=== PATIENT | male | born 1965 | race Caucasian/White ===

== ENCOUNTER 2017-04-04 08:55 | Observation (INO) ==
[2017-04-04] MEDS ORDERED: Aspirin 81 MG TAB.CHEW PO ONE (09:04)
[2017-04-04] MEDS ORDERED: Nitroglycerin 1 INCH/GM PACKET TP ONE (09:04)
--- NOTE | 2017-04-04 09:07 | Emergency Department Note ---
Disposition Clinical Impression: Chest pain Qualifiers: Chest pain type: unspecified Qualified Code(s): R07.9 - Chest pain, unspecified Hypertension Qualifiers: Hypertension type: essential hypertension Qualified Code(s): I10 - Essential ( primary) hypertension Disposition: Admitted As Inpatient Referrals: Wilman Whitney Jr, MD [Primary Care Provider] - Forms: Work/School Release, ED Satisfaction Letter Time of Disposition: 10:33 Chest Pain HPI - General Chief Complaint: ED General Medical Stated Complaint: HTN Time Seen by Provider: 04/04/17 08:57 Source: patient, EMS Mode of arrival: EMS Limitations: no limitations Vital Signs Reviewed: Yes Nursing Notes Reviewed: Yes - History of Present Illness HPI Narrative: 21-year-old who comes in complaining of chest pain and elevated blood pressure. Patient states she hasn't felt well for last several days. He went to his counseling session today that his blood pressure was elevated. Patient states he has had some intermittent chest pain over the last several days. The patient did have a stent last year has had no cardiac workup since. Pt complaint: chest pain Onset (ago): [employer] Duration: intermittent Onset: during exertion Pain Location: substernal, left chest Severity: moderate Severity scale (1-10): 8 Pain Radiation: none Improves with: nothing Worsens with: exertion Treatments prior to arrival chest pain: none - Related Data Home Medications Medication Instructions Recorded Confirmed Alprazolam [Xanax] 1 mg PO TID 04/29/16 08/25/16 Gabapentin [Neurontin] 100 mg PO TID 04/29/16 08/25/16 Haloperidol [Haldol] 5 mg PO QAM 04/29/16 08/25/16 Insulin ASPART [Novolog Flexpen] 5 - 10 unit SQ TIDWM 04/29/16 08/25/16 Mirtazapine [Remeron] 45 mg PO HS 04/29/16 08/25/16 Furosemide [Lasix] 40 mg PO DAILY 06/12/16 08/25/16 Haloperidol [Haldol] 10 mg PO HS 06/12/16 08/25/16 Insulin DETEMIR [Levemir Flextouch] 40 unit SQ BID 06/12/16 08/25/16 Prazosin [Minipress] 1 mg PO HS 06/12/16 08/25/16 Quetiapine Fumarate [Seroquel] 150 mg PO QAM 06/12/16 08/25/16 Quetiapine Fumarate [Seroquel] 450 mg PO HS 06/12/16 08/25/16 TraZODone 50 - 100 mg PO HS 06/12/16 08/25/16 Venlafaxine XR (24 HR) [Effexor XR] 75 mg PO DAILY 06/12/16 08/25/16 Lisinopril [Zestril] 10 mg PO BID 08/25/16 08/25/16 Previous Rx's Medication Instructions Recorded Aspirin 81 mg PO DAILY tab.chew 06/20/16 Atorvastatin [Lipitor] 40 mg PO HS #30 tablet 06/20/16 Carvedilol [Coreg] 12.5 mg PO BIDWM #120 tablet 06/20/16 Clopidogrel [Plavix] 75 mg PO DAILY #30 tablet 06/20/16 Pantoprazole Sodium [Protonix] 40 mg PO DAILY #30 tablet.dr 06/20/16 amLODIPine [Norvasc] 10 mg PO DAILY #30 tablet 06/20/16 Isosorbide MONOnitrate (24 HR) 60 mg PO DAILY #20 tab.er.24h 08/15/16 [Imdur] Allergies Allergy/AdvReac Type Severity Reaction Status Date / Time codeine Allergy Vomiting Verified 06/12/16 13:04 All systems ED: reviewed and negative except as stated. Constitutional: Denies: fever, chills, weakness, weight change Eyes: Denies: eye pain, eye discharge, vision change ENT ED: Denies: ear pain, throat pain, dental pain, hearing loss, epistaxis, congestion, dysphagia Cardiovascular: Reports: chest pain. Denies: palpitations, dyspnea on exertion , edema, syncope Respiratory: Denies: cough, dyspnea, wheezes, hemoptysis, stridor Gastrointestinal: Denies: abdominal pain, nausea, vomiting, diarrhea, constipation, hematemesis, melena, hematochezia Genitourinary: Denies: urgency, dysuria, frequency, hematuria Musculoskeletal: Denies: back pain, neck pain, arthralgia, myalgia Integumentary: Denies: rash, abrasion, lesions Neurological: Denies: headache, weakness, numbness, paresthesias, confusion, abnormal gait, vertigo Psychiatric: Denies: anxiety, depression, suicidal thoughts, homicidal thoughts , auditory hallucinations, visual hallucinations Endocrine: Denies: fatigue Hematological/Lymphatic: Denies: easy bleeding, easy bruising Allergic/Immunologic: Denies: facial swelling, urticaria Chest Pain PMH - Past Medical History Medical history: Reports: arthritis, cirrhosis, coronary artery disease, diabetes, GERD, hepatitis, hyperlipidemia, hypertension, liver disease, migraine , myocardial infarction, RA, renal disease Surgical history: Reports: angioplasty/stent (06/18/2016 x1), cholecystectomy Psychiatric history: Reports: anxiety, depression, PTSD - Social History Smoking Status: Former smoker Alcohol use: Reports: none Drug use: Reports: none Physical Exam - General Limitations: no limitations General appearance: alert, in no apparent distress - Head Head exam: atraumatic, normocephalic, normal inspection - Eye Eye exam: Present: normal appearance, PERRL, EOMI - ENT ENT exam: normal exam - Neck Neck exam: Present: normal inspection, full ROM, trachea midline - Chest Chest inspection: Present: normal inspection, symmetric chest wall rise - Respiratory Respiratory exam: Present: normal lung sounds bilaterally - Cardiovascular Cardiovascular exam: Present: regular rate, normal rhythm, normal heart sounds - Abdominal Exam Abdominal exam: Present: soft, Non-Tender. Absent: tenderness, distention, guarding, rebound, rigidity - Extremities Exam Extremities exam: Present: normal inspection, full ROM. Absent: tenderness, pedal edema - Expanded Lower Extremity Exam Neurovascular/Tendon exam: Absent: motor deficit, sensory deficit, tendon deficit Gait: observed and normal - Back Exam Back exam: Present: normal inspection, full ROM. Absent: tenderness - Neurological Exam Neurological exam: Present: alert, oriented X3 - Psychiatric Psychiatric exam: Present: normal affect, normal mood - Skin Skin exam: Present: warm, dry, intact, normal color Course - Reevaluation(s) Reevaluation #1: 51-year-old with a history of previous stent who comes in complains of intermittent chest discomfort and elevated blood pressure. Patient's initial EKG shows no acute changes troponin is negative. Patient will be admitted for further evaluation of his chest pain. Time: 10:33 - Consultations Consultation #1: Discussed with Dr. Pryor, admit. Time: 10:31 Vital Signs Temperature 98.2 F 04/04/17 08:56 Pulse Rate 105 04/04/17 08:56 Respiratory Rate 17 04/04/17 08:56 Blood Pressure 190/119 04/04/17 08:56 O2 Sat by Pulse Oximetry 100 04/04/17 08:56 Temperature 98.2 F 04/04/17 08:56 Pulse Rate 93 04/04/17 10:12 Respiratory Rate 04/04/17 10:12 Blood Pressure 171/113 04/04/17 10:12 O2 Sat by Pulse Oximetry 100 04/04/17 10:12 Oxygen Delivery Oxygen Delivery Room Air Chest Pain - Lab Data Lab results reviewed: Yes I reviewed the patient's lab results. Result diagrams: 04/04/17 09:07 04/04/17 09:07 Lab Results 04/04/17 04/04/17 04/04/17 Range/Units 09:07 09:07 09:07 WBC 9.4 (4.3-11.1) K/mcL RBC 4.63 (4.19-5.50) M/mcL Hgb 13.5 (12.9-16.9) g/dL Hct 38.6 (37.5-50.1) % MCV 83.4 (83.0-100.0) fL MCH 29.2 (28.0-33.3) pg MCHC 35.0 (31.6-35.5) g/dL RDW 12.6 (11.5-14.5) % Plt Count 193 (140-400) K/mcL MPV 8.6 L (9.4-12.4) fL Immature Gran % 0.4 (0-4) % Seg Neutrophils % 67.9 % Lymphocytes % 23.6 % Monocytes % 6.4 % Eosinophils % 1.3 % Basophils % 0.4 % Neutrophils # 6.4 (1.6-8.9) K/mcL Lymphocytes # 2.2 (0.6-4.6) K/mcL Monocytes # 0.6 (0.0-1.3) K/mcL Eosinophils # 0.1 (0.0-0.6) K/mcL Basophils # 0.0 (0.0-0.2) K/mcL PT 12.3 H (9.4-12.1) Seconds INR 1.1 APTT 29.8 (26.0-36.0) Seconds Sodium 131 L (136-145) mEq/L Potassium 4.5 (3.5-4.5) mEq/L Chloride 97 L (98-109) mEq/L Carbon Dioxide 28 (19-29) mEq/L BUN 18 (8-26) mg/dL Creatinine 1.26 H (0.72-1.25) mg/dL Est GFR ( Amer) > 60 (> 60) Est GFR (Non-Af Amer) 60 (> 60) BUN/Creatinine Ratio 14 (6-26) Glucose 281 H (70-99) mg/dL POC Glucose (58-89) Calculated Osmolality 284 (280-300) Calcium 9.6 (8.6-10.8) mg/dL Troponin I (0-0.03) ng/mL 04/04/17 04/04/17 Range/Units 09:07 09:21 WBC (4.3-11.1) K/mcL RBC (4.19-5.50) M/mcL Hgb (12.9-16.9) g/dL Hct (37.5-50.1) % MCV (83.0-100.0) fL MCH (28.0-33.3) pg MCHC (31.6-35.5) g/dL RDW (11.5-14.5) % Plt Count (140-400) K/mcL MPV (9.4-12.4) fL Immature Gran % (0-4) % Seg Neutrophils % % Lymphocytes % % Monocytes % % Eosinophils % % Basophils % % Neutrophils # (1.6-8.9) K/mcL Lymphocytes # (0.6-4.6) K/mcL Monocytes # (0.0-1.3) K/mcL Eosinophils # (0.0-0.6) K/mcL Basophils # (0.0-0.2) K/mcL PT (9.4-12.1) Seconds INR APTT (26.0-36.0) Seconds Sodium (136-145) mEq/L Potassium (3.5-4.5) mEq/L Chloride (98-109) mEq/L Carbon Dioxide (19-29) mEq/L BUN (8-26) mg/dL Creatinine (0.72-1.25) mg/dL Est GFR ( Amer) (> 60) Est GFR (Non-Af Amer) (> 60) BUN/Creatinine Ratio (6-26) Glucose (70-99) mg/dL POC Glucose 284 H (58-89) Calculated Osmolality (280-300) Calcium (8.6-10.8) mg/dL Troponin I 0.01 (0-0.03) ng/mL - Radiology Data Radiology results reviewed: Yes I reviewed the patient's radiology results. - EKG Data EKG attestation: Yes I reviewed and interpreted this EKG. EKG shows normal: sinus rhythm Rate: normal Rhythm: NSR Interpretation: no acute changes Heart Score - Score History: Moderately Suspicious EKG: Non Specific repolarisation Disturbance Age: 45-65 Risk Factors: Equal/Greater than 3 risk factor or history of atherosclerotic disease Troponin: Less than normal limit HEART Score Total: 5
[2017-04-04 09:12] LABS: Basophils % 0.4 %; Eosinophils # 0.1 K/mcL (0.0-0.6); Eosinophils % 1.3 %; Hematocrit 38.6 % (37.5-50.1); Hemoglobin 13.5 g/dL (12.9-16.9); Immature Granulocytes % 0.4 % (0-4); Lymphocytes # 2.2 K/mcL (0.6-4.6); Lymphocytes % 23.6 %; Mean Corpuscular Hemoglobin 29.2 pg (28.0-33.3); Mean Corpuscular Volume 83.4 fL (83.0-100.0); Mean Platelet Volume 8.6 fL (9.4-12.4); Monocytes # 0.6 K/mcL (0.0-1.3); Monocytes % 6.4 %; Neutrophils # 6.4 K/mcL (1.6-8.9); Platelet Count 193 K/mcL (140-400); Red Blood Count 4.63 M/mcL (4.19-5.50); Red Cell Distribution Width 12.6 % (11.5-14.5); Segmented Neutrophils % 67.9 %
[2017-04-04 09:23] LABS: INR 1.1; Prothrombin Time 12.3 Seconds (9.4-12.1)
[2017-04-04 09:25] LABS: Activated Partial Thrombo Time 29.8 Seconds (26.0-36.0); BUN/Creatinine Ratio 14 (6-26); Blood Urea Nitrogen 18 mg/dL (8-26); Calcium 9.6 mg/dL (8.6-10.8); Carbon Dioxide 28 mEq/L (19-29); Chloride 97 mEq/L (98-109); Glucose 281 mg/dL (70-99); Osmolality,Calculated 284 (280-300); Potassium 4.5 mEq/L (3.5-4.5); Sodium 131 mEq/L (136-145); eGFR For African Americans > 60 (> 60); eGFR For Non-African Americans 60 (> 60)
[2017-04-04] MEDS ORDERED: *HR* Labetalol 20 MG/4 ML SYRINGE IVP ONE (09:36)
[2017-04-04] MEDS ORDERED: Naloxone 0.4 MG/ML INJ IVP PRN (10:32)
[2017-04-04] MEDS ORDERED: D5% in Water 1,000 ML IVC PRN (10:37)
[2017-04-04] MEDS ORDERED: *HR* Dextrose 50 % in Water (Syg) 50 ML SYRINGE IVP PRN (10:37)
[2017-04-04] MEDS ORDERED: Dextrose Gel 15 GM PO PRN ×2 (10:37)
[2017-04-04 10:53] LABS: Hemoglobin A1C 8.5 %
[2017-04-04] MEDS ORDERED: cloNIDine HCl 0.1 MG TABLET PO ONE (10:58)
--- NOTE | 2017-04-04 11:04 | Internal Med History&Physical ---
<BashirDillonIlana J - Last Filed: 04/04/17 13:03> Date of Encounter: 04/04/17 Time of Encounter: 10:56 Assessment and Plan (1) CAD (coronary artery disease) Current visit: No Status: Acute per hx. S/p PCI 06/2016. [facility] at that time with severe 2 vessel disease, EF 55%. Now with intermittent chest pain that radiates to left shoulder, relieved with SL Nitro. Initial troponin negative, EKG without acute ST changes, Q wave present. Nitro paste given in the ED. Cycle troponin, stress test in the morning. Consult Cardiology if stress positive, troponin uptrending or still having chest pain. Cont home ASA, plavix, BB, statin, nitrate Qualifiers: Coronary Disease-Associated Artery/Lesion type: [place] artery [place] vs. transplanted heart: [place] heart Associated angina: with unspecified angina Qualified Code(s): I25.119 - Atherosclerotic heart disease of [place] coronary artery with unspecified angina pectoris (2) Hypertension Current visit: Yes Status: Acute Uncontrolled on arrival; 170s/120s. Reports medication compliance. IV labetalol given in the ED with some improvement in BP slowly trending down. Cont home BP medications once verified (hold OMID with SANDEEP); add PRN Hydralazine. Monitor BP and titrate PRN. Can uptitrate BP medications Qualifiers: Hypertension type: essential hypertension Qualified Code(s): I10 - Essential (primary) hypertension (3) SANDEEP (acute kidney injury) Current visit: Yes Status: Acute Cr 1.26; baseline appears normal. Holding home OMID. IV fluids. Monitor repeat CMP. Resume OMID as asble (4) Diabetes mellitus Current visit: Yes Status: Acute per hx. Uncontrolled. Hgb A1c 8.5. Review home regimen once medications verified (may need to increase long acting insulin). SSI for now. 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 Gonzalez is a 51 year old male CAD, HTN, SANDEEP and diabetes who presented to [facility] on 04/04/2017 from outpatient Psych office with complaints of chest pain and headache. He was found to be in hypertensive urgency and was placed placed in observation status for BP control and ACS rule out. Information obtained from chart review and patient report. Patient says he was at office visit today when complained of headache and chest pain. Headache was gradual onset, not the worse headache of his life. Headache started this morning, is better now but still there. Also reports intermittent chest pain off and on for the ast 2- 3 days. Describes as an ache, located to left chest, radiates to left shoulder, rates 8/10 at it's worse, SL nitro helped at home and nothing made worse. No SOB Past Med Surg Social Fam HX - Past Medical History Medical history: arthritis, cirrhosis, coronary artery disease, diabetes, GERD, hepatitis, hyperlipidemia, hypertension, liver disease, migraine, myocardial infarction, RA, renal disease Psychiatric history: anxiety, depression, PTSD - Past Surgical History Surgical History: angioplasty/stent (06/18/2016 x1), cholecystectomy - Social History Smoking Status: Former smoker Smokeless Tobacco Status: No Alcohol use: none Drug use: none - Family History Father Living Status: Hx Family Cardiac Disorders: Yes Mother Living Status: Hx Family Cardiac Disorders: Yes (Mother,self,grandfather,brothers.sister) Hx Family Respiratory Disorders: Yes (mother) Hx Family Cancer: Yes (uncle,) Hx Family GI Disorders: Yes (self,) Hx Family Endocrine Disorder: Yes (self, father, 3 uncles) Hx Family Neuromuscular Disorders: No Hx Family Neurologic Disorders: Yes (father) Hx Family HEENT Disorders: No Hx Family Autoimmune Disorders: No Internal Medicine - H&P: Meds Alprazolam [Xanax] 1 mg PO TID 04/29/16 [History] Gabapentin [Neurontin] 100 mg PO TID 04/29/16 [History] Insulin ASPART [Novolog Flexpen] 10 unit SQ TIDWM 04/29/16 [History] Mirtazapine [Remeron] 45 mg PO HS 04/29/16 [History] Furosemide [Lasix] 40 mg PO DAILY 06/12/16 [History] Haloperidol [Haldol] 2 mg PO HS 06/12/16 [History] Insulin DETEMIR [Levemir Flextouch] 40 unit SQ BID 06/12/16 [History] Prazosin [Minipress] 1 mg PO HS 06/12/16 [History] Quetiapine Fumarate [Seroquel] 150 mg PO QAM 06/12/16 [History] Quetiapine Fumarate [Seroquel] 450 mg PO HS 06/12/16 [History] TraZODone 50 - 100 mg PO HS 06/12/16 [History] Venlafaxine XR (24 HR) [Effexor XR] 75 mg PO DAILY 06/12/16 [History] Aspirin 81 mg PO DAILY tab.chew 06/20/16 [Rx] Atorvastatin [Lipitor] 40 mg PO HS #30 tablet 06/20/16 [Rx] Carvedilol [Coreg] 12.5 mg PO BIDWM #120 tablet 06/20/16 [Rx] Clopidogrel [Plavix] 75 mg PO DAILY #30 tablet 06/20/16 [Rx] Pantoprazole Sodium [Protonix] 40 mg PO DAILY #30 tablet.dr 06/20/16 [Rx] amLODIPine [Norvasc] 10 mg PO DAILY #30 tablet 06/20/16 [Rx] Isosorbide MONOnitrate (24 HR) [Imdur] 60 mg PO DAILY #20 tab.er.24h 08/15/16 [ Rx] Lisinopril [Zestril] 10 mg PO BID 08/25/16 [History] Multivitamin with Minerals [One-A-Day Maximum Formula] 1 tab PO DAILY 04/04/17 [ History] Ensign-3/Dha/Epa/Fish Oil [Fish Oil 1,000 mg Softgel] 1,000 mg PO DAILY 04/04/17 [History] Spironolactone [Aldactone] 50 mg PO BID 04/04/17 [History] Allergies codeine Allergy (Verified 06/12/16 13:04) Vomiting All Systems PM: A 10-system review of systems was performed and is negative for pertinent findings except as documented above in the HPI. - Constitutional Constitutional: fatigue, no chills, no fever(s), no night sweats - EENT Eyes: no change in vision, no discharge, no pain, no photophobia Ears: no ear discharge, no ear pain, no tinnitus Nose, mouth and throat: no dysphagia, no nasal discharge, no neck pain, no sore throat - Cardiovascular Cardiovascular ROS IM: chest pain, no diaphoresis, no dyspnea, no lightheadedness, no palpitations, no syncope - Respiratory Respiratory: no cough, no dyspnea, no wheezing, no excessive phlegm production - Gastrointestinal Gastrointestinal: no abdominal pain, no diarrhea, no hematemesis, no hematochezia, no melena, no nausea, no vomiting - Musculoskeletal Musculoskeletal ROS IM: no numbness, no tingling - Integumentary Integumentary IM: no rash, no unusual bruising - Neurological Neurological ROS: headache(s), no confusion, no convulsions, no focal weakness, no numbness, no tingling, no tremor(s) - Hematologic/Lymphatic Hematologic/Lymphatic: no easy bruising - Constitutional Vitals: Temp Pulse Resp BP Pulse Ox 98.2 F 93 16 171/113 100 04/04/17 08:56 04/04/17 10:12 04/04/17 10:12 04/04/17 10:12 04/04/17 10:12 General appearance: Present: A&O X 3, no acute distress - Head Head exam: Present: atraumatic, normocephalic - Eye Eye exam: Present: PERRL, conjuntiva pink, sclera anicteric Pupils: Present: PERRL - Neck Neck exam general surgery: Present: supple, trachea midline. Absent: lymphadenopathy - Respiratory Respiratory exam: Present: CTAB. Absent: accessory muscle use, rales, rhonchi, wheezes - Cardiovascular Cardiovascular exam: Present: RRR, +S1, +S2. Absent: diastolic murmur, gallop, rubs, systolic murmur - GI/Abdominal GI/Abdominal exam: Present: normal bowel sounds, soft, no peritoneal signs. Absent: distended, tenderness - Extremities Exam Extremities exam: Present: warm, radial pulses palpable and symetrical. Absent : calf tenderness, cyanotic, pedal edema - Neurological Exam Neurological exam: Present: CN II-XII intact, oriented X3, no focal deficits. Absent: pronater drift, facial droop, speech deficit - Skin Skin exam: Present: dry, intact Internal Med - H&P Results - Labs CBC & Chem 7: 04/04/17 09:07 04/04/17 09:07 Labs: Short CBC 06/20/17 Range/Units 09:07 WBC 9.4 (4.3-11.1) K/mcL Hgb 13.5 (12.9-16.9) g/dL Hct 38.6 (37.5-50.1) % Plt Count 193 (140-400) K/mcL Neutrophils # 6.4 (1.6-8.9) K/mcL BMP 04/04/17 09:07 Sodium 131 L Potassium 4.5 Chloride 97 L Carbon Dioxide 28 BUN 18 Creatinine 1.26 H Glucose 281 H Calcium 9.6 Cardiac Enzymes 04/04/17 Range/Units 09:07 Troponin I 0.01 (0-0.03) ng/mL - Impressions ITS Impressions Chest X-Ray 04/04/17 09:04 IMPRESSION: No acute process. D/ / Claude Campo MD / Claude Campo MD Interpreting Provider: Claude Campo MD <Joy Pryor - Last Filed: 04/04/17 16:17> Date of Encounter: 04/04/17 Time of Encounter: 12:00 Internal Medicine - H&P: HPI History of present illness: Mr. Gonzalez is a 51 year old male All Systems PM: A 10-system review of systems was performed and is negative for pertinent findings except as documented above in the HPI. - Constitutional Vitals: Temp Pulse Resp BP Pulse Ox 98.4 F 100 18 165/119 96 04/04/17 15:06 04/04/17 15:06 04/04/17 15:06 04/04/17 15:06 04/04/17 15:06 Internal Med - H&P Results - Labs CBC & Chem 7: 04/04/17 09:07 04/04/17 09:07 Labs: Cardiac Enzymes 04/04/17 Range/Units 13:54 Troponin I 0.01 (0-0.03) ng/mL - Attending Attestation I examined this patient and my medical decision-making was reviewed with the nurse practitioner. I agree with the documented history of present illness, review of systems, past medical, surgical social and family histories and examination findings, disposition and treatment plan as described above except to any changes set forth below. 51-year-old male patient with history of coronary artery disease presenting with chest pain. Atypical chest pain. Mildly acute kidney injury. Underlying history of diabetes and hypertension. On examination, has normal S1 and S2. No reproducible chest wall tenderness. Precordial chest pain: Trend troponins. Telemetry. Cardiac stress test in the morning. Accelerated hypertension/hypertensive urgency: Treat with home medications. We will add IV medications if needed to control blood pressure. High risk for complications. Diabetes mellitus type 2: Monitor blood sugars. Diabetic diet. Sliding scale insulin. Coronary artery disease: Status post PCI and stents. Continue aspirin, statin, beta rona, Plavix. Stress test in a.m.
[2017-04-04] MEDS: Insulin LISPRO 300 UNITS/3 ML VIAL SQ SCH ×3 (13:05→21:33)
[2017-04-04] MEDS: 0.9 % Sodium Chloride 1,000 ML IVC SCH (13:09)
[2017-04-04] MEDS: Acetaminophen 325 MG TABLET PO PRN (13:14)
[2017-04-04] MEDS ORDERED: Ondansetron 4 MG/2 ML VIAL ONE (16:46)
[2017-04-04] MEDS: Gabapentin 100 MG CAPSULE PO SCH ×2 (16:52→21:32)
[2017-04-04] MEDS: ALPRAZolam 1 MG TABLET PO SCH ×2 (16:52→21:32)
--- NOTE | 2017-04-04 19:07 | Electrocardiograph Report ---
[place] [id number] Test Date: 2017-04-04 Pat Name: Miah Gonzalez Department: 105 Room: 3B46 Gender: M Teaseler: JOSE : 1965 Requested By: Mj Briggs Order Number: [id number] Reading MD: Liz Luna Measurements Intervals [place] Rate: 99 P: 20 NE: 164 QRS: 105 QRSD: 98 T: -10 QT: 335 QTc: 391 Interpretive Statements SINUS RHYTHM MARKED RIGHT AXIS DEVIATION [QRS AXIS > 100] POSSIBLE INFERIOR MYOCARDIAL INFARCTION [30 ms Q WAVE IN II/aVF], OF INDETERMINATE AGE Electronically Signed On 04-04-2017 19:05:43 EDT by Liz Luna
[2017-04-04] MEDS: Acetaminophen/Butalbital/CaffeineTABLET PO PRN (19:31)
[2017-04-04] MEDS: Ondansetron 4 MG/2 ML VIAL IVP PRN (21:30)
[2017-04-04] MEDS: traZODone 50 MG TABLET PO SCH (21:32)
[2017-04-04] MEDS: Mirtazapine 15 MG TABLET PO SCH (21:33)
[2017-04-04] MEDS: Insulin DETEMIR 100 UNIT/ML X5UNITS SQ SCH (21:33)
[2017-04-05] MEDS: 0.9 % Sodium Chloride 1,000 ML IVC SCH (02:00)
[2017-04-05] MEDS ORDERED: Regadenoson 0.4 MG/5 ML SYRINGE IVP ONE (06:22)
[2017-04-05 07:18] LABS: Basophils % 0.5 %; Eosinophils # 0.2 K/mcL (0.0-0.6); Eosinophils % 1.8 %; Hematocrit 38.9 % (37.5-50.1); Hemoglobin 13.3 g/dL (12.9-16.9); Immature Granulocytes % 0.4 % (0-4); Lymphocytes # 2.5 K/mcL (0.6-4.6); Lymphocytes % 30.1 %; Mean Corpuscular HGB Conc 34.2 g/dL (31.6-35.5); Mean Corpuscular Volume 84.7 fL (83.0-100.0); Monocytes # 0.7 K/mcL (0.0-1.3); Monocytes % 7.9 %; Platelet Count 204 K/mcL (140-400); Red Blood Count 4.59 M/mcL (4.19-5.50); Red Cell Distribution Width 12.9 % (11.5-14.5); Segmented Neutrophils % 59.3 %
[2017-04-05 07:24] LABS: Alanine Aminotransferase 17 Units/L (0-55); Albumin 3.7 g/dL (3.5-5.0); Albumin/Globulin Ratio 0.9 (1.1-2.2); Alkaline Phosphatase 64 Units/L (38-126); Aspartate Amino Transferase 19 Units/L (5-34); BUN/Creatinine Ratio 13 (6-26); Bilirubin,Total 0.4 mg/dL (0.2-1.2); Blood Urea Nitrogen 13 mg/dL (8-26); Calcium 9.5 mg/dL (8.6-10.8); Carbon Dioxide 25 mEq/L (19-29); Chloride 101 mEq/L (98-109); Chol/HDL Ratio 5.4 (0-4.9); Cholesterol 130 mg/dL (< 200); Globulin 3.9 g/dL (2.4-3.5); Glucose 80 mg/dL (70-99); HDL Cholesterol 24 mg/dL (40-59); LDL Cholesterol,Calculated 53 mg/dL (0-99); Osmolality,Calculated 279 (280-300); Potassium 3.7 mEq/L (3.5-4.5); Sodium 135 mEq/L (136-145); Total Protein 7.6 g/dL (6.0-8.3); Triglycerides 267 mg/dL (< 150); eGFR For African Americans > 60 (> 60); eGFR For Non-African Americans > 60 (> 60)
[2017-04-05] MEDS: Insulin LISPRO 300 UNITS/3 ML VIAL SQ SCH ×4 (08:51→22:24)
[2017-04-05] MEDS: Insulin DETEMIR 100 UNIT/ML X5UNITS SQ SCH ×2 (08:52→22:24)
[2017-04-05] MEDS: amLODIPine 5 MG TABLET PO SCH (08:52)
[2017-04-05] MEDS: Venlafaxine XR (24 HR) 75 MG CAP.ER.24H PO SCH (08:52)
[2017-04-05] MEDS: Aspirin 81 MG TAB.CHEW PO SCH (08:52)
[2017-04-05] MEDS: Gabapentin 100 MG CAPSULE PO SCH ×3 (08:52→22:16)
[2017-04-05] MEDS: ALPRAZolam 1 MG TABLET PO SCH ×3 (08:53→22:17)
[2017-04-05] MEDS ORDERED: Isosorbide MONOnitrate (24 HR) 60 MG TAB.ER.24H PO SCH (09:00)
[2017-04-05] MEDS ORDERED: Furosemide 40 MG TABLET PO SCH (09:00)
[2017-04-05] MEDS: Acetaminophen/Butalbital/CaffeineTABLET PO PRN (09:01)
[2017-04-05] MEDS: Ondansetron 4 MG/2 ML VIAL IVP PRN ×3 (10:35→23:45)
--- NOTE | 2017-04-05 10:46 | Nuclear Medicine Stress Report ---
Regadenoson Nuclear Stress Name: Miah Gonzalez Date of Study: 04/05/2017 Date: 1965 Ht: 70.0 in Medical Record#: [id number] Age: 51 Wt: 178.0 lb Gender: Male Order #: [id number] Location: [facility] Room: [facility] Supervising Provider: Lion Myers CNP Reading Physician: Win Cantu DO, FACC, FASMO Ordering Physician: Cyndi Park CNP Primary Care Physician: Wilman Whitney MD Stress Technologist: Kami Brady [place] ATTORNEY, CCT Sky Diver: Santhosh Rubin Indications: Chest Pain Impression: Pharmacologic stress ECG is negative for ischemia at level of heart rate achieved. Chest pain reported prior to and during the study. No change in intensity. Gated EF = 51%. Medium sized, severe intensity, fixed inferolateral defect c/w prior infarct. Small sized, mild intensity, reversible inferior defect c/w ischemia. SDS 3. Cyndi Park CNP notified via [employer]. History: Hypertension Diabetes Prior PCI Stress Test Summary: Stress Test Type: Pharmacologic Regadenoson 0.4mg/5ml given IV Baseline Information: Initial Heart Rate: 105 Blood Pressure: 148/100 Stress Information: Test Terminated Due to (primary): As per protocol Maximum Blood Pressure: 122/94 Maximum Heart Rate: 115 Percent Maximum Heart Rate Achieved: 69 Double Product: [id number] METS Reached: 1 Symptoms: Chest pain Nuclear Summary: SPECT myocardial perfusion imaging using Tc99m Sestamibi given intravenously was performed at rest and following cardiac stress testing. The resting images were obtained following initial dose of 11.5 mCi. Following stress an additional dose of 35.6 mCi was given at peak exercise or 30 seconds post regadenoson infusion. Medication Given: Time Medication Dose Units Route Findings: Stress Note * Sinus tachycardia * No baseline arrhythmias were noted. * Pharmacologic stress ECG is negative for ischemia at level of heart rate achieved. * No arrhythmias were noted during stress. * Chest pain reported prior to and during the study. No change in intensity. Hemodynamic responses * Normal hemodynamic responses to pharmacologic stress. Study Quality * Study quality is average. Gated EF % * Gated EF = 51%. Left Ventricle * The left ventricle is not dilated. * LVEDV = 85 mL. Inferior Perfusion Rest * The inferolateral segments show a severe reduction in perfusion. Inferior Perfusion Stress * The inferolateral segments show a severe reduction in perfusion. * The inferior segments show a mild reduction in perfusion. TID * No evidence of transient ischemic dilatation. TID ratio * TID ratio = 1.23. Lung Uptake * There is no evidence of increase lung uptake. Updated by Win Cantu DO, CAMELIA, ADRI, NAHOMY on 04/05/2017 10:40:58 AM electronically signed on 04/05/2017 10:41:49 AM with status of Final
[2017-04-05] MEDS ORDERED: traMADol 50 MG TABLET PO ONE (11:17)
[2017-04-05] MEDS: Acetaminophen 325 MG TABLET PO PRN (15:33)
--- NOTE | 2017-04-05 18:12 | Internal Med Progress Note ---
Date of Encounter: 04/05/17 Time of Encounter: 10:55 - Assessment and plan (1) CAD (coronary artery disease) Current Visit: Yes Status: Acute Assessment and plan: PCI in June 2016, severe 2 vessel disease at that time with an EF of 55%. He reports stent being placed at that time. He reports intermittent left what appears to be intercostal chest pain that radiates straight through his chest to the same area below the left scapula. It was relieved with sublingual nitroglycerin in the emergency department. His troponins were negative 3. EKG was normal sinus rhythm with no acute ST changes. Stress test today showed ejection fraction 51%. He did have chest pain prior to and during his stress test, it is almost constant. There is no change in the intensity during the stress test. Stress test showed a small sized, mild intensity, reversible inferior defect consistent with ischemia. Cardiac consult in for the morning. I did speak with Dr. Barahona, patient is nothing by mouth for morning evaluation by cardiology team. Qualifiers: Coronary Disease-Associated Artery/Lesion type: [place] artery [place] vs. transplanted heart: [place] heart Associated angina: with unspecified angina Qualified Code(s): I25.119 - Atherosclerotic heart disease of [place] coronary artery with unspecified angina pectoris (2) Chest pain Current Visit: Yes Status: Acute Assessment and plan: Plan as above Qualifiers: Chest pain type: chest pain due to myocardial ischemia Ischemic chest pain type: unspecified angina pectoris type Qualified Code(s): I20.9 - Angina pectoris, unspecified (3) Hypertension Current Visit: Yes Status: Acute Assessment and plan: Chronic. Continue home medications. Qualifiers: Hypertension type: essential hypertension Qualified Code(s): I10 - Essential (primary) hypertension (4) SANDEEP (acute kidney injury) Current Visit: Yes Status: Acute Assessment and plan: Result. Renal function has returned to normal. (5) Diabetes mellitus Current Visit: Yes Status: Acute Assessment and plan: Chronic. Continue Accu-Cheks, start sliding scale insulin. Qualifiers: Diabetes mellitus type: type 2 Diabetes mellitus complication status: without complication Diabetes mellitus records and information manager insulin use: with records and information manager use Qualified Code(s): E11.9 - Type 2 diabetes mellitus without complications ; Z79.4 - care home (current) use of insulin (6) DVT prophylaxis Current Visit: Yes Status: Acute Assessment and plan: Heparin subcutaneous daily. - Time Spent With Patient less than 15 minutes - Subjective Interval history: She was seen and assessed at 10:55 AM. He reports bilateral temporal headache for the last month. I treated him with Ultram that was ineffective. His primary care physician is Dr. Whitney. He reports very specific location of left chest pain that is about a quarter in diameter left sternal border. Radiates straight through to his scapula. He describes it as a dull ache. He denies any nausea, vomiting, diaphoresis. Onset of the chest pain began at 10 AM yesterday while he is at the counseling center for his appointment. He had episode of hypertension at that time when chest pain began. Patient's concerned about cardiac etiology due to having a stent placed last June. - Constitutional Vitals: Temp Pulse Resp BP Pulse Ox 98.3 F 91 16 138/88 97 04/05/17 16:25 04/05/17 16:25 04/05/17 16:25 04/05/17 16:25 04/05/17 16:25 General appearance: Present: A&O X 3, pleasant, no acute distress, answers questions appropriately - Head Head exam: Present: normal inspection - Expanded Head Exam Head exam expanded: Absent: contusion, tenderness of temporal artery - Eye Eye exam: Present: normal appearance, PERRL, conjuntiva pink. Absent: nystagmus - ENT ENT exam: Present: mucous membranes moist, normal exam, normal external ear exam - Neck Neck exam general surgery: Present: normal inspection. Absent: lymphadenopathy , tenderness - Respiratory Respiratory exam: Present: CTAB. Absent: rales, respiratory distress, rhonchi, wheezes - Cardiovascular Cardiovascular exam: Present: RRR, +S1, +S2, tachycardia. Absent: diastolic murmur, systolic murmur - GI/Abdominal GI/Abdominal exam: Present: normal bowel sounds, soft. Absent: firm, hepatomegaly, splenomegaly, tenderness - Extremities Exam Extremities exam: Present: normal capillary refill, warm, radial pulses palpable and symetrical. Absent: pedal edema, tenderness - Neurological Exam Neurological exam: Present: alert, oriented X3, no focal deficits, strengths equal and symetr throughout. Absent: facial droop, speech deficit - Skin Skin exam: Present: dry, normal color, warm. Absent: rash Internal Medicine: Result - Labs CBC & Chem 7: 04/05/17 05:55 04/05/17 05:55 Labs: Short CBC 04/05/17 Range/Units 05:55 WBC 8.5 (4.3-11.1) K/mcL Hgb 13.3 (12.9-16.9) g/dL Hct 38.9 (37.5-50.1) % Plt Count 204 (140-400) K/mcL Neutrophils # 5.0 (1.6-8.9) K/mcL BMP 04/05/17 05:55 Sodium 135 L Potassium 3.7 Chloride 101 Carbon Dioxide 25 BUN 13 Creatinine 1.00 Glucose 80 Calcium 9.5 Cardiac Enzymes 04/04/17 Range/Units 20:10 Troponin I 0.01 (0-0.03) ng/mL Liver Function 04/05/17 Range/Units 05:55 Total Bilirubin 0.4 (0.2-1.2) mg/dL AST 19 (5-34) Units/L ALT 17 (0-55) Units/L Alkaline Phosphatase 64 (38-126) Units/L Albumin 3.7 (3.5-5.0) g/dL - ABG Interpretation ABG results: PT/INR, D-dimer PT 12.3 Seconds (9.4-12.1) H 04/04/17 09:07 Consult Discharge Plan - Plan Referrals: Deepika Tavarez CNP [Advanced Practice Nurse] - 04/11/17 1:00 pm
[2017-04-05] MEDS: traZODone 50 MG TABLET PO SCH (22:16)
[2017-04-05] MEDS: Mirtazapine 15 MG TABLET PO SCH (22:16)
[2017-04-05] MEDS ORDERED: MOM Conc 10 ML UD.LIQ PO PRN (23:31)
[2017-04-06] MEDS: 0.9 % Sodium Chloride 1,000 ML IVC SCH (04:12)
[2017-04-06 05:02] LABS: Basophils # 0.1 K/mcL (0.0-0.2); Basophils % 0.7 %; Eosinophils # 0.2 K/mcL (0.0-0.6); Eosinophils % 2.5 %; Hematocrit 36.5 % (37.5-50.1); Immature Granulocytes % 0.4 % (0-4); Lymphocytes # 3.1 K/mcL (0.6-4.6); Lymphocytes % 38.9 %; Mean Corpuscular HGB Conc 35.6 g/dL (31.6-35.5); Mean Corpuscular Hemoglobin 30.2 pg (28.0-33.3); Mean Corpuscular Volume 84.7 fL (83.0-100.0); Monocytes # 0.6 K/mcL (0.0-1.3); Monocytes % 7.8 %; Platelet Count 191 K/mcL (140-400); Red Blood Count 4.31 M/mcL (4.19-5.50); Red Cell Distribution Width 12.8 % (11.5-14.5); Segmented Neutrophils % 49.7 %
[2017-04-06 05:21] LABS: BUN/Creatinine Ratio 13 (6-26); Blood Urea Nitrogen 12 mg/dL (8-26); Calcium 9.3 mg/dL (8.6-10.8); Carbon Dioxide 23 mEq/L (19-29); Chloride 102 mEq/L (98-109); Glucose 68 mg/dL (70-99); Osmolality,Calculated 278 (280-300); Potassium 3.9 mEq/L (3.5-4.5); Sodium 135 mEq/L (136-145); eGFR For African Americans > 60 (> 60); eGFR For Non-African Americans > 60 (> 60)
[2017-04-06] MEDS: Insulin LISPRO 300 UNITS/3 ML VIAL SQ SCH ×3 (08:27→17:46)
--- NOTE | 2017-04-06 08:47 | Cardiology Consult Note ---
<Stanislav Soriano - Last Filed: 04/06/17 09:55> Date of Encounter: 04/06/17 Time of Encounter: 08:45 Assessment and Plan (1) Chest pain Current Visit: Yes Status: Acute Per Cardiology: Patient experiencing typical angina symptoms. Symptoms appear similar to what he was experiencing prior to stenting to RCA June 2016. Troponins negative 3. Qualifiers: Chest pain type: chest pain due to myocardial ischemia Ischemic chest pain type: unspecified angina pectoris type Qualified Code(s): I20.9 - Angina pectoris, unspecified (2) Abnormal nuclear stress test Current Visit: No Status: Acute Per Cardiology: Had abnormal nuclear stress test June 2016. Current stress test shows medium sized, severe intensity, fixed inferior lateral defect consistent with prior infarct and small sized, mild intensity, reversible inferior defect consistent with ischemia. Patient reviewed and discussed with Dr. Ly. Recommendations for left heart catheterization. Patient and verbalized understanding and agreed with plan. All questions answered. Further recommendations after catheterization today. (3) CAD (coronary artery disease) Current Visit: Yes Status: Chronic Per Cardiology: Known history of CAD with last heart catheterization June 2016 after abnormal stress test. Patient underwent successful PTCA with drug-eluting stent to proximal RCA 90% stenosis. Patient had OM1 99% recanalized SCHEDULE MANAGER with collaterals from right to left. Patient had proximal LAD 30%, ramus 20% and mid RCA 30% lesions. Patient on aspirin, Plavix, statin, beta rona, and long- acting nitrate. Patient with complaints of frequent headaches. Head CT negative for acute findings. Patient agreeable to discontinue long-acting nitrate and try Ranexa. Echo from June 2016 showed EF 55-60%, mild diastolic dysfunction, no significant valvular dysfunction, and no pulmonary hypertension. Qualifiers: Coronary Disease-Associated Artery/Lesion type: [place] artery [place] vs. transplanted heart: [place] heart Associated angina: with unspecified angina Qualified Code(s): I25.119 - Atherosclerotic heart disease of [place] coronary artery with unspecified angina pectoris (4) SANDEEP (acute kidney injury) Current Visit: Yes Status: Acute Per Cardiology: On Lasix as outpatient. Presented with mild SANDEEP, now resolved. We will discontinue fluids. Remains on home Aldactone. Will decrease Lasix dose and monitor kidney function closely with left heart catheterization. Euvolemic on exam with normal BMP and chest x-ray stable. (5) Hypertension Current Visit: Yes Status: Chronic Per Cardiology: Systolic blood pressure remains elevated in the 160s. We'll convert IV hydralazine from when necessary to PO hydralazine and optimize blood pressure control. On calcium channel rona and beta rona. Had previously been on OMID inhibitor, however currently not taking and is following nephrology. Consider addition of ACEI/ARB if deemed appropriate. Qualifiers: Hypertension type: essential hypertension Qualified Code(s): I10 - Essential (primary) hypertension Discussion w patient/family: The assessment and plan as outlined above was discussed with the patient and/or family members who expressed understanding and agreement. All questions were answered. Thank you for involving us in the care of your patient. Please call with any questions. History of Present Illness Consult date: 04/06/17 Requesting physician: Cyndi [place] Consult reason: + ST Chief complaint: CP, Fatigue History of present illness: Mr. Abraham is a 51 year old male with a relevant past medical history of diabetes mellitus, hypertension, hepatitis B, depression, CAD, hypertension, and past history nicotine abuse-- reports quit smoking about one year ago. Cardiology consult for abnormal stress test results. Patient reports over the past 6-8 weeks increased fatigue with exertion. He reports previously walking his dogs on a regular basis about 200 yards without any difficulty. Patient now reports struggling to complete the walk and now only walking half the distance and reports "wiped out the rest of the day ". Also reporting intermittent left-sided chest wall aching sensation with radiation to his back and shoulder region with exertion and relieved with rest. He reports he has been utilizing sublingual nitroglycerin pills a couple times per week with some mild relief of chest pain symptoms. He does report nausea and vomiting intermittently at rest and with exertional symptoms. Denies any recent fever, chills, diarrhea, cough, or cold-like symptoms. He denies any active bleeding or blood loss. Reports compliance with medications and has not missed Plavix. Denies any palpitations, syncope, falls. Does report chronic intermittent lightheadedness. Reports frequent headaches. He indicates increased emotional stress in his life regarding finances and recently uncontrolled systolic blood pressures. Past Med Surg Social Fam HX - Past Medical History Attestation: Yes The following information was validated with the patient. Source: patient, old records reviewed, obtained from family Medical history: arthritis, cirrhosis, coronary artery disease, diabetes, GERD, hepatitis, hyperlipidemia, hypertension, liver disease, migraine, myocardial infarction, RA, renal disease Psychiatric history: anxiety, depression, PTSD - Past Surgical History Surgical History: angioplasty/stent (06/18/2016 x1), cholecystectomy - Social History Smoking Status: Former smoker Smokeless Tobacco Status: No Alcohol use: none Drug use: none - Family History Father Name: michell abraham Living Status: Age at : 65 Cause of : complications from diabetes Hx Family Cardiac Disorders: Yes Hx Family Endocrine Disorder: Yes Hx Family Neurologic Disorders: Yes Mother Living Status: Hx Family Cardiac Disorders: Yes (Mother,self,grandfather,brothers.sister) Hx Family Respiratory Disorders: Yes (mother) Hx Family Cancer: Yes (uncle,) Hx Family GI Disorders: Yes (self,) Hx Family Endocrine Disorder: Yes (self, father, 3 uncles) Hx Family Neuromuscular Disorders: No Hx Family Neurologic Disorders: Yes (father) Hx Family HEENT Disorders: No Hx Family Autoimmune Disorders: No Medications and Allergies Alprazolam [Xanax] 1 mg PO TID 04/29/16 [History] Gabapentin [Neurontin] 100 mg PO TID 04/29/16 [History] Insulin ASPART [Novolog Flexpen] 10 unit SQ TIDWM 04/29/16 [History] Mirtazapine [Remeron] 45 mg PO HS 04/29/16 [History] Furosemide [Lasix] 40 mg PO DAILY 06/12/16 [History] Haloperidol [Haldol] 2 mg PO HS 06/12/16 [History] Insulin DETEMIR [Levemir Flextouch] 40 unit SQ BID 06/12/16 [History] Prazosin [Minipress] 1 mg PO HS 06/12/16 [History] Quetiapine Fumarate [Seroquel] 150 mg PO QAM 06/12/16 [History] Quetiapine Fumarate [Seroquel] 450 mg PO HS 06/12/16 [History] TraZODone 50 - 100 mg PO HS 06/12/16 [History] Venlafaxine XR (24 HR) [Effexor XR] 75 mg PO DAILY 06/12/16 [History] Aspirin 81 mg PO DAILY tab.chew 06/20/16 [Rx] Atorvastatin [Lipitor] 40 mg PO HS #30 tablet 06/20/16 [Rx] Carvedilol [Coreg] 12.5 mg PO BIDWM #120 tablet 06/20/16 [Rx] Clopidogrel [Plavix] 75 mg PO DAILY #30 tablet 06/20/16 [Rx] Pantoprazole Sodium [Protonix] 40 mg PO DAILY #30 tablet.dr 06/20/16 [Rx] amLODIPine [Norvasc] 10 mg PO DAILY #30 tablet 06/20/16 [Rx] Isosorbide MONOnitrate (24 HR) [Imdur] 60 mg PO DAILY #20 tab.er.24h 08/15/16 [ Rx] Lisinopril [Zestril] 10 mg PO BID 08/25/16 [History] Multivitamin with Minerals [One-A-Day Maximum Formula] 1 tab PO DAILY 04/04/17 [ History] Howell-3/Dha/Epa/Fish Oil [Fish Oil 1,000 mg Softgel] 1,000 mg PO DAILY 04/04/17 [History] Spironolactone [Aldactone] 50 mg PO BID 04/04/17 [History] Ranolazine [Ranexa] 1,000 mg PO BID #60 tab.er.12h 04/06/17 [Rx] Allergies codeine Allergy (Verified 06/12/16 13:04) Vomiting All Systems Review: A 10-system review of systems was performed and is negative for pertinent findings except as documented above in the HPI. - Constitutional Constitutional: fatigue - Cardiovascular Cardiovascular: as per HPI, chest pain with exertion, dyspnea on exertion, radiating jaw, neck or arm pain, lightheadedness - Gastrointestinal Gastrointestinal: nausea Physical Examination Vital Signs, Last 4 Hours Temp Pulse Resp BP Pulse Ox 04/06/17 07:40 98.9 F 94 17 164/109 98 General: Conversant, No Apparent Distress HEENT: Atraumatic, Normocephaly, Mucus Membranes Moist Neck: No JVD, Normal carotid pulses Cardiac: Reg Rate and Rhythm, Normal S1 and S2, No Murmur Lungs: Normal Breath Sounds, No Wheeze, Rales, Rhonchi Neuro: Alert and responsive, No focal deficits noted Abdomen: Soft, Non-Tender Skin: No rashes noted on visualized skin Musculoskeletal: No Chest Wall Tenderness Extremities: No Clubbing, No Cyanosis, No Edema, Normal Pulses Results 04/06/17 04:19 04/06/17 04:19 Lab Results Selected Entries 04/06/17 07:40 Blood Pressure 164/109 Laboratory Tests 04/04/17 04/04/17 04/04/17 09:07 09:07 09:07 INR 1.1 Creatinine Est GFR (Non-Af Amer) Troponin I 0.01 B-Natriuretic Peptide 39 LDL Cholesterol, Calc 04/04/17 04/04/17 04/05/17 13:54 20:10 05:55 INR Creatinine Est GFR (Non-Af Amer) Troponin I 0.01 0.01 B-Natriuretic Peptide LDL Cholesterol, Calc 53 04/06/17 04:19 INR Creatinine 0.95 Est GFR (Non-Af Amer) > 60 Troponin I B-Natriuretic Peptide LDL Cholesterol, Calc ITS Impressions Chest X-Ray 04/04/17 09:04 IMPRESSION: No acute process. D/ / Claude Campo MD / Claude Campo MD Interpreting Provider: Claude Campo MD Head CT 04/05/17 18:14 IMPRESSION: No acute intracranial abnormality. D/ / Karma Zendejas Cha, MD / Karma Zendejas Cha, MD Interpreting Provider: Karma Zendejas Cha, MD Active Medications Acetaminophen (Tylenol) 650 mg PO Q6HR PRN PRN Reason: Mild Pain (1-3) Stop: 10/04/17 10:33 Last Admin: 04/05/17 15:33 Dose: 650 mg Acetaminophen/Butalbital/Caffeine (Fioricet) 1 each PO Q6HR PRN; Protocol PRN Reason: Headache Stop: 10/04/17 12:29 Last Admin: 04/05/17 09:01 Dose: 1 each Alprazolam (Xanax) 1 mg PO TID BRENDA Stop: 10/04/17 15:01 Last Admin: 04/05/17 22:17 Dose: 1 mg Amlodipine Besylate (Norvasc) 10 mg PO DAILY BRENDA PRN Reason: Protocol Stop: 10/05/17 09:01 Last Admin: 04/05/17 08:52 Dose: 10 mg Aspirin (Aspirin) 81 mg PO DAILY [facility] Stop: 10/05/17 09:01 Last Admin: 04/05/17 08:52 Dose: 81 mg Carvedilol (Coreg) 25 mg PO BIDWM BRENDA PRN Reason: Protocol Stop: 10/04/17 17:01 Last Admin: 04/05/17 16:43 Dose: 25 mg Clopidogrel Bisulfate (Plavix) 75 mg PO DAILY [facility] Stop: 10/05/17 09:01 Last Admin: 04/05/17 08:52 Dose: 75 mg Dextrose/Water (Dextrose 50% (Syg)) 25 ml IVP AD PRN PRN Reason: Hypoglycemia Stop: 10/04/17 10:38 Furosemide (Lasix) 40 mg PO DAILY [facility] Stop: 10/05/17 09:01 Last Admin: 04/05/17 08:52 Dose: 40 mg Gabapentin (Neurontin) 100 mg PO TID [facility] Stop: 10/04/17 15:01 Last Admin: 04/05/17 22:16 Dose: 100 mg Glucagon (Glucagen) 1 mg IM ONCE PRN PRN Reason: Hypoglycemia Stop: 10/04/17 10:38 Glucose (Gluctose) 15 gm PO ONCE PRN PRN Reason: Hypoglycemia Stop: 10/04/17 10:38 Glucose (Gluctose) 30 gm PO ONCE PRN PRN Reason: Hypoglycemia Stop: 10/04/17 10:38 Haloperidol (Haldol) 2 mg PO HS [facility] Stop: 10/04/17 21:01 Last Admin: 04/05/17 22:15 Dose: 2 mg Hydralazine HCl (Hydralazine) 25 mg PO Q8HR [facility] Stop: 10/06/17 09:17 Dextrose (Dextrose 5%) 1,000 mls @ 100 mls/hr IVC .Q10H PRN PRN Reason: HYPOGLYCEMIA Stop: 10/04/17 10:38 Insulin Detemir (Levemir) 50 unit SQ BID [facility] Stop: 10/04/17 21:01 Last Admin: 04/05/17 22:24 Dose: 50 unit Insulin Human Lispro (Humalog) 0 units SQ TIDAC [facility] PRN Reason: Protocol Stop: 10/04/17 11:31 Last Admin: 04/06/17 08:27 Dose: Not Given Insulin Human Lispro (Humalog) 0 units SQ HS [facility]ENDA PRN Reason: Protocol Stop: 10/04/17 21:01 Last Admin: 04/05/17 22:24 Dose: Not Given Magnesium Hydroxide (Milk Of Magnesia Conc) 10 ml PO DAILY PRN PRN Reason: Constipation Stop: 10/05/17 23:32 Mirtazapine (Remeron) 45 mg PO HS [facility] Stop: 10/04/17 21:01 Last Admin: 04/05/17 22:16 Dose: 45 mg Naloxone HCl (Narcan) 0.4 mg IVP Q2MIN PRN PRN Reason: Opioid Reversal Stop: 10/04/17 10:33 Omeprazole (Prilosec) 20 mg PO 0730 [facility] Stop: 10/05/17 07:31 Last Admin: 04/06/17 04:14 Dose: Not Given Ondansetron HCl (Zofran) 4 mg IVP Q4HR PRN; Protocol PRN Reason: nausea/vomiting Stop: 10/04/17 20:01 Last Admin: 04/05/17 23:45 Dose: 4 mg Polyethylene Glycol (Miralax) 17 gm PO DAILY [facility] Stop: 10/05/17 23:46 Last Admin: 04/05/17 23:45 Dose: Not Given Prazosin HCl (Minipress) 1 mg PO HS [facility] Stop: 10/04/17 21:01 Last Admin: 04/05/17 22:16 Dose: 1 mg Quetiapine Fumarate (Seroquel) 150 mg PO QAM [facility]ENDA PRN Reason: Protocol Stop: 10/05/17 09:01 Last Admin: 04/05/17 08:53 Dose: 150 mg Quetiapine Fumarate (Seroquel) 450 mg PO HS [facility] PRN Reason: Protocol Stop: 10/04/17 21:01 Last Admin: 04/05/17 22:16 Dose: 450 mg Ranolazine (Ranexa) 1,000 mg PO BID [facility] Stop: 10/06/17 09:16 Simvastatin (Zocor) 40 mg PO HS [facility] Stop: 10/04/17 21:01 Last Admin: 04/05/17 22:17 Dose: 40 mg Spironolactone (Aldactone) 50 mg PO BID [facility] Stop: 10/04/17 21:01 Last Admin: 04/05/17 22:15 Dose: 50 mg Trazodone HCl (Trazodone) 50 mg PO HS [facility] Stop: 10/04/17 21:01 Last Admin: 04/05/17 22:16 Dose: 50 mg Venlafaxine HCl (Effexor Xr) 75 mg PO DAILY [facility] Stop: 10/05/17 09:01 Last Admin: 04/05/17 08:52 Dose: 75 mg - Imaging and Cardiology Chest Xray: report reviewed Stress Test: report reviewed Echo: report reviewed Cardiac cath: report reviewed - EKG Interpretation EKG results cardiology: personally reviewed, normal ECG, sinus rhythm, no diagnostic ischemia (inferior q waves noted) Consult Discharge Plan - Plan Additional Instructions: Follow-up appointments: If there is not an appointment listed below, please call your physician and schedule a follow-up appointment. If you have congestive heart failure and your symptoms return, make an appointment with your physician. Medication List: Carry an up to date list of medications you are taking at all time. We have given you an updated medication list including any new medications that you have been prescribed. Please provide that list to your primary provider Symptoms: If your condition changes or you experience any of the following symptoms, notify your physician immediately: Unusual or worsening pain, fever, persistent nausea and vomiting, bleeding, increase in swelling (especially in your legs), sudden weight gain, extreme dizziness, chest pain, increased drainage or redness from a wound or incision. Go to the emergency department if you experience a problem with breathing. Weights: If you have a history of swelling or shortness of breath, weigh yourself daily and notify your physician if you have a weight gain of two or more pounds in one day or 5 or more pounds in a week. If you experience any of the warning signs for stroke: Sudden numbness or weakness of the face, arm or leg; especially on one side of the body, sudden confusion, trouble speaking or understanding, sudden trouble seeing in one or both eyes, sudden trouble walking, dizziness, loss of balance or coordination, sudden sever headache with no cause; Call 911 or go to the emergency room. Stroke is a medical emergency. Some risk factors for stroke: Age, cigarette smoking, diabetes, excessive alcohol consumption, family history , high blood pressure, overweight, physical inactivity, prior stroke, heart attack, diagnosis of carotid artery stenosis or other artery disease. If you smoke, STOP: Smoking or tobacco use significantly increases your risk of heart and lung disease. Your chance of disease greatly increases if you continue to smoke. For more information, call the [place] tobacco quit line for smoking cessation 3-- -NOW ( ) Referrals: Deepika Tavarez TAPER/FINISHER [Advanced Practice Nurse] - 04/11/17 1:00 pm Prescriptions: Ranolazine [Ranexa] 1,000 mg PO BID #60 tab.er.12h <Amarilis Warren - Last Filed: 04/06/17 17:27> Date of Encounter: 04/06/17 Assessment and Plan Discussion w patient/family: The assessment and plan as outlined above was discussed with the patient and/or family members who expressed understanding and agreement. All questions were answered. Thank you for involving us in the care of your patient. Please call with any questions. History of Present Illness History of present illness: Mr. Abraham is a 51 year old male All Systems Review: A 10-system review of systems was performed and is negative for pertinent findings except as documented above in the HPI. Physical Examination Vital Signs, Last 4 Hours Temp Pulse Resp BP Pulse Ox 04/06/17 15:41 98.8 F 92 16 117/82 97 Results 04/06/17 04:19 04/06/17 04:19 Lab Results 04/06/17 04/06/17 04:19 04:19 WBC 8.0 Hgb 13.0 Hct 36.5 L Plt Count 191 Sodium 135 L Potassium 3.9 Chloride 102 Carbon Dioxide 23 BUN 12 Creatinine 0.95 Glucose 68 L Calcium 9.3 - Attending Attestation I examined this patient and my medical decision-making was reviewed with the ELECTRICAL RESEARCH ENGINEER/PA/Advanced Practice Nurse/Resident Physician. I agree with the documented findings, disposition and treatment plan.
[2017-04-06] MEDS ORDERED: Ranolazine 500 MG TAB.ER.12H PO SCH (09:15)
[2017-04-06] MEDS ORDERED: Verapamil 5 MG/2 ML VIAL ONE (09:45)
[2017-04-06] MEDS ORDERED: 0.9 % Sodium Chloride 1,000 ML ONE ×2 (09:45→10:23)
[2017-04-06] MEDS ORDERED: *HR* Heparin 10,000 UNIT/10 ML VIAL ONE (09:46)
[2017-04-06] MEDS ORDERED: Heparin 1,000 UNITS/500 mL NS 500 ML ONE (09:46)
[2017-04-06] MEDS ORDERED: Nitroglycerin 1,000 MCG/10 ML VIAL IV ONE (09:46)
--- NOTE | 2017-04-06 09:50 | Pre-Sedation Evaluation ---
Pre-sedation evaluation - Pre-sedation checklist Date of procedure: 04/06/17 Procedure: heart cath Recent Vitals: Last Vital Signs Temp 98.9 F 04/06/17 07:40 Pulse 94 04/06/17 07:40 Resp 17 04/06/17 07:40 BP 164/109 04/06/17 07:40 Pulse Ox 98 04/06/17 07:40 H&P (including ROS) documented in medical record: Yes Previous reaction to sedatives/anesthetics: No Dietary Status: NPO after Midnight Dentition: No loose teeth or bridges ASA Classification *see protocol: CLASS II-Mild systemic disease Plan of Care: Pt appropriate candidate for procedure/moderate/conscious sedation , Risks/benefits of procedure/sedation discussed w/ patient/family
[2017-04-06] MEDS ORDERED: Furosemide 20 MG TABLET PO SCH (10:01)
[2017-04-06] MEDS ORDERED: *HR* FentaNYL (PF) 100 MCG/2 ML VIAL ONE (10:22)
[2017-04-06] MEDS ORDERED: *HR* Midazolam HCl 5 MG/5 ML VIAL IVP ONE (10:23)
--- NOTE | 2017-04-06 11:11 | Invasive Diagnostic Lab Proc ---
Name: Miah Gonzalez Date of Study: 04/06/2017 Date: 1965 Ht: 70.1in Medical Record#: [id number] Age: 51 Wt: 182.98lb Gender: Male BSA: 2.01 Order #: [id number] BMI: 26.2 Physicians Procedure Physician: Ernie Ly MD, [facility] Referring MD: Referring MD: Staff Name Position Time In Alexa Godwin RN Blue Line Operator 10:04 AM Marilyn Baker RT (R) Scrub 10:04 AM Albert Baker RT (R) Monitor 10:04 AM Indications Indication Abnormal Test - Stress Procedures Performed Procedure L HRT ARTERY/VENTRICLE ANGIO Pre-Procedure Checklist Informed consent is complete signed and on chart. H\\T\\P is on chart. ID band is on and ID verified with patient. Patient NPO for procedure The procedure was described for the patient and questions were answered. Blood Pressure: 167/112 ECG is on chart. Rhythm: Sinus Tachycardia Plan of Care Patient will tolerate the procedure without complications. Adequate level of comfort will be maintained. Hemodynamics will remain stable Patient will recover from procedure without complications. Respiratory function will be maintained. Cardiac rhythm will remain stable. Patient temperature will be maintained. Patient and/or family have verbalized understanding of the procedure. Patient Education Chief Complaint/Reason for Test: Cardiac Cath Developmental Category: Adult (18-64 years) Developmentally Appropriate for Age: Yes Learning Barriers: None Education Needs: Procedure Education Method: Verbal Information Taught: Cardiac Cath Educational Evaluation: Able to repeat information Intravenous Access Time IV Size Location DC'd Fluid/Drip Rate Units RN 10:17 AM 20g 1 1/4" Patent On Arrival Rt Antecubital Allergies codeine Vital Signs Time BP (mmHg) HR (bpm) O2 Sat. RR (bpm) LOC 10:18 AM / % 5 = Fully awake and oriented or at pre-proc level 10:18 AM / % 5 = Fully awake and oriented or at pre-proc level 10:33 AM / % 4 = Oriented but drowsy 10:27 AM 190 / 113 101 97 % 15 10:32 AM 167 / 112 100 99 % 18 10:37 AM 154 / 103 98 100 % 16 10:42 AM 151 / 104 97 100 % 22 10:47 AM 141 / 98 104 100 % 16 10:52 AM 147 / 108 107 100 % 15 10:48 AM / % 5 = Fully awake and oriented or at pre-proc level Procedural Medications Time Medication Dose Units Method Given By 10:30 AM Versed 2 mg Intravenous Alexa Godwin RN 10:30 AM Fentanyl 50 mcg Intravenous Alexa Godwin RN 10:31 AM Oxygen 2 L/min nasal cannula Alexa Godwin RN 10:37 AM Versed 1 mg Intravenous Alexa Godwin RN 10:37 AM Fentanyl 25 mcg Intravenous Alexa Godwin RN 10:37 AM Lidocaine 2% 1 ml Subcutaneous Ernie Ly MD, FAC 10:45 AM Heparin 4000 units Nitroglycerin 200 mcg Verapamil 2.5 mg Intraarterial Ernie Ly MD, [facility] ASA Classification: CLASS II- Mild systemic disease (i.e. well-controlled diabetes, hypertension, asthma, cigarette smoking) Marc Score Preprocedure Postprocedure Activity 2- Moves 4 extremities sustained head lift Activity 2- Moves 4 extremities sustained head lift Circulation 2- SBP +/= 20 points of pre-anesthetic level Circulation 2- SBP +/= 20 points of pre-anesthetic level Consciousness 2- Awake and alert oriented x 3 Consciousness 2- Awake and alert oriented x 3 O2 Saturation 2- Able to maintain O2 satruation of 92% on room air O2 Saturation 2- Able to maintain O2 satruation of 92% on room air Respiratory 2- Able to deep breathe and cough well Respiratory 2- Able to deep breathe and cough well Total Score 10 Total Score 10 Contrast Agent: Isovue Diagnostic Contrast: 49 ml Total Contrast: 49 ml Fluoro Dose: 124 mGy Procedure Log Time Note Enter By 10:04 AM Alexa Godwin RN Position: Blue Line Operator Time in: 10:04 10:04 AM Marilyn Baker RT (R) Position: Scrub Time in: 10:04 10:04 AM Albert Baker RT (R) Position: Monitor Time in: 10:04 2 10:18 AM Pt arrived to [employer] 2 at 10:18 [email or web address] 10:18 AM Patient charges- Angio tray pack, Navilyst 3mm J, Pulse Oximetry and ACIST tubing and transducer [email or web address] 10:18 AM Time: 10:18 Patient comfortable and pain free: Yes [email or web address] 10:18 AM Time: 10:18LOC: 5 = Fully awake and oriented or at pre-proc level [email or web address] 10:18 AM Case Delayed No [email or web address] 10:19 AM Physician arrived 10:18 [email or web address] 10:19 AM ASA Class CLASS II- Mild systemic disease (i.e. well-controlled diabetes, hypertension, asthma, cigarette smoking) [email or web address] 10:19 AM Meet and greet completed [email or web address] 10:19 AM Sign in performed according to hospital policy. [email or web address] 10:19 AM Procedure start 10: [email or web address] 10: AM CathStat 10:26 AM Vitals capture started with the following parameters, Patient=Adult, Interval=5 min, Initial Bsedvtfh=185 mmHg, Deflation Rate=5 mmHg, Cuff placed on Right Arm 10:27 AM TP=843 bpm, USWY=943/113 mmhg, SpO2=97.0 %, Resp=15 B/min, Marc=10 10:30 AM Recorded ECG: CP=888 Condition=Condition 1 10:30 AM Hair removed from procedure site in procedure lab using clippers. Right wrist prepped with Chloraprep by Marilyn Baker RT (R), safety strap applied then patient was draped. Skin intact. [email or web address] 10:30 AM Hair removed from procedure site in procedure lab using clippers. Right groin prepped with Chloraprep by Marilyn Baker RT (R), safety strap applied then patient was draped. Skin intact. [email or web address] 10:30 AM Time: 10:30 Versed 2 mg Intravenous Given by Alexa Godwin RN [facility] 10:31 AM Time: 10:30 Fentanyl 50 mcg Intravenous Given by Alexa Godwin RN [place] [id number] 10:31 AM Time: 10:31 Oxygen on at 2 L/min per nasal cannula by Alexa Godwin RN [place] [address] 10:32 AM JG=116 bpm, PLHQ=867/112 mmhg, SpO2=99.0 %, Resp=18 B/min 10:32 AM Clinical Presentation: Unstable angina [email or web address] 10:33 AM Time: 10:18 Patient comfortable and pain free: Yes [email or web address] 10:33 AM Time: 10:18LOC: 5 = Fully awake and oriented or at pre-proc level [email or web address] 10:33 AM Pressure channel 1 zeroed. 10:37 AM Time out performed according to hospital policy [email or web address] 10:37 AM HR=98 bpm, ENOE=994/103 mmhg, OyA6=931.0 %, Resp=16 B/min 10:37 AM Time: 10:37 Versed 1 mg Intravenous Given by Alexa Godwin RN [place] [address] 10:37 AM Time: 10:37 Fentanyl 25 mcg Intravenous Given by Alexa Godwin RN [place] [address] 10:37 AM Time: 10:37 1 ml Lidocaine 2% to right radial Subcutaneous Given by Ernie Ly MD, [place] [address] 10:39 AM Unsuccessful access attempt # 1 into the right Radial artery. Manual pressure applied to achieve hemostasis.. [email or web address] 10:40 AM ultrasound used to help with access. [email or web address] 10:42 AM HR=97 bpm, LWQF=821/104 mmhg, ZrS0=805.0 %, Resp=22 B/min 10:43 AM Unsuccessful access attempt # 2 into the right Radial artery. [email or web address] 10:44 AM Access obtained by percutaneous puncture. 6Fr 11cm Terumo Glidesheath sheath placed in right Radial artery. [id number] [place] [address] 10:45 AM Time: 10:45 Patient given 4,000 units Heparin, 200 mcg Nitroglycerin, and 2.5 mg Verapamil Intraarterial by Ernie Ly MD, [place] [address] 10:45 AM 0.035 260cm Navilyst 3mmJ wire [id number] [place] [address] 10:45 AM 5Fr TIG catheter inserted over the wire [place] [address] 10:47 AM TE=718 bpm, VLPZ=652/98 mmhg, EzR1=370.0 %, Resp=16 B/min 10:47 AM Recorded Pressure: Ao, UK=854, Condition=Condition 1 (Aorta) Ao 88/67/77 10:47 AM LCA angiography performed in multiple views. [email or web address] 10:48 AM Lesion found in Mid Circumflex. Pre Stenosis: 100 Pre MIRANDA Flow: [email or web address] 10:48 AM Circumflex, Obtuse Marginal, Left Posterior Descending, and Left Posterolateral Coronary Arteries with 100 % stenosis. If graft is supplying this area, 0 % stenosis [email or web address] 10:48 AM Time: 10:33LOC: 4 = Oriented but drowsy [email or web address] 10:48 AM Time: 10:33 Patient comfortable and pain free: Yes [email or web address] 10:48 AM Lesion found in Proximal LAD. Pre Stenosis: 20 Pre MIRANDA Flow: [email or web address] 10:48 AM Proximal Left Anterior Descending Coronary Artery with 20% stenosis. If graft is supplying this territory, 0 % stenosis. [email or web address] 10:49 AM Catheter selectively placed in left ventricle [email or web address] 10:49 AM Pressure channel 1 zero failed. 10:49 AM Pressure channel 1 zeroed. 10:49 AM Recorded Pressure: LV, GE=386, Condition=Condition 1 (Left Ventricle) LV 162/4/5 10:50 AM Bolus angiogram of left Ventricle complete: 10 ml/sec for a total of 20 mls [email or web address] 10:50 AM Recorded Pressure: LV, Ao, LF=192, Condition=Condition 1 (Left Ventricle) LV 162/1/12, (Aorta) Ao 161/93/123 10:50 AM RCA angiography performed in multiple views. [email or web address] 10:51 AM Coronary Dominance: right [email or web address] 10:51 AM Recorded Pressure: Ao, OA=746, Condition=Condition 1 (Aorta) Ao 155/115/134 10:51 AM Catheter removed [email or web address] 10:52 AM Procedure completed at 10:52 [email or web address] 10:52 AM Isovue 370 - 200ml,1 Bottle(s) used. [email or web address] 10:52 AM Arterial sheath pulled, Vasc Band closure device used and was Successful S/N. [email or web address] 10:52 AM DJ=007 bpm, CXDZ=611/108 mmhg, SjE7=041.0 %, Resp=15 B/min 10:53 AM 11 ml air in Vasc Band. [email or web address] 10:53 AM Sign out completed: Radiation Dose 124.04 mGy Fluoro Time: 1.7 Isovue 370 - 200ml contrast 49 ml given by Ernie Ly MD, [facility]. Complications: NoneCardiac Rehab Consult needed: NoConfirmed administered medications: Yes [email or web address] 10:53 AM Post ECG Sinus Tachycardia [email or web address] 10:54 AM Post Blood Pressure 147/108 [email or web address] 10:54 AM 10:54 Post Pulses Rt Radial 2+ [email or web address] 10:54 AM Information taught Cardiac Cath and Vasc Band [email or web address] 10:54 AM Education needs Procedure, Plan of Care, and Disease Process [email or web address] 10:54 AM Learning barriers :Sedated [email or web address] 10:54 AM Education Methods Verbal [email or web address] 10:54 AM Education evaluation Needs further instruction [email or web address] 10:55 AM Site status No bleeding/hematoma - Rt Wrist as reported by Marilyn Baker RT (R) at 10:54 [email or web address] 10:55 AM Delay to floor No [email or web address] 10:55 AM Family placed in consult room. [email or web address] 10:55 AM Complications: None [email or web address] 10:55 AM Fluoro Time: 1.7 [email or web address] 10:55 AM Isovue 370 - 200ml contrast 49 ml given by Ernie Ly MD, FACC. [email or web address] 10:55 AM Radiation Dose 124.04 mGy [email or web address] 10:59 AM Patient out of room: 10:59 [email or web address] 11:02 AM Report given to clare GARY Pt taken to Room #46. 11:01 [email or web address] 11:03 AM Time: 10:48 Patient comfortable and pain free: Yes [email or web address] 11:04 AM Time: 10:48LOC: 5 = Fully awake and oriented or at pre-proc level [email or web address] Complications Complication None None Hemodynamics Pressures Site Systolic/A Wave Diastolic/V Wave Mean AO 88 67 77 LV 162 4 5 LV 162 1 12 AO 161 93 123 AO 155 115 134 Post Procedure Information Blood Pressure: 147/108 mmHg Rhythm: Sinus Tachycardia Post procedural instructions were given Closure Device Time Device Success/Fail 04/06/2017 10:52:00 AM Vasc Band Successful Site Checks Time Location Status Staff Sheath In? Note 10:54 AM Rt Wrist No bleeding/hematoma Marilyn Baker RT (R) Pulses Time Site Pre-Procedure Post-Procedure Note 04/06/2017 10:17:00 AM Rt Radial 2+ 04/06/2017 10:17:00 AM Bilateral DP \\T\\ PT 1+ 10:54:00 AM Rt Radial 2+ Updated by Albert Baker RT (R) on 04/06/2017 11:05:02 AM RT [place] electronically signed on 04/06/2017 11:05:27 AM with status of Final
[2017-04-06] MEDS: ALPRAZolam 1 MG TABLET PO SCH ×2 (11:40→16:12)
[2017-04-06] MEDS: amLODIPine 5 MG TABLET PO SCH (11:40)
[2017-04-06] MEDS: Venlafaxine XR (24 HR) 75 MG CAP.ER.24H PO SCH (11:41)
[2017-04-06] MEDS: Gabapentin 100 MG CAPSULE PO SCH ×2 (11:41→16:12)
[2017-04-06] MEDS: Aspirin 81 MG TAB.CHEW PO SCH (11:42)
[2017-04-06] MEDS: hydrALAZINE 25 MG TABLET PO SCH ×2 (11:46→17:52)
[2017-04-06] MEDS: Insulin DETEMIR 100 UNIT/ML X5UNITS SQ SCH (11:46)
--- NOTE | 2017-04-06 11:47 | Event Note ---
Date of Encounter: 04/06/17 Time of Encounter: 11:45 - Cardiology Event Note Per discussion with Dr. Ly, [facility] with no new significant lesions requiring intervention. Will s/o, re-consult PRN, f/u scheduled. Continue with Medical management. All questions answered.
--- NOTE | 2017-04-06 14:10 | Invasive Diagnostic Lab ---
Name: Miah Gonzalez Date of Study: 04/06/2017 Date: 1965 Ht: 178.0 cm /70.1 in Medical Record#: [id number] Age: 51 Wt: 83. kg / 182.98 lb Account/Order#: [id number] Gender: Male BSA: 2.01 Order #: [id number] Fluoro Dose: 124 mGy BMI: 26.2 Procedure Physician: Ernie Ly MD, FACC Referring MD: Referring MD: Procedures Performed: LEFT HEART CATH Indications: Abnormal Test - Stress Impressions: There is severe one vessel coronary artery disease. The left ventricle is normal and has normal contractility EF 60% Patent RCA stent Mid circumflex [employer] with probable hibernating myocardium on stress test Recommendations: Optimal medical therapy of patient's disease. Aggressive risk factor modification. History/Risk Factors: CAD GERD Renal disease arthritis Diabetes Hypertension Dyslipidemia Procedure Access obtained in the right Radial artery by percutaneous puncture Complications: None, None Contrast: Isovue 49ml Closure Device: Vasc Band Hemodynamics: Pressures Site Systolic/ A Wave Diastolic/ V Wave End Diastolic/ Mean HR AO 88 67 77 102 LV 162 4 5 105 LV 162 1 12 103 AO 161 93 123 103 AO 155 115 134 105 LV Ventriculography Ejection Method: LV Gram Ejection Fraction: 60% Wall Motion: MEIER Anterobasal Normal Anterolateral Normal Apical: Normal Inferoapical Normal Inferobasal Normal Coronary Dominance: right Lesion Findings/Interventions * Left Main Coronary Artery The LMCA is angiographically free of disease. * Left Anterior Descending There is a 20% stenosis in the Proximal LAD. * Circumflex There is a 100% stenosis in the Mid Circumflex ([employer] SPEC) with briding collaterals * Right Coronary Artery The RCA has minimal disease The Right PDA is angiographically free of disease. The Proximal RCA stent is patent. Collaterals to Circ from RT to LT. Updated by Albert Baker RT (R) on 04/06/2017 11:04:26 AM Ernie Ly MD, FACC electronically signed on 04/06/2017 2:04:56 PM with status of Final
[2017-04-06 15:49] VITALS: BP 117/82
--- NOTE | 2017-04-06 16:53 | Discharge Summary ---
Date of Encounter: 04/06/17 Time of Encounter: 13:00 - Discharge Diagnosis (1) CAD (coronary artery disease) Priority: Primary Status: Chronic Comments: Patient stress test yesterday showed ejection fraction 51%, he had chest pain prior to and during stress test. He reported that was almost constant. There is no change in the intensity during the stress test. It showed a small size, mild intensity, reversible inferior defect consistent with ischemia. Patient was seen by cardiology today and taken to the [facility]. LHC showed severe one- vessel coronary artery disease or the left ventricle is normal and has normal contractility, EF 60%. He has a patent RCA stent that was placed in June. Mid circumflex SPINDLE SANDER with probable hibernating myocardium on stress test. Recommendation is to put the patient on Ranexa and stop the Imdur. The Imdur may have been causing some of his headaches. This is going to be medically managed and patient will follow up with cardiology in the office. Patient states that he does feel better. Rates his chest pain 10/25. Qualifiers: Coronary Disease-Associated Artery/Lesion type: [place] artery [place] vs. transplanted heart: [place] heart Associated angina: with unspecified angina Qualified Code(s): I25.119 - Atherosclerotic heart disease of [place] coronary artery with unspecified angina pectoris (2) Chest pain Priority: Secondary Status: Acute Comments: Plan as above. Qualifiers: Chest pain type: chest pain due to myocardial ischemia Ischemic chest pain type: unspecified angina pectoris type Qualified Code(s): I20.9 - Angina pectoris, unspecified (3) Hypertension Priority: Secondary Status: Chronic Comments: Chronic. continue home medications. Qualifiers: Hypertension type: essential hypertension Qualified Code(s): I10 - Essential (primary) hypertension (4) SANDEEP (acute kidney injury) Priority: Secondary Status: Resolved Comments: Renal function has returned to normal. (5) Diabetes mellitus Priority: Secondary Status: Acute Comments: Continue home medications. A1c 8.5. Qualifiers: Diabetes mellitus type: type 2 Diabetes mellitus complication status: without complication Diabetes mellitus usp insulin use: with usp use Qualified Code(s): E11.9 - Type 2 diabetes mellitus without complications ; Z79.4 - custodial (current) use of insulin (6) DVT prophylaxis Priority: Secondary Status: Acute Comments: Heparin subcutaneous daily. - Discharge Medications Prescriptions: Ranolazine [Ranexa] 1,000 mg PO BID #60 tab.er.12h Home Medications: Alprazolam [Xanax] 1 mg PO TID 04/29/16 [History] Gabapentin [Neurontin] 100 mg PO TID 04/29/16 [History] Insulin ASPART [Novolog Flexpen] 10 unit SQ TIDWM 04/29/16 [History] Mirtazapine [Remeron] 45 mg PO HS 04/29/16 [History] Furosemide [Lasix] 40 mg PO DAILY 06/12/16 [History] Haloperidol [Haldol] 2 mg PO HS 06/12/16 [History] Insulin DETEMIR [Levemir Flextouch] 40 unit SQ BID 06/12/16 [History] Prazosin [Minipress] 1 mg PO HS 06/12/16 [History] Quetiapine Fumarate [Seroquel] 150 mg PO QAM 06/12/16 [History] Quetiapine Fumarate [Seroquel] 450 mg PO HS 06/12/16 [History] TraZODone 50 - 100 mg PO HS 06/12/16 [History] Venlafaxine XR (24 HR) [Effexor XR] 75 mg PO DAILY 06/12/16 [History] Aspirin 81 mg PO DAILY tab.chew 06/20/16 [Rx] Atorvastatin [Lipitor] 40 mg PO HS #30 tablet 06/20/16 [Rx] Carvedilol [Coreg] 12.5 mg PO BIDWM #120 tablet 06/20/16 [Rx] Clopidogrel [Plavix] 75 mg PO DAILY #30 tablet 06/20/16 [Rx] Pantoprazole Sodium [Protonix] 40 mg PO DAILY #30 tablet.dr 06/20/16 [Rx] amLODIPine [Norvasc] 10 mg PO DAILY #30 tablet 06/20/16 [Rx] Isosorbide MONOnitrate (24 HR) [Imdur] 60 mg PO DAILY #20 tab.er.24h 08/15/16 [ Rx] Lisinopril [Zestril] 10 mg PO BID 08/25/16 [History] Multivitamin with Minerals [One-A-Day Maximum Formula] 1 tab PO DAILY 04/04/17 [ History] [place]-3/Dha/Epa/Fish Oil [Fish Oil 1,000 mg Softgel] 1,000 mg PO DAILY 04/04/17 [History] Spironolactone [Aldactone] 50 mg PO BID 04/04/17 [History] Ranolazine [Ranexa] 1,000 mg PO BID #60 tab.er.12h 04/06/17 [Rx] Allergies/Adverse Reactions: Allergies codeine Allergy (Verified 06/12/16 13:04) Vomiting Procedures/tests Complete & Pending: Procedures Performed prior 72 hours Category Date Time Status CT head/brain wo con [CT] Routine Cat Scan 04/05/17 18:14 Completed CL Cardiac Catheterization [CL] Routine [facility] 04/06/17 09:54 Completed NM shelbie perf SPECT multi [NM] Routine Exams 04/05/17 11:30 Taken SP pharm nuclear stress Routine Y 04/05/17 08:30 Completed Date of admission: 04/04/17 11:05 Primary care physician: Wilman Whitney Jr, MD Consults: 04/05/17 18:22 Consult to Cardiology [CONS] Routine Comment: Consulting Provider: Cardiology [facility] Reason for Consult: Stress test- ischemia Time Notified: 18:23 Call Completed: Yes Discharging clinician: Cyndi Park Anticipated date of discharge: 04/06/17 - Patient Status Disposition: Home, Self-Care Condition: Good Functional capacity at discharge: independent ambulation Overall status at discharge: patient is back to baseline - Discharge Instructions Follow Up With: Deepika Tavarez CNP [Advanced Practice Nurse] - 04/11/17 1:00 pm Additional Instructions: Follow-up appointments: If there is not an appointment listed below, please call your physician and schedule a follow-up appointment. If you have congestive heart failure and your symptoms return, make an appointment with your physician. Medication List: Carry an up to date list of medications you are taking at all time. We have given you an updated medication list including any new medications that you have been prescribed. Please provide that list to your primary provider Symptoms: If your condition changes or you experience any of the following symptoms, notify your physician immediately: Unusual or worsening pain, fever, persistent nausea and vomiting, bleeding, increase in swelling (especially in your legs), sudden weight gain, extreme dizziness, chest pain, increased drainage or redness from a wound or incision. Go to the emergency department if you experience a problem with breathing. Weights: If you have a history of swelling or shortness of breath, weigh yourself daily and notify your physician if you have a weight gain of two or more pounds in one day or 5 or more pounds in a week. If you experience any of the warning signs for stroke: Sudden numbness or weakness of the face, arm or leg; especially on one side of the body, sudden confusion, trouble speaking or understanding, sudden trouble seeing in one or both eyes, sudden trouble walking, dizziness, loss of balance or coordination, sudden sever headache with no cause; Call 911 or go to the emergency room. Stroke is a medical emergency. Some risk factors for stroke: Age, cigarette smoking, diabetes, excessive alcohol consumption, family history , high blood pressure, overweight, physical inactivity, prior stroke, heart attack, diagnosis of carotid artery stenosis or other artery disease. If you smoke, STOP: Smoking or tobacco use significantly increases your risk of heart and lung disease. Your chance of disease greatly increases if you continue to smoke. For more information, call the [place] quit line for smoking cessation QUIT-NOW ( ) - Diet and Activity Activity: increase activity as tolerated Diet: diabetic diet, low fat, low cholesterol Interval History: Patient presented to the emergency department complaining of chest pain that began 10 AM today before admission while he was at [facility] for an appointment. He was there for intake, they took his blood pressure, he will still be hypertensive and was sent to the emergency department for evaluation. He was concerned about cardiac etiology did have a stent placed last June. He reported very specific location of his left chest pain that is about a quarter size in diameter, immediately left of the sternal border. The pain radiates straight through to his mid back, he describes it as a dull ache. He denies nausea, vomiting, diaphoresis. He also reports one-month history of bilateral temporal headache without vision changes. There is no vomiting, slurred speech, or ataxia. Patient had stress test yesterday that showed a gated EF 51%, there was a medium sized, severe intensity, fixed inferolateral defect consistent with prior infarct. There is also small size, mild intensity, reversible inferior defect consistent with ischemia. Patient was taken to the [facility] today and was found to have severe one-vessel coronary artery disease. Left ventricle is normal and has normal contractility, EF 60%. He already has a patent RCA stent from prior [facility]. There is mid circumflex SPINDLE SANDER with probable hibernating Jackie cardio on stress test. It is recommended that would provide optimal medical therapy if patient's disease and aggressive risk factor modification. He has had several hypertensive readings since arrival. His medications were held today and he was nothing by mouth in preparation for heart catheter today. After his medications were given his blood pressures been within normal limits. I do not see a need at this point to adjust his medications and will go home with what he is taking here. His A1c is 8.5, which is above goal. I will refer him to diabetes education and encouraged a low carbohydrate diet increasing even to a small amount of exercise that he can tolerate. He will continue his aspirin, Plavix, Lipitor, and beta rona. He is on the max dose of Lipitor. Patient will follow up in the office with cardiology. Patient is stable for discharge. Hospital course: Mr. Gonzalez is a 51 year old male - Time Spent with Patient Total time spent providing and/or coordinating discharge services: Less than 30 minutes - Constitutional Vitals: Temp Pulse Resp BP Pulse Ox 98.8 F 92 16 117/82 97 04/06/17 15:41 04/06/17 15:41 04/06/17 15:41 04/06/17 15:41 04/06/17 15:41 General appearance: Present: A&O X 3, pleasant, no acute distress, answers questions appropriately - Head Head exam: Present: normal inspection - Eye Eye exam: Present: normal appearance, conjuntiva pink - Respiratory Respiratory exam: Absent: chest wall tenderness, rales, rhonchi, stridor, wheezes - Cardiovascular Cardiovascular exam: Present: RRR, +S1, +S2, tachycardia. Absent: bradycardia, diastolic murmur, systolic murmur - GI/Abdominal GI/Abdominal exam: Present: normal bowel sounds, rigid. Absent: hepatomegaly, tenderness - Extremities Exam Extremities exam: Present: normal inspection, warm, radial pulses palpable and symetrical. Absent: pedal edema, tenderness - Neurological Exam Neurological exam: Present: alert, oriented X3, no focal deficits. Absent: facial droop, speech deficit
[2017-04-06] MEDS: Acetaminophen/Butalbital/CaffeineTABLET PO PRN (17:52)
[2017-04-06] MEDS: Ondansetron 4 MG/2 ML VIAL IVP PRN (17:53)
== END 2017-04-06 18:36 | disposition home or self-care (01) ==
LOC: EMEROO 08:55 → 3BNU 08:55
PROVIDERS: ADMIT Internal Medicine; ATTEND Registered Nurse

== ENCOUNTER 2017-04-22 05:01 | Inpatient (IN) ==
--- NOTE | 2017-04-22 05:57 | Emergency Department Note ---
Disposition Clinical Impression: Hyponatremia Chest pain Qualifiers: Chest pain type: unspecified Qualified Code(s): R07.9 - Chest pain, unspecified Disposition: Admitted As Inpatient Condition: Serious Referrals: Wilman Whitney Jr, MD [Primary Care Provider] - Forms: ED Satisfaction Letter Time of Disposition: 07: Chest Pain HPI - General Chief Complaint: ED Chest Pain Stated Complaint: chest pain, dizziness, n/v Time Seen by Provider: 04/22/17 05:40 Source: patient, family, EMS Vital Signs Reviewed: Yes Nursing Notes Reviewed: Yes - History of Present Illness HPI Narrative: Patient is a 52-year-old male who presents to the emergency department by EMS with a complaint of some dull aching left-sided chest pain intermittently for the past 2 days. Pain worse this morning. The pain radiates straight through to the left scapular area and also down the left arm. Also complains of vertigo and nausea which has been an ongoing problem for some time. He complains of some numbness and tingling in his hands and feet and lips. He denies shortness of breath. Some diaphoresis. Patient also complains of urinary retention. He states he has not urinated since yesterday and feels like his bladder is going to explode. Pt complaint: chest pain Onset (ago): day(s) (2) Duration: intermittent Onset: during rest Pain Location: left chest Severity: severe Severity scale (1-10): 8 Quality: aching, dull Pain Radiation: LUE Improves with: nitroglycerin Worsens with: exertion Associated symptoms: Reports: nausea, diaphoresis. Denies: dyspnea, palpitations, fever, cough, leg swelling - Related Data Home Medications Medication Instructions Recorded Confirmed Alprazolam [Xanax] 1 mg PO TID 04/29/16 04/04/17 Gabapentin [Neurontin] 100 mg PO TID 04/29/16 04/04/17 Insulin ASPART [Novolog Flexpen] 10 unit SQ TIDWM 04/29/16 04/04/17 Mirtazapine [Remeron] 45 mg PO HS 04/29/16 04/04/17 Furosemide [Lasix] 40 mg PO DAILY 06/12/16 04/04/17 Haloperidol [Haldol] 2 mg PO HS 06/12/16 04/04/17 Insulin DETEMIR [Levemir Flextouch] 40 unit SQ BID 06/12/16 04/04/17 Prazosin [Minipress] 1 mg PO HS 06/12/16 04/04/17 Quetiapine Fumarate [Seroquel] 150 mg PO QAM 06/12/16 04/04/17 Quetiapine Fumarate [Seroquel] 450 mg PO HS 06/12/16 04/04/17 TraZODone 50 - 100 mg PO HS 06/12/16 04/04/17 Venlafaxine XR (24 HR) [Effexor XR] 75 mg PO DAILY 06/12/16 04/04/17 Lisinopril [Zestril] 10 mg PO BID 08/25/16 04/04/17 Multivitamin with Minerals 1 tab PO DAILY 04/04/17 04/04/17 [One-A-Day Maximum Formula] [place]-3/Dha/Epa/Fish Oil [Fish Oil 1,000 mg PO DAILY 04/04/17 04/04/17 1,000 mg Softgel] Spironolactone [Aldactone] 50 mg PO BID 04/04/17 04/04/17 Previous Rx's Medication Instructions Recorded Aspirin 81 mg PO DAILY tab.chew 06/20/16 Atorvastatin [Lipitor] 40 mg PO HS #30 tablet 06/20/16 Carvedilol [Coreg] 12.5 mg PO BIDWM #120 tablet 06/20/16 Clopidogrel [Plavix] 75 mg PO DAILY #30 tablet 06/20/16 Pantoprazole Sodium [Protonix] 40 mg PO DAILY #30 tablet.dr 06/20/16 amLODIPine [Norvasc] 10 mg PO DAILY #30 tablet 06/20/16 Isosorbide MONOnitrate (24 HR) 60 mg PO DAILY #20 tab.er.24h 08/15/16 [Imdur] Ranolazine [Ranexa] 1,000 mg PO BID #60 tab.er.12h 04/06/17 Allergies Allergy/AdvReac Type Severity Reaction Status Date / Time codeine Allergy Vomiting Verified 06/12/16 13:04 All systems ED: reviewed and negative except as stated. Chest Pain PMH - Past Medical History Medical history: Reports: arthritis, cirrhosis, coronary artery disease, diabetes, GERD, hepatitis, hyperlipidemia, hypertension, liver disease, migraine , myocardial infarction, RA, renal disease Surgical history: Reports: angioplasty/stent (06/18/2016 x1), cholecystectomy Psychiatric history: Reports: anxiety, depression, PTSD - Social History Smoking Status: Former smoker Alcohol use: Reports: none Drug use: Reports: marijuana Physical Exam - General Limitations: no limitations General appearance: alert, in no apparent distress - Head Head exam: atraumatic, normocephalic, normal inspection - Eye Eye exam: Present: normal appearance, PERRL, EOMI. Absent: scleral icterus, conjunctival injection - ENT ENT exam: normal exam, normal oropharynx, mucous membranes moist, TM's normal bilaterally, normal external ear exam - Neck Neck exam: Present: normal inspection, trachea midline. Absent: tenderness, meningismus, lymphadenopathy - Chest Chest inspection: Present: normal inspection, symmetric chest wall rise. Absent : tenderness - Respiratory Respiratory exam: Present: normal lung sounds bilaterally. Absent: respiratory distress, wheezes - Cardiovascular Cardiovascular exam: Present: regular rate, normal rhythm, normal heart sounds - Abdominal Exam Abdominal exam: Present: soft, Non-Tender, normal bowel sounds - Extremities Exam Extremities exam: Present: normal inspection, pedal edema (Trace pedal edema). Absent: tenderness - Back Exam Back exam: Present: normal inspection. Absent: CVA tenderness (R), CVA tenderness (L) - Neurological Exam Neurological exam: Present: alert, oriented X3. Absent: motor sensory deficit - Psychiatric Psychiatric exam: Present: flat affect - Skin Skin exam: Present: warm, dry, pallor. Absent: cyanosis, diaphoresis Course - Consultations Consultation #1: The hospitalist, Dr. Blanchard, was consulted and accepted admission of the patient. Time: 07:20 Vital Signs Temperature 98.1 F 04/22/17 05:04 Pulse Rate 88 04/22/17 05:04 Respiratory Rate 20 04/22/17 05:04 Blood Pressure 126/86 04/22/17 05:04 O2 Sat by Pulse Oximetry 99 04/22/17 05:04 Temperature 98.1 F 04/22/17 05:04 Pulse Rate 81 04/22/17 06:53 Respiratory Rate 20 04/22/17 06:53 Blood Pressure 121/80 04/22/17 06:53 O2 Sat by Pulse Oximetry 99 04/22/17 06:53 Oxygen Delivery Oxygen Delivery Room Air Chest Pain - Medical Records Medical records reviewed: Yes I reviewed the patient's medical records. - Lab Data Lab results reviewed: Yes I reviewed the patient's lab results. Result diagrams: 04/22/17 05:22 Lab Results 04/22/17 04/22/17 04/22/17 Range/Units 05:22 05:22 05:22 PT 12.1 (9.4-12.1) Seconds INR 1.1 APTT 30.8 (26.0-36.0) Seconds Sodium 105 L* (136-145) mEq/L Potassium 5.9 H (3.5-4.5) mEq/L Chloride 79 L (98-109) mEq/L Carbon Dioxide 23 (19-29) mEq/L BUN 14 (8-26) mg/dL Creatinine 1.25 (0.72-1.25) mg/dL Est GFR ( Amer) > 60 (> 60) Est GFR (Non-Af Amer) > 60 (> 60) BUN/Creatinine Ratio 11 (6-26) Glucose 208 H (70-99) mg/dL Calculated Osmolality 227 L (280-300) Calcium 8.8 (8.6-10.8) mg/dL Total Bilirubin 0.5 (0.2-1.2) mg/dL Direct Bilirubin 0.3 (0.0-0.5) mg/dL Indirect Bilirubin 0.2 (0.0-1.2) mg/dL AST 74 H (5-34) Units/L ALT 163 H (0-55) Units/L Alkaline Phosphatase 85 (38-126) Units/L Troponin I (0-0.03) ng/mL B-Natriuretic Peptide 42 (0-100) pg/mL Serum Total Protein 7.2 (6.0-8.3) g/dL Albumin 3.8 (3.5-5.0) g/dL Globulin 3.4 (2.4-3.5) g/dL Albumin/Globulin Ratio 1.1 (1.1-2.2) Urine Color (Yellow) Urine Clarity (Clear) Urine pH (5.0-8.0) pH Units Ur Specific Sellers (1.010-1.025) Urine Protein (Neg-Trace) mg/dL Urine Glucose (UA) (Normal) mg/dL Urine Ketones (Negative) mg/dL Urine Blood (Negative) Urine Nitrite (Negative) Urine Bilirubin (Negative) Urine Urobilinogen (Normal) mg/dL Ur Leukocyte Esterase (Negative) Urine Microscopic RBC (0-3) per hpf Urine Microscopic WBC Ur Squamous Epith Cells (None-Few) per lpf Urine Bacteria Hyaline Casts Ur Culture Indicated? (NO) Specimen Rejected 04/22/17 04/22/17 04/22/17 Range/Units 05:22 05:22 06:15 PT (9.4-12.1) Seconds INR APTT (26.0-36.0) Seconds Sodium (136-145) mEq/L Potassium (3.5-4.5) mEq/L Chloride (98-109) mEq/L Carbon Dioxide (19-29) mEq/L BUN (8-26) mg/dL Creatinine (0.72-1.25) mg/dL Est GFR ( Amer) (> 60) Est GFR (Non-Af Amer) (> 60) BUN/Creatinine Ratio (6-26) Glucose (70-99) mg/dL Calculated Osmolality (280-300) Calcium (8.6-10.8) mg/dL Total Bilirubin (0.2-1.2) mg/dL Direct Bilirubin (0.0-0.5) mg/dL Indirect Bilirubin (0.0-1.2) mg/dL AST (5-34) Units/L ALT (0-55) Units/L Alkaline Phosphatase (38-126) Units/L Troponin I 0.01 (0-0.03) ng/mL B-Natriuretic Peptide (0-100) pg/mL Serum Total Protein (6.0-8.3) g/dL Albumin (3.5-5.0) g/dL Globulin (2.4-3.5) g/dL Albumin/Globulin Ratio (1.1-2.2) Urine Color Yellow (Yellow) Urine Clarity Clear (Clear) Urine pH 7.0 (5.0-8.0) pH Units Ur Specific Sellers 1.007 L (1.010-1.025) Urine Protein 100 H (Neg-Trace) mg/dL Urine Glucose (UA) 100 H (Normal) mg/dL Urine Ketones Negative (Negative) mg/dL Urine Blood Trace H (Negative) Urine Nitrite Negative (Negative) Urine Bilirubin Negative (Negative) Urine Urobilinogen Normal (Normal) mg/dL Ur Leukocyte Esterase Negative (Negative) Urine Microscopic RBC 0-3 (0-3) per hpf Urine Microscopic WBC Test Not Performed Ur Squamous Epith Cells Few (None-Few) per lpf Urine Bacteria Test Not Performed Hyaline Casts Test Not Performed Ur Culture Indicated? NO (NO) Specimen Rejected MCV Delta - Radiology Data Radiology results reviewed: Yes I reviewed the patient's radiology results. Chest X-Ray 04/22/17 05:51 IMPRESSION: Negative portable chest. D/ / Kwaku Ascencio MD / Kwaku Ascencio MD Interpreting Provider: Kwaku Ascencio MD - EKG Data EKG attestation: Yes I reviewed and interpreted this EKG. EKG shows normal: sinus rhythm Rate: normal Rhythm: NSR [place]/QRS: left axis deviation Interpretation: no acute changes, unchanged when compared to prior tracing (date ) (08/15/2016) Critical Care Time Critical Care Time: Yes Total Critical Care Time: 45 Attestation: Critical care performed: Time is exclusive of separately billable procedures. Time includes: direct patient care, patient reassessment, coordination of patient care, interpretation of data (laboratory data, radiology data, and respiratory data), review of patient's medical records, medical consultation and documentation of patient care. Procedures included in critical care time: Procedures excluded from critical care time:
[2017-04-22] MEDS ORDERED: Nitroglycerin 0.4 MG TAB.SUBL SL PRN (05:58)
[2017-04-22] MEDS ORDERED: Aspirin 81 MG TAB.CHEW PO STA (05:58)
[2017-04-22 06:05] LABS: INR 1.1; Prothrombin Time 12.1 Seconds (9.4-12.1)
[2017-04-22 06:08] LABS: Activated Partial Thrombo Time 30.8 Seconds (26.0-36.0)
[2017-04-22 06:10] LABS: Alanine Aminotransferase 163 Units/L (0-55); Albumin 3.8 g/dL (3.5-5.0); Albumin/Globulin Ratio 1.1 (1.1-2.2); Alkaline Phosphatase 85 Units/L (38-126); Aspartate Amino Transferase 74 Units/L (5-34); BUN/Creatinine Ratio 11 (6-26); Bilirubin,Direct 0.3 mg/dL (0.0-0.5); Bilirubin,Indirect 0.2 mg/dL (0.0-1.2); Bilirubin,Total 0.5 mg/dL (0.2-1.2); Blood Urea Nitrogen 14 mg/dL (8-26); Calcium 8.8 mg/dL (8.6-10.8); Carbon Dioxide 23 mEq/L (19-29); Chloride 79 mEq/L (98-109); Globulin 3.4 g/dL (2.4-3.5); Glucose 208 mg/dL (70-99); Osmolality,Calculated 227 (280-300); Potassium 5.9 mEq/L (3.5-4.5); Total Protein 7.2 g/dL (6.0-8.3); eGFR For African Americans > 60 (> 60); eGFR For Non-African Americans > 60 (> 60)
[2017-04-22 06:15] LABS: Sodium 105 mEq/L (136-145)
[2017-04-22 06:23] LABS: Bilirubin,Urine Negative (Negative); Blood,Urine Trace (Negative); Clarity,Urine Clear (Clear); Color,Urine Yellow (Yellow); Glucose,Urine (UA) 100 mg/dL (Normal); Ketones,Urine Negative (Negative); Leukocyte Esterase,Urine Negative (Negative); Nitrite,Urine Negative (Negative); Protein,Urine 100 mg/dL (Neg-Trace); Specific Gravity,Urine 1.007 (1.010-1.025); Urobilinogen,Urine Normal (Normal)
[2017-04-22] MEDS ORDERED: Ondansetron 4 MG/2 ML VIAL IVP ONE (06:27)
[2017-04-22] MEDS ORDERED: *HR* 3% Sodium Chloride 500 ML IV.SOLN IVC ONE (06:30)
[2017-04-22 06:41] LABS: RBC,Urine 0-3 per hpf (0-3); Squamous Epithelial Cell,Urine Few per lpf (None-Few)
[2017-04-22] MEDS ORDERED: *HR* Morphine 2 MG/ML SYRINGE IVP ONE (07:20)
[2017-04-22 07:50] LABS: Basophils % 0.1 %; Eosinophils # 0.1 K/mcL (0.0-0.6); Hematocrit 32.3 % (37.5-50.1); Hemoglobin 12.1 g/dL (12.9-16.9); Immature Granulocytes % 0.5 % (0-4); Immature Platelets 2.8 % (1.1-6.1); Lymphocytes # 1.4 K/mcL (0.6-4.6); Lymphocytes % 15.4 %; Mean Corpuscular Hemoglobin 29.5 pg (28.0-33.3); Mean Corpuscular Volume 78.8 fL (83.0-100.0); Mean Platelet Volume 8.7 fL (9.4-12.4); Monocytes # 0.9 K/mcL (0.0-1.3); Monocytes % 9.5 %; Neutrophils # 6.9 K/mcL (1.6-8.9); Platelet Count 222 K/mcL (140-400); Red Cell Distribution Width 11.6 % (11.5-14.5); Segmented Neutrophils % 73.5 %
[2017-04-22 07:52] LABS: Mean Corpuscular HGB Conc 37.5 g/dL (31.6-35.5)
[2017-04-22] MEDS ORDERED: *HR* Morphine 2 MG/ML SYRINGE IVP PRN (09:10)
[2017-04-22] MEDS ORDERED: Naloxone 0.4 MG/ML INJ IVP PRN (09:10)
[2017-04-22] MEDS ORDERED: *HR* Dextrose 50 % in Water (Syg) 50 ML SYRINGE IVP PRN (09:20)
[2017-04-22] MEDS ORDERED: D5% in Water 1,000 ML IVC PRN (09:20)
[2017-04-22] MEDS ORDERED: Dextrose Gel 15 GM PO PRN ×2 (09:20)
[2017-04-22] MEDS: Ranolazine 500 MG TAB.ER.12H PO SCH ×2 (10:14→21:01)
--- NOTE | 2017-04-22 10:48 | Internal Med History&Physical ---
Date of Encounter: 04/22/17 Time of Encounter: 10:30 Assessment and Plan (1) Hyponatremia Current visit: Yes Status: Acute Severe hyponatremia - probably acute on chronic - likely due to primary polydipsia or possible SIADH 3% hypertonic saline given in the ED Sodium level Q2H Fluid restriction, strict I's and O's Continue IV Lasix Nephrology consult - discussed with Dr. Chen Urine sodium and urine osmolality pending TSH and cortisol level pending labs in a.m. (2) Chest pain Current visit: No Status: Acute Atypical chest pain, now resolved - unlikely to be ACS Continue aspirin, Plavix, Ranexa and statin Left heart catheter done on 04/06/2017 - severe one vessel coronary artery disease LVEF 60% patent RCA stent, advised optimal medical therapy EKG - normal sinus rhythm with no acute ST-T changes Troponin - negative, we will trend Chest x-ray - negative Nitroglycerin and morphine when necessary Qualifiers: Chest pain type: chest pain due to myocardial ischemia Ischemic chest pain type: unspecified angina pectoris type Qualified Code(s): I20.9 - Angina pectoris, unspecified (3) CAD (coronary artery disease) Current visit: No Status: Chronic Chronic coronary artery disease, stable Recent left heart catheter revealed severe 1 vessel disease - needs optimal medical management Continue aspirin, Plavix, atorvastatin, carvedilol and Ranexa Qualifiers: Coronary Disease-Associated Artery/Lesion type: [place] artery [place] vs. transplanted heart: [place] heart Associated angina: with unspecified angina Qualified Code(s): I25.119 - Atherosclerotic heart disease of [place] coronary artery with unspecified angina pectoris (4) Diabetes mellitus Current visit: No Status: Chronic Diabetes mellitus type 2, insulin-dependent, hyperglycemia Continue Levemir, insulin sliding scale, glucose checks Qualifiers: Diabetes mellitus type: type 2 Diabetes mellitus complication status: without complication Diabetes mellitus halfway insulin use: with halfway use Qualified Code(s): E11.9 - Type 2 diabetes mellitus without complications ; Z79.4 - care home (current) use of insulin (5) Hyperlipidemia Current visit: No Status: Chronic Continue statin Qualifiers: Hyperlipidemia type: unspecified Qualified Code(s): E78.5 - Hyperlipidemia , unspecified (6) Hypertension Current visit: No Status: Chronic Essential hypertension, controlled, continue meds, monitor Qualifiers: Hypertension type: essential hypertension Qualified Code(s): I10 - Essential (primary) hypertension (7) Bipolar disorder Current visit: Yes Status: Chronic Chronic history of bipolar disorder Continue antipsychotics Qualifiers: Active/Remission status: currently active Current bipolar episode type: mixed Current episode severity: mild Qualified Code(s): F31.61 - Bipolar disorder, current episode mixed, mild (8) Depression with anxiety Current visit: Yes Status: Chronic Chronic, Continue home medications (9) DVT prophylaxis Current visit: No Status: Acute Continue heparin subcutaneous Internal Medicine - H&P: HPI Chief complaint: Dizziness, nausea and chest pain Admitted From: Emergency Dept Plans for Post Hospital Care: Home History of present illness: Mr. Gonzalez is a 52 year old male with past medical history CAD, hypertension , diabetes, hyperlipidemia, depression, bipolar disorder, cirrhosis, GERD, renal disease, lumbar arthritis, history of hepatitis and anxiety. Patient presents to the ED with complaints of dizziness, nausea and chest pain. On examination patient is awake and alert. Not in any distress. Able to provide all history. No family members at bedside. Patient states symptoms started about 2 days ago. Gradual worsening of symptoms. He decided to come to the ED today because of left-sided chest pain which was radiating to his back. He states it was still. Also radiated to his left arm. Pain is now resolved after nitroglycerin. No aggravating factors. Patient states he has been feeling lightheaded and dizzy and had nausea and 2 episodes of vomiting yesterday. Dizziness and lightheadedness seems to be his primary complaint at this time. Patient denies shortness of breath denies cough, denies abdominal pain or diarrhea or fever. Symptoms seem to have improved at this time. No aggravating or alleviating factors. No other associated symptoms. Initial ED evaluation revealed severe hyponatremia. Patient states he has been drinking more fluids than usual. He also states he has had difficulty urinating since yesterday. Does have a history of bipolar disorder and takes multiple antipsychotics. Patient requests his Xanax for anxiety. He has no other acute complaints at this time. Patient has been given 3% hypertonic saline in the ED. He will need to be on fluid restriction. Nephrology consult pending. Patient has been explained about his guarded condition and plan of care. Understood and agreed. No unanswered questions. Will discuss with family. CODE STATUS full code. Past Med Surg Social Fam HX - Past Medical History Medical history: arthritis, cirrhosis, coronary artery disease, diabetes, GERD, hepatitis, hyperlipidemia, hypertension, liver disease, migraine, myocardial infarction, RA, renal disease Psychiatric history: anxiety, depression, PTSD - Past Surgical History Surgical History: angioplasty/stent, cholecystectomy - Social History Smoking Status: Former smoker Smokeless Tobacco Status: No Alcohol use: none Drug use: marijuana - Family History Father Living Status: Hx Family Cardiac Disorders: Yes Hx Family Endocrine Disorder: Yes Hx Family Neurologic Disorders: Yes Mother Name: alberto Living Status: Age at : 75 Cause of : heart troubles Hx Family Cardiac Disorders: Yes Hx Family Respiratory Disorders: Yes (mother) Hx Family Cancer: Yes (uncle,) Hx Family GI Disorders: Yes (self,) Hx Family Endocrine Disorder: Yes (self, father, 3 uncles) Hx Family Neuromuscular Disorders: No Hx Family Neurologic Disorders: Yes (father) Hx Family HEENT Disorders: No Hx Family Autoimmune Disorders: No Internal Medicine - H&P: Meds Alprazolam [Xanax] 1 mg PO TID 04/29/16 [History] Gabapentin [Neurontin] 100 mg PO TID 04/29/16 [History] Insulin ASPART [Novolog Flexpen] 10 unit SQ TIDWM 04/29/16 [History] Mirtazapine [Remeron] 45 mg PO HS 04/29/16 [History] Furosemide [Lasix] 40 mg PO DAILY 06/12/16 [History] Haloperidol [Haldol] 2 mg PO HS 06/12/16 [History] Insulin DETEMIR [Levemir Flextouch] 40 unit SQ BID 06/12/16 [History] Prazosin [Minipress] 1 mg PO HS 06/12/16 [History] Quetiapine Fumarate [Seroquel] 150 mg PO QAM 06/12/16 [History] Quetiapine Fumarate [Seroquel] 450 mg PO HS 06/12/16 [History] TraZODone 50 - 100 mg PO HS 06/12/16 [History] Venlafaxine XR (24 HR) [Effexor XR] 75 mg PO DAILY 06/12/16 [History] Aspirin 81 mg PO DAILY tab.chew 06/20/16 [Rx] Atorvastatin [Lipitor] 40 mg PO HS #30 tablet 06/20/16 [Rx] Carvedilol [Coreg] 12.5 mg PO BIDWM #120 tablet 06/20/16 [Rx] Clopidogrel [Plavix] 75 mg PO DAILY #30 tablet 06/20/16 [Rx] Pantoprazole Sodium [Protonix] 40 mg PO DAILY #30 tablet.dr 06/20/16 [Rx] amLODIPine [Norvasc] 10 mg PO DAILY #30 tablet 06/20/16 [Rx] Isosorbide MONOnitrate (24 HR) [Imdur] 60 mg PO DAILY #20 tab.er.24h 08/15/16 [ Rx] Lisinopril [Zestril] 10 mg PO BID 08/25/16 [History] Multivitamin with Minerals [One-A-Day Maximum Formula] 1 tab PO DAILY 04/04/17 [ History] [place]-3/Dha/Epa/Fish Oil [Fish Oil 1,000 mg Softgel] 1,000 mg PO DAILY 04/04/17 [History] Spironolactone [Aldactone] 50 mg PO BID 04/04/17 [History] Ranolazine [Ranexa] 1,000 mg PO BID #60 tab.er.12h 04/06/17 [Rx] Allergies codeine Allergy (Verified 06/12/16 13:04) Vomiting All Systems PM: A 10-system review of systems was performed and is negative for pertinent findings except as documented above in the HPI. - Constitutional Constitutional: fatigue, weakness, no chills, no fever(s) - EENT Eyes: no blurry vision, no loss of vision - Cardiovascular Cardiovascular ROS IM: chest pain, no diaphoresis, no dyspnea, no dyspnea on exertion, no lightheadedness, no orthopnea, no syncope - Respiratory Respiratory: no cough, no dyspnea, no dyspnea on exertion, no wheezing, no chest congestion - Gastrointestinal Gastrointestinal: nausea, vomiting, no abdominal pain, no cramping, no diarrhea , no hematemesis, no melena - Genitourinary Genitourinary ROS male: difficulty urinating - Musculoskeletal Musculoskeletal ROS IM: no arthralgias - Neurological Neurological ROS: dizziness, vertigo, no abnormal hearing, no confusion, no focal weakness, no numbness, no tingling - Psychiatric Psychiatric: anxiety, no suicidal ideation - Endocrine Endocrine IM: polydipsia - Constitutional Vitals: Temp Pulse Resp BP Pulse Ox 98.1 F 85 15 139/91 98 04/22/17 09:10 04/22/17 09:10 04/22/17 09:10 04/22/17 09:10 04/22/17 09:10 General appearance: Present: disheveled, A&O X 3, no acute distress, answers questions appropriately Exam: Generalized weakness, ill-appearing - Head Head exam: Present: atraumatic - Eye Eye exam: Present: EOMI - ENT ENT exam: Present: mucous membranes moist - Neck Neck exam general surgery: Present: supple - Respiratory Respiratory exam: Present: CTAB. Absent: rales, rhonchi, wheezes - Cardiovascular Cardiovascular exam: Present: RRR, +S1, +S2, systolic murmur - GI/Abdominal GI/Abdominal exam: Present: soft, no peritoneal signs. Absent: distended, firm , guarding, rebound, rigid, tenderness - Extremities Exam Extremities exam: Present: pedal edema (Mild bilateral), radial pulses palpable and symetrical. Absent: cyanotic, tenderness - Neurological Exam Neurological exam: Present: alert, oriented X3, no focal deficits. Absent: facial droop, speech deficit Internal Med - H&P Results - Labs CBC & Chem 7: 04/22/17 07:44 04/22/17 07:44 Labs: Cardiac Enzymes 04/22/17 Range/Units 09:34 Troponin I 0.00 (0-0.03) ng/mL
--- NOTE | 2017-04-22 12:07 | Event Note ---
Date of Encounter: 04/22/17 Time of Encounter: 11:30 Nephrology Chart Review I was paged after having completed rounds and was at home. I logged into [employer] to review this pt's records: severe hyponatremia but without seizures or significant neurologic symptoms, so I do not recommend further 3% saline at this time, which he already received in the ER. I recommend a slow, steady correction of about 6-8 mEq in the first 24hr. Check PNa q2hrs. This is an acute on chronic hyponatremia. Chronically he has has some risk factors for hyponatremia from the Antipsychotic meds but also from his hx of urinary retention, which I read that he reported has worsened recently. We must rule out acute urinary retention which is a known cause of worsening hyponatremia ( as well as the hyperkalemia that he was also found). Tentative Recommendations: 1) check renal U/S today to r/o urinary retention, if found, place a rincon 2) PNa checks q2hr for a guided and slow correction of 6-8mEq via fluid restriction and loop diuretic. I've written a communication order to request that the nurse send me updates on his PNa results. Eventually when his PNa is > 120, the PNa checks should be spaced out. 3) Hyperkalemia: agree with not continuing the Spironolactone but I have also held the OMID, which could also potentially contribute to the hyperkalemia. Full consult note and recommendations to follow tomorrow. Thank you for consulting the [facility].
[2017-04-22] MEDS: Furosemide 40 MG/4 ML VIAL IVP SCH (12:53)
[2017-04-22] MEDS: ALPRAZolam 1 MG TABLET PO SCH ×2 (13:01→21:01)
[2017-04-22] MEDS ORDERED: ALPRAZolam 1 MG TABLET PO SCH (15:00)
[2017-04-22] MEDS: Insulin LISPRO 300 UNITS/3 ML VIAL SQ SCH ×2 (15:15→17:26)
[2017-04-22] MEDS: Ondansetron 4 MG/2 ML VIAL IVP PRN (16:13)
[2017-04-22] MEDS: *HR* Heparin 5,000 UNIT/ML VIAL SQ SCH (16:14)
[2017-04-22] MEDS ORDERED: NON-FORMULARY MEDICATION 1 EACH EACH (Insulin Detemir [Levemir Flextouch] 40 UNIT) SQ SCH (21:00)
[2017-04-22] MEDS: Mirtazapine 15 MG TABLET PO SCH (21:01)
[2017-04-22] MEDS: traZODone 50 MG TABLET PO SCH (21:02)
[2017-04-22] MEDS: Insulin DETEMIR 100 UNIT/ML X5UNITS SQ SCH (21:02)
[2017-04-22] MEDS: Famotidine 20 MG TABLET PO SCH (21:02)
[2017-04-23 03:10] LABS: Basophils % 0.4 %; Eosinophils # 0.1 K/mcL (0.0-0.6); Eosinophils % 1.9 %; Hematocrit 30.1 % (37.5-50.1); Hemoglobin 11.1 g/dL (12.9-16.9); Immature Platelets 2.4 % (1.1-6.1); Lymphocytes # 2.3 K/mcL (0.6-4.6); Lymphocytes % 33.1 %; Mean Corpuscular HGB Conc 36.9 g/dL (31.6-35.5); Mean Corpuscular Hemoglobin 29.2 pg (28.0-33.3); Mean Corpuscular Volume 79.2 fL (83.0-100.0); Mean Platelet Volume 8.6 fL (9.4-12.4); Monocytes # 0.9 K/mcL (0.0-1.3); Neutrophils # 3.6 K/mcL (1.6-8.9); Platelet Count 213 K/mcL (140-400); Red Cell Distribution Width 11.9 % (11.5-14.5); Segmented Neutrophils % 50.6 %
[2017-04-23 03:34] LABS: BUN/Creatinine Ratio 12 (6-26); Blood Urea Nitrogen 14 mg/dL (8-26); Calcium 8.6 mg/dL (8.6-10.8); Carbon Dioxide 23 mEq/L (19-29); Chloride 84 mEq/L (98-109); Glucose 172 mg/dL (70-99); Uric Acid 3.1 mg/dL (3.5-7.2); eGFR For African Americans > 60 (> 60); eGFR For Non-African Americans > 60 (> 60)
[2017-04-23] MEDS: *HR* Heparin 5,000 UNIT/ML VIAL SQ SCH ×2 (05:49→16:08)
[2017-04-23] MEDS: Ondansetron 4 MG/2 ML VIAL IVP PRN ×2 (05:49→13:58)
[2017-04-23] MEDS: Ranolazine 500 MG TAB.ER.12H PO SCH ×2 (07:53→21:02)
[2017-04-23] MEDS: amLODIPine 5 MG TABLET PO SCH (07:53)
[2017-04-23] MEDS: Multivit/Ca/Min/Fe/FA 1 TAB TABLET PO SCH (07:53)
[2017-04-23] MEDS: Aspirin 81 MG TAB.CHEW PO SCH (07:54)
[2017-04-23] MEDS: Famotidine 20 MG TABLET PO SCH ×2 (07:54→21:03)
[2017-04-23] MEDS: Venlafaxine XR (24 HR) 75 MG CAP.ER.24H PO SCH (07:54)
[2017-04-23] MEDS: (Omega-3/Dha/Epa/Fish Oil [Fish Oil 1,000 Mg Softgel]) PO SCH (07:55)
[2017-04-23] MEDS: Furosemide 40 MG/4 ML VIAL IVP SCH (07:55)
[2017-04-23] MEDS: ALPRAZolam 1 MG TABLET PO SCH ×3 (07:55→21:03)
[2017-04-23] MEDS: Insulin LISPRO 300 UNITS/3 ML VIAL SQ SCH ×5 (08:12→21:12)
--- NOTE | 2017-04-23 12:32 | Nephrology Consult Note ---
Date of Encounter: 04/23/17 Time of Encounter: 08:50 Assessment and Plan (1) Hyponatremia Current Visit: Yes Status: Acute Euvolemic, hypotonic, Acute on Chronic hyponatremia. He was not having seizures but his did report that he was developing increased confusion. S/p 100mL of 3% saline in the ER. Placed on a fluid restriction and Lasix 40mg IV daily and in the first 24hr he slowly corrected from about 105 to 111. I recommend a very slow rate of correction of about 6-8mEq change per 24hr. I've added NaCl 1gm po tid, but continue the fluid restriction (will tighten to 1200mL/day) and loop diuretic. Holding off on using Tolvaptan for now d/t his hx of cirrhosis of the liver. Hx of HTN. Hyperkalemia: hold lisinopril and Spironolactone d/t the hyperkalemia. He may have been having urinary retention, and a 'partial obstruction' is listed as a potential for hyponatremia. Renal U/S was WNL but he already had a rincon placed. I've added Flomax to help him wean off the rincon perhaps in the next 24hr. Also in the differential for the hyponatremia: antipsychotic meds, polydipsia ( he affirmed only about 2L of fluid intake per day he and his told me), liver disease/cirrhosis and heart disease. Discussed plans with the hospitalists and RNs. Continue Q4hr PNa checks. Thank you for consulting the [facility]. My colleague Dr. Foreman will be on-call tomorrow. (2) Hyperkalemia Current Visit: Yes Status: Acute (3) Cirrhosis of liver Current Visit: Yes Status: Acute Qualifiers: Qualified Code(s): K74.60 - Unspecified cirrhosis of liver (4) Bipolar disorder Current Visit: Yes Status: Chronic Qualifiers: Active/Remission status: currently active Current bipolar episode type: mixed Current episode severity: mild Qualified Code(s): F31.61 - Bipolar disorder, current episode mixed, mild (5) Chest pain Current Visit: No Status: Acute Qualifiers: Chest pain type: chest pain due to myocardial ischemia Ischemic chest pain type: unspecified angina pectoris type Qualified Code(s): I20.9 - Angina pectoris, unspecified (6) Hypertension Current Visit: Yes Status: Chronic Qualifiers: Hypertension type: essential hypertension Qualified Code(s): I10 - Essential (primary) hypertension History of Present Illness - Reason for Consult Consult date: 04/22/17 hyponatremia Requesting physician: Joy Pryor - Chief Complaint Hyponatremia - History of Present Illness Miah Gonzalez is a very pleasant 52 y/o WM with a pmh of chronic, mild hyponatremia, HCV cirrhosis of the liver, mental genesis conditions requiring several psych meds, HTN, heart disease and et al who presented with progressive confusion and chest pain. When evaluated in the ER, he was found to have more atypical chest pain but incidentally he was noted to be extremely hyponatremic. He was given 3% saline of about 100mL per report and admitted to 2NE unit. I spoke with the hospitalist soon thereafter and provided verbal recommendations and placed orders remotely (see the Event Note by me from yesterday). The pt and his who was present, said the he had been drinking more pure water than normal. Starting about 1-2 weeks ago he developed some slowness to his thinking, and was mildly confused he reported but has not had seizures recently. He denied having more swelling of his abd or feet recently. Not taking NSAIDs or new diuretics. No recent Psych med increase in dosing that he could recall. He did not affirm active chest pain or N/V/D, flank pain, or dysuria during my exam. Past Med Surg Social Fam HX - Past Medical History Medical history: arthritis, cirrhosis, coronary artery disease, diabetes, GERD, hepatitis, hyperlipidemia, hypertension, liver disease, migraine, myocardial infarction, RA, renal disease Psychiatric history: anxiety, depression, PTSD - Past Surgical History Surgical History: angioplasty/stent, cholecystectomy - Social History Smoking Status: Former smoker Smokeless Tobacco Status: No Alcohol use: none Drug use: marijuana - Family History Father Living Status: Hx Family Cardiac Disorders: Yes Hx Family Endocrine Disorder: Yes Hx Family Neurologic Disorders: Yes Mother Name: alberto Living Status: Age at : 75 Cause of : heart troubles Hx Family Cardiac Disorders: Yes Hx Family Respiratory Disorders: Yes (mother) Hx Family Cancer: Yes (uncle,) Hx Family GI Disorders: Yes (self,) Hx Family Endocrine Disorder: Yes (self, father, 3 uncles) Hx Family Neuromuscular Disorders: No Hx Family Neurologic Disorders: Yes (father) Hx Family HEENT Disorders: No Hx Family Autoimmune Disorders: No Medications and Allergies Alprazolam [Xanax] 1 mg PO TID 04/29/16 [History] Gabapentin [Neurontin] 100 mg PO TID 04/29/16 [History] Insulin ASPART [Novolog Flexpen] 10 unit SQ TIDWM 04/29/16 [History] Mirtazapine [Remeron] 45 mg PO HS 04/29/16 [History] Furosemide [Lasix] 40 mg PO DAILY 06/12/16 [History] Haloperidol [Haldol] 2 mg PO HS 06/12/16 [History] Insulin DETEMIR [Levemir Flextouch] 40 unit SQ BID 06/12/16 [History] Prazosin [Minipress] 1 mg PO HS 06/12/16 [History] Quetiapine Fumarate [Seroquel] 150 mg PO QAM 06/12/16 [History] Quetiapine Fumarate [Seroquel] 450 mg PO HS 06/12/16 [History] TraZODone 50 - 100 mg PO HS 06/12/16 [History] Venlafaxine XR (24 HR) [Effexor XR] 75 mg PO DAILY 06/12/16 [History] Aspirin 81 mg PO DAILY tab.chew 06/20/16 [Rx] Atorvastatin [Lipitor] 40 mg PO HS #30 tablet 06/20/16 [Rx] Carvedilol [Coreg] 12.5 mg PO BIDWM #120 tablet 06/20/16 [Rx] Clopidogrel [Plavix] 75 mg PO DAILY #30 tablet 06/20/16 [Rx] Pantoprazole Sodium [Protonix] 40 mg PO DAILY #30 tablet.dr 06/20/16 [Rx] amLODIPine [Norvasc] 10 mg PO DAILY #30 tablet 06/20/16 [Rx] Lisinopril [Zestril] 10 mg PO BID 08/25/16 [History] Multivitamin with Minerals [One-A-Day Maximum Formula] 1 tab PO DAILY 04/04/17 [ History] [place]-3/Dha/Epa/Fish Oil [Fish Oil 1,000 mg Softgel] 1,000 mg PO DAILY 04/04/17 [History] Spironolactone [Aldactone] 50 mg PO BID 04/04/17 [History] Ranolazine [Ranexa] 1,000 mg PO BID #60 tab.er.12h 04/06/17 [Rx] Meclizine HCl [Verticalm] 25 mg PO TID PRN 04/22/17 [History] Allergies codeine Adverse Reaction (Verified 04/22/17 13:09) Vomiting Review of Systems All Systems: reviewed and no additional remarkable complaints except as stated Exam - Vital Signs Vital signs: Initial Vital Signs Temp Pulse Resp BP Pulse Ox 98.1 F 88 20 126/86 99 04/22/17 05:04 04/22/17 05:04 04/22/17 05:04 04/22/17 05:04 04/22/17 05:04 Vital Signs - Last 8 Hours Temp Pulse Resp BP Pulse Ox 04/23/17 11:59 98.3 F 87 15 117/77 98 04/23/17 07:40 98.0 F 87 15 109/81 98 Intake and Output 04/22/17 04/23/17 04/23/17 23:59 07:59 15:59 Intake Total 1240 / 1240 0 / 0 600 / 600 Output Total 2550 / 2550 600 / 600 1350 / 1350 Balance -1310 / -1310 -600 / -600 -750 / -750 Intake: Oral 1240 / 1240 0 / 0 600 / 600 Output: Urine 0 / 0 Catheter 2550 / 2550 600 / 600 1350 / 1350 Other: Meal Dinner Breakfast Percent of Meal Consumed 75% 100% Weight 79.4 kg 79.4 kg Blood Glucose* 168 237 223 Patient Weight 04/23/17 23:59 Weight 79.4 kg - General Appearance General appearance: well-developed, well-nourished, appears started age EENT: ATNC, PERRL, mucous membranes moist Neck: supple Respiratory: clear Cardiology: no murmurs, no edema, regular rate, regular rhythm, normal S1, normal S2 Gastrointestinal: normoactive bowel sounds, no tenderness, no guarding Integumentary: no rash, warm and dry Neurologic: no focal deficit, no asterixis, alert and oriented x3 Musculoskeletal: no deformities, no erythema, no cyanosis Psychiatric: mood/affect appropriate, cooperative Results - Lab Results 04/24/17 01:52 04/24/17 09:53 Most recent lab results Calcium 8.6 mg/dL (8.6-10.8) 04/23/17 02:39 Urine Sodium 22.0 mEq/L 04/22/17 20:50 I reviewed the above auto-generated data sotomayor and also I reviewed clinic and hospital progress notes, labs, meds, vitals, imaging. Consult Discharge Plan - Plan Referrals: Liz Luna MD [Partnered Physician] - 05/17/17 12:00 pm Deepika Tavarez CNP [Advanced Practice Nurse] - 05/04/17 1:00 pm
[2017-04-23] MEDS: Acetaminophen 325 MG TABLET PO PRN (12:52)
[2017-04-23] MEDS: Insulin DETEMIR 100 UNIT/ML X5UNITS SQ SCH ×2 (12:52→21:13)
--- NOTE | 2017-04-23 15:02 | Internal Med Progress Note ---
Date of Encounter: 04/23/17 Time of Encounter: 10:20 - Assessment and plan (1) Hyponatremia Current Visit: Yes Status: Acute Assessment and plan: Remains hyponatremic. Nephrology following. Recommend oral salt tablets and freewater restriction. Awaiting results of urine osmolality. Will follow sodium levels closely. High risk for complications due to hyponatremia (2) Chest pain Current Visit: No Status: Acute Assessment and plan: Troponins have been negative. No longer having chest pain at this time. Anginal painbeing treated with beta rona, Ranexaand nitroglycerin. Qualifiers: Chest pain type: chest pain due to myocardial ischemia Ischemic chest pain type: unspecified angina pectoris type Qualified Code(s): I20.9 - Angina pectoris, unspecified (3) Bipolar disorder Current Visit: Yes Status: Chronic Assessment and plan: On seroquel. Symptoms currently controlled. Qualifiers: Active/Remission status: currently active Current bipolar episode type: mixed Current episode severity: mild Qualified Code(s): F31.61 - Bipolar disorder, current episode mixed, mild (4) CAD (coronary artery disease) Current Visit: No Status: Chronic Assessment and plan: On aspirin, Plavix, statin and beta rona. Qualifiers: Coronary Disease-Associated Artery/Lesion type: [place] artery [place] vs. transplanted heart: [place] heart Associated angina: with unspecified angina Qualified Code(s): I25.119 - Atherosclerotic heart disease of [place] coronary artery with unspecified angina pectoris (5) Depression with anxiety Current Visit: Yes Status: Chronic (6) Diabetes mellitus Current Visit: Yes Status: Chronic Assessment and plan: On Levemir and nutritional insulin. We will add sliding-scale correctional short-acting insulin. Qualifiers: Diabetes mellitus type: type 2 Diabetes mellitus complication status: without complication Diabetes mellitus halfway insulin use: with halfway use Qualified Code(s): E11.9 - Type 2 diabetes mellitus without complications ; Z79.4 - [facility] (current) use of insulin (7) DVT prophylaxis Current Visit: No Status: Acute (8) Hyperlipidemia Current Visit: No Status: Chronic Assessment and plan: Continue statin. Qualifiers: Hyperlipidemia type: mixed hyperlipidemia Qualified Code(s): E78.2 - Mixed hyperlipidemia (9) Hypertension Current Visit: Yes Status: Chronic Assessment and plan: Blood pressure is well controlled. Continue current antihypertensive regimen. Qualifiers: Hypertension type: essential hypertension Qualified Code(s): I10 - Essential (primary) hypertension - Subjective Interval history: Patient denies any complaints at this time. He did have trouble urinating prior to presentation and a Wells catheter was placed. He has had deep good urine output since then. Denies any dizziness or lightheadedness. No nausea or vomiting. - Constitutional Vitals: Temp Pulse Resp BP Pulse Ox 98.3 F 87 15 117/77 98 04/23/17 11:59 04/23/17 11:59 04/23/17 11:59 04/23/17 11:59 04/23/17 11:59 General appearance: Present: disheveled, A&O X 3, no acute distress, answers questions appropriately - Respiratory Respiratory exam: Present: CTAB. Absent: accessory muscle use, rales, rhonchi, wheezes - Cardiovascular Cardiovascular exam: Present: RRR, +S1, +S2. Absent: diastolic murmur, gallop, rubs, systolic murmur - GI/Abdominal GI/Abdominal exam: Present: normal bowel sounds, soft, no peritoneal signs. Absent: distended, tenderness - Extremities Exam Extremities exam: Present: warm, radial pulses palpable and symetrical. Absent : calf tenderness, cyanotic, pedal edema - Neurological Exam Neurological exam: Present: alert, oriented X3, no focal deficits. Absent: facial droop, speech deficit Internal Medicine: Result - Labs CBC & Chem 7: 04/23/17 02:39 04/23/17 14:01 Labs: Short CBC 04/23/17 Range/Units 02:39 WBC 7.0 (4.3-11.1) K/mcL Hgb 11.1 L (12.9-16.9) g/dL Hct 30.1 L (37.5-50.1) % Plt Count 213 (140-400) K/mcL Neutrophils # 3.6 (1.6-8.9) K/mcL BMP 04/22/17 04/22/17 04/22/17 14:02 16:06 17:56 Sodium 113 L* 111 L* 111 L* Potassium Chloride Carbon Dioxide BUN Creatinine Glucose Calcium 04/22/17 04/23/17 04/23/17 22:27 02:39 02:39 Sodium 111 L* TNP 111 L* Potassium 5.0 H Chloride 84 L Carbon Dioxide 23 BUN 14 Creatinine 1.13 Glucose 172 H Calcium 8.6 04/23/17 04/23/17 04/23/17 06:00 09:55 14:01 Sodium 111 L* 110 L* 112 L* Potassium Chloride Carbon Dioxide BUN Creatinine Glucose Calcium - ABG Interpretation ABG results: PT/INR, D-dimer PT 12.1 Seconds (9.4-12.1) 04/22/17 05:22 - Impressions Impressions Retroperitoneum Ultrasound 04/22/17 11:53 IMPRESSION: Wells catheter was present within urinary bladder. After the Wells catheter was unclamped, there was complete emptying of the urinary bladder. D/ / Eric Plummer MD / Eric Plummer MD Interpreting Provider: Eric Plummer MD Consult Discharge Plan - Plan Referrals: Wilman Whitney Jr, MD [Primary Care Provider] -
[2017-04-23] MEDS: traZODone 50 MG TABLET PO SCH (21:02)
[2017-04-23] MEDS: Mirtazapine 15 MG TABLET PO SCH (21:03)
[2017-04-24 02:00] LABS: Basophils % 0.5 %; Eosinophils # 0.1 K/mcL (0.0-0.6); Eosinophils % 1.3 %; Hematocrit 31.6 % (37.5-50.1); Hemoglobin 11.4 g/dL (12.9-16.9); Immature Granulocytes % 0.8 % (0-4); Lymphocytes # 2.3 K/mcL (0.6-4.6); Lymphocytes % 31.4 %; Mean Corpuscular HGB Conc 36.1 g/dL (31.6-35.5); Mean Corpuscular Hemoglobin 28.9 pg (28.0-33.3); Mean Platelet Volume 8.3 fL (9.4-12.4); Monocytes % 13.4 %; Neutrophils # 3.9 K/mcL (1.6-8.9); Platelet Count 193 K/mcL (140-400); Red Blood Count 3.95 M/mcL (4.19-5.50); Red Cell Distribution Width 11.7 % (11.5-14.5); Segmented Neutrophils % 52.6 %
[2017-04-24 02:15] LABS: Alanine Aminotransferase 72 Units/L (0-55); Aspartate Amino Transferase 17 Units/L (5-34); BUN/Creatinine Ratio 15 (6-26); Blood Urea Nitrogen 19 mg/dL (8-26); Calcium 9.2 mg/dL (8.6-10.8); Carbon Dioxide 20 mEq/L (19-29); Chloride 87 mEq/L (98-109); Glucose 141 mg/dL (70-99); Osmolality,Calculated 249 (280-300); Potassium 4.9 mEq/L (3.5-4.5); eGFR For African Americans > 60 (> 60); eGFR For Non-African Americans 59 (> 60)
[2017-04-24 02:16] LABS: Sodium 117 mEq/L (136-145)
[2017-04-24] MEDS: *HR* Heparin 5,000 UNIT/ML VIAL SQ SCH ×2 (05:09→17:27)
[2017-04-24] MEDS: Multivit/Ca/Min/Fe/FA 1 TAB TABLET PO SCH (08:44)
[2017-04-24] MEDS: Famotidine 20 MG TABLET PO SCH ×2 (08:44→21:14)
[2017-04-24] MEDS: Ranolazine 500 MG TAB.ER.12H PO SCH ×2 (08:44→21:11)
[2017-04-24] MEDS: Venlafaxine XR (24 HR) 75 MG CAP.ER.24H PO SCH (08:44)
[2017-04-24] MEDS: Aspirin 81 MG TAB.CHEW PO SCH (08:44)
[2017-04-24] MEDS: amLODIPine 5 MG TABLET PO SCH (08:44)
[2017-04-24] MEDS: ALPRAZolam 1 MG TABLET PO SCH ×3 (08:45→21:12)
[2017-04-24] MEDS: (Omega-3/Dha/Epa/Fish Oil [Fish Oil 1,000 Mg Softgel]) PO SCH (08:45)
[2017-04-24] MEDS: Insulin LISPRO 300 UNITS/3 ML VIAL SQ SCH ×7 (08:46→22:35)
[2017-04-24] MEDS: Insulin DETEMIR 100 UNIT/ML X5UNITS SQ SCH ×2 (08:58→22:14)
[2017-04-24] MEDS: Acetaminophen 325 MG TABLET PO PRN (11:47)
--- NOTE | 2017-04-24 13:21 | Nephrology Progress Note ---
Date of Encounter: 04/24/17 Time of Encounter: 13:19 - Assessment and Plan (1) Hyponatremia Current Visit: Yes Status: Acute Euvolemic, hypotonic, acute on chronic hyponatremia. Patient reported drinking increased amount of water before admission, states having diabetes makes his more thirsty. HgA1C 8.5% Since admission patient's hyponatremia improved from 105-117. However in the last 12 hours sodium level has dropped to 114. Patient's serum creatinine has increased to 1.27 on lasix. Patient is tolerating his diet. Last 24 hours urine output was 2300 mL. Plan: repeat BMP in afternoon: if Na+ continues to decline will need to start on tolvaptan or demeclocycline, however with underlying cirrhosis, this is a relative contraindication for tolvaptan. continue salt tablets d/c lasix strict I/O continue fluid restrictive diet Continue renal protective/conservative strategy Avoid nephrotoxins including NSAIDs and contrast. (2) Hyperkalemia Current Visit: Yes Status: Acute Improving. [place]eli 2nd to lasix Will trend this afternoon Lasix d/c due to worsening renal function Continue renal diet. (3) Bipolar disorder Current Visit: Yes Status: Chronic Patient on several psych medications that may cause hyponatremia: Venlafaxine, mirtazapine, quetiapine Qualifiers: Active/Remission status: currently active Current bipolar episode type: mixed Current episode severity: mild Qualified Code(s): F31.61 - Bipolar disorder, current episode mixed, mild (4) Cirrhosis of liver Current Visit: Yes Status: Acute Qualifiers: Hepatic cirrhosis type: unspecified hepatic cirrhosis Ascites presence: without ascites Qualified Code(s): K74.60 - Unspecified cirrhosis of liver (5) Chest pain Current Visit: Yes Status: Resolved Qualifiers: Chest pain type: other chest pain Qualified Code(s): R07.89 - Other chest pain; R07.8 - Other chest pain (6) Hypertension Current Visit: Yes Status: Chronic controlled. Qualifiers: Hypertension type: essential hypertension Qualified Code(s): I10 - Essential (primary) hypertension Subjective Principal diagnosis: Hyponatremia Interval history: NO acute events overnight. Denies N/V/D. Denies abdominal pain, LE edema. Objective - Vital Signs Vital signs: Vital Signs Temp Pulse Resp BP Pulse Ox 04/24/17 10:32 98.9 F 88 16 126/85 94 07/10/17 06:54 98.7 F 83 16 124/85 96 04/24/17 04:53 90 15 140/95 95 04/24/17 01:04 83 14 123/75 96 04/23/17 21:13 98.6 F 82 15 122/77 96 04/23/17 16:00 98.1 F 85 15 116/82 97 Intake and Output 04/23/17 04/24/17 04/24/17 23:59 07:59 15:59 Intake Total 240 / 240 360 / 360 Output Total 350 / 350 1100 / 1100 350 / 350 Balance -110 / -110 -1100 / -1100 Intake: Oral 240 / 240 360 / 360 Output: Urine 1100 / 1100 2-way Urethral 1100 / 1100 Catheter 350 / 350 350 / 350 Other: Meal Breakfast Percent of Meal Consumed 80% Blood Glucose* 183 176 263 - General Appearance General appearance: Present: chronically ill Neck: Present: no JVD, supple Respiratory: Present: clear Cardiology: Present: edema (1+), regular rate, normal S1, normal S2 Gastrointestinal: Present: normoactive bowel sounds, no tenderness, no guarding Additional Comments: absent fluid wave Integumentary: Present: no rash, warm and dry Musculoskeletal: Present: no deformities, no erythema, no cyanosis, no clubbing Psychiatric: Present: mood/affect appropriate, cooperative - Lab 04/24/17 01:52 04/25/17 06:19 Most recent lab results Calcium 9.2 mg/dL (8.6-10.8) 04/24/17 01:52 Urine Sodium 22.0 mEq/L 04/22/17 20:50 Consult Discharge Plan - Plan Referrals: Liz Luna MD [Partnered Physician] - 05/17/17 12:00 pm Deepika Tavarez CNP [Advanced Practice Nurse] - 05/04/17 1:00 pm
[2017-04-24 14:11] LABS: Potassium 4.9 mEq/L (3.5-4.5)
--- NOTE | 2017-04-24 14:49 | Internal Med Progress Note ---
Date of Encounter: 04/24/17 Time of Encounter: 08:45 - Assessment and plan (1) Hyponatremia Current Visit: Yes Status: Acute Assessment and plan: Sodium 114 this morning. Urine osmolality is low. Improving slowly. We will stop Lasix as renal function has worsened today. Nephrology following. Continue oral sodium chloride supplementation. Euvolemic, hypotonic. High risk for complications due to his low sodium levels. (2) Chest pain Current Visit: Yes Status: Resolved Assessment and plan: No longer having any chest pain. Negative troponins. No further workup planned at this time. Qualifiers: Chest pain type: other chest pain Qualified Code(s): R07.89 - Other chest pain; R07.8 - Other chest pain (3) Bipolar disorder Current Visit: Yes Status: Chronic Assessment and plan: Symptoms are controlled. Patient is on Effexor, Seroquel and Remeron. Qualifiers: Active/Remission status: currently active Current bipolar episode type: mixed Current episode severity: mild Qualified Code(s): F31.61 - Bipolar disorder, current episode mixed, mild (4) CAD (coronary artery disease) Current Visit: Yes Status: Chronic Assessment and plan: Continue aspirin and statin and Plavix and beta rona. Qualifiers: Coronary Disease-Associated Artery/Lesion type: [place] artery [place] vs. transplanted heart: [place] heart Associated angina: with unspecified angina Qualified Code(s): I25.119 - Atherosclerotic heart disease of [place] coronary artery with unspecified angina pectoris (5) Depression with anxiety Current Visit: Yes Status: Chronic Assessment and plan: Symptoms are controlled. Continue home medications (6) Diabetes mellitus Current Visit: Yes Status: Chronic Assessment and plan: Blood sugars improved but consistently elevated. We will increase long-acting insulin coverage. 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 Doing well. No shortness of breath. Does have Wells catheter. No chest pain. No dysuria. - Constitutional Vitals: Temp Pulse Resp BP Pulse Ox 98.9 F 88 16 126/85 94 04/24/17 10:32 04/24/17 10:32 04/24/17 10:32 04/24/17 10:32 04/24/17 10:32 General appearance: Present: cooperative, A&O X 3, no acute distress, answers questions appropriately - Neck Neck exam general surgery: Present: supple, trachea midline. Absent: lymphadenopathy - Cardiovascular Cardiovascular exam: Present: RRR, +S1, +S2. Absent: diastolic murmur, gallop, rubs, systolic murmur - GI/Abdominal GI/Abdominal exam: Present: normal bowel sounds, soft, no peritoneal signs. Absent: distended, tenderness - Extremities Exam Extremities exam: Present: warm, radial pulses palpable and symetrical. Absent : calf tenderness, cyanotic, pedal edema - Neurological Exam Neurological exam: Present: oriented X3, no focal deficits. Absent: facial droop, speech deficit Internal Medicine: Result - Labs CBC & Chem 7: 04/24/17 01:52 04/24/17 13:49 Labs: Short CBC 04/24/17 Range/Units 01:52 WBC 7.5 (4.3-11.1) K/mcL Hgb 11.4 L (12.9-16.9) g/dL Hct 31.6 L (37.5-50.1) % Plt Count 193 (140-400) K/mcL Neutrophils # 3.9 (1.6-8.9) K/mcL BMP 04/23/17 04/23/17 04/24/17 17:59 22:15 01:52 Sodium 114 L* 116 L* 117 L* Potassium 4.9 H Chloride 87 L Carbon Dioxide 20 BUN 19 Creatinine 1.27 H Glucose 141 H Calcium 9.2 04/24/17 04/24/17 04/24/17 01:52 05:50 09:53 Sodium 116 L* 115 L* 114 L* Potassium Chloride Carbon Dioxide BUN Creatinine Glucose Calcium 04/24/17 13:49 Sodium 117 L* Potassium 4.9 H Chloride 89 L Carbon Dioxide 21 BUN 23 Creatinine 1.50 H Glucose 165 H Calcium 9.0 Liver Function 04/24/17 Range/Units 01:52 AST 17 (5-34) Units/L ALT 72 H (0-55) Units/L - ABG Interpretation ABG results: PT/INR, D-dimer PT 12.1 Seconds (9.4-12.1) 04/22/17 05:22 Consult Discharge Plan - Plan Referrals: Liz Luna MD [Partnered Physician] - 05/17/17 12:00 pm Deepika Tavarez CNP [Advanced Practice Nurse] - 05/04/17 1:00 pm
[2017-04-24] MEDS: traZODone 50 MG TABLET PO SCH (21:11)
[2017-04-24] MEDS: Mirtazapine 15 MG TABLET PO SCH (21:12)
[2017-04-25] MEDS: *HR* Heparin 5,000 UNIT/ML VIAL SQ SCH ×2 (05:07→16:50)
--- NOTE | 2017-04-25 08:48 | Nephrology Progress Note ---
Date of Encounter: 04/25/17 Time of Encounter: 08:45 - Assessment and Plan (1) Hyponatremia Current Visit: Yes Status: Acute Euvolemic, hypotonic, acute on chronic hyponatremia. Patient reported drinking increased amount of water before admission, states having diabetes makes his more thirsty. HgA1C 8.5% Na+ level 124. Plan: Hyponatremia is correcting with fluid restrictive diet and salt tablets. Will repeat BMP this afternoon to monitor renal function. Patient is progressing back to baseline. Very important to educate patient on fluid restriction. continue salt tablets strict I/O continue fluid restrictive diet Continue renal protective/conservative strategy Avoid nephrotoxins including NSAIDs and contrast. (2) Hyperkalemia Current Visit: Yes Status: Acute Improving. [place] 2nd to lasix Will trend this afternoon Lasix d/c due to worsening renal function Continue renal diet. (3) Bipolar disorder Current Visit: Yes Status: Chronic Patient on several psych medications that may cause hyponatremia: Venlafaxine, mirtazapine, quetiapine Qualifiers: Active/Remission status: currently active Current bipolar episode type: mixed Current episode severity: mild Qualified Code(s): F31.61 - Bipolar disorder, current episode mixed, mild (4) Cirrhosis of liver Current Visit: Yes Status: Chronic Qualifiers: Hepatic cirrhosis type: other cirrhosis Qualified Code(s): K74.69 - Other cirrhosis of liver (5) Chest pain Current Visit: Yes Status: Resolved Qualifiers: Chest pain type: other chest pain Qualified Code(s): R07.89 - Other chest pain; R07.8 - Other chest pain (6) Hypertension Current Visit: Yes Status: Chronic controlled. Qualifiers: Hypertension type: essential hypertension Qualified Code(s): I10 - Essential (primary) hypertension Subjective Principal diagnosis: Hyponatremia Interval history: NO acute events overnight. Denies N/V/D. Denies abdominal pain, LE edema. Objective - Vital Signs Vital signs: Vital Signs Temp Pulse Resp BP Pulse Ox 04/25/17 07:57 98.1 F 83 18 116/73 97 04/25/17 04:37 122/89 04/25/17 03:58 98 F 85 16 145/79 98 04/24/17 23:46 97.5 F L 79 16 109/79 04/24/17 20:13 99.1 F 86 16 111/77 98 04/24/17 15:19 97.6 F 93 16 118/83 98 04/24/17 10:32 98.9 F 88 16 126/85 94 Intake and Output 04/24/17 04/25/17 04/25/17 23:59 07:59 15:59 Intake Total 270 / 270 0 / 0 Output Total 1350 / 1350 700 / 700 Balance -1080 / -1080 -700 / -700 Intake: Oral 270 / 270 0 / 0 Output: Urine 1350 / 1350 700 / 700 2-way Urethral 1100 / 1100 Other: Weight 77.2 kg Blood Glucose* 126 111 Patient Weight 04/25/17 23:59 Weight 77.2 kg - General Appearance General appearance: Present: well-nourished, chronically ill EENT: Present: mucous membranes moist Neck: Present: no JVD, supple Respiratory: Present: clear Cardiology: Present: no murmurs, no rub, no gallops, no edema, regular rate, regular rhythm, normal S1, normal S2 Integumentary: Present: no rash, warm and dry Musculoskeletal: Present: no deformities, no erythema, no cyanosis, no clubbing Psychiatric: Present: mood/affect appropriate, cooperative - Lab 04/24/17 01:52 04/25/17 11:21 Most recent lab results Calcium 9.0 mg/dL (8.6-10.8) 04/24/17 13:49 Urine Sodium 22.0 mEq/L 04/22/17 20:50 Consult Discharge Plan - Plan Referrals: Liz Luna MD [Partnered Physician] - 05/17/17 12:00 pm Deepika Tavarez CNP [Advanced Practice Nurse] - 05/04/17 1:00 pm
[2017-04-25] MEDS: Insulin LISPRO 300 UNITS/3 ML VIAL SQ SCH ×7 (09:17→21:40)
[2017-04-25] MEDS: Multivit/Ca/Min/Fe/FA 1 TAB TABLET PO SCH (09:23)
[2017-04-25] MEDS: Ranolazine 500 MG TAB.ER.12H PO SCH ×2 (09:23→21:38)
[2017-04-25] MEDS: ALPRAZolam 1 MG TABLET PO SCH ×3 (09:24→21:39)
[2017-04-25] MEDS: Venlafaxine XR (24 HR) 75 MG CAP.ER.24H PO SCH (09:24)
[2017-04-25] MEDS: Aspirin 81 MG TAB.CHEW PO SCH (09:24)
[2017-04-25] MEDS: amLODIPine 5 MG TABLET PO SCH (09:24)
[2017-04-25] MEDS: Insulin DETEMIR 100 UNIT/ML X5UNITS SQ SCH ×2 (09:24→21:39)
[2017-04-25] MEDS: Famotidine 20 MG TABLET PO SCH ×2 (09:24→21:36)
[2017-04-25 11:39] LABS: BUN/Creatinine Ratio 19 (6-26); Blood Urea Nitrogen 23 mg/dL (8-26); Carbon Dioxide 23 mEq/L (19-29); Chloride 94 mEq/L (98-109); Glucose 156 mg/dL (70-99); Osmolality,Calculated 259 (280-300); Potassium 4.9 mEq/L (3.5-4.5); Sodium 121 mEq/L (136-145); eGFR For African Americans > 60 (> 60); eGFR For Non-African Americans > 60 (> 60)
[2017-04-25] MEDS: Acetaminophen 325 MG TABLET PO PRN (12:21)
[2017-04-25] MEDS ORDERED: MOM Conc 10 ML UD.LIQ PO PRN (12:50)
--- NOTE | 2017-04-25 13:12 | Internal Med Progress Note ---
Date of Encounter: 04/25/17 Time of Encounter: 12:35 - Assessment and plan (1) Hyponatremia Current Visit: Yes Status: Acute Assessment and plan: Sodium 124 and 121 today. Urine osmolality is low with reduced uric acid level. Lasix has been discontinued Nephrology onboard. Case discussed with nephrology. Continue oral salt tablet supplementation and fluid restricted diet. Euvolemic, hypotonic. High risk due to risk of lethal arrhythmias and seizures. (2) Cirrhosis of liver Current Visit: Yes Status: Chronic Assessment and plan: Due to hepatitis B. Stable. Outpatient follow-up. Qualifiers: Hepatic cirrhosis type: other cirrhosis Qualified Code(s): K74.69 - Other cirrhosis of liver (3) Bipolar disorder Current Visit: Yes Status: Chronic Assessment and plan: Symptoms are controlled. Patient is on Effexor, Seroquel and Remeron. Continue home medications. Qualifiers: Active/Remission status: currently active Current bipolar episode type: mixed Current episode severity: mild Qualified Code(s): F31.61 - Bipolar disorder, current episode mixed, mild (4) CAD (coronary artery disease) Current Visit: Yes Status: Chronic Assessment and plan: Continue aspirin and statin and Plavix and beta rona. Qualifiers: Coronary Disease-Associated Artery/Lesion type: [place] artery [place] vs. transplanted heart: [place] heart Associated angina: without angina Qualified Code(s): I25.10 - Atherosclerotic heart disease of [place] coronary artery without angina pectoris (5) Diabetes mellitus Current Visit: Yes Status: Chronic Assessment and plan: Blood sugars are well controlled. Continue current dose of basal insulin. Sliding scale insulin. 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 Continue current antihypertensive regimen. Qualifiers: Hypertension type: essential hypertension Qualified Code(s): I10 - Essential (primary) hypertension (7) Hyperkalemia Current Visit: Yes Status: Acute Assessment and plan: By mouth Kayexalate. Monitor. - Subjective Interval history: Patient reports that he is feeling much better. He denies having any lightheadedness, chest pain, shortness of breath, cough or wheezing. He reports good appetite. He states that he has not had a bowel movement in over 4 -5 days and is causing some abdominal discomfort and he is asking some stool softeners for the same. - Constitutional Vitals: Temp Pulse Resp BP Pulse Ox 98.5 F 86 18 101/72 98 04/25/17 11:47 04/25/17 11:47 04/25/17 11:47 04/25/17 11:47 04/25/17 11:47 General appearance: Present: cooperative, A&O X 3, no acute distress, answers questions appropriately Exam: Gen.: Lying in bed. No acute distress. Chest: Clear to auscultation bilaterally. No adventitious sounds present. CVS: First and second heart sounds present. No murmurs, rubs or gallops. Abdomen: Soft, tenderness to palpation in the left lower quadrant without rebound tenderness, guarding or rigidity; nondistended. Bowel sounds present. No hepatosplenomegaly. Skin: No decubitus ulcers appreciated. Internal Medicine: Result - Labs CBC & Chem 7: 04/24/17 01:52 04/25/17 11:21 Labs: BMP 04/24/17 04/25/17 04/25/17 13:49 06:19 11:21 Sodium 117 L* 124 L D 121 L Potassium 4.9 H 4.9 H Chloride 89 L 94 L Carbon Dioxide 21 23 BUN 23 23 Creatinine 1.50 H 1.23 Glucose 165 H 156 H Calcium 9.0 9.0 - ABG Interpretation ABG results: PT/INR, D-dimer PT 12.1 Seconds (9.4-12.1) 04/22/17 05:22 Consult Discharge Plan - Plan Referrals: Liz Luna MD [Partnered Physician] - 05/17/17 12:00 pm Deepika Tavarez CNP [Advanced Practice Nurse] - 05/04/17 1:00 pm
[2017-04-25 14:09] LABS: BUN/Creatinine Ratio 19 (6-26); Blood Urea Nitrogen 24 mg/dL (8-26); Calcium 8.8 mg/dL (8.6-10.8); Carbon Dioxide 20 mEq/L (19-29); Chloride 95 mEq/L (98-109); Glucose 130 mg/dL (70-99); Osmolality,Calculated 264 (280-300); Potassium 4.6 mEq/L (3.5-4.5); Sodium 124 mEq/L (136-145); eGFR For African Americans > 60 (> 60); eGFR For Non-African Americans > 60 (> 60)
[2017-04-25] MEDS: Ondansetron 4 MG/2 ML VIAL IVP PRN (19:20)
[2017-04-25] MEDS: Sennosides/Docusate Sodium TABLET PO SCH (21:37)
[2017-04-25] MEDS: traZODone 50 MG TABLET PO SCH (21:38)
[2017-04-25] MEDS: Mirtazapine 15 MG TABLET PO SCH (21:39)
[2017-04-26 05:10] LABS: Sodium 130 mEq/L (136-145)
[2017-04-26] MEDS: *HR* Heparin 5,000 UNIT/ML VIAL SQ SCH ×2 (06:11→16:34)
[2017-04-26] MEDS: Multivit/Ca/Min/Fe/FA 1 TAB TABLET PO SCH (08:28)
[2017-04-26] MEDS: Ranolazine 500 MG TAB.ER.12H PO SCH ×2 (08:28→21:04)
[2017-04-26] MEDS: ALPRAZolam 1 MG TABLET PO SCH ×3 (08:28→21:03)
[2017-04-26] MEDS: Aspirin 81 MG TAB.CHEW PO SCH (08:28)
[2017-04-26] MEDS: Insulin DETEMIR 100 UNIT/ML X5UNITS SQ SCH ×2 (08:28→21:04)
[2017-04-26] MEDS: Sennosides/Docusate Sodium TABLET PO SCH ×2 (08:28→21:05)
[2017-04-26] MEDS: Insulin LISPRO 300 UNITS/3 ML VIAL SQ SCH ×7 (08:29→21:04)
[2017-04-26] MEDS: amLODIPine 5 MG TABLET PO SCH (08:29)
[2017-04-26] MEDS: Venlafaxine XR (24 HR) 75 MG CAP.ER.24H PO SCH (08:29)
[2017-04-26] MEDS: Famotidine 20 MG TABLET PO SCH ×2 (08:29→21:02)
[2017-04-26 10:00] LABS: BUN/Creatinine Ratio 18 (6-26); Blood Urea Nitrogen 19 mg/dL (8-26); Calcium 8.9 mg/dL (8.6-10.8); Carbon Dioxide 24 mEq/L (19-29); Chloride 97 mEq/L (98-109); Glucose 44 mg/dL (70-99); Osmolality,Calculated 269 (280-300); eGFR For African Americans > 60 (> 60); eGFR For Non-African Americans > 60 (> 60)
[2017-04-26] MEDS ORDERED: Milk and Molasses Enema 200 ML RC ONE (10:35)
[2017-04-26 11:44] LABS: Basophils % 0.4 %; Eosinophils # 0.1 K/mcL (0.0-0.6); Eosinophils % 0.9 %; Hematocrit 32.2 % (37.5-50.1); Hemoglobin 11.6 g/dL (12.9-16.9); Immature Granulocytes % 0.4 % (0-4); Lymphocytes # 1.5 K/mcL (0.6-4.6); Lymphocytes % 19.1 %; Mean Corpuscular Hemoglobin 29.4 pg (28.0-33.3); Mean Corpuscular Volume 81.7 fL (83.0-100.0); Mean Platelet Volume 8.3 fL (9.4-12.4); Monocytes # 0.8 K/mcL (0.0-1.3); Monocytes % 9.5 %; Neutrophils # 5.6 K/mcL (1.6-8.9); Platelet Count 224 K/mcL (140-400); Red Blood Count 3.94 M/mcL (4.19-5.50); Red Cell Distribution Width 12.1 % (11.5-14.5); Segmented Neutrophils % 69.7 %
[2017-04-26 11:49] LABS: INR 1.1
[2017-04-26 11:51] LABS: Activated Partial Thrombo Time 30.5 Seconds (26.0-36.0)
--- NOTE | 2017-04-26 12:23 | Internal Med Progress Note ---
Date of Encounter: 04/26/17 Time of Encounter: 11:00 - Assessment and plan (1) Encephalopathy acute Current Visit: Yes Status: Acute Assessment and plan: BGT of 216 CODE STROKE activated given his acute change in mental status, history of DM-2 and CAD s/p stent in 06/2016 CT head performed STAT. Personally reviewed - No hemorrhage CTA head and neck performed STAT CT abd. performed due to his abd. pain - Reviewed personally and noted to have a distended bladder [facility] neurology consulted via telemedicine After assessment, it was determined that the patient is not a tPA candidate due to absence of focal deficits and due to his picture being more consistent with an acute encephalopathy vs seizures vs catatonic state [facility] offered transfer. However, after discussion with , it was decided to keep patient at [facility], consult neurology and psychiatry and follow progress of patient and decide on transfer if he does not get better. Will insert Wells for his bladder distension. Total critical care time of 60 min (2) Hyponatremia Current Visit: Yes Status: Acute Assessment and plan: Sodium 130 today Correcting well Nephro on board (3) Cirrhosis of liver Current Visit: Yes Status: Chronic Assessment and plan: Due to hepatitis B. Stable. Outpatient follow-up. Check ammonia level given his acute encephalopathy Qualifiers: Hepatic cirrhosis type: other cirrhosis Qualified Code(s): K74.69 - Other cirrhosis of liver (4) Bipolar disorder Current Visit: Yes Status: Chronic Assessment and plan: Psych consult Qualifiers: Active/Remission status: currently active Current bipolar episode type: mixed Current episode severity: mild Qualified Code(s): F31.61 - Bipolar disorder, current episode mixed, mild (5) CAD (coronary artery disease) Current Visit: Yes Status: Chronic Assessment and plan: Continue aspirin and statin and Plavix and beta rona. Qualifiers: Coronary Disease-Associated Artery/Lesion type: [place] artery [place] vs. transplanted heart: [place] heart Associated angina: without angina Qualified Code(s): I25.10 - Atherosclerotic heart disease of [place] coronary artery without angina pectoris (6) Diabetes mellitus Current Visit: Yes Status: Chronic Assessment and plan: Blood sugars are well controlled. Continue current dose of basal insulin. Sliding scale insulin. 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 On arrival, patient lying in bed and only occassionally responding to questions. present at bedside and she said that she was helping him from the bathroom and he seemed very weak in both legs. And she said that he was becoming very confused. He answered my question as to where he was with "in a hospital" but unable to answer further questions about orientation. When I asked him anything bothered him, he pointed to his abdomen with his left hand. - Constitutional Vitals: Temp Pulse Resp BP Pulse Ox 98.8 F 92 16 170/99 98 04/26/17 11:19 04/26/17 11:19 04/26/17 11:19 04/26/17 11:19 04/26/17 11:19 Exam: Gen.: Lying in bed. Not answering any further questions. Eyes: Pupils equal, round and reactive to light. Extraocular muscles intact. ENT: Moist mucous membranes. No oropharyngeal erythema or discharge. Chest: Clear to auscultation bilaterally. No adventitious sounds present. CVS: First and second heart sounds present. No murmurs, rubs or gallops. Skin: No decubitus ulcers appreciated. 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 Not withdrawing to painful stimuli. No facial droop or deviation. Psychiatric: Arousable with stimuli. Intermittently following commands Lymphatic system: No lymphadenopathy appreciated Internal Medicine: Result - Labs CBC & Chem 7: 04/26/17 11:40 04/26/17 04:10 Labs: Short CBC 04/26/17 Range/Units 11:40 WBC 8.0 (4.3-11.1) K/mcL Hgb 11.6 L (12.9-16.9) g/dL Hct 32.2 L (37.5-50.1) % Plt Count 224 (140-400) K/mcL Neutrophils # 5.6 (1.6-8.9) K/mcL BMP 04/25/17 04/26/17 13:34 04:10 Sodium 124 L 130 L Potassium 4.6 H 4.0 Chloride 95 L 97 L Carbon Dioxide 20 24 BUN 24 19 Creatinine 1.25 1.07 Glucose 130 H 44 L Calcium 8.8 8.9 Cardiac Enzymes 04/26/17 Range/Units 11:40 Troponin I 0.01 (0-0.03) ng/mL - ABG Interpretation ABG results: PT/INR, D-dimer PT 12.0 Seconds (9.4-12.1) 04/26/17 11:40 - Impressions Impressions Head CT 04/26/17 11:26 IMPRESSION: No acute intracranial process identified. The above findings were discussed with Dr. Dooley at 11:50 a.m. on 04/26/2017. D/ / Goran Rae MD / Goran Rae MD Interpreting Provider: Goran Rae MD Consult Discharge Plan - Plan Referrals: Liz Luna MD [Partnered Physician] - 05/17/17 12:00 pm Deepika Tavarez CNP [Advanced Practice Nurse] - 05/04/17 1:00 pm
--- NOTE | 2017-04-26 14:52 | Consult Note ---
Date of Encounter: 04/26/17 Time of Encounter: 14:43 Assessment & Recommendation (1) Bipolar disorder Current visit: Yes Status: Chronic Assessment & Recommendation: Do not believe his current presentation is related to Bipolar Disorder, especially given the acuity in onset and all of the metabolic derangements he has been experiencing. According to he has been stable on his current psych meds for years. Seroquel is anticholinergic and may be contributing to constipation and urinary retention but doubt it is the primary cause. Client has no know history of catatonia, psychosis, or significant manic periods. Mental health history significant for depressive episodes but nothing recent. Currently takes Xanax three times a day. If any catatonia were present this should help with symptoms. Would recommend continued medical work-up as the cause is likely more organic in nature. Feel free to call with any questions. Qualifiers: Active/Remission status: currently active Current bipolar episode type: depressed Current episode severity: mild Qualified Code(s): F31.31 - Bipolar disorder, current episode depressed, mild History of Present Illness Requesting Physician: Cliff Dooley MD Reason for consult: mental status change History of present illness: Mr. Gonzalez is a 52 year old male who was admitted to a medical floor secondary to severe hyponatremia of unknown etiology. Sodium levels are correcting. Client was due to be discharged today when he suddenly became weak and essentially non-responsive. A rapid stroke assessment was negative. No cause for sudden change in presentation has been determined although client was noted to have a distended bladder/inability to urinate around the time he suddenly stopped communicating. Client's at bedside and was able to fill in his history. Client carries the diagnosis of Bipolar Disorder but has been stable on current medication regimen for some time (only change in recent months was a decrease in his Haldol). He has known history of psychosis or catatonia. No significant manic episodes. Has had depressive episodes but nothing recent. He is receiving all of his psych meds in the hospital. Do not suspect they are contributing to his clinical picture given that he has been tolerating them for years. Seroquel can be anticholinergic so it may be a factor with his inability to urinate but doubt it is the primary cause. Client did not respond to this marketing writer. He would not follow commands. He did not react to a sternal rub. No rigidity or waxy flexibility. Doubt he is having catatonia, especially given abrupt onset and the fact that he is already receiving Benzos which should help alleviate any catatonia. Suspect his presentation is related to an organic cause. CC: Cliff Dooley MD Past Med Surg Social Fam HX - Past Medical History Medical history: arthritis, cirrhosis, coronary artery disease, diabetes, GERD, hepatitis, hyperlipidemia, hypertension, liver disease, migraine, myocardial infarction, RA, renal disease - Past Psychiatric History Psychiatric history: Reports: bipolar Family psychiatric history: Unknown Family History of Suicide: Unknown - Past Surgical History Surgical History: angioplasty/stent, cholecystectomy - Social History Smoking Status: Former smoker Smokeless Tobacco Status: No Alcohol use: none Drug use: marijuana - Family History Father Living Status: Hx Family Cardiac Disorders: Yes Hx Family Endocrine Disorder: Yes Hx Family Neurologic Disorders: Yes Mother Name: alberto Living Status: Age at : 75 Cause of : heart troubles Hx Family Cardiac Disorders: Yes Hx Family Respiratory Disorders: Yes (mother) Hx Family Cancer: Yes (uncle,) Hx Family GI Disorders: Yes (self,) Hx Family Endocrine Disorder: Yes (self, father, 3 uncles) Hx Family Neuromuscular Disorders: No Hx Family Neurologic Disorders: Yes (father) Hx Family HEENT Disorders: No Hx Family Autoimmune Disorders: No Medications & Allergies Alprazolam [Xanax] 1 mg PO TID 04/29/16 [History] Gabapentin [Neurontin] 100 mg PO TID 04/29/16 [History] Insulin ASPART [Novolog Flexpen] 10 unit SQ TIDWM 04/29/16 [History] Mirtazapine [Remeron] 45 mg PO HS 04/29/16 [History] Furosemide [Lasix] 40 mg PO BID 06/12/16 [History] Haloperidol [Haldol] 2 mg PO HS 06/12/16 [History] Insulin DETEMIR [Levemir Flextouch] 40 unit SQ BID 06/12/16 [History] Prazosin [Minipress] 2 mg PO HS 06/12/16 [History] Quetiapine Fumarate [Seroquel] 150 mg PO QAM 06/12/16 [History] Quetiapine Fumarate [Seroquel] 450 mg PO HS 06/12/16 [History] TraZODone 50 - 100 mg PO HS 06/12/16 [History] Venlafaxine XR (24 HR) [Effexor XR] 75 mg PO DAILY 06/12/16 [History] Aspirin 81 mg PO DAILY tab.chew 06/20/16 [Rx] Atorvastatin [Lipitor] 40 mg PO HS #30 tablet 06/20/16 [Rx] Carvedilol [Coreg] 12.5 mg PO BIDWM #120 tablet 06/20/16 [Rx] Clopidogrel [Plavix] 75 mg PO DAILY #30 tablet 06/20/16 [Rx] Pantoprazole Sodium [Protonix] 40 mg PO DAILY #30 tablet.dr 06/20/16 [Rx] amLODIPine [Norvasc] 10 mg PO DAILY #30 tablet 06/20/16 [Rx] Lisinopril [Zestril] 10 mg PO BID 08/25/16 [History] Multivitamin with Minerals [One-A-Day Maximum Formula] 1 tab PO DAILY 04/04/17 [ History] Ivel-3/Dha/Epa/Fish Oil [Fish Oil 1,000 mg Softgel] 1,000 mg PO DAILY 04/04/17 [History] Spironolactone [Aldactone] 50 mg PO BID 04/04/17 [History] Ranolazine [Ranexa] 1,000 mg PO BID #60 tab.er.12h 04/06/17 [Rx] Meclizine HCl [Verticalm] 25 mg PO TID PRN 04/22/17 [History] Allergies codeine Adverse Reaction (Verified 04/22/17 13:09) Vomiting Review of Systems Constitutional: Denies: fever, chills, weakness, weight change Eyes: Denies: eye pain, vision change Ears, Nose, Throat: Denies: ear pain, throat pain, dental pain, hearing loss, congestion Cardiovascular: Denies: chest pain, palpitations, dyspnea on exertion Respiratory: Denies: cough, dyspnea, wheezes Gastrointestinal: Reports: abdominal pain. Denies: nausea, vomiting, diarrhea, constipation Genitourinary male: Reports: other Genitourinary female: Denies: urgency, dysuria, frequency, abnormal menses, dyspareunia Musculoskeletal: Denies: joint swelling, joint pain Integumentary: Denies: rash, lesions, pruritus Neurological: Reports: confusion, other Endocrine: Denies: fatigue, heat or cold intolerance Hematologic/Lymphatic: Denies: easy bruising, lymphadenopathy Allergic/Immunologic: Denies: urticaria, itchy eyes Mental Status Exam Patient orientation: Yes Other Level of alertness: Does not respond to painful stimuli Patient appearance: Thin Behavior: other Psychomotor activity: Slowed Eye contact: No Eye Contact Mood description: Other Affect description: other Speech pattern: Non-verbal Speech volume: No speech Thought content: Yes Poverty of Content Attention span: Unable to Focus, Unable to Sustain Attention Patient reliability: Not Reliable Historian Judgment: Poor Insight: None Results - Vital Signs Vital signs: Temp Pulse Resp BP Pulse Ox 98.8 F 92 16 170/99 98 04/26/17 11:19 04/26/17 11:19 04/26/17 11:19 04/26/17 11:19 04/26/17 11:19 - Labs Labs: Laboratory Last Values WBC 8.0 K/mcL (4.3-11.1) 04/26/17 11:40 RBC 3.94 M/mcL (4.19-5.50) L 04/26/17 11:40 Hgb 11.6 g/dL (12.9-16.9) L 04/26/17 11:40 Hct 32.2 % (37.5-50.1) L 04/26/17 11:40 MCV 81.7 fL (83.0-100.0) L 04/26/17 11:40 MCH 29.4 pg (28.0-33.3) 04/26/17 11:40 MCHC 36.0 g/dL (31.6-35.5) H 04/26/17 11:40 RDW 12.1 % (11.5-14.5) 04/26/17 11:40 Plt Count 224 K/mcL (140-400) 04/26/17 11:40 MPV 8.3 fL (9.4-12.4) L 04/26/17 11:40 Immature Gran % 0.4 % (0-4) 04/26/17 11:40 Seg Neutrophils % 69.7 % 04/26/17 11:40 Lymphocytes % 19.1 % 04/26/17 11:40 Monocytes % 9.5 % 04/26/17 11:40 Eosinophils % 0.9 % 04/26/17 11:40 Basophils % 0.4 % 04/26/17 11:40 Neutrophils # 5.6 K/mcL (1.6-8.9) 04/26/17 11:40 Lymphocytes # 1.5 K/mcL (0.6-4.6) 04/26/17 11:40 Monocytes # 0.8 K/mcL (0.0-1.3) 04/26/17 11:40 Eosinophils # 0.1 K/mcL (0.0-0.6) 04/26/17 11:40 Basophils # 0.0 K/mcL (0.0-0.2) 04/26/17 11:40 Immature Plt Fraction 2.4 % (1.1-6.1) 04/23/17 02:39 PT 12.0 Seconds (9.4-12.1) 04/26/17 11:40 INR 1.1 04/26/17 11:40 APTT 30.5 Seconds (26.0-36.0) 04/26/17 11:40 Sodium 130 mEq/L (136-145) L 04/26/17 04:10 Potassium 4.0 mEq/L (3.5-4.5) 04/26/17 04:10 Chloride 97 mEq/L (98-109) L 04/26/17 04:10 Carbon Dioxide 24 mEq/L (19-29) 04/26/17 04:10 BUN 19 mg/dL (8-26) 04/26/17 04:10 Creatinine 1.07 mg/dL (0.72-1.25) 04/26/17 04:10 Est GFR ( Amer) > 60 (> 60) 04/26/17 04:10 Est GFR (Non-Af Amer) > 60 (> 60) 04/26/17 04:10 BUN/Creatinine Ratio 18 (6-26) 04/26/17 04:10 Glucose 44 mg/dL (70-99) L 04/26/17 04:10 POC Glucose 120 (58-89) H 04/26/17 07:41 Serum Osmolality 243 mOsm/kg (280-300) L 04/22/17 11:17 Calculated Osmolality 269 (280-300) L 04/26/17 04:10 Uric Acid 3.1 mg/dL (3.5-7.2) L 04/23/17 02:39 Calcium 8.9 mg/dL (8.6-10.8) 04/26/17 04:10 Total Bilirubin 0.5 mg/dL (0.2-1.2) 04/22/17 05:22 Direct Bilirubin 0.3 mg/dL (0.0-0.5) 04/22/17 05:22 Indirect Bilirubin 0.2 mg/dL (0.0-1.2) 04/22/17 05:22 AST 17 Units/L (5-34) 04/24/17 01:52 ALT 72 Units/L (0-55) H 04/24/17 01:52 Alkaline Phosphatase 85 Units/L (38-126) 04/22/17 05:22 Troponin I 0.01 ng/mL (0-0.03) 04/26/17 11:40 B-Natriuretic Peptide 17 pg/mL (0-100) 04/24/17 01:52 Serum Total Protein 7.2 g/dL (6.0-8.3) 04/22/17 05:22 Albumin 3.8 g/dL (3.5-5.0) 04/22/17 05:22 Globulin 3.4 g/dL (2.4-3.5) 04/22/17 05:22 Albumin/Globulin Ratio 1.1 (1.1-2.2) 04/22/17 05:22 TSH 1.133 mcIU/mL (0.350-4.840) 04/22/17 11:17 Urine Color Yellow (Yellow) 04/22/17 06:15 Urine Clarity Clear (Clear) 04/22/17 06:15 Urine pH 7.0 pH Units (5.0-8.0) 04/22/17 06:15 Ur Specific [place] 1.007 (1.010-1.025) L 04/22/17 06:15 Urine Protein 100 mg/dL (Neg-Trace) H 04/22/17 06:15 Urine Glucose (UA) 100 mg/dL (Normal) H 04/22/17 06:15 Urine Ketones Negative mg/dL (Negative) 04/22/17 06:15 Urine Blood Trace (Negative) H 04/22/17 06:15 Urine Nitrite Negative (Negative) 04/22/17 06:15 Urine Bilirubin Negative (Negative) 04/22/17 06:15 Urine Urobilinogen Normal mg/dL (Normal) 04/22/17 06:15 Ur Leukocyte Esterase Negative (Negative) 04/22/17 06:15 Urine Microscopic RBC 0-3 per hpf (0-3) 04/22/17 06:15 Urine Microscopic WBC Test Not Performed 04/22/17 06:15 Ur Squamous Epith Cells Few per lpf (None-Few) 04/22/17 06:15 Urine Bacteria Test Not Performed 04/22/17 06:15 Hyaline Casts Test Not Performed 04/22/17 06:15 Ur Culture Indicated? NO (NO) 04/22/17 06:15 Urine Osmolality 207 mOsm/kg (300-1090) L 04/22/17 20:50 Urine Sodium 22.0 mEq/L 04/22/17 20:50 Specimen Rejected MCV Delta 04/22/17 05:22 - Impressions Impressions Abdomen/Pelvis CT 04/26/17 00:00 IMPRESSION: 1. Markedly distended urinary bladder with only mild prostatomegaly. 2. Large stool volume. 3. A few incidental findings as above for which no follow-up is recommended. D/ / Jono Reagan MD / Jono Reagan MD Interpreting Provider: Jono Reagan MD Head CTA 04/26/17 00:00 IMPRESSION: No significant abnormality of the intracranial circulation is identified. D/ / 04/26/2017 12:38:04 Mayra Oliva MD / earnold Interpreting Provider: Mayra Oliva MD Neck CTA 04/26/17 00:00 IMPRESSION: Minimal atherosclerotic disease in the region of the internal carotid artery bulbs bilaterally without any significant stenosis using NASCET criteria. No significant abnormality of the neck vessels. D/ / 04/26/2017 12:49:56 Mayra Oliva MD / Kaetlynn Sousa Interpreting Provider: Mayra Oliva MD Head CT 04/26/17 11:26 IMPRESSION: No acute intracranial process identified. The above findings were discussed with Dr. Dooley at 11:50 a.m. on 04/26/2017. D/ / Goran Rae MD / Goran Rae MD Interpreting Provider: Goran Rae MD Consult Discharge Plan - Plan Referrals: Liz Luna MD [Partnered Physician] - 05/17/17 12:00 pm Deepika Tavarez CNP [Advanced Practice Nurse] - 05/04/17 1:00 pm
--- NOTE | 2017-04-26 17:58 | Neurology - Consult Note ---
Date of Encounter: 04/26/17 Time of Encounter: 12:00 Assessment and Plan (1) Altered mental status Current Visit: Yes Status: Acute I saw and examined the patient and my impression is that this does not appear to be primary neurological and it is also difficult to attribute the presentation to acute encephalopathy considering the his medical conditions have been slowly improving, including his renal function, hyponatremia and it is worth noting that the episode occurred when he is conversing with his normally, per 's recount. EEG obtained when the patient still unresponsive showed clear normal wakefulness transitioned into nice stage sleep which rule out the possibility of a subclinical seizure. Behavioral manifestation in the form of acute catatonic state may occur in patient's with prior psychiatric history when having ongoing medical issues. Plan would be to continue medical and supportive and will re-evaluate closely. Qualifiers: Altered mental status type: transient alteration of awareness Qualified Code(s): R40.4 - Transient alteration of awareness History of Present Illness Chief complaint: mental status changes HPI: Mr. Gonzalez is a 52 year old male H significant for cirrhosis of liver, HN , DM, depression, schizo-affective disorder, bipolar type who initially presented to the ER due to chest painfew days ago and was found to have hyponatremia, which has been gradually, slowly corrected over the last few days and today his sodium was 130. This morning, the patient was apparently doing better and was talking to his and then developed some weakness and his tells me that he was leaning on her and felt heavier and heavier and then he opened his mouth and became unresponsive. And he was not responding to any verbal commands and when being checked he became limp and would drop his arms when released. But nonetheless, no motor activity observed and was simply not responding and vitals remain stable. Called Stroke alert and saw by [facility] stroke telemedicine team and thought not to be related to acute encephalopathy, catatonic state or seizure. CT of head showed no acute intracranial abnormality. CTA of neck and headache showed no intracranial abnormality. AT the time of the interview, the patient is still in unresponsive state but do open his eyes to verbal commands but just won't talk. No spontaneous movements in all limbs. Brain stem reflexes, vitals are all good. Past Med Surg Social Fam HX - Past Medical History Medical history: arthritis, cirrhosis, coronary artery disease, diabetes, GERD, hepatitis, hyperlipidemia, hypertension, liver disease, migraine, myocardial infarction, RA, renal disease Psychiatric history: bipolar - Past Surgical History Surgical History: angioplasty/stent, cholecystectomy - Social History Smoking Status: Former smoker Smokeless Tobacco Status: No Alcohol use: none Drug use: marijuana - Family History Father Living Status: Hx Family Cardiac Disorders: Yes Hx Family Endocrine Disorder: Yes Hx Family Neurologic Disorders: Yes Mother Name: alberto Living Status: Age at : 75 Cause of : heart troubles Hx Family Cardiac Disorders: Yes Hx Family Respiratory Disorders: Yes (mother) Hx Family Cancer: Yes (uncle,) Hx Family GI Disorders: Yes (self,) Hx Family Endocrine Disorder: Yes (self, father, 3 uncles) Hx Family Neuromuscular Disorders: No Hx Family Neurologic Disorders: Yes (father) Hx Family HEENT Disorders: No Hx Family Autoimmune Disorders: No Medications and Allergies Alprazolam [Xanax] 1 mg PO TID 04/29/16 [History] Gabapentin [Neurontin] 100 mg PO TID 04/29/16 [History] Insulin ASPART [Novolog Flexpen] 10 unit SQ TIDWM 04/29/16 [History] Mirtazapine [Remeron] 45 mg PO HS 04/29/16 [History] Furosemide [Lasix] 40 mg PO BID 06/12/16 [History] Haloperidol [Haldol] 2 mg PO HS 06/12/16 [History] Insulin DETEMIR [Levemir Flextouch] 40 unit SQ BID 06/12/16 [History] Prazosin [Minipress] 2 mg PO HS 06/12/16 [History] Quetiapine Fumarate [Seroquel] 150 mg PO QAM 06/12/16 [History] Quetiapine Fumarate [Seroquel] 450 mg PO HS 06/12/16 [History] TraZODone 50 - 100 mg PO HS 06/12/16 [History] Venlafaxine XR (24 HR) [Effexor XR] 75 mg PO DAILY 06/12/16 [History] Aspirin 81 mg PO DAILY tab.chew 06/20/16 [Rx] Atorvastatin [Lipitor] 40 mg PO HS #30 tablet 06/20/16 [Rx] Carvedilol [Coreg] 12.5 mg PO BIDWM #120 tablet 06/20/16 [Rx] Clopidogrel [Plavix] 75 mg PO DAILY #30 tablet 06/20/16 [Rx] Pantoprazole Sodium [Protonix] 40 mg PO DAILY #30 tablet. 06/20/16 [Rx] amLODIPine [Norvasc] 10 mg PO DAILY #30 tablet 06/20/16 [Rx] Lisinopril [Zestril] 10 mg PO BID 08/25/16 [History] Multivitamin with Minerals [One-A-Day Maximum Formula] 1 tab PO DAILY 04/04/17 [ History] [place]-3/Dha/Epa/Fish Oil [Fish Oil 1,000 mg Softgel] 1,000 mg PO DAILY 04/04/17 [History] Spironolactone [Aldactone] 50 mg PO BID 04/04/17 [History] Ranolazine [Ranexa] 1,000 mg PO BID #60 tab.er.12h 04/06/17 [Rx] Meclizine HCl [Verticalm] 25 mg PO TID PRN 04/22/17 [History] Allergies codeine Adverse Reaction (Verified 04/22/17 13:09) Vomiting All Systems: A 10-system review of systems was performed and is negative for pertinent findings except as documented above in the HPI. Physical Examination - Vital Signs Vital Signs: Initial Vital Signs Temp Pulse Resp BP Pulse Ox 98.1 F 88 20 126/86 99 04/22/17 05:04 04/22/17 05:04 04/22/17 05:04 04/22/17 05:04 04/22/17 05:04 - Constitutional General appearance: other (Unable to assess. No spontaenous movement to touch or minor pain stimulation. Patient eyes closed breathing quietly) - Neurologic Sensorimotor examination: other (Unable to assess) Detailed motor examination: other (All limbs flaccid, no spontaneous movements observed. No muscle rigidit.) Reflexes: Biceps: 1+, Triceps: 1+, Brachioradialis: 1+, Patella: 1+, Achilles: 1 + Mental Status Examination: awake (Patient opens eyes to request, make eye contact but do not speak. has blinks to visual threat bilaterally) Cranial nerve examination: PERRL, EOMI (Unable to assess cranial nerves. NO facial asymmetry noted. ) Results - Laboratory Findings CBC and BMP: 04/26/17 11:40 04/26/17 04:10 Abnormal lab findings: Abnormal lab results RBC 3.94 M/mcL (4.19-5.50) L 04/26/17 11:40 Hgb 11.6 g/dL (12.9-16.9) L 04/26/17 11:40 Hct 32.2 % (37.5-50.1) L 04/26/17 11:40 MCV 81.7 fL (83.0-100.0) L 04/26/17 11:40 MCHC 36.0 g/dL (31.6-35.5) H 04/26/17 11:40 MPV 8.3 fL (9.4-12.4) L 04/26/17 11:40 Sodium 130 mEq/L (136-145) L 04/26/17 04:10 Chloride 97 mEq/L (98-109) L 04/26/17 04:10 Glucose 44 mg/dL (70-99) L 04/26/17 04:10 POC Glucose 120 (58-89) H 04/26/17 07:41 Serum Osmolality 243 mOsm/kg (280-300) L 04/22/17 11:17 Calculated Osmolality 269 (280-300) L 04/26/17 04:10 Uric Acid 3.1 mg/dL (3.5-7.2) L 04/23/17 02:39 ALT 72 Units/L (0-55) H 04/24/17 01:52 Ur Specific [place] 1.007 (1.010-1.025) L 04/22/17 06:15 Urine Protein 100 mg/dL (Neg-Trace) H 04/22/17 06:15 Urine Glucose (UA) 100 mg/dL (Normal) H 04/22/17 06:15 Urine Blood Trace (Negative) H 04/22/17 06:15 Urine Osmolality 207 mOsm/kg (300-1090) L 04/22/17 20:50 Consult Discharge Plan - Plan Referrals: Liz Luna MD [Partnered Physician] - 05/17/17 12:00 pm Deepika Tavarez CNP [Advanced Practice Nurse] - 05/04/17 1:00 pm
--- NOTE | 2017-04-26 18:16 | Nephrology Progress Note ---
Date of Encounter: 04/26/17 Time of Encounter: 09:00 - Assessment and Plan (1) Hyponatremia Current Visit: Yes Status: Acute Euvolemic, hypotonic, acute on chronic hyponatremia. Patient reported drinking increased amount of water before admission, states having diabetes makes his more thirsty. HgA1C 8.5% Na+ level 130. Patient states he has not had urine production since yesterday. Plan: Hyponatremia correcting. Bladder scan, possible may need to straight cath/rincon. May be 2nd to obstruction from constipation: has had enema and milk of molases. Very important to educate patient on fluid restriction. continue salt tablets strict I/O continue fluid restrictive diet Continue renal protective/conservative strategy Avoid nephrotoxins including NSAIDs and contrast. (2) Hyperkalemia Current Visit: Yes Status: Resolved resolved [place] 2nd to lasix Continue renal diet. (3) Bipolar disorder Current Visit: Yes Status: Chronic Patient on several psych medications that may cause hyponatremia: Venlafaxine, mirtazapine, quetiapine Qualifiers: Active/Remission status: currently active Current bipolar episode type: depressed Current episode severity: mild Qualified Code(s): F31.31 - Bipolar disorder, current episode depressed, mild (4) Cirrhosis of liver Current Visit: Yes Status: Chronic Qualifiers: Hepatic cirrhosis type: other cirrhosis Qualified Code(s): K74.69 - Other cirrhosis of liver (5) Chest pain Current Visit: Yes Status: Resolved Qualifiers: Chest pain type: other chest pain Qualified Code(s): R07.89 - Other chest pain; R07.8 - Other chest pain (6) Hypertension Current Visit: Yes Status: Chronic controlled. Qualifiers: Hypertension type: essential hypertension Qualified Code(s): I10 - Essential (primary) hypertension Subjective Principal diagnosis: Hyponatremia Interval history: NO acute events overnight. Denies N/V/D. Denies abdominal pain, LE edema. Reports he is not able to go urinate today and has had consitpation for the last 5 days. NO BM for last five days. Objective - Vital Signs Vital signs: Vital Signs Temp Pulse Resp BP Pulse Ox 04/26/17 16:08 98.4 F 76 16 125/74 98 04/26/17 11:19 98.8 F 92 16 170/99 98 04/26/17 07:35 98 F 91 16 152/94 98 04/25/17 19:00 97.5 F L 84 18 147/93 96 Intake and Output 04/26/17 04/26/17 04/26/17 07:59 15:59 23:59 Intake Total 120 / 120 Output Total 1300 / 1300 Balance -1180 / -1180 Intake: Oral 120 / 120 Output: Urine 1300 / 1300 Other: Meal Lunch Percent of Meal Consumed 0% Weight 78.6 kg Blood Glucose* 120 216 75 Patient Weight 04/26/17 23:59 Weight 78.6 kg - General Appearance General appearance: Present: well-developed, well-nourished, appears started age EENT: Present: mucous membranes moist Neck: Present: no JVD, no thyromegaly, no carotid bruit, supple Respiratory: Present: clear Cardiology: Present: no murmurs, no rub, no gallops, no edema, regular rate, regular rhythm, normal S1, normal S2 Gastrointestinal: Present: normoactive bowel sounds Additional Comments: supra pubic tenderness/fullness. Integumentary: Present: no rash, warm and dry Neurologic: Present: no focal deficit, no asterixis, alert and oriented x3 Musculoskeletal: Present: no deformities, no erythema, no cyanosis, no clubbing Psychiatric: Present: mood/affect appropriate, cooperative - Lab 04/26/17 11:40 04/26/17 04:10 Most recent lab results Calcium 8.9 mg/dL (8.6-10.8) 04/26/17 04:10 Urine Sodium 22.0 mEq/L 04/22/17 20:50 Consult Discharge Plan - Plan Referrals: Liz Luna MD [Partnered Physician] - 05/17/17 12:00 pm Deepika Tavarez CNP [Advanced Practice Nurse] - 05/04/17 1:00 pm
--- NOTE | 2017-04-26 21:01 | EEG/EMG/Oth Biometrics Report ---
EEG Procedure Report Date of procedure: 04/26/17 EEG Procedure: Routine EEG Procedure Note: This EEG was acquired with standard international 10-20 system with EKG recording. The background EEG activity was characterized by the presence of posterior dominant alpha rhythm with the best frequency up to 11 Hz.. The background activity was reactive to eye openings. Sleep stages were characterized by the presence of background fragmentation, vertex waves, K complexes, and sleep spindles. There are no electrographic seizures identified during this tracing. There are no epileptiform discharges and focal slowing noted during this recording. Photic stimulation produced no abnormalities. Hyperventilation procedure was not performed EKG tracing showed no significant cardiac dysrhythmia. Impression: This is essentially a normal awake and asleep EEG. Clinical Correlation: Normal EEGs, however, do not exclude epilepsy. Clinical correlation advised.
[2017-04-26] MEDS: Mirtazapine 15 MG TABLET PO SCH (21:02)
[2017-04-26] MEDS: Acetaminophen 325 MG TABLET PO PRN (21:02)
[2017-04-26] MEDS: traZODone 50 MG TABLET PO SCH (21:04)
[2017-04-27] MEDS: *HR* Heparin 5,000 UNIT/ML VIAL SQ SCH (06:02)
[2017-04-27 08:46] LABS: BUN/Creatinine Ratio 15 (6-26); Blood Urea Nitrogen 15 mg/dL (8-26); Calcium 8.9 mg/dL (8.6-10.8); Carbon Dioxide 24 mEq/L (19-29); Glucose 75 mg/dL (70-99); eGFR For African Americans > 60 (> 60); eGFR For Non-African Americans > 60 (> 60)
[2017-04-27 08:52] LABS: Chloride 98 mEq/L (98-109); Osmolality,Calculated 270 (280-300); Potassium 4.8 mEq/L (3.5-4.5); Sodium 130 mEq/L (136-145)
[2017-04-27 09:25] LABS: Urine Collection Duration NOT PROVIDED hr; Urine Collection Volume NOT PROVIDED mL
--- NOTE | 2017-04-27 09:41 | Nephrology Progress Note ---
Date of Encounter: 04/27/17 Time of Encounter: 09:38 - Assessment and Plan (1) Hyponatremia Current Visit: Yes Status: Acute Euvolemic, hypotonic, acute on chronic hyponatremia. Patient reported drinking increased amount of water before admission, states having diabetes makes his more thirsty. HgA1C 8.5% Na+ level 130. Plan: Hyponatremia stable at 130. CT abdomen showed distended bladder and prostatomegaly. Patient has rincon. Today rincon will be removed and it he still has trouble urinating, urology will be consulted. Very important to educate patient on fluid restriction. continue salt tablets strict I/O continue fluid restrictive diet Continue renal protective/conservative strategy Avoid nephrotoxins including NSAIDs and contrast. Thank you for consult. Signing off. Follow up with Dr. Chen outpatient in one week. BMP in one week. (2) Hyperkalemia Current Visit: Yes Status: Resolved resolved [place] 2nd to lasix Continue renal diet. (3) Bipolar disorder Current Visit: Yes Status: Chronic Patient on several psych medications that may cause hyponatremia: Venlafaxine, mirtazapine, quetiapine Qualifiers: Active/Remission status: currently active Current bipolar episode type: depressed Current episode severity: mild Qualified Code(s): F31.31 - Bipolar disorder, current episode depressed, mild (4) Cirrhosis of liver Current Visit: Yes Status: Chronic Qualifiers: Hepatic cirrhosis type: other cirrhosis Qualified Code(s): K74.69 - Other cirrhosis of liver (5) Chest pain Current Visit: Yes Status: Resolved Qualifiers: Chest pain type: other chest pain Qualified Code(s): R07.89 - Other chest pain; R07.8 - Other chest pain (6) Hypertension Current Visit: Yes Status: Chronic controlled. Qualifiers: Hypertension type: essential hypertension Qualified Code(s): I10 - Essential (primary) hypertension Subjective Principal diagnosis: Hyponatremia Interval history: Yesterday evening stroke alert was called as patient had difficulty walking. CT head negative. He was evaluated by neurology and psychiatry. Stroke was ruled out. Ct abdomen showed large amount of stool with distended bladder and prostatomegaly. Patient had bowel movement had felt better afterwards. Rincon was inserted as well as he had difficulty urinating yesterday. It was determined he had acute encephalopathy. Objective - Vital Signs Vital signs: Vital Signs Temp Pulse Resp BP Pulse Ox 04/27/17 07:42 98.6 F 86 16 141/81 95 04/27/17 01:15 97.6 F 80 15 102/72 96 04/26/17 20:37 98.4 F 96 14 113/73 92 04/26/17 16:08 98.4 F 76 16 125/74 98 04/26/17 11:19 98.8 F 92 16 170/99 98 Intake and Output 04/26/17 04/27/17 04/27/17 23:59 07:59 15:59 Output Total 1000 / 1000 Balance -1000 / -1000 Output: Catheter 1000 / 1000 Other: Stool Size Copious Stool Consistency loose # Bowel Movements 1 Weight 97.6 kg Blood Glucose* 124 87 Patient Weight 04/27/17 23:59 Weight 97.6 kg - General Appearance General appearance: Present: appears started age, obese EENT: Present: mucous membranes moist Neck: Present: no JVD Respiratory: Present: clear Cardiology: Present: no murmurs, no rub, no gallops, no edema, regular rate, regular rhythm, normal S1, normal S2 Gastrointestinal: Present: normoactive bowel sounds, no tenderness Integumentary: Present: no rash, warm and dry Neurologic: Present: no focal deficit, no asterixis, alert and oriented x3 Additional Comments: dazed but conversational. Musculoskeletal: Present: no deformities, no erythema, no cyanosis, no clubbing Psychiatric: Present: mood/affect appropriate, cooperative - Lab 04/26/17 11:40 04/27/17 08:17 Most recent lab results Calcium 8.9 mg/dL (8.6-10.8) 04/27/17 08:17 Urine Sodium 22.0 mEq/L 04/22/17 20:50 Consult Discharge Plan - Plan Referrals: Liz Luna MD [Partnered Physician] - 05/17/17 12:00 pm Deepika Tavarez CNP [Advanced Practice Nurse] - 05/04/17 1:00 pm Tho Chen DO [Partnered Physician] - (hyponatremia)
[2017-04-27] MEDS: Insulin LISPRO 300 UNITS/3 ML VIAL SQ SCH ×2 (09:44→09:48)
[2017-04-27] MEDS: Multivit/Ca/Min/Fe/FA 1 TAB TABLET PO SCH (09:45)
[2017-04-27] MEDS: ALPRAZolam 1 MG TABLET PO SCH (09:46)
[2017-04-27] MEDS: amLODIPine 5 MG TABLET PO SCH (09:46)
[2017-04-27] MEDS: Famotidine 20 MG TABLET PO SCH (09:46)
[2017-04-27] MEDS: Aspirin 81 MG TAB.CHEW PO SCH (09:46)
[2017-04-27] MEDS: Ranolazine 500 MG TAB.ER.12H PO SCH (09:47)
[2017-04-27] MEDS: Sennosides/Docusate Sodium TABLET PO SCH (09:47)
[2017-04-27] MEDS: Insulin DETEMIR 100 UNIT/ML X5UNITS SQ SCH (09:47)
[2017-04-27] MEDS: Venlafaxine XR (24 HR) 75 MG CAP.ER.24H PO SCH (09:48)
--- NOTE | 2017-04-27 12:48 | Neurology Progress Note ---
Date of Encounter: 04/27/17 Time of Encounter: 12:46 Assessment and Plan (1) Altered mental status Current Visit: Yes Status: Acute Significantly improved, as medical conditions continue to improve. Now has nonfocal neurological examination and is currently AAx3. No further testing from neurology perspective. Please continue medical and supportive care. Will sign off and please call if any questions Qualifiers: Altered mental status type: transient alteration of awareness Qualified Code(s): R40.4 - Transient alteration of awareness Subjective Principal diagnosis: mental status changes Interval history: patient seen and examined. Apparently he is dong much better. Reported that yesterday afternoon after a massive bowel movement he became responsive and started moving. Now, has no complaints and ate his lunch and denies any discomforts. Objective - Constitutional Vitals: Temp Pulse Resp BP Pulse Ox 98.7 F 97 16 134/81 98 04/27/17 12:04 04/27/17 12:04 04/27/17 12:04 04/27/17 12:04 04/27/17 12:04 - Neurological Exam Sensorimotor examination: Present: intact, other (Unable to assess) Motor Examination: Present: grossly full strength in all extremities, other ( All limbs flaccid, no spontaneous movements observed. No muscle rigidit.) Mental Status Examination: Present: awake, alert, oriented to person, oriented to place, oriented to time, follows commands appropriately, answers questions appropriately, no agnosia, no aphasia, no aproxia Cranial nerve examination: Present: PERRL, EOMI (normal), visual sotomayor intact ( normal ), no facial asymmetry is present, no dysarthria, hearing is intact symmetrically, soft palate elevates bilaterally upon phonation, gag reflex intact, flexes SCM and trapezius muscles symmetrically with full power, tongue protrudes midline Results - Laboratory Findings CBC and BMP: 04/26/17 11:40 04/27/17 08:17 Abnormal lab findings: Abnormal lab results RBC 3.94 M/mcL (4.19-5.50) L 04/26/17 11:40 Hgb 11.6 g/dL (12.9-16.9) L 04/26/17 11:40 Hct 32.2 % (37.5-50.1) L 04/26/17 11:40 MCV 81.7 fL (83.0-100.0) L 04/26/17 11:40 MCHC 36.0 g/dL (31.6-35.5) H 04/26/17 11:40 MPV 8.3 fL (9.4-12.4) L 04/26/17 11:40 Sodium 130 mEq/L (136-145) L 04/27/17 08:17 Potassium 4.8 mEq/L (3.5-4.5) H 04/27/17 08:17 POC Glucose 194 (58-89) H 04/27/17 12:07 Serum Osmolality 243 mOsm/kg (280-300) L 04/22/17 11:17 Calculated Osmolality 270 (280-300) L 04/27/17 08:17 Uric Acid 3.1 mg/dL (3.5-7.2) L 04/23/17 02:39 ALT 72 Units/L (0-55) H 04/24/17 01:52 Ur Specific [place] 1.007 (1.010-1.025) L 04/22/17 06:15 Urine Protein 100 mg/dL (Neg-Trace) H 04/22/17 06:15 Urine Glucose (UA) 100 mg/dL (Normal) H 04/22/17 06:15 Urine Blood Trace (Negative) H 04/22/17 06:15 Urine Osmolality 207 mOsm/kg (300-1090) L 04/22/17 20:50 Consult Discharge Plan - Plan Referrals: Liz Luna MD [Partnered Physician] - 05/17/17 12:00 pm Deepika Tavarez CNP [Advanced Practice Nurse] - 05/04/17 1:00 pm
--- NOTE | 2017-04-27 13:25 | Physician Discharge Referral ---
Home Health/Hosp Referral Info Transfer to: Home Health Attending Provider: Dr. Cliff Dooley Provider in Charge Post Discharge: PCP - Diagnosis (1) Hyponatremia Priority: Primary Status: Resolved (2) Encephalopathy acute Priority: Secondary Status: Resolved (3) Cirrhosis of liver Priority: Secondary Status: Chronic (4) Bipolar disorder Priority: Secondary Status: Chronic (5) CAD (coronary artery disease) Priority: Secondary Status: Chronic (6) Diabetes mellitus Priority: Secondary Status: Chronic (7) Hypertension Priority: Secondary Status: Chronic (8) Hyperkalemia Priority: Secondary Status: Resolved - Respiratory Orders Smoking Cessation: Smoking cessation has been advised. For more information, call the [place] Tobacco Quit Line at 9-502-DWWW-NOW. - Diet/Nutrition Diet/Nutrition Orders: Cardiac, No Concentrated Sweets - Activity Activity Orders: Up ad micki, Ambulate, Chair - Services Needed Following services are medically necessary services: Nursing, Physical Therapy - Transfer Medications Home Medications: Alprazolam [Xanax] 1 mg PO TID 04/29/16 [History] Gabapentin [Neurontin] 100 mg PO TID 04/29/16 [History] Insulin ASPART [Novolog Flexpen] 10 unit SQ TIDWM 04/29/16 [History] Mirtazapine [Remeron] 45 mg PO HS 04/29/16 [History] Furosemide [Lasix] 40 mg PO BID 06/12/16 [History] Haloperidol [Haldol] 2 mg PO HS 06/12/16 [History] Insulin DETEMIR [Levemir Flextouch] 40 unit SQ BID 06/12/16 [History] Prazosin [Minipress] 2 mg PO HS 06/12/16 [History] Quetiapine Fumarate [Seroquel] 150 mg PO QAM 06/12/16 [History] Quetiapine Fumarate [Seroquel] 450 mg PO HS 06/12/16 [History] TraZODone 50 - 100 mg PO HS 06/12/16 [History] Venlafaxine XR (24 HR) [Effexor XR] 75 mg PO DAILY 06/12/16 [History] Aspirin 81 mg PO DAILY tab.chew 06/20/16 [Rx] Atorvastatin [Lipitor] 40 mg PO HS #30 tablet 06/20/16 [Rx] Carvedilol [Coreg] 12.5 mg PO BIDWM #120 tablet 06/20/16 [Rx] Clopidogrel [Plavix] 75 mg PO DAILY #30 tablet 06/20/16 [Rx] Pantoprazole Sodium [Protonix] 40 mg PO DAILY #30 tablet.dr 06/20/16 [Rx] amLODIPine [Norvasc] 10 mg PO DAILY #30 tablet 06/20/16 [Rx] Lisinopril [Zestril] 10 mg PO BID 08/25/16 [History] Multivitamin with Minerals [One-A-Day Maximum Formula] 1 tab PO DAILY 04/04/17 [ History] [place]-3/Dha/Epa/Fish Oil [Fish Oil 1,000 mg Softgel] 1,000 mg PO DAILY 04/04/17 [History] Spironolactone [Aldactone] 50 mg PO BID 04/04/17 [History] Ranolazine [Ranexa] 1,000 mg PO BID #60 tab.er.12h 04/06/17 [Rx] Meclizine HCl [Verticalm] 25 mg PO TID PRN 04/22/17 [History] Allergies/Adverse Reactions: Allergies codeine Adverse Reaction (Verified 04/22/17 13:09) Vomiting Certification: Further, I certify that my clinical findings support that this patient is homebound (i.e. absences from home require considerable and taxing effort and are for medical reasons or [facility] or infrequently or short duration when for other reasons) because: Homebound Reason: Patient requires assistance of a person or device to safely leave home, Leaving home requires considerable and taxing effort due to condition Attestation: My signature below is to certify that this patient is under my care and that I, or nurse practitioner, or a physician's psychology assistant working with me, has a face-to -face encounter with this patient.
--- NOTE | 2017-04-27 13:31 | Discharge Summary ---
Date of Encounter: 04/27/17 Time of Encounter: 13:25 - Discharge Diagnosis (1) Hyponatremia Priority: Primary Status: Resolved (2) Encephalopathy acute Priority: Secondary Status: Resolved (3) Cirrhosis of liver Priority: Secondary Status: Chronic Qualifiers: Hepatic cirrhosis type: other cirrhosis Qualified Code(s): K74.69 - Other cirrhosis of liver (4) Bipolar disorder Priority: Secondary Status: Chronic Qualifiers: Active/Remission status: currently active Current bipolar episode type: depressed Current episode severity: mild Qualified Code(s): F31.31 - Bipolar disorder, current episode depressed, mild (5) CAD (coronary artery disease) Priority: Secondary Status: Chronic Qualifiers: Coronary Disease-Associated Artery/Lesion type: [place] artery [place] vs. transplanted heart: [place] heart Associated angina: without angina Qualified Code(s): I25.10 - Atherosclerotic heart disease of [place] coronary artery without angina pectoris (6) Diabetes mellitus Priority: Secondary Status: Chronic Qualifiers: Diabetes mellitus type: type 2 Diabetes mellitus complication status: without complication Diabetes mellitus usp insulin use: with terminal operations supervisor use Qualified Code(s): E11.9 - Type 2 diabetes mellitus without complications ; Z79.4 - terminal gauger supervisor (current) use of insulin (7) Hypertension Priority: Secondary Status: Chronic Qualifiers: Hypertension type: essential hypertension Qualified Code(s): I10 - Essential (primary) hypertension (8) Hyperkalemia Priority: Secondary Status: Resolved - Discharge Medications Prescriptions: Sennosides/Docusate Sodium [Senna Plus] 2 each PO BID #60 tab Tamsulosin [Flomax] 0.4 mg PO DAILY #30 Home Medications: Alprazolam [Xanax] 1 mg PO TID 04/29/16 [History] Gabapentin [Neurontin] 100 mg PO TID 04/29/16 [History] Insulin ASPART [Novolog Flexpen] 10 unit SQ TIDWM 04/29/16 [History] Mirtazapine [Remeron] 45 mg PO HS 04/29/16 [History] Haloperidol [Haldol] 2 mg PO HS 06/12/16 [History] Insulin DETEMIR [Levemir Flextouch] 40 unit SQ BID 06/12/16 [History] Prazosin [Minipress] 2 mg PO HS 06/12/16 [History] Quetiapine Fumarate [Seroquel] 150 mg PO QAM 06/12/16 [History] Quetiapine Fumarate [Seroquel] 450 mg PO HS 06/12/16 [History] TraZODone 50 - 100 mg PO HS 06/12/16 [History] Venlafaxine XR (24 HR) [Effexor XR] 75 mg PO DAILY 06/12/16 [History] Aspirin 81 mg PO DAILY tab.chew 06/20/16 [Rx] Atorvastatin [Lipitor] 40 mg PO HS #30 tablet 06/20/16 [Rx] Carvedilol [Coreg] 12.5 mg PO BIDWM #120 tablet 06/20/16 [Rx] Clopidogrel [Plavix] 75 mg PO DAILY #30 tablet 06/20/16 [Rx] Pantoprazole Sodium [Protonix] 40 mg PO DAILY #30 tablet.dr 06/20/16 [Rx] amLODIPine [Norvasc] 10 mg PO DAILY #30 tablet 06/20/16 [Rx] Lisinopril [Zestril] 10 mg PO BID 08/25/16 [History] Multivitamin with Minerals [One-A-Day Maximum Formula] 1 tab PO DAILY 04/04/17 [ History] [place]-3/Dha/Epa/Fish Oil [Fish Oil 1,000 mg Softgel] 1,000 mg PO DAILY 04/04/17 [History] Ranolazine [Ranexa] 1,000 mg PO BID #60 tab.er.12h 04/06/17 [Rx] Meclizine HCl [Verticalm] 25 mg PO TID PRN 04/22/17 [History] Sennosides/Docusate Sodium [Senna Plus] 2 each PO BID #60 tab 04/27/17 [Rx] Tamsulosin [Flomax] 0.4 mg PO DAILY #30 04/27/17 [Rx] Allergies/Adverse Reactions: Allergies codeine Adverse Reaction (Verified 04/22/17 13:09) Vomiting Procedures/tests Complete & Pending: Procedures Performed prior 72 hours Category Date Time Status CT abd pelvis w iv and oral [CT] Stat Cat Scan 04/26/[address] angio head [CT] Stat Cat Scan 04/26/[address] angio neck [CT] Stat Cat Scan 04/26/[address] stroke alert head wo con [CT] Stat Cat Scan 04/26/17 11:26 Completed ECG 12 lead ECG [ECG] Stat Y 04/26/17 11:27 Ordered - Notes to Outpatient Provider 1. BMP in 1 week and nephrology follow-up in one week for his hyponatremia 2. Urology referral being given as the patient is being discharged on Wells catheter due to his urinary retention Date of admission: 04/22/17 08:58 Primary care physician: Wilman Whitney Jr, MD Consults: 04/22/17 09:11 Consult to Email Operations Manager [CONS] Routine Reason for SW Consult: Discharge planning 04/22/17 10:03 Consult to Nutrition [CONS] Routine Comment: Consulting Provider: NUTRITION Reason for Dietary Consult: MST Score Consult to Pastoral Services [CONS] Routine Comment: 04/22/17 10:55 Consult to Nephrology [CONS] Stat Consulting Provider: [facility]/YANA/PHYLLIS/FRANCOIS Reason for Consult: Severe hyponatremia Call Completed: Yes 04/25/17 09:38 Consult to Pastoral Services [CONS] Routine Comment: 04/26/17 12:23 Consult to Neurology [CONS] Routine Consulting Provider: [facility] Reason for Consult: Encephalopathy; Possible seizures Call Completed: Yes 04/26/17 12:36 Consult to Psychiatry [CONS] Routine Consulting Provider: Psychiatry [place] Reason for Consult: Possible catatonic states Call Completed: Yes 04/26/17 16:11 Consult to Interpret Exam [CONS] Routine Consulting Provider: Cheyenne Anderson Consult to Interpret Exam: Interpret EEG Discharging clinician: Cliff Dooley Anticipated date of discharge: 04/27/17 - Patient Status Disposition: Home Health Service Condition: Good Functional capacity at discharge: independent ambulation Overall status at discharge: patient is progressing back to baseline - Discharge Instructions Follow Up With: iLz Luna MD [Partnered Physician] - 05/17/17 12:00 pm Tho Chen DO [Partnered Physician] - (hyponatremia) Deepika Tavarez CNP [Advanced Practice Nurse] - 05/04/17 1:00 pm - Diet and Activity Activity: as per physical therapy, increase activity as tolerated Diet: diabetic diet, low fat, low cholesterol Hospital course: Mr. Gonzalez is a 52 year old male with history of diabetes mellitus, coronary artery disease, bipolar disorder who presented to the emergency room due to dizziness, nausea and chest pain. In the emergency room, he was found to have hyponatremia with a sodium level of 105. As the patient was not having any seizures or acute altered mental status, this was felt to be chronic hyponatremia. He was admitted for the same. Nephrology was consulted. The patient has a history of bipolar disorder and was consuming increased hours of fluids. Hence, he was placed on fluid restricted diet. After being seen [facility] neph[facility], he was also placed on salt tablets. During stay in the hospital, his sodium continued to improve. The patient had difficulty voiding and has had a Wells catheter placed. This was discontinued after about 2 days. However , the patient's difficult voiding record. The patient also suffered from constipation during hospital stay. He was being given laxatives and stool softeners. The patient had acute encephalopathy the day prior to discharge. Due to the acute change in his mental status and inability to respond to commands, code stroke was initiated. The patient had CT of the head without contrast, CT angiogram of the head and neck. Acute embolus or thrombus was not found. He was not felt to be a candidate to receive TPA. The patient eventually had a bowel movement and his symptoms resolved. The patient will be discharged home with home health with a Wells catheter in place with thin sections to follow up with urology as an outpatient to determine the cause of his difficulty urinating and urinary retention. Nephrology has signed off and recommended that the patient get a BMP in one week and follow-up with nephrology in 1 week. - Time Spent with Patient Total time spent providing and/or coordinating discharge services: Greater than 30 minutes (40) - Constitutional Vitals: Temp Pulse Resp BP Pulse Ox 98.7 F 97 16 134/81 98 04/27/17 12:04 04/27/17 12:04 04/27/17 12:04 04/27/17 12:04 04/27/17 12:04 General appearance: Present: cooperative, A&O X 3, no acute distress, answers questions appropriately Exam: Gen.: Sitting in a chair. No acute distress. Wells catheter in place. Chest: Clear to auscultation bilaterally. No adventitious sounds present. CVS: First and second heart sounds present. No murmurs, rubs or gallops.
[2017-04-27 15:53] VITALS: BP 106/78
== END 2017-04-27 17:49 | disposition home health service (06) | DRG 640 ==
LOC: EMEROO 05:01 → 2NENU 05:01 → OBSVTOIN 08:58 → SUATTDRO 08:58
PROVIDERS: ADMIT Internal Medicine; ATTEND Internal Medicine Sleep Medicine

== ENCOUNTER 2017-04-29 22:25 | Observation (INO) ==
--- NOTE | 2017-04-29 23:01 | Emergency Department Note ---
Disposition Clinical Impression: Symptomatic anemia, Altered mental status, Bipolar disorder, UTI (urinary tract infection) Disposition: Admitted As Inpatient Condition: Fair Time of Disposition: 01:59 General Adult HPI - General Chief complaint: ED Dizziness Stated complaint: blood in catheter, dizziness Time Seen by Provider: 04/29/17 22:38 Source: patient, family Mode of arrival: ambulatory Limitations: no limitations Nursing Notes Reviewed: Yes Vital Signs Reviewed: Yes - History of Present Illness HPI Narrative: Patient presents to the ED with a chief complaint of dizziness and blood in his urinary catheter. Patient was in the hospital approximately 8 days ago for similar complaints. He is complaining of altered mental status, abdominal pain, decreased urination. Get a CTA of his head and neck, which is negative. Was diagnosed with acute encephalopathy. Also was found to have acute constipation on an abdominal CT and was treated eventually by milk of molasses enema, and a rectal tube well in the hospital. states that after his constipation resolved. His encephalopathy improved. He was also found to be hyponatremic. He was placed on fluid restriction and salt tablets. Reports that he never really got back to his baseline before discharge from the hospital. Since discharge he has been increasingly more encephalopathic. She reports a presents today because he started having blood in his urinary catheter. He does complain of some abdominal pain. Denies any headache or changes in vision. He states his main complaint is anytime he moves his head he feels like the room is spinning. States he has not had much to eat or drink because of the fluid restriction and may be dehydrated. also reports dark-colored urine. Pain Scale: 9 - Related Data Home Medications Medication Instructions Recorded Confirmed Alprazolam [Xanax] 1 mg PO TID 04/29/16 04/22/17 Gabapentin [Neurontin] 100 mg PO TID 04/29/16 04/22/17 Insulin ASPART [Novolog Flexpen] 10 unit SQ TIDWM 04/29/16 04/22/17 Mirtazapine [Remeron] 45 mg PO HS 04/29/16 04/22/17 Haloperidol [Haldol] 2 mg PO HS 06/12/16 04/22/17 Insulin DETEMIR [Levemir Flextouch] 40 unit SQ BID 06/12/16 04/22/17 Prazosin [Minipress] 2 mg PO HS 06/12/16 04/26/17 Quetiapine Fumarate [Seroquel] 150 mg PO QAM 06/12/16 04/22/17 Quetiapine Fumarate [Seroquel] 450 mg PO HS 06/12/16 04/22/17 TraZODone 50 - 100 mg PO HS 06/12/16 04/22/17 Venlafaxine XR (24 HR) [Effexor XR] 75 mg PO DAILY 06/12/16 04/22/17 Lisinopril [Zestril] 10 mg PO BID 08/25/16 04/22/17 Multivitamin with Minerals 1 tab PO DAILY 04/04/17 04/22/17 [One-A-Day Maximum Formula] [place]-3/Dha/Epa/Fish Oil [Fish Oil 1,000 mg PO DAILY 04/04/17 04/22/17 1,000 mg Softgel] Meclizine HCl [Verticalm] 25 mg PO TID PRN 04/22/17 04/22/17 Previous Rx's Medication Instructions Recorded Aspirin 81 mg PO DAILY tab.chew 06/20/16 Atorvastatin [Lipitor] 40 mg PO HS #30 tablet 06/20/16 Carvedilol [Coreg] 12.5 mg PO BIDWM #120 tablet 06/20/16 Clopidogrel [Plavix] 75 mg PO DAILY #30 tablet 06/20/16 Pantoprazole Sodium [Protonix] 40 mg PO DAILY #30 tablet.dr 06/20/16 amLODIPine [Norvasc] 10 mg PO DAILY #30 tablet 06/20/16 Ranolazine [Ranexa] 1,000 mg PO BID #60 tab.er.12h 04/06/17 Sennosides/Docusate Sodium [Senna 2 each PO BID #60 tab 04/27/17 Plus] Tamsulosin [Flomax] 0.4 mg PO DAILY #30 04/27/17 Allergies Allergy/AdvReac Type Severity Reaction Status Date / Time codeine AdvReac Vomiting Verified 04/22/17 13:09 Constitutional: Denies: fever Eyes: Reports: vision change Cardiovascular: Denies: chest pain Respiratory: Denies: dyspnea Gastrointestinal: Reports: nausea, constipation Genitourinary: Reports: as per HPI. Denies: dysuria Musculoskeletal: Denies: back pain Integumentary: Denies: rash Neurological: Reports: weakness (general). Denies: headache Endocrine: Reports: fatigue Past Medical History - Past Medical History Attestation: Yes The following information was validated with the patient. Source: patient, old records reviewed Medical history: Reports: arthritis, cirrhosis, coronary artery disease, diabetes, GERD, hepatitis, hyperlipidemia, hypertension, liver disease, migraine , myocardial infarction, RA, renal disease Surgical history: Reports: angioplasty/stent, cholecystectomy Psychiatric history: Reports: bipolar - Social History Smoking Status: Former smoker Smokeless Tobacco Status: No Alcohol use: Reports: none Drug use: Reports: none Physical Exam - General Limitations: no limitations General appearance: alert, in no apparent distress, other (Patient is alert but has a very strange affect, he will stare off into space and is slow to respond at times, but will also respond quickly. At other times) - Head Head exam: atraumatic, normocephalic, normal inspection - Eye Eye exam: Present: normal appearance, PERRL, EOMI - ENT ENT exam: normal exam, normal oropharynx, mucous membranes dry - Neck Neck exam: Present: normal inspection, full ROM, trachea midline - Chest Chest inspection: Present: normal inspection, symmetric chest wall rise - Respiratory Respiratory exam: Present: normal lung sounds bilaterally - Cardiovascular Cardiovascular exam: Present: regular rate, normal rhythm, normal heart sounds - Abdominal Exam Abdominal exam: Present: soft, Non-Tender, tenderness. Absent: distention, guarding, rebound, rigidity Abdominal tenderness: Present: RLQ, LLQ, mild - Extremities Exam Extremities exam: Present: normal inspection, full ROM, normal capillary refill - Neurological Exam Neurological exam: Present: alert, oriented X3, CN II-XII intact - Expanded Neurological Exam Patient oriented to: Present: person, place, time Speech: Present: fluid speech Cranial nerves: EOM function (II, III, IV, ): Normal, facial sensation (V): Normal, facial palsy (VII): Normal, spinal accessory function (XI): Normal, tongue deviation (XII): Normal Cerebellar function: finger to nose: Normal Motor strength - LUE: 4/5 Motor strength - RUE: 4/5 Motor strength - LLE: 4/5 Motor strength - RLE: 4/5 Upper motor neuron exam: mitch neglect: Absent bilaterally Sensory exam upper extremity: light touch: Normal Sensory exam lower extremity: light touch: Normal Coma Scale Eye Opening: Spontaneous Coma Scale Motor Response: Obeys Commands Coma Scale Verbal Response: Oriented Coma Scale Total: 15 - Psychiatric Psychiatric exam: Present: flat affect - Skin Skin exam: Present: dry, intact, pallor Course Course Narrative: 52-year-old male presenting with multiple complaints. His catheter has having some blood clots, history of hyponatremia and altered mental status and encephalopathy. Patient's neurological exam is nonfocal currently. However, we will repeat his head CT, labs and admit for further management. A lot of this is probably due to his bipolar medications, which could be causing constipation and altered mental status but will need a few days of observation to sort this out. Vital Signs Temperature 97.8 F 04/29/17 22:27 Pulse Rate 88 04/29/17 22:27 Respiratory Rate 16 04/29/17 22:27 Blood Pressure 114/74 04/29/17 22:27 O2 Sat by Pulse Oximetry 99 04/29/17 22:27 Temperature 98.3 F 04/30/17 03:31 Pulse Rate 86 04/30/17 03:31 Respiratory Rate 14 04/30/17 03:31 Blood Pressure 125/82 04/30/17 03:31 O2 Sat by Pulse Oximetry 98 04/30/17 03:31 Oxygen Delivery Oxygen Delivery Room Air Medical Decision Making - Medical Records Medical records reviewed: Yes I reviewed the patient's medical records. - Lab Data Lab results reviewed: Yes I reviewed the patient's lab results. Result diagrams: 04/29/17 23:13 04/29/17 23:13 Lab Results 04/29/17 04/29/17 04/29/17 Range/Units 23:13 23:13 23:13 WBC 9.6 (4.3-11.1) K/mcL RBC 3.28 L (4.19-5.50) M/mcL Hgb 9.6 L D (12.9-16.9) g/dL Hct 27.7 L (37.5-50.1) % MCV 84.5 (83.0-100.0) fL MCH 29.3 (28.0-33.3) pg MCHC 34.7 (31.6-35.5) g/dL RDW 12.2 (11.5-14.5) % Plt Count 192 (140-400) K/mcL MPV 8.5 L (9.4-12.4) fL Immature Gran % 0.5 (0-4) % Seg Neutrophils % 63.6 % Lymphocytes % 24.7 % Monocytes % 8.9 % Eosinophils % 1.9 % Basophils % 0.4 % Neutrophils # 6.1 (1.6-8.9) K/mcL Lymphocytes # 2.4 (0.6-4.6) K/mcL Monocytes # 0.9 (0.0-1.3) K/mcL Eosinophils # 0.2 (0.0-0.6) K/mcL Basophils # 0.0 (0.0-0.2) K/mcL Sodium 131 L (136-145) mEq/L Potassium 4.2 (3.5-4.5) mEq/L Chloride 102 (98-109) mEq/L Carbon Dioxide 21 (19-29) mEq/L BUN 21 (8-26) mg/dL Creatinine 1.08 (0.72-1.25) mg/dL Est GFR ( Amer) > 60 (> 60) Est GFR (Non-Af Amer) > 60 (> 60) BUN/Creatinine Ratio 19 (6-26) Glucose 135 H (70-99) mg/dL Calculated Osmolality 277 L (280-300) Lactic Acid (0.5-2.2) mmol/L Calcium 8.9 (8.6-10.8) mg/dL Total Bilirubin 0.2 (0.2-1.2) mg/dL AST 17 (5-34) Units/L ALT 28 (0-55) Units/L Alkaline Phosphatase 67 (38-126) Units/L Ammonia (18-72) mcmol/L Creatine Kinase 90 (30-200) Units/L Troponin I 0.01 (0-0.03) ng/mL Serum Total Protein 6.6 (6.0-8.3) g/dL Albumin 3.4 L (3.5-5.0) g/dL Globulin 3.2 (2.4-3.5) g/dL Albumin/Globulin Ratio 1.1 (1.1-2.2) TSH 2.618 (0.350-4.840) mcIU/mL Ur Specimen Adequacy Urine Color (Yellow) Urine Clarity (Clear) Urine pH (5.0-8.0) pH Units Ur Specific [place] (1.010-1.025) Urine Protein (Neg-Trace) mg/dL Urine Glucose (UA) (Normal) mg/dL Urine Ketones (Negative) mg/dL Urine Blood (Negative) Urine Nitrite (Negative) Urine Bilirubin (Negative) Urine Urobilinogen (Normal) mg/dL Ur Leukocyte Esterase (Negative) Urine Microscopic RBC (0-3) per hpf Urine Microscopic WBC (0-3) per hpf Ur Squamous Epith Cells (None-Few) per lpf Urine Bacteria (None-Few) per hpf Hyaline Casts (None-Few) per lpf Urine Mucus (Few) Ur Culture Indicated? (NO) Urine Creatinine mg/dL Protein/Creatinin Ratio (0-0.20) mg/mg Urine Total Protein (1-14) mg/dL 04/29/17 04/29/17 04/29/17 Range/Units 23:13 23:13 23:48 WBC (4.3-11.1) K/mcL RBC (4.19-5.50) M/mcL Hgb (12.9-16.9) g/dL Hct (37.5-50.1) % MCV (83.0-100.0) fL MCH (28.0-33.3) pg MCHC (31.6-35.5) g/dL RDW (11.5-14.5) % Plt Count (140-400) K/mcL MPV (9.4-12.4) fL Immature Gran % (0-4) % Seg Neutrophils % % Lymphocytes % % Monocytes % % Eosinophils % % Basophils % % Neutrophils # (1.6-8.9) K/mcL Lymphocytes # (0.6-4.6) K/mcL Monocytes # (0.0-1.3) K/mcL Eosinophils # (0.0-0.6) K/mcL Basophils # (0.0-0.2) K/mcL Sodium (136-145) mEq/L Potassium (3.5-4.5) mEq/L Chloride (98-109) mEq/L Carbon Dioxide (19-29) mEq/L BUN (8-26) mg/dL Creatinine (0.72-1.25) mg/dL Est GFR ( Amer) (> 60) Est GFR (Non-Af Amer) (> 60) BUN/Creatinine Ratio (6-26) Glucose (70-99) mg/dL Calculated Osmolality (280-300) Lactic Acid 1.1 (0.5-2.2) mmol/L Calcium (8.6-10.8) mg/dL Total Bilirubin (0.2-1.2) mg/dL AST (5-34) Units/L ALT (0-55) Units/L Alkaline Phosphatase (38-126) Units/L Ammonia 32 (18-72) mcmol/L Creatine Kinase (30-200) Units/L Troponin I (0-0.03) ng/mL Serum Total Protein (6.0-8.3) g/dL Albumin (3.5-5.0) g/dL Globulin (2.4-3.5) g/dL Albumin/Globulin Ratio (1.1-2.2) TSH (0.350-4.840) mcIU/mL Ur Specimen Adequacy See below A Urine Color Yellow (Yellow) Urine Clarity Clear (Clear) Urine pH 6.0 (5.0-8.0) pH Units Ur Specific [place] 1.023 (1.010-1.025) Urine Protein >=300 H (Neg-Trace) mg/dL Urine Glucose (UA) Normal (Normal) mg/dL Urine Ketones Negative (Negative) mg/dL Urine Blood Large H (Negative) Urine Nitrite Positive A (Negative) Urine Bilirubin Negative (Negative) Urine Urobilinogen Normal (Normal) mg/dL Ur Leukocyte Esterase Small H (Negative) Urine Microscopic RBC TNTC H (0-3) per hpf Urine Microscopic WBC Present (0-3) per hpf Ur Squamous Epith Cells Present (None-Few) per lpf Urine Bacteria Present (None-Few) per hpf Hyaline Casts None Seen (None-Few) per lpf Urine Mucus Present (Few) Ur Culture Indicated? YES A (NO) Urine Creatinine mg/dL Protein/Creatinin Ratio (0-0.20) mg/mg Urine Total Protein (1-14) mg/dL 04/29/ Range/Units 23:48 WBC (4.3-11.1) K/mcL RBC (4.19-5.50) M/mcL Hgb (12.9-16.9) g/dL Hct (37.5-50.1) % MCV (83.0-100.0) fL MCH (28.0-33.3) pg MCHC (31.6-35.5) g/dL RDW (11.5-14.5) % Plt Count (140-400) K/mcL MPV (9.4-12.4) fL Immature Gran % (0-4) % Seg Neutrophils % % Lymphocytes % % Monocytes % % Eosinophils % % Basophils % % Neutrophils # (1.6-8.9) K/mcL Lymphocytes # (0.6-4.6) K/mcL Monocytes # (0.0-1.3) K/mcL Eosinophils # (0.0-0.6) K/mcL Basophils # (0.0-0.2) K/mcL Sodium (136-145) mEq/L Potassium (3.5-4.5) mEq/L Chloride (98-109) mEq/L Carbon Dioxide (19-29) mEq/L BUN (8-26) mg/dL Creatinine (0.72-1.25) mg/dL Est GFR ( Amer) (> 60) Est GFR (Non-Af Amer) (> 60) BUN/Creatinine Ratio (6-26) Glucose (70-99) mg/dL Calculated Osmolality (280-300) Lactic Acid (0.5-2.2) mmol/L Calcium (8.6-10.8) mg/dL Total Bilirubin (0.2-1.2) mg/dL AST (5-34) Units/L ALT (0-55) Units/L Alkaline Phosphatase (38-126) Units/L Ammonia (18-72) mcmol/L Creatine Kinase (30-200) Units/L Troponin I (0-0.03) ng/mL Serum Total Protein (6.0-8.3) g/dL Albumin (3.5-5.0) g/dL Globulin (2.4-3.5) g/dL Albumin/Globulin Ratio (1.1-2.2) TSH (0.350-4.840) mcIU/mL Ur Specimen Adequacy Urine Color (Yellow) Urine Clarity (Clear) Urine pH (5.0-8.0) pH Units Ur Specific [place] (1.010-1.025) Urine Protein (Neg-Trace) mg/dL Urine Glucose (UA) (Normal) mg/dL Urine Ketones (Negative) mg/dL Urine Blood (Negative) Urine Nitrite (Negative) Urine Bilirubin (Negative) Urine Urobilinogen (Normal) mg/dL Ur Leukocyte Esterase (Negative) Urine Microscopic RBC (0-3) per hpf Urine Microscopic WBC (0-3) per hpf Ur Squamous Epith Cells (None-Few) per lpf Urine Bacteria (None-Few) per hpf Hyaline Casts (None-Few) per lpf Urine Mucus (Few) Ur Culture Indicated? (NO) Urine Creatinine 94 mg/dL Protein/Creatinin Ratio 1.99 H (0-0.20) mg/mg Urine Total Protein 187 H (1-14) mg/dL - Radiology Data Radiology results reviewed: Yes I reviewed the patient's radiology results. - EKG Data EKG #1 EKG attestation: Yes I reviewed and interpreted this EKG. EKG results narrative: Sinus rhythm, rate 82, DC interval 165, QRS 102, QTC 414, left axis deviation, nonspecific ST-T wave changes, no previous available S.B.A.R. - S.B.A.R. Situation: Demographics, MOA Background: Presenting Complaint, Relevant PMH, Meds, & Allergies Assessment: Vital Signs, Course and respsone to treatment, Exam Concerns, Patient/Family Expectation, Pertinant Lab Results, Outstanding Labs Recommendation: Recommendation based on pending studies, treatments, or consults S.B.A.R. Report Given to: Dr. Brown - needs tele S.B.A.R. Repor Time: 01:58 Attestation Statement - Attestation Attestation: I personally interviewed and examined this patient and my medical decision- making was reviewed with the ED Resident Physician, Dr. Brooks. I agree with the documented findings, disposition and treatment plan as described except to the extent set forth below. Patient is 52-year-old white male with a history of cirrhosis, who was recently hospitalized with acute encephalopathy approximate 8 days ago. During that hospitalization he was treated for hyponatremia, constipation. Patient had an acute episode during that hospitalization of acute neurologic decompensation and was evaluated for possible stroke including CT head neck. All the studies were within normal limits and he ultimately was discharged home. He also has a history of bipolar disorder. Patient returns tonight brought by his significant other who is concerned with gradually worsening mental status since yesterday. Patient verbally slow to respond but has no acute neurologic deficits no slurred speech no visual changes, or focal extremity changes. He does complain of some dizziness that he had that has worsened gradually throughout the day he also complains of some abdominal distention and bloating decreased urine output and clots that he is visualizing in his urinary catheter. I agree with patient's physical exam findings as documented. Patient's EKG does not show any acute ST or T-wave changes. We did repeat it acute noncontrast head CT which was negative for any acute findings. Portable chest x-ray was unremarkable. Patient's sodium was much improved from discharge during his hospitalization. Patient did have evidence of a urinary tract infection was started on antibiotics. Patient does not meet SIRS criteria. At this time his acute confusion is potentially multifactorial. Patient has no neurologic deficits on examination. No history of falls or trauma. He will be admitted for further evaluation and management of altered mental status.
[2017-04-29 23:31] LABS: Basophils % 0.4 %; Eosinophils # 0.2 K/mcL (0.0-0.6); Eosinophils % 1.9 %; Hematocrit 27.7 % (37.5-50.1); Immature Granulocytes % 0.5 % (0-4); Lymphocytes # 2.4 K/mcL (0.6-4.6); Lymphocytes % 24.7 %; Mean Corpuscular HGB Conc 34.7 g/dL (31.6-35.5); Mean Corpuscular Hemoglobin 29.3 pg (28.0-33.3); Mean Corpuscular Volume 84.5 fL (83.0-100.0); Mean Platelet Volume 8.5 fL (9.4-12.4); Monocytes # 0.9 K/mcL (0.0-1.3); Monocytes % 8.9 %; Neutrophils # 6.1 K/mcL (1.6-8.9); Platelet Count 192 K/mcL (140-400); Red Blood Count 3.28 M/mcL (4.19-5.50); Red Cell Distribution Width 12.2 % (11.5-14.5); Segmented Neutrophils % 63.6 %
[2017-04-29 23:35] LABS: Hemoglobin 9.6 g/dL (12.9-16.9)
[2017-04-29 23:46] LABS: Alanine Aminotransferase 28 Units/L (0-55); Albumin 3.4 g/dL (3.5-5.0); Albumin/Globulin Ratio 1.1 (1.1-2.2); Alkaline Phosphatase 67 Units/L (38-126); Aspartate Amino Transferase 17 Units/L (5-34); BUN/Creatinine Ratio 19 (6-26); Bilirubin,Total 0.2 mg/dL (0.2-1.2); Blood Urea Nitrogen 21 mg/dL (8-26); Calcium 8.9 mg/dL (8.6-10.8); Carbon Dioxide 21 mEq/L (19-29); Chloride 102 mEq/L (98-109); Creatine Kinase 90 Units/L (30-200); Globulin 3.2 g/dL (2.4-3.5); Glucose 135 mg/dL (70-99); Osmolality,Calculated 277 (280-300); Potassium 4.2 mEq/L (3.5-4.5); Sodium 131 mEq/L (136-145); Total Protein 6.6 g/dL (6.0-8.3); eGFR For African Americans > 60 (> 60); eGFR For Non-African Americans > 60 (> 60)
[2017-04-30 00:06] LABS: Protein/Creatinine Ratio,Urine 1.99 mg/mg (0-0.20)
[2017-04-30 00:16] LABS: Bilirubin,Urine Negative (Negative); Blood,Urine Large (Negative); Clarity,Urine Clear (Clear); Color,Urine Yellow (Yellow); Glucose,Urine (UA) Normal (Normal); Ketones,Urine Negative (Negative); Leukocyte Esterase,Urine Small (Negative); Nitrite,Urine Positive (Negative); Protein,Urine >=300 mg/dL (Neg-Trace); Specific Gravity,Urine 1.023 (1.010-1.025); Urobilinogen,Urine Normal (Normal)
[2017-04-30 00:21] LABS: RBC,Urine TNTC per hpf (0-3)
[2017-04-30 00:22] LABS: Squamous Epithelial Cell,Urine Present per lpf (None-Few)
[2017-04-30 00:23] LABS: Hyaline Casts,Urine None Seen per lpf (None-Few); WBC,Urine Present per hpf (0-3)
[2017-04-30 00:24] LABS: Bacteria,Urine Present per hpf (None-Few); Mucus,Urine Present (Few)
[2017-04-30] MEDS ORDERED: 0.9 % Sodium Chloride 1,000 ML IVC SCH (00:30)
[2017-04-30 01:04] LABS: Thyroid Stimulating Hormone 2.618 mcIU/mL (0.350-4.840)
[2017-04-30] MEDS ORDERED: D5% in Water 1,000 ML IVC PRN (04:21)
[2017-04-30] MEDS ORDERED: Dextrose Gel 15 GM PO PRN ×2 (04:21)
[2017-04-30] MEDS ORDERED: Naloxone 0.4 MG/ML INJ IVP PRN (04:21)
[2017-04-30] MEDS ORDERED: *HR* Dextrose 50 % in Water (Syg) 50 ML SYRINGE IVP PRN (04:21)
--- NOTE | 2017-04-30 04:43 | Internal Med History&Physical ---
Date of Encounter: 04/30/17 Time of Encounter: 04:34 Assessment and Plan (1) Hyponatremia Current visit: No Status: Acute 1. Will hold off on IVF hydration as he appears euvolemic. 2. Monitor I/O and sodium levels closely. 3. Will consult nephrology to assist in management. (2) Encephalopathy acute Current visit: No Status: Acute 1. Per and patient, he had a significant decline in cognition and memory since last hospital stay. 2. He has improved back to baseline now compared to presentation per . 3. He is on multiple medications which can affect his mind/brain. Per , he has been on these medications for years and they are not new. 4. If encephalopathy persists, consider consulting psychiatry to assist in weaning and/or changing some medications. 5. Follow up on MRI results. (3) DVT prophylaxis Current visit: No Status: Acute 1. Heparin B SQ. (4) Hematuria Current visit: Yes Status: Acute 1. Resolved after IV fluid hydration in ER and catheter adjustment. 2. Per history, it appears to be trauma related from Wells. 3. Monitor urine, check U/A, and culture. 4. Patient to follow up with urology this Monday for bladder retention and an attempt at Wells removal. Qualifiers: Hematuria type: gross Qualified Code(s): R31.0 - Gross hematuria (5) Diabetes mellitus Current visit: No Status: Chronic 1. Will start SSI. 2. Verify home meds and resume home insulin with adjustments as needed. 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 Abraham is a 52 year old male who presents the [facility] with complaints of altered mental status, weakness, confusion, and blood in the urine catheter. He was just admitted last week and then discharged 2 days ago. He was found to have severe hyponatremia at that time with unclear etiology. He improved and was stabilized for discharge. Since being home 2 days ago, he has done well until tonight when he became confused, disoriented, weak, and noted to have blood in his Wells catheter. During the last admission, he was noted to have bladder retention and he therefore underwent placement of Wells catheter. He is due to follow-up with urology on Monday. He was noted to have some blood in his urine today along with his confused state. He was brought to ER by his where he underwent workup. He again had hyponatremia, but today' s level was not nearly as severe as it was last week. ER staff also noted he was quite confused, disoriented, and oftentimes not responsive. ER staff recommended admitting patient and proceeding with MRI of the brain given his current psychiatric issues and also last week's severe hyponatremia. Upon my assessment of the patient, he is alert, oriented, and cooperative. His states that he is back to his baseline. However, she states that earlier in the day and evening, he was not entirely himself. He does have diabetes and his glucoses been bouncing up and down lately. He denies any overt hypoglycemia. Regarding his Wells catheter, he noticed some dark urine which might have been bloody. The urine resolved with 1 liter saline bolus in the ER tonight. Past Med Surg Social Fam HX - Past Medical History Attestation: Yes The following information was validated with the patient. Source: patient, old records reviewed, obtained from family Medical history: arthritis, cirrhosis, coronary artery disease, diabetes, GERD, hepatitis, hyperlipidemia, hypertension, liver disease, migraine, myocardial infarction, RA, renal disease Psychiatric history: anxiety, bipolar, depression, PTSD - Past Surgical History Surgical History: angioplasty/stent, cholecystectomy - Social History Smoking Status: Former smoker Smokeless Tobacco Status: No Alcohol use: none Drug use: none Current living situation: Home, With Family - Family History Father Living Status: Hx Family Cardiac Disorders: Yes Hx Family Endocrine Disorder: Yes Hx Family Neurologic Disorders: Yes Mother History Unknown: Yes Name: alberto abraham Living Status: Age at : 75 Hx Family Cardiac Disorders: Yes Hx Family Respiratory Disorders: Yes Hx Family Cancer: Yes (uncle,) Hx Family GI Disorders: Yes (self,) Hx Family Endocrine Disorder: Yes (self, father, 3 uncles) Hx Family Neuromuscular Disorders: No Hx Family Neurologic Disorders: Yes (father) Hx Family HEENT Disorders: No Hx Family Autoimmune Disorders: No Internal Medicine - H&P: Meds Alprazolam [Xanax] 1 mg PO TID 04/29/16 [History] Gabapentin [Neurontin] 100 mg PO TID 04/29/16 [History] Insulin ASPART [Novolog Flexpen] 10 unit SQ TIDWM 04/29/16 [History] Mirtazapine [Remeron] 45 mg PO HS 04/29/16 [History] Haloperidol [Haldol] 2 mg PO HS 06/12/16 [History] Insulin DETEMIR [Levemir Flextouch] 40 unit SQ BID 06/12/16 [History] Prazosin [Minipress] 2 mg PO HS 06/12/16 [History] Quetiapine Fumarate [Seroquel] 150 mg PO QAM 06/12/16 [History] Quetiapine Fumarate [Seroquel] 450 mg PO HS 06/12/16 [History] TraZODone 50 - 100 mg PO HS 06/12/16 [History] Venlafaxine XR (24 HR) [Effexor XR] 75 mg PO DAILY 06/12/16 [History] Aspirin 81 mg PO DAILY tab.chew 06/20/16 [Rx] Atorvastatin [Lipitor] 40 mg PO HS #30 tablet 06/20/16 [Rx] Carvedilol [Coreg] 12.5 mg PO BIDWM #120 tablet 06/20/16 [Rx] Clopidogrel [Plavix] 75 mg PO DAILY #30 tablet 06/20/16 [Rx] Pantoprazole Sodium [Protonix] 40 mg PO DAILY #30 tablet.dr 06/20/16 [Rx] amLODIPine [Norvasc] 10 mg PO DAILY #30 tablet 06/20/16 [Rx] Lisinopril [Zestril] 10 mg PO BID 08/25/16 [History] Multivitamin with Minerals [One-A-Day Maximum Formula] 1 tab PO DAILY 04/04/17 [ History] [place]-3/Dha/Epa/Fish Oil [Fish Oil 1,000 mg Softgel] 1,000 mg PO DAILY 04/04/17 [History] Ranolazine [Ranexa] 1,000 mg PO BID #60 tab.er.12h 04/06/17 [Rx] Meclizine HCl [Verticalm] 25 mg PO TID PRN 04/22/17 [History] Sennosides/Docusate Sodium [Senna Plus] 2 each PO BID #60 tab 04/27/17 [Rx] Tamsulosin [Flomax] 0.4 mg PO DAILY #30 04/27/17 [Rx] Allergies codeine Adverse Reaction (Verified 04/22/17 13:09) Vomiting - Constitutional Constitutional: weakness, no chills, no fever(s), no night sweats - EENT Eyes: no blurry vision, no change in vision Ears: no ear pain, no tinnitus Nose, mouth and throat: no nasal congestion, no sinus pressure, no sore throat - Cardiovascular Cardiovascular ROS IM: diaphoresis, no chest pain, no dyspnea, no dyspnea on exertion, no edema, no palpitations - Respiratory Respiratory: no cough, no dyspnea, no hemoptysis, no wheezing, no chest congestion - Gastrointestinal Gastrointestinal: constipation, no diarrhea, no hematemesis, no hematochezia, no melena, no vomiting - Genitourinary Genitourinary ROS male: hematuria, no dysuria, no flank pain - Musculoskeletal Musculoskeletal ROS IM: muscle cramps, no arthralgias, no limited range of motion - Integumentary Integumentary IM: no rash, no sores, no jaundice - Neurological Neurological ROS: dizziness, no focal weakness, no frequent falls, no headache(s ), no numbness - Psychiatric Psychiatric: anxiety, depression - Endocrine Endocrine IM: no polydipsia, no polyuria - Allergic/Immunologic Allergic/Immunologic: uticaria, wheezing - Constitutional Vitals: Temp Pulse Resp BP Pulse Ox 98.3 F 86 14 125/82 98 04/30/17 03:31 04/30/17 03:31 04/30/17 03:31 04/30/17 03:31 04/30/17 03:31 General appearance: Present: cooperative, A&O X 3, pleasant, answers questions appropriately Exam: Patient is SLOW to respond; otherwise, he is close to baseline per family - Head Head exam: Present: atraumatic, normal inspection - Eye Eye exam: Present: EOMI, normal appearance, PERRL. Absent: scleral icterus Pupils: Present: mydriatic. Absent: normal accommodation - ENT ENT exam: Present: mucous membranes dry, normal exam - Neck Neck exam general surgery: Present: full ROM, supple. Absent: tenderness - Expanded Neck Exam Neck exam: Absent: carotid bruit - Respiratory Respiratory exam: Present: CTAB. Absent: rales, rhonchi, wheezes - Cardiovascular Cardiovascular exam: Present: RRR, +S1, +S2. Absent: diastolic murmur, systolic murmur - GI/Abdominal GI/Abdominal exam: Present: normal bowel sounds, soft. Absent: guarding, hepatomegaly, mass, rebound, splenomegaly, tenderness - Extremities Exam Extremities exam: Present: full ROM, warm. Absent: calf tenderness, pedal edema , tenderness - Back Exam Back exam: Absent: CVA tenderness (L), CVA tenderness (R) - Neurological Exam Neurological exam: Present: alert, CN II-XII intact, oriented X3, no focal deficits - Psychiatric Psychiatric exam: Present: flat affect, normal mood. Absent: agitated - Skin Skin exam: Present: dry, warm. Absent: rash Internal Med - H&P Results - Labs CBC & Chem 7: 04/29/17 23:13 04/29/17 23:13
[2017-04-30 05:28] LABS: Basophils % 0.4 %; Eosinophils # 0.2 K/mcL (0.0-0.6); Eosinophils % 1.9 %; Hematocrit 27.2 % (37.5-50.1); Hemoglobin 9.6 g/dL (12.9-16.9); Immature Granulocytes % 0.3 % (0-4); Lymphocytes # 1.8 K/mcL (0.6-4.6); Mean Corpuscular HGB Conc 35.3 g/dL (31.6-35.5); Mean Corpuscular Hemoglobin 29.7 pg (28.0-33.3); Mean Corpuscular Volume 84.2 fL (83.0-100.0); Mean Platelet Volume 8.5 fL (9.4-12.4); Monocytes # 0.8 K/mcL (0.0-1.3); Monocytes % 8.6 %; Neutrophils # 6.2 K/mcL (1.6-8.9); Platelet Count 174 K/mcL (140-400); Red Blood Count 3.23 M/mcL (4.19-5.50); Red Cell Distribution Width 12.3 % (11.5-14.5); Segmented Neutrophils % 68.8 %
[2017-04-30 05:40] LABS: Alanine Aminotransferase 23 Units/L (0-55); Albumin 3.3 g/dL (3.5-5.0); Alkaline Phosphatase 66 Units/L (38-126); Aspartate Amino Transferase 15 Units/L (5-34); BUN/Creatinine Ratio 16 (6-26); Bilirubin,Total 0.3 mg/dL (0.2-1.2); Blood Urea Nitrogen 15 mg/dL (8-26); Calcium 8.6 mg/dL (8.6-10.8); Carbon Dioxide 25 mEq/L (19-29); Chloride 103 mEq/L (98-109); Globulin 3.2 g/dL (2.4-3.5); Glucose 128 mg/dL (70-99); Magnesium 1.9 mg/dL (1.6-2.6); Osmolality,Calculated 278 (280-300); Potassium 4.1 mEq/L (3.5-4.5); Sodium 133 mEq/L (136-145); Total Protein 6.5 g/dL (6.0-8.3); eGFR For African Americans > 60 (> 60); eGFR For Non-African Americans > 60 (> 60)
[2017-04-30] MEDS: Aspirin 81 MG TAB.CHEW PO SCH (08:10)
[2017-04-30] MEDS: Insulin LISPRO 300 UNITS/3 ML VIAL SQ SCH ×3 (08:11→16:34)
--- NOTE | 2017-04-30 08:51 | Urology - Consult Note ---
Date of Encounter: 04/30/17 Time of Encounter: 08:49 - Assessment and Plan (1) Urinary retention Current Visit: Yes Status: Acute Assessment and plan: the recent GH was likely from cath trauma. plan to attempt a voiding trial this AM as discharge is likely soon. if patient can urinate 200cc OK to discharge without cath in place. if unable to urinate - replace cath and follow as outpt. I recommend starting tamsulosin 0.4 mg po qHS. if unable to urinate, need to consider neurogenic bladder bc of diabetes vs outlet obstruction. if pt passes voiding trail, OK to follow 2-4 weeks. Urology CN:DONNA Consult date: 04/30/17 Reason for consult Urology: Other History of present illness: new pt to the urology service. urinary retention 1 1/2 weeks ago. unknown residual urine amount. pt reports difficulty urinating for 2-3 months. pt has psych issues and recent hyponatremia. was scheduled to be seen this week. some GH when he strained for bowel mvement. clear this AM. Past Med Surg Social Fam HX - Past Medical History Medical history: arthritis, cirrhosis, coronary artery disease, diabetes, GERD, hepatitis, hyperlipidemia, hypertension, liver disease, migraine, myocardial infarction, RA, renal disease Psychiatric history: anxiety, bipolar, depression, PTSD - Past Surgical History Surgical History: angioplasty/stent, cholecystectomy - Social History Smoking Status: Former smoker Smokeless Tobacco Status: No Alcohol use: none Drug use: none - Family History Father Living Status: Hx Family Cardiac Disorders: Yes Hx Family Endocrine Disorder: Yes Hx Family Neurologic Disorders: Yes Mother History Unknown: Yes Name: alberto abraham Living Status: Age at : 75 Hx Family Cardiac Disorders: Yes Hx Family Respiratory Disorders: Yes Hx Family Cancer: Yes (uncle,) Hx Family GI Disorders: Yes (self,) Hx Family Endocrine Disorder: Yes (self, father, 3 uncles) Hx Family Neuromuscular Disorders: No Hx Family Neurologic Disorders: Yes (father) Hx Family HEENT Disorders: No Hx Family Autoimmune Disorders: No Medications and Allergies Alprazolam [Xanax] 1 mg PO TID 04/29/16 [History] Gabapentin [Neurontin] 100 mg PO TID 04/29/16 [History] Insulin ASPART [Novolog Flexpen] 10 unit SQ TIDWM 04/29/16 [History] Mirtazapine [Remeron] 45 mg PO HS 04/29/16 [History] Haloperidol [Haldol] 2 mg PO HS 06/12/16 [History] Insulin DETEMIR [Levemir Flextouch] 40 unit SQ BID 06/12/16 [History] Prazosin [Minipress] 2 mg PO HS 06/12/16 [History] Quetiapine Fumarate [Seroquel] 150 mg PO QAM 06/12/16 [History] Quetiapine Fumarate [Seroquel] 450 mg PO HS 06/12/16 [History] TraZODone 50 - 100 mg PO HS 06/12/16 [History] Venlafaxine XR (24 HR) [Effexor XR] 75 mg PO DAILY 06/12/16 [History] Aspirin 81 mg PO DAILY tab.chew 06/20/16 [Rx] Atorvastatin [Lipitor] 40 mg PO HS #30 tablet 06/20/16 [Rx] Carvedilol [Coreg] 12.5 mg PO BIDWM #120 tablet 06/20/16 [Rx] Clopidogrel [Plavix] 75 mg PO DAILY #30 tablet 06/20/16 [Rx] Pantoprazole Sodium [Protonix] 40 mg PO DAILY #30 tablet.dr 06/20/16 [Rx] amLODIPine [Norvasc] 10 mg PO DAILY #30 tablet 06/20/16 [Rx] Lisinopril [Zestril] 10 mg PO BID 08/25/16 [History] Multivitamin with Minerals [One-A-Day Maximum Formula] 1 tab PO DAILY 04/04/17 [ History] [place]-3/Dha/Epa/Fish Oil [Fish Oil 1,000 mg Softgel] 1,000 mg PO DAILY 04/04/17 [History] Ranolazine [Ranexa] 1,000 mg PO BID #60 tab.er.12h 04/06/17 [Rx] Meclizine HCl [Verticalm] 25 mg PO TID PRN 04/22/17 [History] Sennosides/Docusate Sodium [Senna Plus] 2 each PO BID #60 tab 04/27/17 [Rx] Tamsulosin [Flomax] 0.4 mg PO DAILY #30 04/27/17 [Rx] Allergies codeine Adverse Reaction (Verified 04/22/17 13:09) Vomiting Review of Systems - Constitutional no chills, no fever(s) - EENT Nose, mouth and throat: no dizziness - Cardiovascular no chest pain - Respiratory no cough - Gastrointestinal no abdominal pain, no nausea - Genitourinary difficulty urinating, hematuria - Musculoskeletal no back pain - Integumentary no erythema - Psychiatric anxiety, confusion, no suicidal ideation - Hematologic/Lymphatic easy bleeding - Allergic/Immunologic no throat swelling Exam Initial Vital Signs Temp Pulse Resp BP Pulse Ox 97.8 F 88 16 114/74 99 04/29/17 22:27 04/29/17 22:27 04/29/17 22:27 04/29/17 22:27 04/29/17 22:27 - General physical appearance Present: well developed, no distress - Eyes Present: PERRL - ENT Present: normal nares - Neck Present: no masses - Respiratory Present: normal respiratory effort - Cardiovascular Cardiovascular exam IM: RRR - Abdomen Abdomen: Present: soft - Genitourinary normal penis with no external lesions - Neurologic Present: normal coordination. Absent: disoriented, confused - Additional Findings urine in tubing clear. cath removed by Urology Results - Labs 04/30/17 05:20 04/30/17 05:20 Abnormal lab results RBC 3.23 M/mcL (4.19-5.50) L 04/30/17 05:20 Hgb 9.6 g/dL (12.9-16.9) L 04/30/17 05:20 Hct 27.2 % (37.5-50.1) L 04/30/17 05:20 MPV 8.5 fL (9.4-12.4) L 04/30/17 05:20 Sodium 133 mEq/L (136-145) L 04/30/17 05:20 Glucose 128 mg/dL (70-99) H 04/30/17 05:20 POC Glucose 142 (58-89) H 04/30/17 05:40 Calculated Osmolality 278 (280-300) L 04/30/17 05:20 Albumin 3.3 g/dL (3.5-5.0) L 04/30/17 05:20 Albumin/Globulin Ratio 1.0 (1.1-2.2) L 04/30/17 05:20 Ur Specimen Adequacy See below A 04/29/17 23:48 Urine Protein >=300 mg/dL (Neg-Trace) H 04/29/17 23:48 Urine Blood Large (Negative) H 04/29/17 23:48 Urine Nitrite Positive (Negative) A 04/29/17 23:48 Ur Leukocyte Esterase Small (Negative) H 04/29/17 23:48 Urine Microscopic RBC TNTC per hpf (0-3) H 04/29/17 23:48 Ur Culture Indicated? YES (NO) A 04/29/17 23:48 Protein/Creatinin Ratio 1.99 mg/mg (0-0.20) H 04/29/17 23:48 Urine Total Protein 187 mg/dL (1-14) H 04/29/17 23:48 Diabetes panel 04/30/17 Range/Units 05:20 Sodium 133 L (136-145) mEq/L Potassium 4.1 (3.5-4.5) mEq/L Chloride 103 (98-109) mEq/L Carbon Dioxide 25 (19-29) mEq/L BUN 15 (8-26) mg/dL Creatinine 0.91 (0.72-1.25) mg/dL Glucose 128 H (70-99) mg/dL Calcium 8.6 (8.6-10.8) mg/dL AST 15 (5-34) Units/L ALT 23 (0-55) Units/L Alkaline Phosphatase 66 (38-126) Units/L Albumin 3.3 L (3.5-5.0) g/dL Calcium panel 04/30/17 Range/Units 05:20 Calcium 8.6 (8.6-10.8) mg/dL Albumin 3.3 L (3.5-5.0) g/dL Pituitary panel 04/30/17 Range/Units 05:20 Sodium 133 L (136-145) mEq/L Potassium 4.1 (3.5-4.5) mEq/L Chloride 103 (98-109) mEq/L Carbon Dioxide 25 (19-29) mEq/L BUN 15 (8-26) mg/dL Creatinine 0.91 (0.72-1.25) mg/dL Glucose 128 H (70-99) mg/dL Calcium 8.6 (8.6-10.8) mg/dL Adrenal panel 04/30/17 Range/Units 05:20 Sodium 133 L (136-145) mEq/L Potassium 4.1 (3.5-4.5) mEq/L Chloride 103 (98-109) mEq/L Carbon Dioxide 25 (19-29) mEq/L BUN 15 (8-26) mg/dL Creatinine 0.91 (0.72-1.25) mg/dL Glucose 128 H (70-99) mg/dL Calcium 8.6 (8.6-10.8) mg/dL Total Bilirubin 0.3 (0.2-1.2) mg/dL AST 15 (5-34) Units/L ALT 23 (0-55) Units/L Alkaline Phosphatase 66 (38-126) Units/L Albumin 3.3 L (3.5-5.0) g/dL All other labs normal. Consult Discharge Plan - Plan Referrals: Wilman Whitney Jr, MD [Primary Care Provider] -
[2017-04-30] MEDS: Acetaminophen 325 MG TABLET PO PRN ×2 (09:42→19:59)
[2017-04-30] MEDS: ALPRAZolam 1 MG TABLET PO PRN ×2 (10:14→15:35)
--- NOTE | 2017-04-30 11:16 | Nephrology Consult Note ---
Date of Encounter: 04/30/17 Time of Encounter: 11:13 Assessment and Plan (1) Hematuria Current Visit: Yes Status: Acute REsolved. Urology is following. Qualifiers: Hematuria type: gross Qualified Code(s): R31.0 - Gross hematuria (2) Hyponatremia Current Visit: No Status: Acute Mild hyponatremia that seems stable. I recommend continuing fluid restriction of no more than 1500ml of fluid daily and minimizing intake of water if possible. Patient is asymptomatic. History of Present Illness - Reason for Consult Consult date: 04/30/17 hyponatremia - Chief Complaint Hyponatremia - History of Present Illness Mr. Abraham is a 52 yo man with a history of hyponatremia and recent hospitalization with severe symptomatic hyponatremia and was seen by Dr. Chen who presents for the evaluation of hematuria and was found to have mild hyponatremia. At the time of my evaluation the patient had no complaints. Per documentation he seems to be at baseline cognition. He denies chest pain or shortness of breath. Past Med Surg Social Fam HX - Past Medical History Medical history: arthritis, cirrhosis, coronary artery disease, diabetes, GERD, hepatitis, hyperlipidemia, hypertension, liver disease, migraine, myocardial infarction, RA, renal disease Psychiatric history: anxiety, bipolar, depression, PTSD - Past Surgical History Surgical History: angioplasty/stent, cholecystectomy - Social History Smoking Status: Former smoker Smokeless Tobacco Status: No Alcohol use: none Drug use: none - Family History Father Living Status: Hx Family Cardiac Disorders: Yes Hx Family Endocrine Disorder: Yes Hx Family Neurologic Disorders: Yes Mother History Unknown: Yes Name: alberto abraham Living Status: Age at : 75 Hx Family Cardiac Disorders: Yes Hx Family Respiratory Disorders: Yes Hx Family Cancer: Yes (uncle,) Hx Family GI Disorders: Yes (self,) Hx Family Endocrine Disorder: Yes (self, father, 3 uncles) Hx Family Neuromuscular Disorders: No Hx Family Neurologic Disorders: Yes (father) Hx Family HEENT Disorders: No Hx Family Autoimmune Disorders: No Medications and Allergies Alprazolam [Xanax] 1 mg PO TID 04/29/16 [History] Gabapentin [Neurontin] 100 mg PO TID 04/29/16 [History] Insulin ASPART [Novolog Flexpen] 10 unit SQ TIDWM 04/29/16 [History] Mirtazapine [Remeron] 45 mg PO HS 04/29/16 [History] Haloperidol [Haldol] 2 mg PO HS 06/12/16 [History] Insulin DETEMIR [Levemir Flextouch] 40 unit SQ BID 06/12/16 [History] Prazosin [Minipress] 2 mg PO HS 06/12/16 [History] Quetiapine Fumarate [Seroquel] 150 mg PO QAM 06/12/16 [History] Quetiapine Fumarate [Seroquel] 450 mg PO HS 06/12/16 [History] TraZODone 50 - 100 mg PO HS 06/12/16 [History] Venlafaxine XR (24 HR) [Effexor XR] 75 mg PO DAILY 06/12/16 [History] Aspirin 81 mg PO DAILY tab.chew 06/20/16 [Rx] Atorvastatin [Lipitor] 40 mg PO HS #30 tablet 06/20/16 [Rx] Carvedilol [Coreg] 12.5 mg PO BIDWM #120 tablet 06/20/16 [Rx] Clopidogrel [Plavix] 75 mg PO DAILY #30 tablet 06/20/16 [Rx] Pantoprazole Sodium [Protonix] 40 mg PO DAILY #30 tablet.dr 06/20/16 [Rx] amLODIPine [Norvasc] 10 mg PO DAILY #30 tablet 06/20/16 [Rx] Lisinopril [Zestril] 10 mg PO BID 08/25/16 [History] Multivitamin with Minerals [One-A-Day Maximum Formula] 1 tab PO DAILY 04/04/17 [ History] [place]-3/Dha/Epa/Fish Oil [Fish Oil 1,000 mg Softgel] 1,000 mg PO DAILY 04/04/17 [History] Ranolazine [Ranexa] 1,000 mg PO BID #60 tab.er.12h 04/06/17 [Rx] Meclizine HCl [Verticalm] 25 mg PO TID PRN 04/22/17 [History] Sennosides/Docusate Sodium [Senna Plus] 2 each PO BID #60 tab 04/27/17 [Rx] Tamsulosin [Flomax] 0.4 mg PO DAILY #30 04/27/17 [Rx] Allergies codeine Adverse Reaction (Verified 04/22/17 13:09) Vomiting Review of Systems All Systems: reviewed and no additional remarkable complaints except as stated ( as per HPI) Exam - Vital Signs Vital signs: Initial Vital Signs Temp Pulse Resp BP Pulse Ox 97.8 F 88 16 114/74 99 04/29/17 22:27 04/29/17 22:27 04/29/17 22:27 04/29/17 22:27 04/29/17 22:27 Vital Signs - Last 8 Hours Temp Pulse Resp BP Pulse Ox 04/30/17 07:08 97.4 F L 96 18 147/92 99 04/30/17 04:00 98 04/30/17 03:31 98.3 F 86 14 125/82 98 Intake and Output 04/29/17 04/30/17 04/30/17 23:59 07:59 15:59 Intake Total 1320 / 1320 Output Total 700 / 700 1100 / 1100 Balance 620 / 620 -1100 / -1100 Intake: IV Fluids 1000 / 1000 0.9 % Sodium Chloride 1, 1000 / 1000 000 ML @ 125 mls/hr IVC . Q8H BRENDA Rx#:[id number] Oral 320 / 320 Output: Urine 1100 / 1100 Urethral (Wells) 1100 / 1100 Catheter 700 / 700 Other: Weight 76.204 kg Blood Glucose* 176 Patient Weight 04/30/17 23:59 Weight 76.204 kg - General Appearance General appearance: well-developed, well-nourished EENT: ATNC Neck: supple Respiratory: clear Cardiology: no edema, regular rate, regular rhythm Gastrointestinal: no tenderness Integumentary: warm and dry Neurologic: alert and oriented x3 Additional Comments: but answers questions slowly. Musculoskeletal: no cyanosis Psychiatric: mood/affect appropriate Results - Lab Results 04/30/17 05:20 04/30/17 05:20 Most recent lab results Calcium 8.6 mg/dL (8.6-10.8) 04/30/17 05:20 Magnesium 1.9 mg/dL (1.6-2.6) 04/30/17 05:20 Urine Creatinine 94 mg/dL 04/29/17 23:48 Urine Total Protein 187 mg/dL (1-14) H 04/29/17 23:48 Consult Discharge Plan - Plan Referrals: Wilman Whitney Jr, MD [Primary Care Provider] -
--- NOTE | 2017-04-30 14:12 | Internal Med Progress Note ---
Date of Encounter: 04/30/17 Time of Encounter: 14:09 - Assessment and plan (1) Altered mental status Current Visit: Yes Status: Acute Assessment and plan: Resolved unclear etiology - could be due to possible UTI with abnormal UA Also could be due to his underline schizophrenia / Bipolar at this point cont close monitoring Qualifiers: Altered mental status type: delirium Qualified Code(s): R41.0 - Disorientation, unspecified (2) Hematuria Current Visit: Yes Status: Acute Assessment and plan: mostly due to trauma also concern for cystitis / UTI with abnormal UA will f/u on urine cx cont empirical abx Rocephin Qualifiers: Hematuria type: gross Qualified Code(s): R31.0 - Gross hematuria (3) Urinary retention Current Visit: Yes Status: Acute Assessment and plan: Spoke to urologist tried voiding trail..he did fail he retained 1000 cc urine after d/c rincon cath so put him back on rincon Urology on board (4) Hyponatremia Current Visit: No Status: Chronic Assessment and plan: stable Na.. 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 Qualified Code(s): E11.42 - Type 2 diabetes mellitus with diabetic polyneuropathy; Z79.4 - [facility] (current) use of insulin (6) Hypertension Current Visit: No Status: Chronic Assessment and plan: Stable with home meds Coreg + Norvasc + Lisinopril Qualifiers: Hypertension type: essential hypertension Qualified Code(s): I10 - Essential (primary) hypertension (7) Bipolar disorder Current Visit: Yes Status: Chronic Assessment and plan: Will resume his home psych medications if pt persistently develops AMS -- will consult Psych for possible psych eval mean while cont home meds Qualifiers: Current bipolar episode type: mixed Current episode severity: moderate Qualified Code(s): F31.62 - Bipolar disorder, current episode mixed, moderate (8) Depression Current Visit: No Status: Chronic Qualifiers: Depression Type: unspecified Qualified Code(s): F32.9 - Major depressive disorder, single episode, unspecified (9) Chronic back pain Current Visit: No Status: Chronic Assessment and plan: resumed home pain med regimen Qualifiers: Back pain location: low back pain Back pain laterality: midline Sciatica presence: without sciatica Qualified Code(s): M54.5 - Low back pain; G89.29 - Other chronic pain (10) DVT prophylaxis Current Visit: No Status: Acute Assessment and plan: on SQ heparin - Subjective Interval history: Mr. Gonzalez is a 52 year old male who presents the ER last night with complaints of altered mental status, weakness, confusion, and blood in the urine catheter. He was just admitted last week and then discharged 2 days ago. He was found to have severe hyponatremia at that time with unclear etiology. He improved and was stabilized for discharge. Since being home 2 days ago, he has done well until tonight when he became confused, disoriented, weak, and noted to have blood in his Rincon catheter. Now he is resting comfortably in the bed. Denied any CP / SOB. No abd pain. His hematuria also improved. He is more alert, awake and O x3 now - Constitutional Vitals: Temp Pulse Resp BP Pulse Ox 98.1 F 92 18 149/92 98 04/30/17 11:39 04/30/17 11:39 04/30/17 11:39 04/30/17 11:39 04/30/17 11:39 General appearance: Present: cooperative, A&O X 3, pleasant, answers questions appropriately - Respiratory Respiratory exam: Present: decreased breath sounds. Absent: rales, respiratory distress, rhonchi, wheezes - Cardiovascular Cardiovascular exam: Present: RRR, +S1, +S2. Absent: diastolic murmur, gallop, rubs, systolic murmur - GI/Abdominal GI/Abdominal exam: Present: normal bowel sounds, soft. Absent: distended, rebound, rigid, tenderness - Additional comments: rincon catheter +..no hematuria noticed - Extremities Exam Extremities exam: Absent: calf tenderness, tenderness - Psychiatric Psychiatric exam: Present: anxious. Absent: suicidal ideation Additional comments: denied any visual / auditory hallucinations Internal Medicine: Result - Labs CBC & Chem 7: 04/30/17 05:20 04/30/17 05:20 Labs: Short CBC 04/30/17 Range/Units 05:20 WBC 9.0 (4.3-11.1) K/mcL Hgb 9.6 L (12.9-16.9) g/dL Hct 27.2 L (37.5-50.1) % Plt Count 174 (140-400) K/mcL Neutrophils # 6.2 (1.6-8.9) K/mcL BMP 04/30/17 05:20 Sodium 133 L Potassium 4.1 Chloride 103 Carbon Dioxide 25 BUN 15 Creatinine 0.91 Glucose 128 H Calcium 8.6 Liver Function 04/30/17 Range/Units 05:20 Total Bilirubin 0.3 (0.2-1.2) mg/dL AST 15 (5-34) Units/L ALT 23 (0-55) Units/L Alkaline Phosphatase 66 (38-126) Units/L Albumin 3.3 L (3.5-5.0) g/dL Consult Discharge Plan - Plan Referrals: Wilman Whitney Jr, MD [Primary Care Provider] -
[2017-04-30] MEDS: Sennosides/Docusate Sodium TABLET PO SCH (19:59)
[2017-04-30] MEDS: Ranolazine 500 MG TAB.ER.12H PO SCH (20:00)
[2017-04-30] MEDS ORDERED: Vancomycin 1,250 MG in D5% in Water 250 ML IVPB SCH (20:00)
[2017-04-30] MEDS: Gabapentin 100 MG CAPSULE PO SCH (20:00)
--- NOTE | 2017-04-30 20:08 | Urology Progress Note ---
Date of Encounter: 04/30/17 Time of Encounter: 20:06 - Assessment and Plan (1) Urinary retention Current Visit: Yes Status: Acute Assessment and plan: pt unable to pass voiding trial today. discharge with cath in place. will need followup in 1-2 weeks. continue tamsulosin. concern for neurogenic bladder but will need outpt cysto to better determine the cause of the retention. Progress Note Narrative: rincon placed Objective Initial Vital Signs Temp Pulse Resp BP Pulse Ox 97.8 F 88 16 114/74 99 04/29/17 22:27 04/29/17 22:27 04/29/17 22:27 04/29/17 22:27 04/29/17 22:27 - Labs 04/30/17 05:20 04/30/17 05:20 Diabetes panel 04/30/17 Range/Units 05:20 Sodium 133 L (136-145) mEq/L Potassium 4.1 (3.5-4.5) mEq/L Chloride 103 (98-109) mEq/L Carbon Dioxide 25 (19-29) mEq/L BUN 15 (8-26) mg/dL Creatinine 0.91 (0.72-1.25) mg/dL Glucose 128 H (70-99) mg/dL Calcium 8.6 (8.6-10.8) mg/dL AST 15 (5-34) Units/L ALT 23 (0-55) Units/L Alkaline Phosphatase 66 (38-126) Units/L Albumin 3.3 L (3.5-5.0) g/dL Calcium panel 04/30/17 Range/Units 05:20 Calcium 8.6 (8.6-10.8) mg/dL Albumin 3.3 L (3.5-5.0) g/dL Pituitary panel 04/30/17 Range/Units 05:20 Sodium 133 L (136-145) mEq/L Potassium 4.1 (3.5-4.5) mEq/L Chloride 103 (98-109) mEq/L Carbon Dioxide 25 (19-29) mEq/L BUN 15 (8-26) mg/dL Creatinine 0.91 (0.72-1.25) mg/dL Glucose 128 H (70-99) mg/dL Calcium 8.6 (8.6-10.8) mg/dL Adrenal panel 04/30/17 Range/Units 05:20 Sodium 133 L (136-145) mEq/L Potassium 4.1 (3.5-4.5) mEq/L Chloride 103 (98-109) mEq/L Carbon Dioxide 25 (19-29) mEq/L BUN 15 (8-26) mg/dL Creatinine 0.91 (0.72-1.25) mg/dL Glucose 128 H (70-99) mg/dL Calcium 8.6 (8.6-10.8) mg/dL Total Bilirubin 0.3 (0.2-1.2) mg/dL AST 15 (5-34) Units/L ALT 23 (0-55) Units/L Alkaline Phosphatase 66 (38-126) Units/L Albumin 3.3 L (3.5-5.0) g/dL Consult Discharge Plan - Plan Referrals: Wilman Whitney Jr, MD [Primary Care Provider] -
[2017-04-30] MEDS ORDERED: Mirtazapine 15 MG TABLET PO SCH (21:00)
[2017-04-30] MEDS ORDERED: Insulin LISPRO 300 UNITS/3 ML VIAL SQ SCH (21:00)
[2017-04-30] MEDS ORDERED: traZODone 50 MG TABLET PO SCH (21:00)
[2017-05-01] MEDS: Acetaminophen 325 MG TABLET PO PRN (04:18)
[2017-05-01] MEDS: Aspirin 81 MG TAB.CHEW PO SCH (07:57)
[2017-05-01] MEDS: Ranolazine 500 MG TAB.ER.12H PO SCH (07:57)
[2017-05-01] MEDS: Gabapentin 100 MG CAPSULE PO SCH ×2 (07:58→15:30)
[2017-05-01] MEDS: Sennosides/Docusate Sodium TABLET PO SCH (07:58)
[2017-05-01] MEDS: ALPRAZolam 1 MG TABLET PO PRN (08:06)
[2017-05-01] MEDS: Insulin LISPRO 300 UNITS/3 ML VIAL SQ SCH ×2 (08:16→12:18)
--- NOTE | 2017-05-01 08:36 | Nephrology Progress Note ---
Date of Encounter: 05/01/17 Time of Encounter: 08:34 - Assessment and Plan (1) Hematuria Current Visit: Yes Status: Resolved rincon reinserted due to inability to empty bladder. Some blood noted in rincon. Qualifiers: Hematuria type: gross Qualified Code(s): R31.0 - Gross hematuria (2) Hyponatremia Current Visit: Yes Status: Chronic Chronic hyponatremia, stable continue fluid restriction of 1500cc will sign off. Thank you for consulting [facility]. Subjective Principal diagnosis: AMS Interval history: No problems overnight. Denies N/V/D. Yesterday has rincon removed, but then started retaining urine. Bladder scan showed 1000cc urine. Rincon was reinserted. Objective - Vital Signs Vital signs: Vital Signs Temp Pulse Resp BP Pulse Ox 05/01/17 07:14 97.7 F 86 14 162/98 98 05/01/17 04:28 98.1 F 97 14 155/100 99 05/01/17 00:30 97.6 F 88 14 132/84 98 04/30/17 19:25 98.4 F 87 14 136/82 98 04/30/17 15:08 98.2 F 90 18 154/97 99 04/30/17 11:39 98.1 F 92 18 149/92 98 Intake and Output 04/30/17 05/01/17 05/01/17 23:59 07:59 15:59 Intake Total 480 / 480 240 / 240 Output Total 1050 / 1050 2200 / 2200 700 / 700 Balance -570 / -570 -1960 / -1960 -700 / -700 Intake: Oral 480 / 480 240 / 240 Output: Urine 1000 / 1000 Urethral (Rincon) 1000 / 1000 Catheter 50 / 50 2200 / 2200 700 / 700 Other: Meal Dinner Percent of Meal Consumed 50% Stool Size Small Stool Consistency soft Stool Characteristics Normal for Patient Stool Color Brown # Bowel Movements 1 Weight 76.204 kg Blood Glucose* 168 254 Patient Weight 05/01/17 23:59 Weight 76.204 kg - General Appearance General appearance: Present: chronically ill EENT: Present: mucous membranes moist Neck: Present: no JVD Respiratory: Present: clear Cardiology: Present: no edema, regular rate, regular rhythm, normal S1, normal S2 Gastrointestinal: Present: normoactive bowel sounds, no tenderness Integumentary: Present: no rash, warm and dry Neurologic: Present: no focal deficit, no asterixis, alert and oriented x3 Musculoskeletal: Present: no deformities, no erythema, no cyanosis, no clubbing Psychiatric: Present: mood/affect appropriate - Lab 04/30/17 05:20 05/01/17 09:55 Most recent lab results Calcium 8.6 mg/dL (8.6-10.8) 04/30/17 05:20 Magnesium 1.9 mg/dL (1.6-2.6) 04/30/17 05:20 Urine Creatinine 94 mg/dL 04/29/17 23:48 Urine Total Protein 187 mg/dL (1-14) H 04/29/17 23:48 Consult Discharge Plan - Plan Instructions: Rincon Catheter Placement and Care (GEN), Urinary Leg Bag (GEN) Referrals: Wilman Whitney Jr, MD [Primary Care Provider] - Prescriptions: Cephalexin [Keflex] 500 mg PO TID #9 capsule
[2017-05-01] MEDS ORDERED: Multivit/Ca/Min/Fe/FA 1 TAB TABLET PO SCH ×2 (09:00)
[2017-05-01] MEDS ORDERED: Patient Taking Own Medication 1 EACH PO SCH (09:00)
[2017-05-01] MEDS ORDERED: Venlafaxine XR (24 HR) 75 MG CAP.ER.24H PO SCH ×2 (09:00)
[2017-05-01] MEDS ORDERED: amLODIPine 5 MG TABLET PO SCH ×2 (09:00)
[2017-05-01] MEDS ORDERED: Ranolazine 500 MG TAB.ER.12H PO SCH (09:00)
[2017-05-01] MEDS ORDERED: Insulin DETEMIR 100 UNIT/ML X5UNITS SQ SCH (09:00)
[2017-05-01] MEDS ORDERED: Sennosides/Docusate Sodium TABLET PO SCH (09:00)
--- NOTE | 2017-05-01 09:50 | Discharge Summary ---
Date of Encounter: 05/01/17 Time of Encounter: 09:47 - Discharge Diagnosis (1) UTI (urinary tract infection) Priority: Primary Status: Acute Qualifiers: Hematuria presence: with hematuria Qualified Code(s): N39.0 - Urinary tract infection, site not specified; R31.9 - Hematuria, unspecified (2) Altered mental status Priority: Primary Status: Resolved Comments: resolved Qualifiers: Altered mental status type: delirium Qualified Code(s): R41.0 - Disorientation, unspecified (3) Hematuria Priority: Primary Status: Resolved Qualifiers: Hematuria type: gross Qualified Code(s): R31.0 - Gross hematuria (4) Urinary retention Priority: Secondary Status: Acute (5) Hyponatremia Priority: Secondary Status: Chronic (6) Diabetes mellitus Priority: Secondary Status: Chronic Qualifiers: Diabetes mellitus type: type 2 Diabetes mellitus complication status: with neurologic complications Diabetes mellitus complication detail: with polyneuropathy Diabetes mellitus prison insulin use: with prison use Qualified Code(s): E11.42 - Type 2 diabetes mellitus with diabetic polyneuropathy; 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 (7) Hypertension Priority: Secondary Status: Chronic Qualifiers: Hypertension type: essential hypertension Qualified Code(s): I10 - Essential (primary) hypertension (8) Bipolar disorder Priority: Secondary Status: Chronic Qualifiers: Current bipolar episode type: mixed Current episode severity: moderate Qualified Code(s): F31.62 - Bipolar disorder, current episode mixed, moderate (9) Depression Priority: Secondary Status: Chronic Qualifiers: Depression Type: unspecified Qualified Code(s): F32.9 - Major depressive disorder, single episode, unspecified (10) Chronic back pain Priority: Secondary Status: Chronic Qualifiers: Back pain location: low back pain Back pain laterality: midline Sciatica presence: without sciatica Qualified Code(s): M54.5 - Low back pain; G89.29 - Other chronic pain - Discharge Medications Prescriptions: Cephalexin [Keflex] 500 mg PO TID #9 capsule Home Medications: Alprazolam [Xanax] 1 mg PO TID 04/29/16 [History] Insulin ASPART [Novolog Flexpen] 10 unit SQ TIDWM 04/29/16 [History] Mirtazapine [Remeron] 45 mg PO HS 04/29/16 [History] Haloperidol [Haldol] 2 mg PO HS 06/12/16 [History] Insulin DETEMIR [Levemir Flextouch] 40 unit SQ BID 06/12/16 [History] Prazosin [Minipress] 2 mg PO HS 06/12/16 [History] Quetiapine Fumarate [Seroquel] 150 mg PO QAM 06/12/16 [History] Quetiapine Fumarate [Seroquel] 450 mg PO HS 06/12/16 [History] TraZODone 50 - 100 mg PO HS 06/12/16 [History] Venlafaxine XR (24 HR) [Effexor XR] 75 mg PO DAILY 06/12/16 [History] Aspirin 81 mg PO DAILY tab.chew 06/20/16 [Rx] Atorvastatin [Lipitor] 40 mg PO HS #30 tablet 06/20/16 [Rx] Carvedilol [Coreg] 12.5 mg PO BIDWM #120 tablet 06/20/16 [Rx] Clopidogrel [Plavix] 75 mg PO DAILY #30 tablet 06/20/16 [Rx] Pantoprazole Sodium [Protonix] 40 mg PO DAILY #30 tablet.dr 06/20/16 [Rx] amLODIPine [Norvasc] 10 mg PO DAILY #30 tablet 06/20/16 [Rx] Lisinopril [Zestril] 10 mg PO BID 08/25/16 [History] Multivitamin with Minerals [One-A-Day Maximum Formula] 1 tab PO DAILY 04/04/17 [ History] [place]-3/Dha/Epa/Fish Oil [Fish Oil 1,000 mg Softgel] 1,000 mg PO DAILY 04/04/17 [History] Ranolazine [Ranexa] 1,000 mg PO BID #60 tab.er.12h 04/06/17 [Rx] Meclizine HCl [Verticalm] 25 mg PO TID PRN 04/22/17 [History] Sennosides/Docusate Sodium [Senna Plus] 2 each PO BID #60 tab 04/27/17 [Rx] Tamsulosin [Flomax] 0.4 mg PO DAILY #30 04/27/17 [Rx] Menthol/Camphor [Icy Hot Advanced Relief Cream] 1 appl TP BID PRN 04/30/17 [ History] Acetaminophen [Tylenol] 500 mg PO Q6HR PRN #0 05/01/17 [Rx] Cephalexin [Keflex] 500 mg PO TID #9 capsule 05/01/17 [Rx] Allergies/Adverse Reactions: Allergies codeine Adverse Reaction (Verified 04/22/17 13:09) Vomiting Procedures/tests Complete & Pending: Procedures Performed prior 72 hours Category Date Time Status ECG 12 lead ECG [ECG] AM 0600 Y 04/30/17 06:00 Ordered Date of admission: 04/30/17 02:12 Primary care physician: Wilman Whitney Jr, MD Consults: 04/30/17 04:33 Consult to Nutrition [CONS] Stat Comment: Consulting Provider: NUTRITION Reason for Dietary Consult: MST Score 04/30/17 05:03 Consult to Nephrology [CONS] Routine Consulting Provider: [facility]/YANA/PHYLLIS/FRANCOIS Reason for Consult: hyponatremia Call Completed: No 04/30/17 05:06 Consult to Urology [CONS] Routine Consulting Provider: [facility] Reason for Consult: bladder retention; rincon removal Call Completed: No 04/30/17 08:08 Consult to Physical Therapy [CONS] Routine Comment: Evaluate, develop and implement POC Reason for Consult: Physical deconditioning OT [Consult to Occupational Therapy] [CONS] Routine Comment: Evaluate, develop and implement POC Reason for Consult: Deconditioning - Patient Status Disposition: Home Health Service Condition: Good - Discharge Instructions Instructions: Rincon Catheter Placement and Care (GEN), Urinary Leg Bag (GEN) Follow Up With: Wilman Whitney Jr, MD [Primary Care Provider] - Marlon Valenzuela MD [Partnered Physician] - - Diet and Activity Activity: increase activity as tolerated Diet: advance to your usual diet Hospital course: Mr. Gonzalez is a 52 year old male who presents the ER last night with complaints of altered mental status, weakness, confusion, and blood in the urine catheter. He was just admitted last week and then discharged 2 days ago. He was found to have severe hyponatremia at that time with unclear etiology. He improved and was stabilized for discharge. Since being home 2 days ago, he has done well until tonight when he became confused, disoriented, weak, and noted to have blood in his Rincon catheter. He got admitted in the hospital and started pm empirical abx with Rocephin. 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 We did voiding trail y/d, however he failed voiding trail, retained 1000CC Urine, so have to placed him back on Rincon catheter. Recommend to f/u with Urologist as an out pt. His UA growing G+ve cocci, so changed abx to PO Keflex. His delirium resolved completely. Will d/c him home in stable condition today. Talked to pt's at bed side and explained to her about current care. - Time Spent with Patient Total time spent providing and/or coordinating discharge services: - Constitutional Vitals: Temp Pulse Resp BP Pulse Ox 97.7 F 86 14 162/98 98 05/01/17 07:14 05/01/17 07:14 05/01/17 07:14 05/01/17 07:14 05/01/17 07:14 General appearance: Present: cooperative, A&O X 3, pleasant, answers questions appropriately - Respiratory Respiratory exam: Present: CTAB. Absent: accessory muscle use, rales, rhonchi, wheezes - Cardiovascular Cardiovascular exam: Present: RRR, +S1, +S2. Absent: diastolic murmur, gallop, rubs, systolic murmur - GI/Abdominal GI/Abdominal exam: Present: normal bowel sounds, soft. Absent: distended, firm , guarding, tenderness - exam: Absent: scrotal swelling, urethral discharge Additional comments: foleccy cath +..no hematuria noticed - Psychiatric Psychiatric exam: Present: normal affect, normal mood. Absent: suicidal ideation Additional comments: No hallucinations
[2017-05-01 10:19] LABS: BUN/Creatinine Ratio 14 (6-26); Blood Urea Nitrogen 14 mg/dL (8-26); Calcium 8.7 mg/dL (8.6-10.8); Carbon Dioxide 24 mEq/L (19-29); Chloride 97 mEq/L (98-109); Glucose 283 mg/dL (70-99); Osmolality,Calculated 275 (280-300); Potassium 4.6 mEq/L (3.5-4.5); Sodium 127 mEq/L (136-145); eGFR For African Americans > 60 (> 60); eGFR For Non-African Americans > 60 (> 60)
[2017-05-01 10:42] VITALS: BP 105/71
[2017-05-01] MEDS ORDERED: Insulin LISPRO 300 UNITS/3 ML VIAL SQ SCH (12:00)
[2017-05-01] MEDS: ALPRAZolam 1 MG TABLET PO SCH ×2 (12:26→15:31)
--- NOTE | 2017-05-01 14:31 | Physician Discharge Referral ---
Home Health/Hosp Referral Info Transfer to: Home Health Provider in Charge Post Discharge: PCP - Diagnosis (1) UTI (urinary tract infection) Status: Acute (2) Altered mental status Status: Resolved (3) Hematuria Status: Resolved (4) Urinary retention Status: Acute (5) Hyponatremia Status: Chronic (6) Diabetes mellitus Status: Chronic (7) Hypertension Status: Chronic (8) Bipolar disorder Status: Chronic (9) Depression Status: Chronic (10) Chronic back pain Status: Chronic - Respiratory Orders Smoking Cessation: Smoking cessation has been advised. For more information, call the [place] Tobacco Quit Line at 0-111-YVGT-NOW. - Transfer Medications Prescriptions: Cephalexin [Keflex] 500 mg PO TID #9 capsule Home Medications: Alprazolam [Xanax] 1 mg PO TID 04/29/16 [History] Insulin ASPART [Novolog Flexpen] 10 unit SQ TIDWM 04/29/16 [History] Mirtazapine [Remeron] 45 mg PO HS 04/29/16 [History] Haloperidol [Haldol] 2 mg PO HS 06/12/16 [History] Insulin DETEMIR [Levemir Flextouch] 40 unit SQ BID 06/12/16 [History] Prazosin [Minipress] 2 mg PO HS 06/12/16 [History] Quetiapine Fumarate [Seroquel] 150 mg PO QAM 06/12/16 [History] Quetiapine Fumarate [Seroquel] 450 mg PO HS 06/12/16 [History] TraZODone 50 - 100 mg PO HS 06/12/16 [History] Venlafaxine XR (24 HR) [Effexor XR] 75 mg PO DAILY 06/12/16 [History] Aspirin 81 mg PO DAILY tab.chew 06/20/16 [Rx] Atorvastatin [Lipitor] 40 mg PO HS #30 tablet 06/20/16 [Rx] Carvedilol [Coreg] 12.5 mg PO BIDWM #120 tablet 06/20/16 [Rx] Clopidogrel [Plavix] 75 mg PO DAILY #30 tablet 06/20/16 [Rx] Pantoprazole Sodium [Protonix] 40 mg PO DAILY #30 tablet.dr 06/20/16 [Rx] amLODIPine [Norvasc] 10 mg PO DAILY #30 tablet 06/20/16 [Rx] Lisinopril [Zestril] 10 mg PO BID 08/25/16 [History] Multivitamin with Minerals [One-A-Day Maximum Formula] 1 tab PO DAILY 04/04/17 [ History] [place]-3/Dha/Epa/Fish Oil [Fish Oil 1,000 mg Softgel] 1,000 mg PO DAILY 04/04/17 [History] Ranolazine [Ranexa] 1,000 mg PO BID #60 tab.er.12h 04/06/17 [Rx] Meclizine HCl [Verticalm] 25 mg PO TID PRN 04/22/17 [History] Sennosides/Docusate Sodium [Senna Plus] 2 each PO BID #60 tab 04/27/17 [Rx] Tamsulosin [Flomax] 0.4 mg PO DAILY #30 04/27/17 [Rx] Menthol/Camphor [Icy Hot Advanced Relief Cream] 1 appl TP BID PRN 04/30/17 [ History] Acetaminophen [Tylenol] 500 mg PO Q6HR PRN #0 05/01/17 [Rx] Cephalexin [Keflex] 500 mg PO TID #9 capsule 05/01/17 [Rx] Allergies/Adverse Reactions: Allergies codeine Adverse Reaction (Verified 04/22/17 13:09) Vomiting Certification: Further, I certify that my clinical findings support that this patient is homebound (i.e. absences from home require considerable and taxing effort and are for medical reasons or jew services or infrequently or short duration when for other reasons) because: Homebound Reason: Patient requires assistance of a person or device to safely leave home Attestation: My signature below is to certify that this patient is under my care and that I, or nurse practitioner, or a physician's assistant teacher primary working with me, has a face-to -face encounter with this patient.
--- NOTE | 2017-05-01 15:19 | Electrocardiograph Report ---
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
[2017-05-01] MEDS ORDERED: Mirtazapine 15 MG TABLET PO SCH (21:00)
== END 2017-05-01 15:54 | disposition home health service (06) ==
LOC: 3ANU 22:25 → EMEROO 22:25 → 3ANU 04-30 02:29
PROVIDERS: ADMIT Pediatrics; ATTEND Family Medicine

== ENCOUNTER 2018-01-07 08:08 | Observation (INO) ==
--- NOTE | 2018-01-07 08:19 | Emergency Department Note ---
Disposition Clinical Impression: Encephalopathy acute, Generalized weakness Altered mental status Qualifiers: Altered mental status type: unspecified Qualified Code(s): R41.82 - Altered mental status, unspecified Pneumonia Qualifiers: Pneumonia type: due to unspecified organism Laterality: right Lung location: lower lobe of lung Qualified Code(s): J18.1 - Lobar pneumonia, unspecified organism Disposition: Admitted As Inpatient Condition: Fair General Adult HPI - General Chief complaint: ED Syncope Stated complaint: Fall/general weakness/vertigo Time Seen by Provider: 01/07/18 08:09 - Related Data Home Medications Medication Instructions Recorded Confirmed Alprazolam [Xanax] 1 mg PO TID 04/29/16 10/18/17 Insulin ASPART [Novolog Flexpen] 10 - 16 unit SQ TIDWM 04/29/16 10/18/17 Mirtazapine [Remeron] 45 mg PO HS 04/29/16 10/18/17 Insulin DETEMIR [Levemir Flextouch] 40 unit SQ QAM 06/12/16 10/18/17 Prazosin [Minipress] 2 mg PO HS 06/12/16 10/18/17 Lisinopril [Zestril] 10 mg PO BID 08/25/16 10/18/17 Multivitamin with Minerals 1 tab PO DAILY 04/04/17 10/18/17 [One-A-Day Maximum Formula] [place]-3/Dha/Epa/Fish Oil [Fish Oil 1,000 mg PO DAILY 04/04/17 10/18/17 1,000 mg Softgel] Carvedilol [Coreg] 25 mg PO BIDWM 10/18/17 10/18/17 Cholecalciferol (D-3) [Vitamin D] 5,000 unit PO DAILY 10/18/17 10/18/17 Cyclobenzaprine [Flexeril] 5 mg PO TID PRN 10/18/17 10/18/17 Diclofenac Sodium [Voltaren] 1 appl TP QID PRN 10/18/17 10/18/17 Ferrous Sulfate [Iron] 325 mg PO DAILY 10/18/17 10/18/17 Fluticasone Propionate Nasal 2 spray NS DAILY 10/18/17 10/18/17 [Flonase] Furosemide [Lasix] 40 mg PO BID 10/18/17 10/18/17 Gabapentin [Neurontin] 300 mg PO TID 10/18/17 10/18/17 Haloperidol 4 mg PO HS 10/18/17 10/18/17 Insulin DETEMIR [Levemir Flextouch] 50 unit SQ QPM 10/18/17 10/18/17 Linaclotide [Linzess] 145 mcg PO DAILY 10/18/17 10/18/17 Quetiapine Fumarate [SEROquel] 500 mg PO HS 10/18/17 10/18/17 amLODIPine [Norvasc] 5 mg PO DAILY 10/18/17 10/18/17 Previous Rx's Medication Instructions Recorded Atorvastatin [Lipitor] 40 mg PO HS #30 tablet 06/20/16 Clopidogrel [Plavix] 75 mg PO DAILY #30 tablet 06/20/16 Pantoprazole Sodium [Protonix] 40 mg PO DAILY #30 tablet.dr 06/20/16 Ranolazine [Ranexa] 1,000 mg PO BID #60 tab.er.12h 04/06/17 Sennosides/Docusate Sodium [Senna 2 each PO BID #60 tab 04/27/17 Plus] Tamsulosin [Flomax] 0.4 mg PO DAILY #30 04/27/17 Acetaminophen [Tylenol] 500 mg PO Q6HR PRN #0 05/01/17 Hydrocodone/Acetaminophen 1 each PO Q4-6H PRN 3 Days #18 01/03/18 [Hydrocodon-Acetaminophen 5-325] tablet Allergies Allergy/AdvReac Type Severity Reaction Status Date / Time codeine AdvReac Vomiting Verified 01/07/18 08:10 Past Medical History - Past Medical History Medical history: Reports: arthritis, cirrhosis, coronary artery disease, diabetes, GERD, hyperlipidemia, hypertension, liver disease, migraine, myocardial infarction, RA, renal disease Surgical history: Reports: angioplasty/stent, cholecystectomy, other Psychiatric history: Reports: anxiety, bipolar, depression, PTSD - Social History Smoking Status: Former smoker Smokeless Tobacco Status: No Alcohol use: Reports: none Drug use: Reports: none Course Vital Signs Temperature 98 F 01/07/18 08:14 Pulse Rate 76 01/07/18 08:14 Respiratory Rate 20 01/07/18 08:14 Blood Pressure 120/82 01/07/18 08:14 Temperature 98 F 01/07/18 08:18 Pulse Rate 71 01/07/18 11:11 Respiratory Rate 69 01/07/18 11:11 Blood Pressure 120/84 01/07/18 11:11 O2 Sat by Pulse Oximetry 98 01/07/18 10:09 Oxygen Delivery Oxygen Delivery Room Air Medical Decision Making - Medical Records Medical records reviewed: Yes I reviewed the patient's medical records. - Lab Data Lab results reviewed: Yes I reviewed the patient's lab results. Result diagrams: 01/07/18 08:21 01/07/18 08:21 Lab Results 01/07/18 01/07/18 01/07/18 Range/Units 08:21 08:21 08:21 WBC 9.5 (4.3-11.1) K/mcL RBC 3.68 L (4.19-5.50) M/mcL Hgb 11.1 L (12.9-16.9) g/dL Hct 33.2 L (37.5-50.1) % MCV 90.2 (83.0-100.0) fL MCH 30.2 (28.0-33.3) pg MCHC 33.4 (31.6-35.5) g/dL RDW 12.7 (11.5-14.5) % Plt Count 154 (140-400) K/mcL MPV 9.4 (9.4-12.4) fL Immature Gran % 0.6 (0-4) % Seg Neutrophils % 67.3 % Lymphocytes % 24.4 % Monocytes % 6.0 % Eosinophils % 1.3 % Basophils % 0.4 % Neutrophils # 6.4 (1.6-8.9) K/mcL Lymphocytes # 2.3 (0.6-4.6) K/mcL Monocytes # 0.6 (0.0-1.3) K/mcL Eosinophils # 0.1 (0.0-0.6) K/mcL Basophils # 0.0 (0.0-0.2) K/mcL PT 11.4 (9.4-12.1) Seconds INR 1.1 APTT 29.8 (26.0-36.0) Seconds Sodium 136 (136-145) mEq/L Potassium 4.3 (3.5-5.1) mEq/L Chloride 100 (98-107) mEq/L Carbon Dioxide 30 H (23-29) mEq/L BUN 26 H (6-20) mg/dL Creatinine 1.29 (0.70-1.30) mg/dL Est GFR ( Amer) > 60 (> 60) Est GFR (Non-Af Amer) 58 L (> 60) BUN/Creatinine Ratio 20 (6-26) Glucose 217 H (70-105) mg/dL Calculated Osmolality 293 (280-300) Calcium 8.6 (8.6-10.3) mg/dL Total Bilirubin 0.3 (0.3-1.0) mg/dL Direct Bilirubin 0.1 (0.0-0.2) mg/dL Indirect Bilirubin 0.2 (0.0-1.2) mg/dL AST 31 (13-39) Units/L ALT 30 (7-52) Units/L Alkaline Phosphatase 53 (34-104) Units/L Ammonia (16-53) mcmol/L Creatine Kinase 509 H (30-223) Units/L Troponin I (< 0.04) ng/mL Serum Total Protein 6.5 (6.4-8.9) g/dL Albumin 3.4 L (3.5-5.7) g/dL Globulin 3.1 (2.4-3.5) g/dL Albumin/Globulin Ratio 1.1 (1.1-2.2) TSH (0.340-5.600) mcIU/mL Urine Color (Yellow) Urine Clarity (Clear) Urine pH (5.0-8.0) pH Units Ur Specific [place]kinson (1.010-1.025) Urine Protein (Neg-Trace) mg/dL Urine Glucose (UA) (Normal) mg/dL Urine Ketones (Negative) mg/dL Urine Blood (Negative) Urine Nitrite (Negative) Urine Bilirubin (Negative) Urine Urobilinogen (Normal) mg/dL Ur Leukocyte Esterase (Negative) Urine Microscopic RBC (0-3) per hpf Urine Microscopic WBC (0-3) per hpf Ur Squamous Epith Cells (None-Few) per lpf Urine Bacteria (None-Few) per hpf Hyaline Casts (None-Few) per lpf Ur Culture Indicated? (NO) Urine Opiates Screen (Dsorvm=684) ng/mL Ur Barbiturates Screen (Nzsdlv=559) ng/mL Ur Phencyclidine Scrn (Cutoff=25) ng/mL Ur Amphetamines Screen (Smczom=3480) ng/mL U Benzodiazepines Scrn (Tyxwkh=251) ng/mL Urine Cocaine Screen (Cutoff= 300) ng/mL U Marijuana (THC) Screen (Cutoff = 50) ng/mL Ethyl Alcohol < 10 (0-10) mg/dL 01/07/18 01/07/18 01/07/18 Range/Units 08:21 08:21 08:57 WBC (4.3-11.1) K/mcL RBC (4.19-5.50) M/mcL Hgb (12.9-16.9) g/dL Hct (37.5-50.1) % MCV (83.0-100.0) fL MCH (28.0-33.3) pg MCHC (31.6-35.5) g/dL RDW (11.5-14.5) % Plt Count (140-400) K/mcL MPV (9.4-12.4) fL Immature Gran % (0-4) % Seg Neutrophils % % Lymphocytes % % Monocytes % % Eosinophils % % Basophils % % Neutrophils # (1.6-8.9) K/mcL Lymphocytes # (0.6-4.6) K/mcL Monocytes # (0.0-1.3) K/mcL Eosinophils # (0.0-0.6) K/mcL Basophils # (0.0-0.2) K/mcL PT (9.4-12.1) Seconds INR APTT (26.0-36.0) Seconds Sodium (136-145) mEq/L Potassium (3.5-5.1) mEq/L Chloride (98-107) mEq/L Carbon Dioxide (23-29) mEq/L BUN (6-20) mg/dL Creatinine (0.70-1.30) mg/dL Est GFR ( Amer) (> 60) Est GFR (Non-Af Amer) (> 60) BUN/Creatinine Ratio (6-26) Glucose (70-105) mg/dL Calculated Osmolality (280-300) Calcium (8.6-10.3) mg/dL Total Bilirubin (0.3-1.0) mg/dL Direct Bilirubin (0.0-0.2) mg/dL Indirect Bilirubin (0.0-1.2) mg/dL AST (13-39) Units/L ALT (7-52) Units/L Alkaline Phosphatase (34-104) Units/L Ammonia 50 (16-53) mcmol/L Creatine Kinase (30-223) Units/L Troponin I < 0.03 (< 0.04) ng/mL Serum Total Protein (6.4-8.9) g/dL Albumin (3.5-5.7) g/dL Globulin (2.4-3.5) g/dL Albumin/Globulin Ratio (1.1-2.2) TSH 2.124 (0.340-5.600) mcIU/mL Urine Color Yellow (Yellow) Urine Clarity Clear (Clear) Urine pH 6.5 (5.0-8.0) pH Units Ur Specific [place] 1.020 (1.010-1.025) Urine Protein 100 H (Neg-Trace) mg/dL Urine Glucose (UA) 250 H (Normal) mg/dL Urine Ketones Negative (Negative) mg/dL Urine Blood Negative (Negative) Urine Nitrite Negative (Negative) Urine Bilirubin Negative (Negative) Urine Urobilinogen Normal (Normal) mg/dL Ur Leukocyte Esterase Negative (Negative) Urine Microscopic RBC 0-3 (0-3) per hpf Urine Microscopic WBC 0-3 (0-3) per hpf Ur Squamous Epith Cells Few (None-Few) per lpf Urine Bacteria None Seen (None-Few) per hpf Hyaline Casts None Seen (None-Few) per lpf Ur Culture Indicated? NO (NO) Urine Opiates Screen (Kgkyjj=741) ng/mL Ur Barbiturates Screen (Qyxzam=038) ng/mL Ur Phencyclidine Scrn (Cutoff=25) ng/mL Ur Amphetamines Screen (Jewijc=1758) ng/mL U Benzodiazepines Scrn (Xfvsmy=006) ng/mL Urine Cocaine Screen (Cutoff= 300) ng/mL U Marijuana (THC) Screen (Cutoff = 50) ng/mL Ethyl Alcohol (0-10) mg/dL 01/07/18 Range/Units 08:57 WBC (4.3-11.1) K/mcL RBC (4.19-5.50) M/mcL Hgb (12.9-16.9) g/dL Hct (37.5-50.1) % MCV (83.0-100.0) fL MCH (28.0-33.3) pg MCHC (31.6-35.5) g/dL RDW (11.5-14.5) % Plt Count (140-400) K/mcL MPV (9.4-12.4) fL Immature Gran % (0-4) % Seg Neutrophils % % Lymphocytes % % Monocytes % % Eosinophils % % Basophils % % Neutrophils # (1.6-8.9) K/mcL Lymphocytes # (0.6-4.6) K/mcL Monocytes # (0.0-1.3) K/mcL Eosinophils # (0.0-0.6) K/mcL Basophils # (0.0-0.2) K/mcL PT (9.4-12.1) Seconds INR APTT (26.0-36.0) Seconds Sodium (136-145) mEq/L Potassium (3.5-5.1) mEq/L Chloride (98-107) mEq/L Carbon Dioxide (23-29) mEq/L BUN (6-20) mg/dL Creatinine (0.70-1.30) mg/dL Est GFR ( Amer) (> 60) Est GFR (Non-Af Amer) (> 60) BUN/Creatinine Ratio (6-26) Glucose (70-105) mg/dL Calculated Osmolality (280-300) Calcium (8.6-10.3) mg/dL Total Bilirubin (0.3-1.0) mg/dL Direct Bilirubin (0.0-0.2) mg/dL Indirect Bilirubin (0.0-1.2) mg/dL AST (13-39) Units/L ALT (7-52) Units/L Alkaline Phosphatase (34-104) Units/L Ammonia (16-53) mcmol/L Creatine Kinase (30-223) Units/L Troponin I (< 0.04) ng/mL Serum Total Protein (6.4-8.9) g/dL Albumin (3.5-5.7) g/dL Globulin (2.4-3.5) g/dL Albumin/Globulin Ratio (1.1-2.2) TSH (0.340-5.600) mcIU/mL Urine Color (Yellow) Urine Clarity (Clear) Urine pH (5.0-8.0) pH Units Ur Specific [place] (1.010-1.025) Urine Protein (Neg-Trace) mg/dL Urine Glucose (UA) (Normal) mg/dL Urine Ketones (Negative) mg/dL Urine Blood (Negative) Urine Nitrite (Negative) Urine Bilirubin (Negative) Urine Urobilinogen (Normal) mg/dL Ur Leukocyte Esterase (Negative) Urine Microscopic RBC (0-3) per hpf Urine Microscopic WBC (0-3) per hpf Ur Squamous Epith Cells (None-Few) per lpf Urine Bacteria (None-Few) per hpf Hyaline Casts (None-Few) per lpf Ur Culture Indicated? (NO) Urine Opiates Screen Positive H (Lnrada=506) ng/mL Ur Barbiturates Screen Negative (Rdhyhb=833) ng/mL Ur Phencyclidine Scrn Negative (Cutoff=25) ng/mL Ur Amphetamines Screen Negative (Hywtjy=1193) ng/mL U Benzodiazepines Scrn Positive H (Jkmocf=980) ng/mL Urine Cocaine Screen Negative (Cutoff= 300) ng/mL U Marijuana (THC) Screen Negative (Cutoff = 50) ng/mL Ethyl Alcohol (0-10) mg/dL - Radiology Data Radiology results reviewed: Yes I reviewed the patient's radiology results. Critical Care Time Critical Care Time: Yes Total Critical Care Time: 30 Attestation: The high probability of a clinically significant, sudden or life threatening deterioration of the [] system(s) required my full and direct attention, intervention and personal management. The aggregate critical care time was [] minutes. This time is in addition to time spent performing reported procedures but includes the following: [] Data Review and interpretation [] Patient assessment and monitoring of vital signs [] Documentation [] Medication orders and management Attestation Statement - Attestation Attestation: I examined this patient and my medical decision-making was reviewed with the Resident Physician. I agree with the documented findings, disposition and treatment plan as described except to the extent set forth below. [id number] time provided Patient arrives by EMS from home. He is a limited historian who presents with altered mentation. I am uncertain of the patient's baseline. His eyes are open and he slowly speaks and deliberately. He appears generally weak and really does not follow my commands with intent and purpose. I cannot appreciate any focality of his weakness. He does have a lateral nystagmus. No family or other source of information is available at the time of the patient's arrival. Because of this we activated a stroke alert. I did review his medical records and see that he has a history of cirrhosis. Patient's abdomen is soft and nondistended. I am concerned for hepatic encephalopathy as well. Broad-based workup including a stroke alert initiated. We will await the arrival of other family members or persons who can provide additional pertinent information. 08:35: The significant other has arrived and states his last known well was approximately 12 hours ago 09:29: Patient symptoms persist. Discussion had with the significant other at bedside and states this happened previously. I did review the discharge summary from the patient's hospital admission dated April 2017. The etiology of his symptoms are uncertain. This could represent a conversion type disorder. His presentation is not consistent with acute meningitis 11:22: CT chest shows suspected PNA. The patient was already on Levaquin. We will start IV Rocephin and azithromycin after blood cultures are drawn
[2018-01-07 08:28] LABS: Basophils % 0.4 %; Eosinophils # 0.1 K/mcL (0.0-0.6); Eosinophils % 1.3 %; Hematocrit 33.2 % (37.5-50.1); Hemoglobin 11.1 g/dL (12.9-16.9); Immature Granulocytes % 0.6 % (0-4); Lymphocytes # 2.3 K/mcL (0.6-4.6); Lymphocytes % 24.4 %; Mean Corpuscular HGB Conc 33.4 g/dL (31.6-35.5); Mean Corpuscular Hemoglobin 30.2 pg (28.0-33.3); Mean Corpuscular Volume 90.2 fL (83.0-100.0); Mean Platelet Volume 9.4 fL (9.4-12.4); Monocytes # 0.6 K/mcL (0.0-1.3); Neutrophils # 6.4 K/mcL (1.6-8.9); Platelet Count 154 K/mcL (140-400); Red Blood Count 3.68 M/mcL (4.19-5.50); Red Cell Distribution Width 12.7 % (11.5-14.5); Segmented Neutrophils % 67.3 %
[2018-01-07 08:34] LABS: INR 1.1; Prothrombin Time 11.4 Seconds (9.4-12.1)
[2018-01-07 08:37] LABS: Activated Partial Thrombo Time 29.8 Seconds (26.0-36.0)
[2018-01-07 08:48] LABS: Ethanol < 10 mg/dL (0-10)
[2018-01-07 08:55] LABS: Troponin I < 0.03 ng/mL (< 0.04)
[2018-01-07 08:59] LABS: Alanine Aminotransferase 30 Units/L (7-52); Albumin 3.4 g/dL (3.5-5.7); Albumin/Globulin Ratio 1.1 (1.1-2.2); Alkaline Phosphatase 53 Units/L (34-104); Aspartate Amino Transferase 31 Units/L (13-39); Bilirubin,Direct 0.1 mg/dL (0.0-0.2); Blood Urea Nitrogen 26 mg/dL (6-20); Carbon Dioxide 30 mEq/L (23-29); Chloride 100 mEq/L (98-107); Creatine Kinase 509 Units/L (30-223); Globulin 3.1 g/dL (2.4-3.5); Glucose 217 mg/dL (70-105); Osmolality,Calculated 293 (280-300); Potassium 4.3 mEq/L (3.5-5.1); Sodium 136 mEq/L (136-145); Total Protein 6.5 g/dL (6.4-8.9)
[2018-01-07 09:08] LABS: Thyroid Stimulating Hormone 2.124 mcIU/mL (0.340-5.600)
[2018-01-07 09:08] LABS: Bilirubin,Urine Negative (Negative); Blood,Urine Negative (Negative); Clarity,Urine Clear (Clear); Color,Urine Yellow (Yellow); Glucose,Urine (UA) 250 mg/dL (Normal); Ketones,Urine Negative (Negative); Leukocyte Esterase,Urine Negative (Negative); Nitrite,Urine Negative (Negative); PH,Urine 6.5 pH Units (5.0-8.0); Protein,Urine 100 mg/dL (Neg-Trace); Urobilinogen,Urine Normal (Normal)
[2018-01-07 09:11] LABS: Bacteria,Urine None Seen per hpf (None-Few); Hyaline Casts,Urine None Seen per lpf (None-Few); RBC,Urine 0-3 per hpf (0-3); Squamous Epithelial Cell,Urine Few per lpf (None-Few); WBC,Urine 0-3 per hpf (0-3)
[2018-01-07 09:15] LABS: Amphetamine Screen,Urine Negative ng/mL (Cutoff=1000); Barbiturate Screen,Urine Negative ng/mL (Cutoff=200); Benzodiazepines Screen,Urine Positive ng/mL (Cutoff=200); Cannabinoid Screen,Urine Negative ng/mL (Cutoff = 50); Cocaine Screen,Urine Negative ng/mL (Cutoff= 300); Opiate Screen,Urine Positive ng/mL (Cutoff=300); Phencyclidine Screen,Urine Negative ng/mL (Cutoff=25)
[2018-01-07 09:41] LABS: BUN/Creatinine Ratio 20 (6-26); Bilirubin,Indirect 0.2 mg/dL (0.0-1.2); Bilirubin,Total 0.3 mg/dL (0.3-1.0); Calcium 8.6 mg/dL (8.6-10.3); eGFR For African Americans > 60 (> 60); eGFR For Non-African Americans 58 (> 60)
--- NOTE | 2018-01-07 09:59 | Emergency Department Note ---
Disposition Clinical Impression: Encephalopathy acute Disposition: Admitted As Inpatient Condition: Fair Referrals: Ethel Kim CNP [Primary Care Provider] - Forms: ED Satisfaction Letter Time of Disposition: 10:52 General Adult HPI - General Chief complaint: ED Syncope Stated complaint: Fall/general weakness/vertigo Time Seen by Provider: 01/07/18 08:09 Source: patient, EMS Mode of arrival: EMS Limitations: altered mental status Nursing Notes Reviewed: Yes Vital Signs Reviewed: Yes - History of Present Illness HPI Narrative: 52-year-old male presents to the emergency department with altered mental status he presents here via EMS. When he arrived they said there was an unknown time they started noticing altered. This it is very slow to answer EMS stated that they checked for pain with neck flexion or any meningeal signs as well as an NIH scale and he had no neurological findings or any meningeal signs. Patient came ears are negative for history as family was not here at the time of arrival. arrived approximately 10 minutes after his arrival I did give full history that he does have history of cirrhosis. She states last time he was known normal was 8:00 PM last night. They said this morning she was in a private house heard a loud bang went to check on him and noticed he was on the ground and needed help of those and she called EMS that she said she is not acting normal and he was not answering her correctly. She says approximately 1-2 years ago he had a similar episode where he was unconscious and not alert IQ similar presentation today. He was admitted and they did many tests were unable to find the source and he ended up slowly getting better over a course of 2-3 days. She says this almost feels a similar event. He does follow regularly with his GI specialist for his cirrhosis and has been no Occasions and takes medications as prescribed. Pain Scale: 0 - Related Data Home Medications Medication Instructions Recorded Confirmed Alprazolam [Xanax] 1 mg PO TID 04/29/16 10/18/17 Insulin ASPART [Novolog Flexpen] 10 - 16 unit SQ TIDWM 04/29/16 10/18/17 Mirtazapine [Remeron] 45 mg PO HS 04/29/16 10/18/17 Insulin DETEMIR [Levemir Flextouch] 40 unit SQ QAM 06/12/16 10/18/17 Prazosin [Minipress] 2 mg PO HS 06/12/16 10/18/17 Lisinopril [Zestril] 10 mg PO BID 08/25/16 10/18/17 Multivitamin with Minerals 1 tab PO DAILY 04/04/17 10/18/17 [One-A-Day Maximum Formula] [place]ippe-3/Dha/Epa/Fish Oil [Fish Oil 1,000 mg PO DAILY 04/04/17 10/18/17 1,000 mg Softgel] Carvedilol [Coreg] 25 mg PO BIDWM 10/18/17 10/18/17 Cholecalciferol (D-3) [Vitamin D] 5,000 unit PO DAILY 10/18/17 10/18/17 Cyclobenzaprine [Flexeril] 5 mg PO TID PRN 10/18/17 10/18/17 Diclofenac Sodium [Voltaren] 1 appl TP QID PRN 10/18/17 10/18/17 Ferrous Sulfate [Iron] 325 mg PO DAILY 10/18/17 10/18/17 Fluticasone Propionate Nasal 2 spray NS DAILY 10/18/17 10/18/17 [Flonase] Furosemide [Lasix] 40 mg PO BID 10/18/17 10/18/17 Gabapentin [Neurontin] 300 mg PO TID 10/18/17 10/18/17 Haloperidol 4 mg PO HS 10/18/17 10/18/17 Insulin DETEMIR [Levemir Flextouch] 50 unit SQ QPM 10/18/17 10/18/17 Linaclotide [Linzess] 145 mcg PO DAILY 10/18/17 10/18/17 Quetiapine Fumarate [SEROquel] 500 mg PO HS 10/18/17 10/18/17 amLODIPine [Norvasc] 5 mg PO DAILY 10/18/17 10/18/17 Previous Rx's Medication Instructions Recorded Atorvastatin [Lipitor] 40 mg PO HS #30 tablet 06/20/16 Clopidogrel [Plavix] 75 mg PO DAILY #30 tablet 06/20/16 Pantoprazole Sodium [Protonix] 40 mg PO DAILY #30 tablet. 06/20/16 Ranolazine [Ranexa] 1,000 mg PO BID #60 tab.er.12h 04/06/17 Sennosides/Docusate Sodium [Senna 2 each PO BID #60 tab 04/27/17 Plus] Tamsulosin [Flomax] 0.4 mg PO DAILY #30 04/27/17 Acetaminophen [Tylenol] 500 mg PO Q6HR PRN #0 05/01/17 Hydrocodone/Acetaminophen 1 each PO Q4-6H PRN 3 Days #18 01/03/18 [Hydrocodon-Acetaminophen 5-325] tablet Allergies Allergy/AdvReac Type Severity Reaction Status Date / Time codeine AdvReac Vomiting Verified 01/07/18 08:10 Review of Systems: 10 point review of systems done and negative unless otherwise stated in the history of present illness. All systems ED: reviewed and negative except as stated. Review of Systems: As Per HPI Past Medical History - Past Medical History Attestation: Yes The following information was validated with the patient. Source: patient Medical history: Reports: arthritis, cirrhosis, coronary artery disease, diabetes, GERD, hyperlipidemia, hypertension, liver disease, migraine, myocardial infarction, RA, renal disease Surgical history: Reports: angioplasty/stent, cholecystectomy, other Psychiatric history: Reports: anxiety, bipolar, depression, PTSD - Social History Smoking Status: Former smoker Smokeless Tobacco Status: No Alcohol use: Reports: none Drug use: Reports: none Physical Exam - General Limitations: altered mental status General appearance: alert, in no apparent distress - Head Head exam: atraumatic, normocephalic, normal inspection - Eye Eye exam: Present: normal appearance, PERRL, EOMI - ENT ENT exam: normal exam, normal oropharynx, mucous membranes moist - Neck Neck exam: Present: normal inspection, full ROM, trachea midline. Absent: tenderness, meningismus, lymphadenopathy - Chest Chest inspection: Present: normal inspection, symmetric chest wall rise - Respiratory Respiratory exam: Present: normal lung sounds bilaterally - Cardiovascular Cardiovascular exam: Present: regular rate, normal rhythm, normal heart sounds - Abdominal Exam Abdominal exam: Present: soft, Non-Tender, distention (Mild distention, cirrhosis no rigidity or acute abdomen signs.), normal bowel sounds. Absent: tenderness, guarding, rebound, rigidity - Extremities Exam Extremities exam: Present: normal inspection, full ROM. Absent: tenderness, pedal edema - Expanded Lower Extremity Exam Neurovascular/Tendon exam: Present: normal capillary refill. Absent: pulse deficit, motor deficit, sensory deficit, tendon deficit - Back Exam Back exam: Present: normal inspection, full ROM. Absent: tenderness, CVA tenderness (R), CVA tenderness (L) - Neurological Exam Neurological exam: Present: alert, oriented X3 - Expanded Neurological Exam Cranial nerves: EOM function (II, III, IV, ): Normal, facial sensation (V): Normal, facial palsy (VII): Normal, spinal accessory function (XI): Normal, tongue deviation (XII): Normal Motor strength - LUE: 4/5 Motor strength - RUE: 4/5 Motor strength - LLE: 4/5 Motor strength - RLE: 4/5 Upper motor neuron exam: mitch neglect: Absent bilaterally, pronator drift: Absent bilaterally, Babinski sign: Absent bilaterally, sensory extinction: Absent bilaterally Sensory exam upper extremity: light touch: Normal Sensory exam lower extremity: light touch: Normal DTR: Achilles tendon (L): 0, Achilles tendon (R): 0 Coma Scale Eye Opening: Spontaneous Coma Scale Motor Response: Obeys Commands Coma Scale Verbal Response: Confused Coma Scale Total: 14 - Skin Skin exam: Present: warm, dry, intact, normal color Course Course Narrative: 52 -year-old male presenting to the emergency department with altered mental status. When he first arrived we did not know downtime so we will we will call a stroke alert at this time. arrived as patient was being wheeled back to his stroke CT. She said the last known well was 8:00 so at this time we did cancel his stroke whereby he continue to go for CT. We will do a CTA of his head and neck. We will do a laboratory workup to rule out a metabolic versus infectious etiology. This also included ammonia. Vital Signs Temperature 98 F 01/07/18 08:14 Pulse Rate 76 01/07/18 08:14 Respiratory Rate 20 01/07/18 08:14 Blood Pressure 120/82 01/07/18 08:14 Temperature 98 F 01/07/18 08:18 Pulse Rate 70 01/07/18 10:09 Respiratory Rate 20 01/07/18 10:09 Blood Pressure 135/86 01/07/18 10:09 O2 Sat by Pulse Oximetry 98 01/07/18 10:09 Oxygen Delivery Oxygen Delivery Room Air Medical Decision Making - MDM Narrative Medical decision making narrative: 52 -year-old male presents to the emergency department with altered mental status. Cervical was called right away after getting the full history last known well was 8 PM yesterday so we canceled the stroke alert. CT was called back and was negative. We did do CT a head and neck CTA head showed an abnormality including mild internal carotid narrowing. Otherwise all other CTs were normal. Chest x-ray did show pneumonia so we did get a CT of the chest which is still pending at this time. Patient did have a known pneumonia and has been on 5 days of Levaquin. He does not meet any service criteria he has no fever and or tachycardia or shortness of breath. So this most likely is not the cause of his altered mental status. His ammonia was normal. This very likely being a metabolic cause. This was likely is a neurological cause. I think he patient may need an MRI to further look into other sources of his changes in mental status. Due to the further evaluation needed spoke with the family and they agree that admission is best course of action at this time. Patient is admitted to the hospitalist service. I spoke with Dr. Pryor who agreed to admit the patient to their service. Patient is admitted in stable condition at this time. Chest X-Ray 01/07/18 08:13 IMPRESSION: Right basilar consolidation and small right pleural effusion. Findings may reflect pneumonia in the correct clinical setting. D/ / 01/07/2018 09:08:38 Ximena Salmon MD / milli Interpreting Provider: Ximena Salmon MD Head CT 01/07/18 08:14 IMPRESSION: No acute intracranial process identified. The above findings were discussed with Dr. Barragan at 8:45 a.m. on 01/07/2018. D/ / Goran Rae MD / Goran Rae MD Interpreting Provider: Goran Rae MD Head CTA 01/07/18 08:17 IMPRESSION: Mild, multifocal narrowing of the cavernous right internal carotid artery. D/ / 01/07/2018 09:58:39 Ximena Salmon MD / milli Interpreting Provider: Ximena Salmon MD Neck CTA 01/07/18 08:17 IMPRESSION: 1. Unremarkable CTA of the neck, without evidence of arterial stenosis or dissection. 2. Nonspecific reticulonodular focus of airspace consolidation within the anterior right upper lobe, most likely representing pneumonia. However, suggest a formal chest CT to further evaluate this abnormality and to evaluate for additional airspace consolidation. D/ / 01/07/2018 10:02:44 Lavelle Quinn MD / bcarter Interpreting Provider: Lavelle Quinn MD - Medical Records Medical records reviewed: Yes I reviewed the patient's medical records. - Lab Data Lab results reviewed: Yes I reviewed the patient's lab results. Result diagrams: 01/07/18 08:21 01/07/18 08:21 Lab Results 01/07/18 01/07/18 01/07/18 Range/Units 08:21 08:21 08:21 WBC 9.5 (4.3-11.1) K/mcL RBC 3.68 L (4.19-5.50) M/mcL Hgb 11.1 L (12.9-16.9) g/dL Hct 33.2 L (37.5-50.1) % MCV 90.2 (83.0-100.0) fL MCH 30.2 (28.0-33.3) pg MCHC 33.4 (31.6-35.5) g/dL RDW 12.7 (11.5-14.5) % Plt Count 154 (140-400) K/mcL MPV 9.4 (9.4-12.4) fL Immature Gran % 0.6 (0-4) % Seg Neutrophils % 67.3 % Lymphocytes % 24.4 % Monocytes % 6.0 % Eosinophils % 1.3 % Basophils % 0.4 % Neutrophils # 6.4 (1.6-8.9) K/mcL Lymphocytes # 2.3 (0.6-4.6) K/mcL Monocytes # 0.6 (0.0-1.3) K/mcL Eosinophils # 0.1 (0.0-0.6) K/mcL Basophils # 0.0 (0.0-0.2) K/mcL PT 11.4 (9.4-12.1) Seconds INR 1.1 APTT 29.8 (26.0-36.0) Seconds Sodium 136 (136-145) mEq/L Potassium 4.3 (3.5-5.1) mEq/L Chloride 100 (98-107) mEq/L Carbon Dioxide 30 H (23-29) mEq/L BUN 26 H (6-20) mg/dL Creatinine 1.29 (0.70-1.30) mg/dL Est GFR ( Amer) > 60 (> 60) Est GFR (Non-Af Amer) 58 L (> 60) BUN/Creatinine Ratio 20 (6-26) Glucose 217 H (70-105) mg/dL Calculated Osmolality 293 (280-300) Calcium 8.6 (8.6-10.3) mg/dL Total Bilirubin 0.3 (0.3-1.0) mg/dL Direct Bilirubin 0.1 (0.0-0.2) mg/dL Indirect Bilirubin 0.2 (0.0-1.2) mg/dL AST 31 (13-39) Units/L ALT 30 (7-52) Units/L Alkaline Phosphatase 53 (34-104) Units/L Ammonia (16-53) mcmol/L Creatine Kinase 509 H (30-223) Units/L Troponin I (< 0.04) ng/mL Serum Total Protein 6.5 (6.4-8.9) g/dL Albumin 3.4 L (3.5-5.7) g/dL Globulin 3.1 (2.4-3.5) g/dL Albumin/Globulin Ratio 1.1 (1.1-2.2) TSH (0.340-5.600) mcIU/mL Urine Color (Yellow) Urine Clarity (Clear) Urine pH (5.0-8.0) pH Units Ur Specific [place] (1.010-1.025) Urine Protein (Neg-Trace) mg/dL Urine Glucose (UA) (Normal) mg/dL Urine Ketones (Negative) mg/dL Urine Blood (Negative) Urine Nitrite (Negative) Urine Bilirubin (Negative) Urine Urobilinogen (Normal) mg/dL Ur Leukocyte Esterase (Negative) Urine Microscopic RBC (0-3) per hpf Urine Microscopic WBC (0-3) per hpf Ur Squamous Epith Cells (None-Few) per lpf Urine Bacteria (None-Few) per hpf Hyaline Casts (None-Few) per lpf Ur Culture Indicated? (NO) Urine Opiates Screen (Bbssyv=959) ng/mL Ur Barbiturates Screen (Gsrrbn=891) ng/mL Ur Phencyclidine Scrn (Cutoff=25) ng/mL Ur Amphetamines Screen (Dlejsu=6529) ng/mL U Benzodiazepines Scrn (Zeubwb=539) ng/mL Urine Cocaine Screen (Cutoff= 300) ng/mL U Marijuana (THC) Screen (Cutoff = 50) ng/mL Ethyl Alcohol < 10 (0-10) mg/dL 01/07/18 01/07/18 01/07/18 Range/Units 08:21 08:21 08:57 WBC (4.3-11.1) K/mcL RBC (4.19-5.50) M/mcL Hgb (12.9-16.9) g/dL Hct (37.5-50.1) % MCV (83.0-100.0) fL MCH (28.0-33.3) pg MCHC (31.6-35.5) g/dL RDW (11.5-14.5) % Plt Count (140-400) K/mcL MPV (9.4-12.4) fL Immature Gran % (0-4) % Seg Neutrophils % % Lymphocytes % % Monocytes % % Eosinophils % % Basophils % % Neutrophils # (1.6-8.9) K/mcL Lymphocytes # (0.6-4.6) K/mcL Monocytes # (0.0-1.3) K/mcL Eosinophils # (0.0-0.6) K/mcL Basophils # (0.0-0.2) K/mcL PT (9.4-12.1) Seconds INR APTT (26.0-36.0) Seconds Sodium (136-145) mEq/L Potassium (3.5-5.1) mEq/L Chloride (98-107) mEq/L Carbon Dioxide (23-29) mEq/L BUN (6-20) mg/dL Creatinine (0.70-1.30) mg/dL Est GFR ( Amer) (> 60) Est GFR (Non-Af Amer) (> 60) BUN/Creatinine Ratio (6-26) Glucose (70-105) mg/dL Calculated Osmolality (280-300) Calcium (8.6-10.3) mg/dL Total Bilirubin (0.3-1.0) mg/dL Direct Bilirubin (0.0-0.2) mg/dL Indirect Bilirubin (0.0-1.2) mg/dL AST (13-39) Units/L ALT (7-52) Units/L Alkaline Phosphatase (34-104) Units/L Ammonia 50 (16-53) mcmol/L Creatine Kinase (30-223) Units/L Troponin I < 0.03 (< 0.04) ng/mL Serum Total Protein (6.4-8.9) g/dL Albumin (3.5-5.7) g/dL Globulin (2.4-3.5) g/dL Albumin/Globulin Ratio (1.1-2.2) TSH 2.124 (0.340-5.600) mcIU/mL Urine Color Yellow (Yellow) Urine Clarity Clear (Clear) Urine pH 6.5 (5.0-8.0) pH Units Ur Specific [place] 1.020 (1.010-1.025) Urine Protein 100 H (Neg-Trace) mg/dL Urine Glucose (UA) 250 H (Normal) mg/dL Urine Ketones Negative (Negative) mg/dL Urine Blood Negative (Negative) Urine Nitrite Negative (Negative) Urine Bilirubin Negative (Negative) Urine Urobilinogen Normal (Normal) mg/dL Ur Leukocyte Esterase Negative (Negative) Urine Microscopic RBC 0-3 (0-3) per hpf Urine Microscopic WBC 0-3 (0-3) per hpf Ur Squamous Epith Cells Few (None-Few) per lpf Urine Bacteria None Seen (None-Few) per hpf Hyaline Casts None Seen (None-Few) per lpf Ur Culture Indicated? NO (NO) Urine Opiates Screen (Nfsfhu=344) ng/mL Ur Barbiturates Screen (Nbfbin=462) ng/mL Ur Phencyclidine Scrn (Cutoff=25) ng/mL Ur Amphetamines Screen (Vamdpj=8717) ng/mL U Benzodiazepines Scrn (Bvroxj=364) ng/mL Urine Cocaine Screen (Cutoff= 300) ng/mL U Marijuana (THC) Screen (Cutoff = 50) ng/mL Ethyl Alcohol (0-10) mg/dL 01/07/18 Range/Units 08:57 WBC (4.3-11.1) K/mcL RBC (4.19-5.50) M/mcL Hgb (12.9-16.9) g/dL Hct (37.5-50.1) % MCV (83.0-100.0) fL MCH (28.0-33.3) pg MCHC (31.6-35.5) g/dL RDW (11.5-14.5) % Plt Count (140-400) K/mcL MPV (9.4-12.4) fL Immature Gran % (0-4) % Seg Neutrophils % % Lymphocytes % % Monocytes % % Eosinophils % % Basophils % % Neutrophils # (1.6-8.9) K/mcL Lymphocytes # (0.6-4.6) K/mcL Monocytes # (0.0-1.3) K/mcL Eosinophils # (0.0-0.6) K/mcL Basophils # (0.0-0.2) K/mcL PT (9.4-12.1) Seconds INR APTT (26.0-36.0) Seconds Sodium (136-145) mEq/L Potassium (3.5-5.1) mEq/L Chloride (98-107) mEq/L Carbon Dioxide (23-29) mEq/L BUN (6-20) mg/dL Creatinine (0.70-1.30) mg/dL Est GFR ( Amer) (> 60) Est GFR (Non-Af Amer) (> 60) BUN/Creatinine Ratio (6-26) Glucose (70-105) mg/dL Calculated Osmolality (280-300) Calcium (8.6-10.3) mg/dL Total Bilirubin (0.3-1.0) mg/dL Direct Bilirubin (0.0-0.2) mg/dL Indirect Bilirubin (0.0-1.2) mg/dL AST (13-39) Units/L ALT (7-52) Units/L Alkaline Phosphatase (34-104) Units/L Ammonia (16-53) mcmol/L Creatine Kinase (30-223) Units/L Troponin I (< 0.04) ng/mL Serum Total Protein (6.4-8.9) g/dL Albumin (3.5-5.7) g/dL Globulin (2.4-3.5) g/dL Albumin/Globulin Ratio (1.1-2.2) TSH (0.340-5.600) mcIU/mL Urine Color (Yellow) Urine Clarity (Clear) Urine pH (5.0-8.0) pH Units Ur Specific [place] (1.010-1.025) Urine Protein (Neg-Trace) mg/dL Urine Glucose (UA) (Normal) mg/dL Urine Ketones (Negative) mg/dL Urine Blood (Negative) Urine Nitrite (Negative) Urine Bilirubin (Negative) Urine Urobilinogen (Normal) mg/dL Ur Leukocyte Esterase (Negative) Urine Microscopic RBC (0-3) per hpf Urine Microscopic WBC (0-3) per hpf Ur Squamous Epith Cells (None-Few) per lpf Urine Bacteria (None-Few) per hpf Hyaline Casts (None-Few) per lpf Ur Culture Indicated? (NO) Urine Opiates Screen Positive H (Streck=063) ng/mL Ur Barbiturates Screen Negative (Ojoald=114) ng/mL Ur Phencyclidine Scrn Negative (Cutoff=25) ng/mL Ur Amphetamines Screen Negative (Ymzpjw=5721) ng/mL U Benzodiazepines Scrn Positive H (Limmbg=327) ng/mL Urine Cocaine Screen Negative (Cutoff= 300) ng/mL U Marijuana (THC) Screen Negative (Cutoff = 50) ng/mL Ethyl Alcohol (0-10) mg/dL - Radiology Data Radiology results reviewed: Yes I reviewed the patient's radiology results. - EKG Data EKG #1 EKG attestation: Yes I reviewed and interpreted this EKG. EKG results narrative: [place] [address] myself and the attending shows sinus rhythm rate of 71, UT interval 174, QRS 105, QTC 440 with a R axis is no acute ST changes no acute T- wave changes no signs of ischemia. No signs of heart shock, hypertrophy, heart block. No WPW/Brugada syndrome. Overall his EKG is unchanged when compared with old one done 04/29/17
[2018-01-07] MEDS ORDERED: cefTRIAXone 1,000 MG in Water for inj. (sterile) 20 ML 10 ML IVPB ONE (11:20)
[2018-01-07] MEDS ORDERED: Azithromycin 500 MG in D5% in Water 250 ML IVPB ONE (11:21)
[2018-01-07] MEDS ORDERED: Naloxone 0.4 MG/ML INJ IVP PRN (12:02)
[2018-01-07] MEDS ORDERED: (Diclofenac Sodium [Voltaren] 1 APPL) TP PRN (12:03)
[2018-01-07] MEDS ORDERED: *HR* HYDROcodone/Acet 5/325 mg TABLET PO PRN (12:03)
[2018-01-07] MEDS ORDERED: Dextrose Gel 15 GM/37.5 ML TUBE PO PRN ×2 (12:45)
[2018-01-07] MEDS ORDERED: *HR* Dextrose 50 % in Water (Syg) 50 ML SYRINGE IVP PRN (12:45)
[2018-01-07] MEDS ORDERED: D5% in Water 1,000 ML IVC PRN (12:45)
[2018-01-07] MEDS: *HR* HYDROcodone/Acet 5/325 mg TABLET PO PRN ×2 (12:49→20:50)
--- NOTE | 2018-01-07 12:53 | Internal Med History&Physical ---
Date of Encounter: 01/07/18 Time of Encounter: 12:49 Assessment and Plan (1) Altered mental status Current visit: Yes Status: Acute Patient presented with altered mental status and his symptoms have now resolved completely. Most likely related to multiple medications that the patient takes while also receiving Levaquin. He is on Remeron, Xanax, gabapentin, Flexeril, haloperidol, Seroquel at home. His garbled speech is concerning for TIA. Will get MRI of the brain. Check lipid profile and A1c. Continue Lipitor and Plavix. Physical therapy evaluation. Since patient's speech has come back to baseline, will place him on cardiac and diabetic diet. Qualifiers: Altered mental status type: disorientation Qualified Code(s): R41.0 - Disorientation, unspecified (2) Diabetes mellitus Current visit: Yes Status: Chronic Continue to monitor blood sugars. Sliding scale insulin. Continue Levemir. Diabetic diet. 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 Supportive care and pain control. Follow up with orthopedics as outpatient Qualifiers: Encounter type: initial encounter Laterality: right Qualified Code(s): S46.211A - Strain of muscle, fascia and tendon of other parts of biceps, right arm, initial encounter (4) Hyperlipidemia Current visit: Yes Status: Chronic Check lipid profile. Continue atorvastatin. Qualifiers: Hyperlipidemia type: mixed hyperlipidemia Qualified Code(s): E78.2 - Mixed hyperlipidemia (5) Hypertension Current visit: Yes Status: Chronic Blood pressure elevated at this time. Resume home medications. Monitor blood pressure closely. Qualifiers: Hypertension type: essential hypertension Qualified Code(s): I10 - Essential (primary) hypertension (6) Pneumonia Current visit: Yes Status: Chronic Patient recently diagnosed with pneumonia and has completed antibiotic course with Levaquin. He is currently saturating at 93% on room air. Heart rate is normal. No signs of sepsis or inflammation at this time. CT scan does show infiltrate but imaging studies to lack behind clinical symptoms. At this time I do not believe patient needs further antibiotics. However if he develops fever or chills or night sweats and worsening leukocytosis, will consider restarting antibiotics for the broader spectrum of coverage. Blood cultures have been drawn and will be followed. CT does show atelectasis. Will place him on incentive spirometry. Qualifiers: Pneumonia type: due to unspecified organism Laterality: right Lung location: lower lobe of lung Qualified Code(s): J18.1 - Lobar pneumonia, unspecified organism (7) DVT prophylaxis Current visit: Yes Status: Acute With subcutaneous heparin Internal Medicine - H&P: HPI Chief complaint: Generalized weakness, fall Admitted From: Emergency Dept Plans for Post Hospital Care: Home History of present illness: Mr. Gonzalez is a 52 year old male patient with history of arthritis, cirrhosis, coronary artery disease, diabetes, hyperlipidemia, hypertension, [place], presented to the ER with complaints of altered mental status, fall, garbled speech and lower extremity weakness. He apparently woke up early this morning and suddenly fell out of bed when he stood up. He reports that his legs have been feeling weak and shaking over the past few days. He was recently diagnosed with pneumonia and was started on Levaquin for it. He denies any chest pain or shortness of breath at this time but reports that he has been having cough and is unable to take a deep breath. No fever or chills. He also was noted to have garbled speech according to his and was having trouble finding words. By the time of my interview, the symptoms had completely resolved. He still reports weakness in his lower extremities due to shakes while standing on them. Denies any numbness or tingling. Denies any facial droop Past Med Surg Social Fam HX - Past Medical History Attestation: Yes The following information was validated with the patient. Source: patient Medical history: arthritis, cirrhosis, coronary artery disease, diabetes, GERD, hyperlipidemia, hypertension, liver disease, migraine, myocardial infarction, RA , renal disease Psychiatric history: anxiety, bipolar, depression, PTSD - Past Surgical History Surgical History: angioplasty/stent, cholecystectomy, other - Social History Smoking Status: Former smoker Smokeless Tobacco Status: No Alcohol use: none Drug use: none - Family History Father Living Status: Hx Family Cardiac Disorders: Yes Hx Family Endocrine Disorder: Yes Hx Family Neurologic Disorders: Yes Mother Living Status: Hx Family Cardiac Disorders: Yes Hx Family Respiratory Disorders: Yes Hx Family Cancer: Yes (uncle,) Hx Family GI Disorders: Yes (self,) Hx Family Endocrine Disorder: Yes (self, father, 3 uncles) Hx Family Neuromuscular Disorders: No Hx Family Neurologic Disorders: Yes (father) Hx Family HEENT Disorders: No Hx Family Autoimmune Disorders: No Internal Medicine - H&P: Meds Alprazolam [Xanax] 1 mg PO TID 04/29/16 [History] Insulin ASPART [Novolog Flexpen] 10 - 16 unit SQ TIDWM 04/29/16 [History] Mirtazapine [Remeron] 45 mg PO HS 04/29/16 [History] Insulin DETEMIR [Levemir Flextouch] 40 unit SQ QAM 06/12/16 [History] Prazosin [Minipress] 2 mg PO HS 06/12/16 [History] Atorvastatin [Lipitor] 40 mg PO HS #30 tablet 06/20/16 [Rx] Clopidogrel [Plavix] 75 mg PO DAILY #30 tablet 06/20/16 [Rx] Lisinopril [Zestril] 10 mg PO BID 08/25/16 [History] Multivitamin with Minerals [One-A-Day Maximum Formula] 1 tab PO DAILY 04/04/17 [ History] [place]-3/Dha/Epa/Fish Oil [Fish Oil 1,000 mg Softgel] 1,000 mg PO DAILY 04/04/17 [History] Ranolazine [Ranexa] 1,000 mg PO BID #60 tab.er.12h 04/06/17 [Rx] Tamsulosin [Flomax] 0.4 mg PO DAILY #30 04/27/17 [Rx] Acetaminophen [Tylenol] 500 mg PO Q6HR PRN #0 05/01/17 [Rx] Carvedilol [Coreg] 25 mg PO BIDWM 10/18/17 [History] Cholecalciferol (D-3) [Vitamin D] 5,000 unit PO DAILY 10/18/17 [History] Cyclobenzaprine [Flexeril] 5 mg PO TID PRN 10/18/17 [History] Diclofenac Sodium [Voltaren] 1 appl TP QID PRN 10/18/17 [History] Ferrous Sulfate [Iron] 325 mg PO DAILY 10/18/17 [History] Fluticasone Propionate Nasal [Flonase] 100 mcg NS DAILY 10/18/17 [History] Furosemide [Lasix] 40 mg PO BID 10/18/17 [History] Gabapentin [Neurontin] 300 mg PO TID 10/18/17 [History] Haloperidol 4 mg PO HS 10/18/17 [History] Insulin DETEMIR [Levemir Flextouch] 50 unit SQ QPM 10/18/17 [History] Linaclotide [Linzess] 145 mcg PO DAILY 10/18/17 [History] Quetiapine Fumarate [SEROquel] 500 mg PO HS 10/18/17 [History] amLODIPine [Norvasc] 5 mg PO DAILY 10/18/17 [History] Hydrocodone/Acetaminophen [Hydrocodon-Acetaminophen 5-325] 1 tab PO Q4-6H PRN [History] Pantoprazole Sodium [Protonix] 40 mg PO BID 01/07/18 [History] Sennosides/Docusate Sodium [Senna Plus] 2 tab PO BID 01/07/18 [History] levoFLOXacin [Levaquin] 250 mg PO DAILY 01/07/18 [History] 3 Allergy/AdvReac Type Severity Reaction Status Date / Time codeine AdvReac Vomiting Verified 01/07/18 08:10 All Systems PM: A 10-system review of systems was performed and is negative for pertinent findings except as documented above in the HPI. - Constitutional Constitutional: malaise, no chills, no fever(s), no night sweats - EENT Eyes: no change in vision, no discharge, no pain, no photophobia Ears: no ear discharge, no ear pain, no tinnitus Nose, mouth and throat: no dysphagia, no nasal discharge, no neck pain, no sore throat - Cardiovascular Cardiovascular ROS IM: no chest pain, no diaphoresis, no dyspnea, no lightheadedness, no palpitations, no syncope - Respiratory Respiratory: no cough, no dyspnea, no wheezing, no excessive phlegm production - Gastrointestinal Gastrointestinal: no abdominal pain, no diarrhea, no hematemesis, no hematochezia, no melena, no nausea, no vomiting - Musculoskeletal Musculoskeletal ROS IM: no numbness, no tingling - Integumentary Integumentary IM: no rash, no unusual bruising - Neurological Neurological ROS: confusion, disequilibrium, weakness, no convulsions, no focal weakness, no numbness, no tingling, no tremor(s) - Hematologic/Lymphatic Hematologic/Lymphatic: no easy bruising - Constitutional Vitals: Temp Pulse Resp BP Pulse Ox 98.2 F 76 18 157/92 93 01/07/18 11:35 01/07/18 11:35 01/07/18 11:35 01/07/18 11:35 01/07/18 11:35 General appearance: Present: cooperative, A&O X 3, no acute distress, answers questions appropriately - Neck Neck exam general surgery: Present: supple, trachea midline. Absent: lymphadenopathy - Respiratory Respiratory exam: Present: CTAB. Absent: accessory muscle use, rales, rhonchi, wheezes - Cardiovascular Cardiovascular exam: Present: RRR, +S1, +S2. Absent: diastolic murmur, gallop, rubs, systolic murmur - GI/Abdominal GI/Abdominal exam: Present: normal bowel sounds, soft, no peritoneal signs. Absent: distended, tenderness - Extremities Exam Extremities exam: Present: warm, radial pulses palpable and symmetrical. Absent : calf tenderness, cyanotic, pedal edema - Neurological Exam Neurological exam: Present: alert, CN II-XII intact, oriented X3, no focal deficits, strengths equal and symetr throughout. Absent: facial droop, speech deficit - Skin Skin exam: Present: dry, intact Internal Med - H&P Results - Labs CBC & Chem 7: 01/07/18 08:21 01/07/18 08:21 - EKG Data EKG shows normal: sinus rhythm - EKG Data EKG comments: 01/07/18 12:56 QTC 440 - Impressions Impressions Chest X-Ray 01/07/18 08:13 IMPRESSION: Right basilar consolidation and small right pleural effusion. Findings may reflect pneumonia in the correct clinical setting. D/ / 01/07/2018 09:08:38 Ximena Salmon MD / bcarosie Interpreting Provider: Ximena Salmon MD Head CT 01/07/18 08:14 IMPRESSION: No acute intracranial process identified. The above findings were discussed with Dr. Barragan at 8:45 a.m. on 01/07/2018. D/ / Goran Rae MD / Goran Rae MD Interpreting Provider: Goran Rae MD Head CTA 01/07/18 08:17 IMPRESSION: Mild, multifocal narrowing of the cavernous right internal carotid artery. D/ / 01/07/2018 09:58:39 Ximena Salmon MD / milli Interpreting Provider: Ximena Salmon MD Neck CTA 01/07/18 08:17 IMPRESSION: 1. Unremarkable CTA of the neck, without evidence of arterial stenosis or dissection. 2. Nonspecific reticulonodular focus of airspace consolidation within the anterior right upper lobe, most likely representing pneumonia. However, suggest a formal chest CT to further evaluate this abnormality and to evaluate for additional airspace consolidation. D/ / 01/07/2018 10:02:44 Lavelle Quinn MD / milli Interpreting Provider: Lavelle Quinn MD Chest CT 01/07/18 10:07 IMPRESSION: Confirmation of right lower lobe consolidation typical pneumonia, suboptimally evaluated without IV contrast. Bands of platelike atelectasis right middle lobe. 1. Coronary artery calcifications. D/ / Amandeep Gagnon / Amandeep Gagnon Interpreting Provider: Amandeep Gagnon
[2018-01-07] MEDS: Ringers Solution, Lactated 1,000 ML IVC SCH (13:21)
[2018-01-07] MEDS: Gabapentin 300 MG CAPSULE PO SCH ×2 (14:25→20:49)
[2018-01-07] MEDS: Insulin LISPRO 300 UNITS/3 ML VIAL SQ SCH ×2 (15:29→21:02)
[2018-01-07] MEDS: Furosemide 40 MG TABLET PO SCH (17:25)
[2018-01-07] MEDS: ALPRAZolam 1 MG TABLET PO PRN (17:25)
[2018-01-07] MEDS: *HR* Heparin 5,000 UNIT/ML VIAL SQ SCH (17:26)
[2018-01-07] MEDS: Sennosides/Docusate Sodium TABLET PO SCH (20:49)
[2018-01-07] MEDS: Mirtazapine 15 MG TABLET PO SCH (20:49)
[2018-01-07] MEDS: Ranolazine 500 MG TAB.ER.12H PO SCH (20:53)
[2018-01-07] MEDS: Insulin DETEMIR 100 UNIT/ML X5UNITS SQ SCH (20:54)
[2018-01-08] MEDS: GuaiFENesin/Dextromethorphan TABLET PO SCH ×3 (00:37→20:04)
[2018-01-08] MEDS: ALPRAZolam 1 MG TABLET PO PRN ×4 (00:40→22:38)
[2018-01-08] MEDS: Ringers Solution, Lactated 1,000 ML IVC SCH (00:43)
[2018-01-08] MEDS: *HR* Heparin 5,000 UNIT/ML VIAL SQ SCH ×2 (05:56→16:59)
[2018-01-08 06:34] LABS: Basophils % 0.5 %; Eosinophils # 0.2 K/mcL (0.0-0.6); Eosinophils % 2.1 %; Hematocrit 30.5 % (37.5-50.1); Hemoglobin 10.3 g/dL (12.9-16.9); Immature Granulocytes % 0.7 % (0-4); Lymphocytes # 1.9 K/mcL (0.6-4.6); Lymphocytes % 24.6 %; Mean Corpuscular HGB Conc 33.8 g/dL (31.6-35.5); Mean Corpuscular Hemoglobin 30.2 pg (28.0-33.3); Mean Corpuscular Volume 89.4 fL (83.0-100.0); Mean Platelet Volume 9.5 fL (9.4-12.4); Monocytes # 0.6 K/mcL (0.0-1.3); Monocytes % 8.2 %; Neutrophils # 4.9 K/mcL (1.6-8.9); Platelet Count 151 K/mcL (140-400); Red Blood Count 3.41 M/mcL (4.19-5.50); Red Cell Distribution Width 12.7 % (11.5-14.5); Segmented Neutrophils % 63.9 %
[2018-01-08 06:56] LABS: Cholesterol 217 mg/dL (< 200); HDL Cholesterol 31 mg/dL (40-59); Triglycerides 436 mg/dL (< 150)
[2018-01-08 06:58] LABS: BUN/Creatinine Ratio 15 (6-26); Blood Urea Nitrogen 18 mg/dL (6-20); Calcium 8.9 mg/dL (8.6-10.3); Carbon Dioxide 29 mEq/L (23-29); Chloride 101 mEq/L (98-107); Glucose 258 mg/dL (70-105); Osmolality,Calculated 293 (280-300); Potassium 4.2 mEq/L (3.5-5.1); Sodium 136 mEq/L (136-145); eGFR For African Americans > 60 (> 60); eGFR For Non-African Americans > 60 (> 60)
[2018-01-08] MEDS: Insulin LISPRO 300 UNITS/3 ML VIAL SQ SCH ×4 (08:07→22:38)
[2018-01-08] MEDS: Sennosides/Docusate Sodium TABLET PO SCH ×2 (08:08→20:03)
[2018-01-08] MEDS: Ranolazine 500 MG TAB.ER.12H PO SCH ×2 (08:09→20:03)
[2018-01-08] MEDS: Gabapentin 300 MG CAPSULE PO SCH ×3 (08:09→20:04)
[2018-01-08] MEDS: (Omega-3/Dha/Epa/Fish Oil [Fish Oil 1,000 Mg Softgel] PO SCH (08:09)
[2018-01-08] MEDS: Cholecalciferol (D-3) 1,000 UNIT TABLET PO SCH (08:09)
[2018-01-08] MEDS: amLODIPine 5 MG TABLET PO SCH (08:09)
[2018-01-08] MEDS: Acetaminophen 325 MG TABLET PO PRN ×2 (08:09→19:38)
[2018-01-08] MEDS: (Linaclotide [Linzess] 145 MCG) PO SCH (08:10)
[2018-01-08] MEDS: Furosemide 40 MG TABLET PO SCH ×2 (08:10→16:59)
[2018-01-08] MEDS: Multivit/Ca/Min/Fe/FA 1 TAB TABLET PO SCH (08:10)
[2018-01-08] MEDS: Insulin DETEMIR 100 UNIT/ML X5UNITS SQ SCH ×2 (08:15→22:37)
[2018-01-08] MEDS: Fluticasone Propionate Nasal 50 MCG/SPRAY BOTTLE NS SCH (09:21)
[2018-01-08 10:28] LABS: Estimated Average Glucose 192 mg/dl; Hemoglobin A1C 8.3 %
[2018-01-08] MEDS: *HR* HYDROcodone/Acet 5/325 mg TABLET PO PRN (14:49)
--- NOTE | 2018-01-08 15:42 | Internal Med Progress Note ---
Date of Encounter: 01/08/18 Time of Encounter: 15:39 - Assessment and plan (1) Altered mental status Current Visit: Yes Status: Acute Assessment and plan: Possibly TIA symptoms. MRI is negative. Awaiting the rest of his stroke workup including carotid ultrasound and echocardiogram. The patient is also on a bunch of medications that are psychiatric and I advised him to have a talk with her primary care physician in order to get good of some of these were decrease the dosages. Continue statin and Plavix. Possible discharge later today or tomorrow morning. A1c 8.3. Lipid panel noted. Qualifiers: Altered mental status type: disorientation Qualified Code(s): R41.0 - Disorientation, unspecified (2) Diabetes mellitus Current Visit: Yes Status: Chronic Assessment and plan: Continue Levemir 40 units twice a day. Continue sliding scale. Continue Accu- Cheks. 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 He follows up with psychiatrist. I suggest the patient has a follow-up on which she has a discussion regarding decreasing dose medications dosages are getting rid of some of them if possible. Qualifiers: Current bipolar episode type: mixed Current episode severity: moderate Qualified Code(s): F31.62 - Bipolar disorder, current episode mixed, moderate (5) DVT prophylaxis Current Visit: Yes Status: Acute Assessment and plan: Heparin subcutaneous - Subjective Interval history: Patient was seen and examined. Admitted yesterday with an episode of garbled speech associated with an acute mental status change and garbled speech. Those all have resolved while he was in the emergency department. The patient has no recollection of this. CT head was negative. - Constitutional Vitals: Temp Pulse Resp BP Pulse Ox 98.3 F 81 14 158/103 97 01/08/18 11:26 01/08/18 11:26 01/08/18 11:26 01/08/18 11:26 01/08/18 11:26 General appearance: Present: cooperative, A&O X 3, no acute distress, answers questions appropriately Exam: GEN: NAD CVS: RRR. S1, S2, No m/r/g RESP: CTAB ABD: Soft, NT, ND, +BS EXT: No edema. 2+ DP. No rashes NEURO: Nonfocal Internal Medicine: Result - Labs CBC & Chem 7: 01/08/18 05:54 01/08/18 05:54 Labs: Short CBC 01/08/18 Range/Units 05:54 WBC 7.7 (4.3-11.1) K/mcL Hgb 10.3 L (12.9-16.9) g/dL Hct 30.5 L (37.5-50.1) % Plt Count 151 (140-400) K/mcL Neutrophils # 4.9 (1.6-8.9) K/mcL BMP 01/08/18 05:54 Sodium 136 Potassium 4.2 Chloride 101 Carbon Dioxide 29 BUN 18 Creatinine 1.22 Glucose 258 H Calcium 8.9 - ABG Interpretation ABG results: PT/INR, D-dimer PT 11.4 Seconds (9.4-12.1) 01/07/18 08:21 - Impressions Impressions Brain MRI 01/08/18 07:00 IMPRESSION: No acute intracranial abnormality. D/ / Blaine De Jesus MD / Blaine De Jesus MD Interpreting Provider: Blaine De Jesus MD Consult Discharge Plan - Plan Referrals: Ethel Kim, FRAME TABLE OPERATOR HELPER [Primary Care Provider] -
[2018-01-08] MEDS: Mirtazapine 15 MG TABLET PO SCH (20:04)
[2018-01-09] MEDS: *HR* Heparin 5,000 UNIT/ML VIAL SQ SCH (05:51)
[2018-01-09] MEDS: *HR* HYDROcodone/Acet 5/325 mg TABLET PO PRN (06:02)
--- NOTE | 2018-01-09 07:28 | Electrocardiograph Report ---
[address] [place] [address] Test Date: 2018-01-07 Pat Name: Miah Gonzalez Department: 102 Room: 3B54 Gender: M Audio Video Tech: : 1965 Requested By: Drew Barragan Order Number: [id number] Reading MD: Ernie Ly MD Measurements Intervals Java Rate: 71 P: 18 NV: 174 QRS: -26 QRSD: 105 T: 66 QT: 418 QTc: 440 Interpretive Statements SINUS RHYTHM POSSIBLE LATERAL MYOCARDIAL INFARCTION [30 ms Q WAVE IN I/aVL/V5/V6], OF INDETERMINATE AGE Electronically Signed On 01-09-2018 7:27:11 EDT by Ernie Ly MD
--- NOTE | 2018-01-09 07:45 | Discharge Summary ---
- NOTES TO OUTPATIENT PROVIDER Notes to Outpatient Provider: The patient came with altered mental status that was brief garbled speech that was transient. Work up showed nothing acute. Although this could have been a TIA, I really think there should be a concentrated effort in the outpatient setting to decrease the dosages or to elimante some of his medications. 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 Orders not resulted at time of discharge: Pending orders 01/07/18 12:33 Culture,Blood [BC] Stat Date of Encounter: 01/09/18 Time of Encounter: 07:43 - Discharge Diagnosis (1) Altered mental status Priority: Primary Status: Acute Qualifiers: Altered mental status type: disorientation Qualified Code(s): R41.0 - Disorientation, unspecified (2) Diabetes mellitus Priority: Secondary Status: Chronic Qualifiers: Diabetes mellitus type: type 2 Diabetes mellitus superintendent terminal insulin use: with superintendent terminal use Diabetes mellitus complication status: without complication Qualified Code(s): E11.9 - Type 2 diabetes mellitus without complications; Z79.4 - superintendent terminal (current) use of insulin; Z79.4 - halfway ( current) use of insulin; Z79.4 - superintendent terminal (current) use of insulin; Z79.4 - superintendent terminal (current) use of insulin (3) Hyperlipidemia Priority: Secondary Status: Chronic Qualifiers: Hyperlipidemia type: mixed hyperlipidemia Qualified Code(s): E78.2 - Mixed hyperlipidemia (4) Bipolar disorder Priority: Secondary Status: Chronic Qualifiers: Current bipolar episode type: mixed Current episode severity: moderate Qualified Code(s): F31.62 - Bipolar disorder, current episode mixed, moderate Hospital course: Mr. Gonzalez is a 52 year old male with history of arthritis, cirrhosis, coronary artery disease, diabetes, hyperlipidemia, hypertension, ID, presented to the ER with complaints of altered mental status, fall, garbled speech and lower extremity weakness. He apparently woke up elevated and his admission and suddenly fell out of bed when he stood up. He reported that his legs have been feeling weak and shaking over the past few days. He was recently diagnosed with pneumonia and was started on Levaquin for it. He was admitted to the hospitalist service for possible TIA. CT head came back with no acute abnormalities. MRI brain came back negative as well. The patient underwent a CT a of head and neck which was unremarkable without evidence of arterial stenosis or dissection. There was mention of nonspecific reticulonodular focus first his consolidation within the anterior right upper lobe and a CT chest was recommended. This was done as well which again showed confirmation of a right lower lobe consolidation typical for pneumonia. The patient was not started on antibiotics as he had no symptoms for pneumonia including fever. He had no leukocytosis. The patient recently finished antibiotics treatment for pneumonia as an outpatient. I had a discussion with the patient and his who works in our psych unit regarding have a discussion with his primary care physician or his psychiatrist to decrease the amount of medications that could affect his ADVERTISING COPY WRITER. The patient takes multiple psychiatric medications. This could very well have been a TIA as well. The patient is on statin and Plavix. I did increase the patient's Coreg as well as amlodipine and his blood pressure was somewhat elevated. I increased his Coreg from 25 mg twice a day to 50 TWICE a day. I increased his Norvasc from 5 mg daily to 10 mg daily. Patient was stable for discharge on 01/09/2018 as he had no symptoms whatsoever. He was alert and oriented 3. He was ambulatory without any deficits. I walked the patient myself in the hallways and had no issues. He showed no weakness whatsoever. - Time Spent with Patient Total time spent providing and/or coordinating discharge services: Greater than 30 minutes - Discharge Medications Prescriptions: amLODIPine [Norvasc] 10 mg PO DAILY #30 tablet Carvedilol [Coreg] 50 mg PO BID #60 tablet Home Medications: Alprazolam [Xanax] 1 mg PO TID 04/29/16 [History] Insulin ASPART [Novolog Flexpen] 10 - 16 unit SQ TIDWM 04/29/16 [History] Mirtazapine [Remeron] 45 mg PO HS 04/29/16 [History] Insulin DETEMIR [Levemir Flextouch] 40 unit SQ QAM 06/12/16 [History] Prazosin [Minipress] 2 mg PO HS 06/12/16 [History] Atorvastatin [Lipitor] 40 mg PO HS #30 tablet 06/20/16 [Rx] Clopidogrel [Plavix] 75 mg PO DAILY #30 tablet 06/20/16 [Rx] Lisinopril [Zestril] 10 mg PO BID 08/25/16 [History] Multivitamin with Minerals [One-A-Day Maximum Formula] 1 tab PO DAILY 04/04/17 [ History] [place]-3/Dha/Epa/Fish Oil [Fish Oil 1,000 mg Softgel] 1,000 mg PO DAILY 04/04/17 [History] Ranolazine [Ranexa] 1,000 mg PO BID #60 tab.er.12h 04/06/17 [Rx] Tamsulosin [Flomax] 0.4 mg PO DAILY #30 04/27/17 [Rx] Acetaminophen [Tylenol] 500 mg PO Q6HR PRN #0 05/01/17 [Rx] Cholecalciferol (D-3) [Vitamin D] 5,000 unit PO DAILY 10/18/17 [History] Cyclobenzaprine [Flexeril] 5 mg PO TID PRN 10/18/17 [History] Diclofenac Sodium [Voltaren] 1 appl TP QID PRN 10/18/17 [History] Ferrous Sulfate [Iron] 325 mg PO DAILY 10/18/17 [History] Fluticasone Propionate Nasal [Flonase] 100 mcg NS DAILY 10/18/17 [History] Furosemide [Lasix] 40 mg PO BID 10/18/17 [History] Gabapentin [Neurontin] 300 mg PO TID 10/18/17 [History] Haloperidol 4 mg PO HS 10/18/17 [History] Insulin DETEMIR [Levemir Flextouch] 50 unit SQ QPM 10/18/17 [History] Linaclotide [Linzess] 145 mcg PO DAILY 10/18/17 [History] Quetiapine Fumarate [Seroquel] 500 mg PO HS 10/18/17 [History] Hydrocodone/Acetaminophen [Hydrocodon-Acetaminophen 5-325] 1 tab PO Q4-6H PRN [History] Pantoprazole Sodium [Protonix] 40 mg PO BID 01/07/18 [History] Sennosides/Docusate Sodium [Senna Plus] 2 tab PO BID 01/07/18 [History] Carvedilol [Coreg] 50 mg PO BID #60 tablet 01/09/18 [Rx] amLODIPine [Norvasc] 10 mg PO DAILY #30 tablet 01/09/18 [Rx] Allergies/Adverse Reactions: 3 Allergy/AdvReac Type Severity Reaction Status Date / Time codeine AdvReac Vomiting Verified 01/07/18 08:10 Date of admission: 01/07/18 10:59 Primary care physician: Ethel Kim CNP - Constitutional Vitals: Temp Pulse Resp BP Pulse Ox 98.7 F 84 14 163/106 95 01/09/18 07:02 01/09/18 07:02 01/09/18 07:02 01/09/18 07:02 01/09/18 07:02 General appearance: Present: cooperative, A&O X 3, no acute distress, answers questions appropriately Exam: GEN: NAD CVS: RRR. S1, S2, No m/r/g RESP: CTAB ABD: Soft, NT, ND, +BS EXT: No edema. 2+ DP. No rashes NEURO: Nonfocal - Patient Status Disposition: Home, Self-Care Condition: Fair Overall status at discharge: patient is progressing back to baseline - Discharge Instructions Instructions: Amlodipine (By mouth), Carvedilol (By mouth), Chronic Hypertension (DC) Follow Up With: Ethel Kim CNP [Primary Care Provider] - 01/15/18 10:35 am - Diet and Activity Activity: increase activity as tolerated Diet: diabetic diet
[2018-01-09] MEDS: Furosemide 40 MG TABLET PO SCH (08:23)
[2018-01-09] MEDS: Ranolazine 500 MG TAB.ER.12H PO SCH (08:23)
[2018-01-09] MEDS: Multivit/Ca/Min/Fe/FA 1 TAB TABLET PO SCH (08:23)
[2018-01-09] MEDS: Cholecalciferol (D-3) 1,000 UNIT TABLET PO SCH (08:24)
[2018-01-09] MEDS: Gabapentin 300 MG CAPSULE PO SCH (08:24)
[2018-01-09] MEDS: GuaiFENesin/Dextromethorphan TABLET PO SCH (08:24)
[2018-01-09] MEDS: Sennosides/Docusate Sodium TABLET PO SCH (08:25)
[2018-01-09] MEDS: ALPRAZolam 1 MG TABLET PO PRN (08:26)
[2018-01-09] MEDS: Fluticasone Propionate Nasal 50 MCG/SPRAY BOTTLE NS SCH (08:31)
[2018-01-09] MEDS: Insulin LISPRO 300 UNITS/3 ML VIAL SQ SCH (08:32)
[2018-01-09] MEDS: (Omega-3/Dha/Epa/Fish Oil [Fish Oil 1,000 Mg Softgel] PO SCH (08:33)
[2018-01-09] MEDS: (Linaclotide [Linzess] 145 MCG) PO SCH (08:33)
[2018-01-09] MEDS ORDERED: amLODIPine 5 MG TABLET PO SCH (09:00)
[2018-01-09] MEDS ORDERED: ALPRAZolam 1 MG TABLET PO SCH (09:00)
[2018-01-09 11:12] VITALS: BP 100/68
[2018-01-09] MEDS: amLODIPine 5 MG TABLET PO SCH (12:01)
== END 2018-01-09 13:04 | disposition home or self-care (01) ==
LOC: EMEROO 08:08 → 3BNU 08:08
PROVIDERS: ADMIT Internal Medicine; ATTEND Internal Medicine

== ENCOUNTER 2019-02-21 08:30 | Inpatient (IN) ==
[2019-02-21] MEDS ORDERED: 0.9 % Sodium Chloride 1,000 ML IVC ONE (08:47)
[2019-02-21] MEDS ORDERED: Ipratropium/Albuterol Neb 3 ML IH ONE (09:05)
[2019-02-21] MEDS ORDERED: methylPREDNISolone 125 MG/2 ML VIAL IVP ONE (09:05)
--- NOTE | 2019-02-21 09:09 | Emergency Department Note ---
Disposition Clinical Impression: Community acquired bacterial pneumonia, Acute kidney injury Sepsis Qualifiers: Sepsis type: sepsis due to unspecified organism Qualified Code(s): A41.9 - Sepsis, unspecified organism Congestive heart failure Qualifiers: Heart failure type: unspecified Heart failure chronicity: acute Qualified Code(s): I50.9 - Heart failure, unspecified Disposition: Admitted As Inpatient Condition: Fair Referrals: Ethel Kim [employer] [Primary Care Provider] - Forms: ED Satisfaction Letter Time of Disposition: 09:49 General Adult HPI - General Chief complaint: ED Weakness Stated complaint: Low O2 Sats / Hypotension Time Seen by Provider: 02/21/19 08:41 Source: patient Mode of arrival: ambulatory Limitations: no limitations Nursing Notes Reviewed: Yes Vital Signs Reviewed: Yes - History of Present Illness HPI Narrative: Patient presenting to the ED with the chief complaint of cough and shortness of breath. Patient states that he has been "fighting bronchitis" for a while. HAs had a subjective fever but denies chills. Denies any chest pain. Does have some chest tightness. His main complaint is difficulty breathing. Does seem to get worse with exertion. + productive cough that is different from baseline. Had some sick contacts a few weeks ago that he thinks he caught something from. Denies any abdominal pain, nausea, vomiting, diarrhea, rash, pain or swelling in his legs. No history of DVT, PE or malignancy Pain Scale: 0 - Related Data Home Medications Medication Instructions Recorded Confirmed Alprazolam [Xanax] 1 mg PO QID PRN 04/29/16 12/12/18 Insulin ASPART [Novolog Flexpen] 10 - 16 unit SQ TIDAC 04/29/16 12/12/18 Mirtazapine [Remeron] 45 mg PO HS 04/29/16 12/11/18 Insulin DETEMIR [Levemir Flextouch] 60 unit SQ HS 06/12/16 12/12/18 Prazosin [Minipress] 5 mg PO HS 06/12/16 12/11/18 Lisinopril [Zestril] 20 mg PO BID 08/25/16 12/12/18 Multivitamin with Minerals 1 tab PO DAILY 04/04/17 12/11/18 [One-A-Day Maximum Formula] [place]-3/Dha/Epa/Fish Oil [Fish Oil 1,000 mg PO DAILY 04/04/17 12/11/18 1,000 mg Softgel] Cholecalciferol (D-3) [Vitamin D] 5,000 unit PO DAILY 10/18/17 12/11/18 Fluticasone Propionate Nasal 50 mcg NS BID 10/18/17 12/11/18 [Flonase] Furosemide [Lasix] 20 mg PO DAILY 10/18/17 12/12/18 Gabapentin [Neurontin] 300 mg PO TID 10/18/17 12/12/18 Insulin DETEMIR [Levemir Flextouch] 50 unit SQ QAM 10/18/17 12/12/18 Quetiapine Fumarate [Seroquel] 400 mg PO HS 10/18/17 12/11/18 Pantoprazole Sodium [Protonix] 40 mg PO BID 01/07/18 12/11/18 Sennosides/Docusate Sodium [Senna 2 tab PO DAILY 01/07/18 12/11/18 Plus] Carvedilol [Coreg] 25 mg PO BIDWM 12/09/18 12/12/18 Clotrimazole 1% CRM [Lotrimin 1%] 1 appl TP BID 12/09/18 12/12/18 Haloperidol [Haldol] 5 mg PO HS 12/09/18 12/11/18 Loratadine [Claritin] 10 mg PO DAILY 12/09/18 12/11/18 Melatonin 15 mg PO HS 12/09/18 12/12/18 Spironolactone [Aldactone] 25 mg PO DAILY 12/09/18 12/11/18 Venlafaxine HCl [Venlafaxine HCl 37.5 mg PO DAILY 12/09/18 12/11/18 ER] Venlafaxine HCl [Venlafaxine HCl 150 mg PO DAILY 12/09/18 12/11/18 ER] Acetaminophen [Tylenol] 500 mg PO BID PRN 12/11/18 12/11/18 Albuterol Sulfate [Albuterol 2 puff IH Q4H PRN 12/12/18 12/12/18 Inhaler] HYDROcodone/Acet 5/325 mg [[place] 1 tab PO BID PRN 12/12/18 12/12/18 5-325 mg] Polyethylene Glycol 3350 [MiraLAX] 17 gm PO DAILY 12/12/18 12/12/18 Previous Rx's Medication Instructions Recorded Ranolazine [Ranexa] 1,000 mg PO BID #60 tab.er.12h 04/06/17 Tamsulosin [Flomax] 0.4 mg PO DAILY #30 04/27/17 Atorvastatin [Lipitor] 40 mg PO HS #30 tablet 12/13/18 Azithromycin [Zithromax] 250 mg PO Q24H #2 tablet 12/13/18 Benzonatate [Tessalon] 100 mg PO TID PRN #30 capsule 12/13/18 Budesonide/Formoterol 80/4.5 2 puff IH BIDR #1 inhaler 12/13/18 [Symbicort 80/4.5] Sodium Chloride [Sodium Chloride 1 gm PO TID #90 tablet 12/13/18 Tab] predniSONE [PredniSONE] 10 mg PO TAPER #10 tablet 12/13/18 Allergies Allergy/AdvReac Type Severity Reaction Status Date / Time codeine AdvReac Vomiting Verified 01/07/18 08:10 levofloxacin [From Levaquin] AdvReac See Verified 12/09/18 09:09 Comments Review of Systems: As reviewed in the HPI. All other systems reviewed are negative or normal. Past Medical History - Past Medical History Attestation: Yes The following information was validated with the patient. Source: patient Medical history: Reports: coronary artery disease, diabetes, hypertension Surgical history: Reports: angioplasty/stent, cholecystectomy, other Psychiatric history: Reports: anxiety, bipolar, depression, PTSD - Social History Smoking Status: Never smoker Smokeless Tobacco Status: No Alcohol use: Reports: none Drug use: Reports: none Physical Exam CONSTITUTIONAL: [well appearing, alert and in no acute distress] EYES: [EOMI, clear conjunctiva, PERRLA] HENT: [Normocephalic, atraumatic, moist mucus membranes, normal oropharynx] NECK: [normal inspection, full ROM, trachea midline, no obvious swelling] PULMONARY: [No respiratory distress, rhonchi throughout, poor expiration CARDIOVASCULAR: [regular rate, regular rhythm, normal heart sounds, no murmurs, distal extremities are warm and well perfused] GASTROINSTESTINAL: [soft, non-tender, non-rigid, non-distended, no guarding, no rebound, normal bowel sounds] GENITOURINARY/RECTAL: [deferred] NEUROLOGIC: [Alert, oriented x3, normal speech, moves all extremities] EXTREMITIES: [Normal inspection, full ROM, no tenderness, no pedal edema, normal capillary refill] MUSCULOSKELETAL: [no gross deformities, atraumatic] SKIN: [No cyanosis, no diaphoresis, normal color, warm, no rash] PSYCHIATRIC: [normal mood and affect] - General General appearance: lethargic Course Course Narrative: Patient presenting with hypoxia. Mild hypotension and clinical pneumonia. We will get labs and admit. Patient has a leukocytosis, lactic and troponin are normal, he is receiving IV fluid bolus. We gave him Rocephin and azithromycin. Spoke with hospitalist, who did accept the patient for admission, but he did request that we order a CT of the chest with IV contrast, which we did and will be followed up on the floor. Patient agreeable with the plan. - Reevaluation(s) Reevaluation #1: Patient's GFR is low. Unable to order a CT with IV contrast. We will hold off at this time and allow the hospitalist service to evaluate the necessity or allow for rehydration and imaging once gfr normalizes. Reevaluation #2: although patient is mildly hypotensive with SBP 80-90, his MAP has been 65+. Do not feel vasopressor management needed at this time. - Consultations Consultation #1: Patient reevaluated after IV fluid bolus. His pressure has come up some with IV fluids. However, patient is now clinically developing pulmonary edema. He has rails and sounds wet. His last ejection fraction was 55%. However, his BNP is elevated. He was placed on BiPAP due to increased work of breathing and his edema. The hospitalist also came down to evaluate him as he will now need to go to 2 N. Patient does seem to be tolerating the BiPAP well. Repeat chest x-ray shows developing pulmonary edema. Questionable if this is coming from congestive heart failure, so he did want us to order 40 mg of IV Lasix, which we did. Since we were unable to do the contrast that CT of his chest. We did do a noncontrast CT to further evaluate the pneumonia versus effusion versus chronically elevated diaphragm. Time: 11:12 Vital Signs Temperature 100.6 F H 02/21/19 08:31 Pulse Rate 88 02/21/19 08:31 Respiratory Rate 16 05/09/19 08:31 Blood Pressure 91/63 05/09/19 08:31 O2 Sat by Pulse Oximetry 90 02/21/19 08:31 Temperature 100.6 F H 02/21/19 08:31 Pulse Rate 75 02/21/19 10:53 Respiratory Rate 31 02/21/19 11:10 Blood Pressure 85/64 02/21/19 11:10 O2 Sat by Pulse Oximetry 97 02/21/19 11:10 Oxygen Delivery Oxygen Delivery Simple Mask Medical Decision Making - Medical Records Medical records reviewed: Yes I reviewed the patient's medical records. - Lab Data Lab results reviewed: Yes I reviewed the patient's lab results. Result diagrams: 02/21/19 08:59 02/21/19 08:59 Lab Results 02/21/19 02/21/19 02/21/19 Range/Units 08:59 08:59 08:59 WBC 15.7 H (4.3-11.1) K/mcL RBC 3.68 L (4.19-5.50) M/mcL Hgb 11.4 L (12.9-16.9) g/dL Hct 33.7 L (37.5-50.1) % MCV 91.6 (83.0-100.0) fL MCH 31.0 (28.0-33.3) pg MCHC 33.8 (31.6-35.5) g/dL RDW 13.6 (11.5-14.5) % Plt Count 160 (140-400) K/mcL MPV 10.1 (9.4-12.4) fL Seg Neutrophils % 68.0 % Band Neutrophils % 12.0 H (0-4) % Lymphocytes % 10.0 % Monocytes % 10.0 % Neutrophils # 12.6 H (1.6-8.9) K/mcL Lymphocytes # 1.6 (0.6-4.6) K/mcL Monocytes # 1.6 H (0.0-1.3) K/mcL Platelet Estimate Normal (Normal) Anisocytosis 1+ A (Not Present) Sodium 127 L (136-145) mEq/L Potassium 4.8 (3.5-5.1) mEq/L Chloride 88 L (98-107) mEq/L Carbon Dioxide 27 (23-29) mEq/L BUN 35 H (6-20) mg/dL Creatinine 2.83 H (0.70-1.30) mg/dL Est GFR ( Amer) 28 L (> 60) Est GFR (Non-Af Amer) 23 L (> 60) BUN/Creatinine Ratio 12 (6-26) Glucose 432 H (70-105) mg/dL Calculated Osmolality 291 (280-300) Lactic Acid (0.5-2.2) mmol/L Calcium 8.8 (8.6-10.3) mg/dL Troponin I 0.03 (< 0.04) ng/mL B-Natriuretic Peptide 327 H (Less than 100) pg/mL 02/21/19 02/21/19 Range/Units 09:12 10:43 WBC (4.3-11.1) K/mcL RBC (4.19-5.50) M/mcL Hgb (12.9-16.9) g/dL Hct (37.5-50.1) % MCV (83.0-100.0) fL MCH (28.0-33.3) pg MCHC (31.6-35.5) g/dL RDW (11.5-14.5) % Plt Count (140-400) K/mcL MPV (9.4-12.4) fL Seg Neutrophils % % Band Neutrophils % (0-4) % Lymphocytes % % Monocytes % % Neutrophils # (1.6-8.9) K/mcL Lymphocytes # (0.6-4.6) K/mcL Monocytes # (0.0-1.3) K/mcL Platelet Estimate (Normal) Anisocytosis (Not Present) Sodium (136-145) mEq/L Potassium (3.5-5.1) mEq/L Chloride (98-107) mEq/L Carbon Dioxide (23-29) mEq/L BUN (6-20) mg/dL Creatinine (0.70-1.30) mg/dL Est GFR ( Amer) (> 60) Est GFR (Non-Af Amer) (> 60) BUN/Creatinine Ratio (6-26) Glucose (70-105) mg/dL Calculated Osmolality (280-300) Lactic Acid 1.5 0.9 (0.5-2.2) mmol/L Calcium (8.6-10.3) mg/dL Troponin I (< 0.04) ng/mL B-Natriuretic Peptide (Less than 100) pg/mL - Radiology Data Radiology results reviewed: Yes I reviewed the patient's radiology results. - EKG Data EKG #1 EKG attestation: Yes I reviewed and interpreted this EKG. EKG results narrative: Sinus rhythm, rate 86, left axis deviation, no acute ischemic change Attestation Statement - Attestation Attestation: Resident Attestation: I examined this patient and my medical decision making was reviewed with the Resident Physician. I agree with the documented findings, disposition and treatment plan as described except to the extent set forth below. We independently had [id number] contact with the patient. Patient presenting to the emergency department for evaluation of shortness breath. Patient has had a cough for last 2 weeks. Take azithromycin. Patient does have history of previous inhaler use, CHF, CAD, diabetes. Patient does have a fever as well has blood pressure of 90 systolic. Patient will undergo further evaluation for possible pneumonia. Patient will receive fluid bolus as well as further evaluation of underlying sepsis. Patient has new baseline oxygen requirement. Does have oxygen at home as needed. Patient will require admission. Mild respiratory distress with associated wheezing the posterior lung sotomayor worse on the right.
[2019-02-21 09:16] LABS: Hematocrit 33.7 % (37.5-50.1); Hemoglobin 11.4 g/dL (12.9-16.9); Mean Corpuscular HGB Conc 33.8 g/dL (31.6-35.5); Mean Corpuscular Volume 91.6 fL (83.0-100.0); Mean Platelet Volume 10.1 fL (9.4-12.4); Platelet Count 160 K/mcL (140-400); Red Blood Count 3.68 M/mcL (4.19-5.50); Red Cell Distribution Width 13.6 % (11.5-14.5)
[2019-02-21] MEDS ORDERED: Azithromycin 500 MG in D5% in Water 250 ML IVPB ONE (09:30)
[2019-02-21 09:36] LABS: Calcium 8.8 mg/dL (8.6-10.3); Potassium 4.8 mEq/L (3.5-5.1); Troponin I 0.03 ng/mL (< 0.04)
[2019-02-21 09:41] LABS: Anisocytosis 1+ (Not Present); Lymphocytes # 1.6 K/mcL (0.6-4.6); Monocytes # 1.6 K/mcL (0.0-1.3); Neutrophils # 12.6 K/mcL (1.6-8.9); Platelet Estimate Normal (Normal)
[2019-02-21] MEDS ORDERED: Isovue-370 500 ML BOTTLE IVP ONE (09:45)
[2019-02-21] MEDS ORDERED: cefTRIAXone 1,000 MG in Water for inj. (sterile) 20 ML 10 ML IVP ONE (10:03)
[2019-02-21] MEDS: 0.9 % Sodium Chloride 1,000 ML IVC SCH ×2 (10:20→10:35)
[2019-02-21] MEDS ORDERED: Naloxone 0.4 MG/ML INJ IVP PRN (10:30)
[2019-02-21] MEDS ORDERED: D5% in Water 1,000 ML IVC PRN ×2 (10:40→21:58)
[2019-02-21] MEDS ORDERED: Dextrose Gel 15 GM/37.5 ML TUBE PO PRN ×2 (10:40)
[2019-02-21] MEDS ORDERED: *HR* Dextrose 50 % in Water (Syg) 50 ML SYRINGE IVP PRN (10:40)
[2019-02-21] MEDS ORDERED: 0.9 % Sodium Chloride 1,000 ML IVC SCH (10:45)
[2019-02-21] MEDS ORDERED: Piperacillin/Tazobactam 3.375 GM in 0.9 % Sodium Chloride Mini Bag 100 ML IVPB ONE (10:50)
[2019-02-21] MEDS ORDERED: Furosemide 40 MG/4 ML VIAL IVP ONE (11:09)
--- NOTE | 2019-02-21 11:31 | Internal Med History&Physical ---
Date of Encounter: 02/21/19 Time of Encounter: 11:00 Internal Medicine - H&P: HPI Chief complaint: Coughing and shortness of breath for a couple of days History of present illness: Mr. Gonzalez is a 53 year old male with pmh of hypertension, diabetes, CAD, diastolic CHF presenting with complaints of coughing of 4 days duration and shortness of breath of 10 days duration. Patient notes he has been getting easily fatigued and more short of breath in the last couple of days. Also complained of a cough with greenish phlegm in the last 4 days. He went to his PCP who gave him azithromycin but he says he continued to feel short of breath with coughing . He also says he took extra doses of lasix at home as well with no improvement in his shortness of breath. He has had fevers at home but denies chills. he admits to sick contacts recently that he thinks he may have caught something from. He denies other acute symptoms In the ER, he was noted ot be hypoxic in the high 80s on arrival and hypotensive in the 70s. he was started on aggressive fluid resuscitation but became short of breath and had to get a dose of lasix. He is being admitted for further management Past Med Surg Social Fam HX - Past Medical History Medical history: coronary artery disease, diabetes, hypertension Additional medical history: anemia, DDD Psychiatric history: anxiety, bipolar, depression, PTSD - Past Surgical History Surgical History: angioplasty/stent, cholecystectomy, other Additional surgical history: 1 cardiac stent, right tonsil removal-abcess - Social History Smoking Status: Never smoker Smokeless Tobacco Status: No Alcohol use: none Drug use: none - Family History Father Family Member Ethnicity: Non- Living Status: Hx Family Cardiac Disorders: Yes Hx Family Respiratory Disorders: No Hx Family Cancer: No Hx Family GI Disorders: No Hx Family Endocrine Disorder: Yes Hx Family Neuromuscular Disorders: No Hx Family Neurologic Disorders: Yes Hx Family HEENT Disorders: No Hx Family Autoimmune Disorders: Yes Mother Family Member Ethnicity: Non- Living Status: Hx Family Cardiac Disorders: No Hx Family Respiratory Disorders: Yes Hx Family Cancer: Yes Hx Family GI Disorders: No Hx Family Endocrine Disorder: Yes Hx Family Neuromuscular Disorders: No Hx Family Neurologic Disorders: Yes Hx Family HEENT Disorders: No Hx Family Autoimmune Disorders: Yes Internal Medicine - H&P: Meds Alprazolam [Xanax] 1 mg PO QID PRN 04/29/16 [History] Insulin ASPART [Novolog Flexpen] 10 - 16 unit SQ TIDAC 04/29/16 [History] Mirtazapine [Remeron] 45 mg PO HS 04/29/16 [History] Insulin DETEMIR [Levemir Flextouch] 60 unit SQ HS 06/12/16 [History] Prazosin [Minipress] 5 mg PO HS 06/12/16 [History] Lisinopril [Zestril] 20 mg PO BID 08/25/16 [History] Multivitamin with Minerals [One-A-Day Maximum Formula] 1 tab PO DAILY 04/04/17 [History] [place]-3/Dha/Epa/Fish Oil [Fish Oil 1,000 mg Softgel] 1,000 mg PO DAILY 04/04/17 [History] Ranolazine [Ranexa] 1,000 mg PO BID #60 tab.er.12h 04/06/17 [Rx] Tamsulosin [Flomax] 0.4 mg PO DAILY #30 04/27/17 [Rx] Cholecalciferol (D-3) [Vitamin D] 5,000 unit PO DAILY 10/18/17 [History] Fluticasone Propionate Nasal [Flonase] 50 mcg NS BID 10/18/17 [History] Furosemide [Lasix] 20 mg PO DAILY 10/18/17 [History] Gabapentin [Neurontin] 300 mg PO TID 10/18/17 [History] Insulin DETEMIR [Levemir Flextouch] 50 unit SQ QAM 10/18/17 [History] Quetiapine Fumarate [Seroquel] 400 mg PO HS 10/18/17 [History] Pantoprazole Sodium [Protonix] 40 mg PO BID 01/07/18 [History] Sennosides/Docusate Sodium [Senna Plus] 2 tab PO DAILY 01/07/18 [History] Carvedilol [Coreg] 25 mg PO BIDWM 12/09/18 [History] Clotrimazole 1% CRM [Lotrimin 1%] 1 appl TP BID 12/09/18 [History] Haloperidol [Haldol] 5 mg PO HS 12/09/18 [History] Loratadine [Claritin] 10 mg PO DAILY 12/09/18 [History] Melatonin 15 mg PO HS 12/09/18 [History] Spironolactone [Aldactone] 25 mg PO DAILY 12/09/18 [History] Venlafaxine HCl [Venlafaxine HCl ER] 37.5 mg PO DAILY 12/09/18 [History] Venlafaxine HCl [Venlafaxine HCl ER] 150 mg PO DAILY 12/09/18 [History] Acetaminophen [Tylenol] 500 mg PO BID PRN 12/11/18 [History] Albuterol Sulfate [Albuterol Inhaler] 2 puff IH Q4H PRN 12/12/18 [History] HYDROcodone/Acet 5/325 mg [[place] 5-325 mg] 1 tab PO BID PRN 12/12/18 [History] Polyethylene Glycol 3350 [MiraLAX] 17 gm PO DAILY 12/12/18 [History] Atorvastatin [Lipitor] 40 mg PO HS #30 tablet 12/13/18 [Rx] Azithromycin [Zithromax] 250 mg PO Q24H #2 tablet 12/13/18 [Rx] Benzonatate [Tessalon] 100 mg PO TID PRN #30 capsule 12/13/18 [Rx] Budesonide/Formoterol 80/4.5 [Symbicort 80/4.5] 2 puff IH BIDR #1 inhaler 12/13/18 [Rx] Sodium Chloride [Sodium Chloride Tab] 1 gm PO TID #90 tablet 12/13/18 [Rx] predniSONE [PredniSONE] 10 mg PO TAPER #10 tablet 12/13/18 [Rx] Allergy/AdvReac Type Severity Reaction Status Date / Time codeine AdvReac Vomiting Verified 01/07/18 08:10 levofloxacin [From Levaquin] AdvReac See Verified 12/09/18 09:09 Comments All Systems PM: A 10-system review of systems was performed and is negative for pertinent findings except as documented above in the HPI. - Constitutional Constitutional: no chills, no fever(s), no night sweats - EENT Eyes: no change in vision, no discharge, no pain, no photophobia Ears: no ear discharge, no ear pain, no tinnitus Nose, mouth and throat: no dysphagia, no nasal discharge, no neck pain, no sore throat - Cardiovascular Cardiovascular ROS IM: dyspnea, no chest pain, no diaphoresis, no lightheadedness, no palpitations, no syncope - Respiratory Respiratory: cough, dyspnea, wheezing, change in phlegm color, no excessive phlegm production - Gastrointestinal Gastrointestinal: no abdominal pain, no diarrhea, no hematemesis, no hematochezia, no melena, no nausea, no vomiting - Musculoskeletal Musculoskeletal ROS IM: no numbness, no tingling - Integumentary Integumentary IM: no rash, no unusual bruising - Neurological Neurological ROS: no confusion, no convulsions, no focal weakness, no numbness, no tingling, no tremor(s) - Hematologic/Lymphatic Hematologic/Lymphatic: no easy bruising - Constitutional Vitals: Temp Pulse Resp BP Pulse Ox 100.6 F H 75 31 85/64 97 02/21/19 08:31 02/21/19 10:53 02/21/19 11:10 02/21/19 11:10 02/21/19 11:10 General appearance: Present: mild distress Exam: Pt is in moderate respiratory distress and breathing in short sentences - Head Head exam: Present: atraumatic, normocephalic - Eye Eye exam: Present: PERRL, conjuntiva pink, sclera anicteric Pupils: Present: PERRL - Neck Neck exam general surgery: Present: supple, trachea midline. Absent: lymphadenopathy - Respiratory Respiratory exam: Present: decreased breath sounds, rales, respiratory distress. Absent: accessory muscle use, rhonchi, wheezes - Cardiovascular Cardiovascular exam: Present: RRR, +S1, +S2. Absent: diastolic murmur, gallop, rubs, systolic murmur - GI/Abdominal GI/Abdominal exam: Present: normal bowel sounds, soft, no peritoneal signs. Absent: distended, tenderness - Extremities Exam Extremities exam: Present: warm, radial pulses palpable and symmetrical. Absent: calf tenderness, cyanotic, pedal edema - Neurological Exam Neurological exam: Present: CN II-XII intact, oriented X3, no focal deficits. Absent: pronater drift, facial droop, speech deficit - Skin Skin exam: Present: dry, intact Internal Med - H&P Results - Labs CBC & Chem 7: 02/21/19 08:59 02/21/19 08:59 Labs: Short CBC 02/21/19 Range/Units 08:59 WBC 15.7 H (4.3-11.1) K/mcL Hgb 11.4 L (12.9-16.9) g/dL Hct 33.7 L (37.5-50.1) % Plt Count 160 (140-400) K/mcL Neutrophils # 12.6 H (1.6-8.9) K/mcL BMP 02/21/19 08:59 Sodium 127 L Potassium 4.8 Chloride 88 L Carbon Dioxide 27 BUN 35 H Creatinine 2.83 H Glucose 432 H Calcium 8.8 Cardiac Enzymes 02/21/19 Range/Units 08:59 Troponin I 0.03 (< 0.04) ng/mL - Impressions ITS Impressions Chest X-Ray 02/21/19 08:48 IMPRESSION: Right perihilar and infrahilar interstitial opacities which are nonspecific but may represent bronchitis or other infectious/inflammatory process. D/ / Beba Hicks MD / Beba Hicks MD Interpreting Provider: Beba Hicks MD Chest X-Ray 02/21/19 11:04 IMPRESSION: Right parahilar and right upper lobe opacification could represent atelectatic changes or pneumonia D/ / Jono Rizvi MD / Jono Rizvi MD Interpreting Provider: Jono Rizvi MD - Assessment and Plan (1) Acute respiratory failure with hypoxia Current Visit: Yes Status: Acute Assessment and plan: Pt comes in with shortness of breath and wheezing with productive cough. Was hydrated in the Er and became more short of breath Etiology secondary to a combination of acute worsening of chronic diastolic CHF and bacterial/viral pneumonia Obtain blood cultures, respiratory panel., ABG Start on BIPAP, diuretics, nebs , steroids and antibiotics Pulmonology consulted and appreciate recs (2) Sepsis Current Visit: Yes Status: Acute Assessment and plan: Likely secondary to bacterial and viral pneumonia. WBC was 15 and temp was 100.6. one lactate WNL Obtain blood cultures, urine legionella and streptococcal antigens. He was also hypotensive. He was resuscitated aggressively fluid and went into CHF Received one dose of lasix Started on vanc and zosyn Qualifiers: Sepsis type: sepsis due to unspecified organism Qualified Code(s): A41.9 - Sepsis, unspecified organism (3) Community acquired bacterial pneumonia Current Visit: Yes Status: Acute Assessment and plan: See#2 . Obtain respiratory panel. Started on vanc and zosyn. CXR shows opacities follow up CT chest (4) Acute kidney injury Current Visit: Yes Status: Acute Assessment and plan: Pt comes in with SANDEEP compared to baseline. IS now fluid overloaded from Normal saline. Will diurese and monitor creatinine (5) Congestive heart failure Current Visit: Yes Status: Acute Assessment and plan: Acute worsening of chronic diastolic CHF Will start on lasix BID Qualifiers: Heart failure type: unspecified Heart failure chronicity: acute Qualified Code(s): I50.9 - Heart failure, unspecified (6) Acute exacerbation of chronic obstructive airways disease Current Visit: Yes Status: Acute Assessment and plan: Complaings of coughing prdocutive of green phlegm , wheezing and shortnees of breath No established diagnosis of COPD. WIll start on nebs, steroids and antibiotics Outpatient with pulm (7) Hyponatremia Current Visit: Yes Status: Acute Assessment and plan: Diurese and monitor BMP (8) DVT prophylaxis Current Visit: Yes Status: Acute Assessment and plan: heparin sc - Time Spent With Patient Total time spent is greater than 50% in coordination of care (as documented) at patient's floor/unit and/or counseling patient:
--- NOTE | 2019-02-21 11:47 | Electrocardiograph Report ---
[place] [id number] Test Date: 2019-02-21 Pat Name: Miah Gonzalez Department: [id number] Room: Gender: M Color Grinder: : 1965 Requested By: Julius Brooks Order Number: [id number] Reading MD: Todd Kennedy Measurements Intervals [place] Rate: 86 P: 17 [place]: 155 QRS: -15 QRSD: 95 T: 76 QT: 375 QTc: 449 Interpretive Statements Sinus rhythm Abnormal R-wave progression, early transition Baseline wander in lead(s) V1 Electronically Signed On 02-21-2019 11:46:09 EDT by Todd Kennedy
[2019-02-21] MEDS ORDERED: Vancomycin 1 EACH in 0.9 % Sodium Chloride 250 ML IVPB SCH (12:00)
--- NOTE | 2019-02-21 13:22 | Pulmonology Consult Note ---
<David Garcia - Last Filed: 02/21/19 16:37> Date of Encounter: 02/21/19 Time of Encounter: 13:22 Assessment and Plan (1) Severe sepsis Current Visit: Yes Status: Acute On arrival to the ER, patient was hypotensive with a blood pressure of 91/63, febrile 100.6 with a respiration rate of 23. Patient was on 2 L nasal cannula satting at 90%. On initial evaluation, the ER physician's chief the patient 2 L normal saline bolus. Patient's blood pressure remained steady however did not seem to be fluid responsive. During this time his map remained above 65, therefore central line and pressors were not indicated Suspected source of pneumonia confirmed by chest x-ray and right perihilar and right upper lobe opacification Patient was started on ceftriaxone and azithromycin while in the ER He was switched to vancomycin and Zosyn Blood culturesx2 have been drawn on 02/21/2019, pending Pending Legionella and streptococcal antigens Continue slow diuresis given SANDEEP Given history of CHF, with pulmonary edema following 2 L, suggest slow fluid hydration with low threshold for central line placement and pressor management (2) Pneumonia Current Visit: No Status: Chronic Most likely bacterial versus viral pneumonia, as patient has no history of recent hospitalization suspect community-acquired pneumonia Patient was given 1 dose of azithromycin and ceftriaxone in the ED Patient currently on vancomycin and Zosyn, day one Blood cultures pending Per primary team, CT of the chest is pending Respiratory panel pending Qualifiers: Pneumonia type: due to unspecified organism Laterality: right Lung location: lower lobe of lung Qualified Code(s): J18.1 - Lobar pneumonia, unspecified organism (3) Congestive heart failure Current Visit: Yes Status: Acute Patient with history of diastolic heart failure Following fluid resuscitation in the ER, repeat chest x-ray shows patient with pulmonary edema Patient was given 1 dose of Lasix in the ER, 40 mg IV, agree with continuing Lasix twice a day Continue to monitor kidney function Echocardiogram performed in 12/2017 shows EF of 55% with mild left ventricular dysfunction Continue BiPAP Consider repeat echocardiogram Qualifiers: Heart failure type: unspecified Heart failure chronicity: acute Qualified Code(s): I50.9 - Heart failure, unspecified (4) Acute exacerbation of chronic obstructive airways disease Current Visit: Yes Status: Acute Patient with underlying history of COPD. He does have change in cough with sputum production. Suspect COPD exacerbation along with pneumonia. Continue steroid regimen Continue BiPAP Continue DuoNeb (5) Acute kidney injury (nontraumatic) Current Visit: No Status: Resolved Patient with baseline chronic kidney disease stage III Increase of serum creatinine at admission with serum creatinine of 1.89 Patient currently fluid overloaded, getting diuresis, we will continue to monitor as getting Lasix therapy (6) DVT prophylaxis Current Visit: Yes Status: Acute Continue with subcutaneous heparin (7) Diabetes mellitus Current Visit: No Status: Chronic Per primary team Qualifiers: Diabetes mellitus type: type 2 Diabetes mellitus usp insulin use: with middle or intermediate school principal use Diabetes mellitus complication status: with neurologic complications Diabetes mellitus complication detail: with polyneuropathy Q ualified Code(s): E11.42 - Type 2 diabetes mellitus with diabetic polyneuropathy; Z79.4 - residential (current) use of insulin (8) Hypertension Current Visit: No Status: Chronic Patient hypotensive at this point in time, we will continue to hold antihypertensive medications Qualifiers: Hypertension type: essential hypertension Qualified Code(s): I10 - [facility] (primary) hypertension History of Present Illness Consult date: 02/21/19 Requesting physician: James Lai Reason for consult: dyspnea Chief complaint: cough and shortness of breath History of present illness: Patient is a 53-year-old male with past medical history significant for hypertension, diabetes, CAD, COPD, diastolic heart failure and CK 80 stage III who presented to the ER on 02/21/2019 with shortness of breath and cough. History was obtained primarily from the patient's , as the patient was sleeping. Per patient's he has been having productive cough with generalized weakness for the past week. Progressively worse over the past 2 days. He has had progressive shortness of breath. No chest pain. He has had generalized fatigue and weakness for the past few days worse over the past 2 days. States that he went to his primary care provider earlier today, at that point in time they were concerned with pneumonia and his vital signs were unstable with hypotension and hypoxia, requested he go to the ER. He has had subjective fevers at home no chills. No abdominal pain, nausea vomiting or diarrhea. Per his he has been more orthopneic at night, she is not noticing any PND. She states that his legs looked at baseline. Does not notice significant swelling. On arrival to the ER, patient was found to be hypoxic in the high 80s as well as hypotensive in the 70s. He was also febrile 100.6. He was given a 2 L normal saline bolus, with progressive shortness of breath, initial chest x-ray showing concern for opacifications in pneumonia in the right upper lobe. He was given a dose of Rocephin as well as azithromycin. Repeat chest x-ray was performed which showed pulmonary edema. He was then given 40 mg IV of Lasix, methylprednisolone, and DuoNeb. As patient's residual reset is to continue to decline on nasal cannula, he was placed on BiPAP. While in the ER, his map remained above 65. Past Med Surg Social Fam HX - Past Medical History Medical history: coronary artery disease, diabetes, hypertension Additional medical history: anemia, DDD Psychiatric history: anxiety, bipolar, depression, PTSD - Past Surgical History Surgical History: angioplasty/stent, cholecystectomy, other Additional surgical history: 1 cardiac stent, right tonsil removal-abcess - Social History Smoking Status: Never smoker Smokeless Tobacco Status: No Alcohol use: none Drug use: none - Family History Father Family Member Ethnicity: Non- Living Status: Hx Family Cardiac Disorders: Yes Hx Family Respiratory Disorders: No Hx Family Cancer: No Hx Family GI Disorders: No Hx Family Endocrine Disorder: Yes Hx Family Neuromuscular Disorders: No Hx Family Neurologic Disorders: Yes Hx Family HEENT Disorders: No Hx Family Autoimmune Disorders: Yes Mother Family Member Ethnicity: Non- Living Status: Hx Family Cardiac Disorders: No Hx Family Respiratory Disorders: Yes Hx Family Cancer: Yes Hx Family GI Disorders: No Hx Family Endocrine Disorder: Yes Hx Family Neuromuscular Disorders: No Hx Family Neurologic Disorders: Yes Hx Family HEENT Disorders: No Hx Family Autoimmune Disorders: Yes Medications and Allergies Alprazolam [Xanax] 1 mg PO QID PRN 04/29/16 [History] Insulin ASPART [Novolog Flexpen] 10 - 16 unit SQ TIDAC 04/29/16 [History] Mirtazapine [Remeron] 45 mg PO HS 04/29/16 [History] Insulin DETEMIR [Levemir Flextouch] 60 unit SQ HS 06/12/16 [History] Prazosin [Minipress] 5 mg PO HS 06/12/16 [History] Multivitamin with Minerals [One-A-Day Maximum Formula] 1 tab PO DAILY 04/04/17 [History] [place]-3/Dha/Epa/Fish Oil [Fish Oil 1,000 mg Softgel] 1,000 mg PO DAILY 04/04/17 [History] Ranolazine [Ranexa] 1,000 mg PO BID #60 tab.er.12h 04/06/17 [Rx] Tamsulosin [Flomax] 0.4 mg PO DAILY #30 04/27/17 [Rx] Cholecalciferol (D-3) [Vitamin D] 5,000 unit PO DAILY 10/18/17 [History] Fluticasone Propionate Nasal [Flonase] 1 spray NS BID 10/18/17 [History] Furosemide [Lasix] 20 mg PO DAILY 10/18/17 [History] Gabapentin [Neurontin] 300 mg PO TID 10/18/17 [History] Insulin DETEMIR [Levemir Flextouch] 50 unit SQ QAM 10/18/17 [History] Quetiapine Fumarate [Seroquel] 300 mg PO HS 10/18/17 [History] Pantoprazole Sodium [Protonix] 40 mg PO BID 01/07/18 [History] Carvedilol [Coreg] 25 mg PO BIDWM 12/09/18 [History] Haloperidol [Haldol] 5 mg PO HS 12/09/18 [History] Loratadine [Claritin] 10 mg PO DAILY 12/09/18 [History] Melatonin 15 mg PO HS 12/09/18 [History] Venlafaxine HCl [Venlafaxine HCl ER] 37.5 mg PO DAILY 12/09/18 [History] Venlafaxine HCl [Venlafaxine HCl ER] 150 mg PO DAILY 12/09/18 [History] Acetaminophen [Tylenol] 500 mg PO BID PRN 12/11/18 [History] Albuterol Sulfate [Albuterol Inhaler] 2 puff IH Q4H PRN 12/12/18 [History] Polyethylene Glycol 3350 [MiraLAX] 17 gm PO DAILY 12/12/18 [History] Azithromycin [Zithromax] 250 mg PO Q24H #2 tablet 12/13/18 [Rx] Budesonide/Formoterol 80/4.5 [Symbicort 80/4.5] 2 puff IH BIDR #1 inhaler 12/13/18 [Rx] Allergy/AdvReac Type Severity Reaction Status Date / Time codeine AdvReac Vomiting Verified 01/07/18 08:10 levofloxacin [From Levaquin] AdvReac See Verified 12/09/18 09:09 Comments All Systems: The remainder of the systems were reviewed and are negative - Constitutional Constitutional: chills, fatigue, weakness, no headache(s), no lethargy, no night sweats - EENT Nose, mouth and throat: no dizziness, no headache(s), no nasal congestion - Cardiovascular Cardiovascular: diaphoresis, dyspnea, dyspnea on exertion, leg edema, orthopnea, no chest pain, no chest pain at rest, no chest pain with activity, no irregular heart rhythm, no lightheadedness, no palpitations, no paroxysmal nocturnal dyspnea - Respiratory Respiratory: cough, dyspnea, dyspnea on exertion, snoring, excessive phlegm production, no hemoptysis, no wheezing, no pain on inspirtation - Gastrointestinal Gastrointestinal: no abdominal pain, no diarrhea, no hematemesis, no hematochezia, no loose stools, no melena, no nausea - Musculoskeletal Musculoskeletal: no weakness - Neurological Neurological: no dizziness, no focal weakness Physical Examination Vital Signs: Vital Signs, Last 4 Hours Pulse Resp BP Pulse Ox 02/21/19 12:00 71 17 76/58 97 02/21/19 11:30 76 18 80/60 97 02/21/19 11:10 31 85/64 97 02/21/19 10:53 75 28 88/57 92 02/21/19 10:40 74 28 89/62 91 02/21/19 10:30 74 26 89/60 92 02/21/19 10:29 79 24 89/60 93 02/21/19 10:25 79 24 75/62 92 02/21/19 10:00 79 22 78/61 93 02/21/19 09:30 79 20 81/68 95 General appearance: asleep, other (diaphoretic) Eyes: nonicteric ENT: oropharynx dry Mallampati (class): 3 Neck: supple Effort: mildly labored Auscultation: bilateral: diminished breath sounds, rales Cardiovascular: regular rate and rhythm Gastrointestinal: normoactive bowel sounds, non-tender, non-distended Integumentary: normal Extremities: no cyanosis, pink and warm, pulses normal, edema (1+ BL LE) Musculoskeletal: no deformities normal mental status, non-focal exam mood appropriate Results - Laboratory Findings CBC and BMP: 02/21/19 08:59 02/21/19 08:59 Abnormal lab findings: Abnormal lab results WBC 15.7 K/mcL (4.3-11.1) H 02/21/19 08:59 RBC 3.68 M/mcL (4.19-5.50) L 02/21/19 08:59 Hgb 11.4 g/dL (12.9-16.9) L 02/21/19 08:59 Hct 33.7 % (37.5-50.1) L 02/21/19 08:59 12.0 % (0-4) H 02/21/19 08:59 12.6 K/mcL (1.6-8.9) H 02/21/19 08:59 1.6 K/mcL (0.0-1.3) H 02/21/19 08:59 1+ (Not Present) A 02/21/19 08:59 Sodium 127 mEq/L (136-145) L 02/21/19 08:59 Chloride 88 mEq/L (98-107) L 02/21/19 08:59 BUN 35 mg/dL (6-20) H 02/21/19 08:59 2.83 mg/dL (0.70-1.30) H 02/21/19 08:59 Est GFR ( Amer) 28 (> 60) L 02/21/19 08:59 Est GFR (Non-Af Amer) 23 (> 60) L 02/21/19 08:59 Glucose 432 mg/dL (70-105) H 02/21/19 08:59 B-Natriuretic Peptide 327 pg/mL (Less than 100) H 02/21/19 08:59 - Microbiology Findings Microbiology Findings: Microbiology, Last 48 Hours 02/21/19 09:36 Blood Culture - Preliminary Peripheral Venipuncture Culture is incubating and being continuously monitored for growth. Final report to follow. 02/21/19 09:35 Blood Culture - Preliminary Peripheral Venipuncture Culture is incubating and being continuously monitored for growth. Final report to follow. - Diagnostic Findings Chest x-ray: report reviewed, image reviewed - Clinical Findings Intake & Output: Intake & Output 02/20/19 02/21/19 02/21/19 23:59 07:59 15:59 Intake Total 3350 / 3350 Balance 3350 / 3350 Weight 81.647 kg Consult Discharge Plan - Plan Referrals: Ethel Kim, LINE APPLIANCE ASSEMBLER [Primary Care Provider] - <Kerri Og - Last Filed: 02/21/19 21:38> Date of Encounter: 02/21/19 All Systems: The remainder of the systems were reviewed and are negative Physical Examination Vital Signs: Vital Signs, Last 4 Hours Temp Pulse Resp BP Pulse Ox 02/21/19 19:10 97.9 F 74 14 115/60 99 02/21/19 18:00 71 16 118/64 98 02/21/19 17:10 14 125/80 92 Results - Laboratory Findings CBC and BMP: 02/21/19 08:59 02/21/19 08:59 Abnormal lab findings: Abnormal lab results WBC 15.7 K/mcL (4.3-11.1) H 02/21/19 08:59 RBC 3.68 M/mcL (4.19-5.50) L 02/21/19 08:59 Hgb 11.4 g/dL (12.9-16.9) L 02/21/19 08:59 Hct 33.7 % (37.5-50.1) L 02/21/19 08:59 12.0 % (0-4) H 02/21/19 08:59 12.6 K/mcL (1.6-8.9) H 02/21/19 08:59 1.6 K/mcL (0.0-1.3) H 02/21/19 08:59 1+ (Not Present) A 02/21/19 08:59 Sodium 127 mEq/L (136-145) L 02/21/19 08:59 Chloride 88 mEq/L (98-107) L 02/21/19 08:59 BUN 35 mg/dL (6-20) H 02/21/19 08:59 2.83 mg/dL (0.70-1.30) H 02/21/19 08:59 Est GFR ( Amer) 28 (> 60) L 02/21/19 08:59 Est GFR (Non-Af Amer) 23 (> 60) L 02/21/19 08:59 Glucose 432 mg/dL (70-105) H 02/21/19 08:59 8.2 % (-5.6) H 02/21/19 08:59 B-Natriuretic Peptide 327 pg/mL (Less than 100) H 02/21/19 08:59 - Microbiology Findings Microbiology Findings: Microbiology, Last 48 Hours 02/21/19 09:36 Blood Culture - Preliminary Peripheral Venipuncture Culture is incubating and being continuously monitored for growth. Final report to follow. 02/21/19 09:35 Blood Culture - Preliminary Peripheral Venipuncture Culture is incubating and being continuously monitored for growth. Final report to follow. - Clinical Findings Intake & Output: Intake & Output 02/21/19 02/21/19 02/21/19 07:59 15:59 23:59 Intake Total 3860 / 3860 Balance 3860 / 3860 Weight 81.647 kg - Attending Attestation I examined this patient and my medical decision-making was reviewed with the Re sident Physician. I agree with the documented findings, disposition and treatment plan as described except to the extent set forth below. Patient seen and examined. Labs, radiology, chart personally reviewed. Agree with resident's history and physical, assessment, plan with following comments: SUPERVISOR RESIDENTIAL: Patient follows commands, however patient is lethargic and comfortable on BiPAP Pulmonary: Acceptable oxygenation and ventilation on NIV and suspect he has AECOP and he is going to be treated with systemic steroid and antibiotics as well as bronchodilators. Patient is at risk his condition could worsen. Diuresis is appropriate Cardiovascular: Suspect pulm edema from volume overload and most likely patient has diastolic dysfunction GI: Nutrition per dietary and GI prophylaxis per routine Heme: DVT prophylaxis per routine ID: Continue antibiotics and plan to de-escalation Renal; urine out put and renal funtion reviewed. Need to check for urine in the bladder and may need Wells catheter. Endorcine: blood glucose is monitored Lines: all lines checked and no evidence of infections Skin: skin care to prevent pressure ulcers per nursing routine care Thank you for consultation and will follow. Please call for any questions
[2019-02-21 13:32] LABS: Estimated Average Glucose 189 mg/dl; Hemoglobin A1C 8.2 %
[2019-02-21] MEDS: Ipratropium/Albuterol Neb 3 ML IH SCH ×4 (15:15→23:21)
[2019-02-21] MEDS ORDERED: Furosemide 40 MG/4 ML VIAL IVP SCH (17:00)
[2019-02-21] MEDS: Budesonide/Formoterol 160/4.5 1 PUFF INH IH SCH (19:32)
[2019-02-21] MEDS ORDERED: Insulin DETEMIR 100 UNIT/ML X5UNITS SQ SCH ×2 (21:00)
[2019-02-21] MEDS ORDERED: Insulin LISPRO 300 UNITS/3 ML VIAL SQ SCH (22:00)
[2019-02-21 22:43] LABS: Bilirubin,Urine Small (Negative); Blood,Urine Negative (Negative); Clarity,Urine Cloudy (Clear); Color,Urine Red (Yellow); Glucose,Urine (UA) 250 mg/dL (Normal); Ketones,Urine Trace mg/dL (Negative); Leukocyte Esterase,Urine Trace (Negative); Nitrite,Urine Negative (Negative); Protein,Urine >=300 mg/dL (Neg-Trace); Specific Gravity,Urine 1.026 (1.010-1.025); Urobilinogen,Urine Normal (Normal)
[2019-02-21] MEDS: MethylPREDNISolone 40 MG/ML VIAL IVP SCH (22:43)
[2019-02-21] MEDS: *HR* Heparin 5,000 UNIT/ML VIAL SQ SCH (22:44)
[2019-02-21 22:45] LABS: Bacteria,Urine None Seen per hpf (None-Few); Hyaline Casts,Urine Few per lpf (None-Few); RBC,Urine 0-3 per hpf (0-3); Squamous Epithelial Cell,Urine Many per lpf (None-Few)
[2019-02-21] MEDS: Insulin LISPRO 300 UNITS/3 ML VIAL SQ SCH ×2 (23:41→23:42)
[2019-02-21] MEDS: Mirtazapine 15 MG TABLET PO SCH (23:42)
[2019-02-21] MEDS: ALPRAZolam 1 MG TABLET PO PRN (23:43)
[2019-02-21] MEDS: Furosemide 40 MG/4 ML VIAL IVP SCH (23:43)
[2019-02-21] MEDS: Melatonin 3 MG TABLET PO SCH (23:44)
[2019-02-21] MEDS: Gabapentin 300 MG CAPSULE PO SCH (23:45)
[2019-02-22] MEDS: Piperacillin/Tazobactam 3.375 GM in 0.9 % Sodium Chloride Mini Bag 100 ML IVPB SCH ×3 (00:27→18:34)
[2019-02-22] MEDS: MethylPREDNISolone 40 MG/ML VIAL IVP SCH ×3 (00:42→18:34)
[2019-02-22] MEDS: Ipratropium/Albuterol Neb 3 ML IH SCH ×6 (03:25→23:55)
[2019-02-22 05:02] LABS: Hematocrit 29.9 % (37.5-50.1); Mean Corpuscular HGB Conc 33.4 g/dL (31.6-35.5); Mean Corpuscular Hemoglobin 30.9 pg (28.0-33.3); Mean Corpuscular Volume 92.3 fL (83.0-100.0); Mean Platelet Volume 10.6 fL (9.4-12.4); Platelet Count 137 K/mcL (140-400); Red Blood Count 3.24 M/mcL (4.19-5.50)
[2019-02-22 05:11] LABS: ABG Base Excess -1 mEq/L (-2 to 3); ABG HCO3 26 mEq/L (21-27); ABG Oxygen Saturation 96 % (95-98); ABG PCO2 49 mmHg (35-45); ABG PH 7.33 pH Units (7.32-7.45); ABG PO2 86 mmHg (85-104); ABG TCO2 27 mEq/L (20-26); Blood Gas Modality Avaps; Blood Gas PEEP 8 cm H2O; Blood Gas Respiration Rate 14; Blood Gas VT 470 cc
[2019-02-22 05:20] LABS: Calcium 7.1 mg/dL (8.6-10.3); Magnesium 1.6 mg/dL (1.6-2.6); Potassium 4.2 mEq/L (3.5-5.1)
[2019-02-22 05:27] LABS: Platelet Estimate Normal (Normal)
[2019-02-22 05:30] LABS: Anisocytosis 1+ (Not Present); Monocytes # 0.8 K/mcL (0.0-1.3); Neutrophils # 8.5 K/mcL (1.6-8.9)
[2019-02-22] MEDS: *HR* Heparin 5,000 UNIT/ML VIAL SQ SCH ×2 (05:42→18:38)
[2019-02-22] MEDS: Budesonide/Formoterol 160/4.5 1 PUFF INH IH SCH ×2 (07:27→19:23)
[2019-02-22 08:07] LABS: Adenovirus Not Detected (Not Detect); Bordetella Pertussis Not Detected (Not Detect); Chlamydophila pneumoniae Not Detected (Not Detect); Coronavirus 229E Not Detected (Not Detect); Coronavirus HKU1 Not Detected (Not Detect); Coronavirus NL63 Not Detected (Not Detect); Coronavirus OC43 Not Detected (Not Detect); Human Metapneumovirus DETECTED (Not Detect); Human Rhinovirus/Enterovirus Not Detected (Not Detect); Influenza A Subtype 2009 H1 Not Detected (Not Detect); Influenza A Untypeable Not Detected (Not Detect); Influenza B Not Detected (Not Detect); Mycoplasma pneumoniae Not Detected (Not Detect); Parainfluenza Virus 1 Not Detected (Not Detect); Parainfluenza Virus 2 Not Detected (Not Detect); Parainfluenza Virus 3 Not Detected (Not Detect); Parainfluenza Virus 4 Not Detected (Not Detect); Respiratory Syncytial Virus Not Detected (Not Detect)
[2019-02-22] MEDS: Furosemide 40 MG/4 ML VIAL IVP SCH ×2 (08:40→18:37)
[2019-02-22] MEDS: Insulin LISPRO 300 UNITS/3 ML VIAL SQ SCH ×5 (08:41→20:06)
[2019-02-22] MEDS: Venlafaxine XR (24 HR) 150 MG CAP.ER.24H PO SCH (08:44)
[2019-02-22] MEDS: Venlafaxine XR (24 HR) 37.5 MG CAP.ER.24H PO SCH (08:44)
[2019-02-22] MEDS: Loratadine 10 MG TABLET PO SCH (08:45)
[2019-02-22] MEDS: Multivit/Ca/Min/Fe/FA 1 TAB TABLET PO SCH (08:45)
[2019-02-22] MEDS: Ranolazine 500 MG TAB.ER.12H PO SCH ×2 (08:45→21:50)
[2019-02-22] MEDS: Cholecalciferol (D-3) 1,000 UNIT TABLET PO SCH (08:45)
[2019-02-22] MEDS: (Omega-3/Dha/Epa/Fish Oil [Fish Oil 1,000 Mg Softgel] PO SCH (08:46)
[2019-02-22] MEDS ORDERED: NON-FORMULARY MEDICATION 1 EACH EACH (Insulin Detemir [Levemir Flextouch] 50 UNIT) SQ SCH (09:00)
[2019-02-22] MEDS ORDERED: Azithromycin 500 MG in D5% in Water 250 ML IVPB SCH (09:00)
[2019-02-22] MEDS ORDERED: cefTRIAXone 1,000 MG in Water for inj. (sterile) 20 ML 10 ML IVP SCH (09:00)
[2019-02-22] MEDS: ALPRAZolam 1 MG TABLET PO PRN ×2 (09:30→20:03)
[2019-02-22] MEDS: Insulin DETEMIR 100 UNIT/ML X5UNITS SQ SCH ×2 (09:32→21:51)
--- NOTE | 2019-02-22 10:08 | Internal Med Progress Note ---
Hospitalist Progress Note - Encounter Date of Encounter: 02/22/19 Time of Encounter: 10:08 - Subjective Interval History: Better shortness of breath while on BiPAP. Review the lab. Nursing staff at bedside Denies fever chills nausea vomiting headache dizziness chest pain abdominal pain diarrhea - Exam Vitals: Temp Pulse Resp BP Pulse Ox 96.6 F L 68 20 144/95 97 02/22/19 06:47 02/22/19 06:47 02/22/19 07:27 02/22/19 06:47 02/22/19 07:27 Exam: General appearance: Moderate respiratory distress while on nasal cannula oxygen. Get out of breath at the end of the sentence. Feel better on BiPAP Head exam: Atraumatic Eye exam: EOMI, PERRLA ENT exam: Moist oral mucosa Neck nontender, supple Respiratory exam: Decreased breath sound bilaterally. Cardiovascular exam: Regular rate and rhythm, no systolic murmur Abdominal exam: Soft, nontender, nondistended, positive bowel sounds Extremities exam: No calf tenderness, no pedal edema Present: Skin-no rash, warm, dry, intact Neurological exam: Alert, awake, oriented 3, CN II-XII intact, no focal d eficits. No facial droop. - Assessment and Plan (1) Acute respiratory failure with hypoxia Current Visit: Yes Status: Acute Assessment and Plan: Pt comes in with shortness of breath and wheezing with productive cough. Was hydrated in the Er and became more short of breath Etiology secondary to a combination of acute worsening of chronic diastolic CHF and bacterial/viral pneumonia Blood culture with no growth Sputum culture with no growth respiratory panel-positive for human metapneumo virus Legionella and strep to be antigen negative Continue IV antibiotic, oxygen supplementation, IV steroid, nebulizer, BiPAP as needed. Pulmonology consulted. Spent more than 35 minute inpatient care and coordination reviewed sales enablement consultant notes. (2) Acute exacerbation of chronic obstructive airways disease Current Visit: Yes Status: Acute Assessment and Plan: Complaings of coughing prdocutive of green phlegm , wheezing and shortnees of breath No established diagnosis of COPD. continue as above (3) Sepsis Current Visit: Yes Status: Acute Assessment and Plan: Likely secondary to bacterial and viral pneumonia. WBC was 15 and temp was 100.6. one lactate WNL He was also hypotensive. He was resuscitated aggressively fluid and went into [facility] Suspected source of pneumonia confirmed by chest x-ray and right perihilar and right upper lobe opacification Patient was started on ceftriaxone and azithromycin while in the ER He was switched to vancomycin and Zosyn Received one dose of lasix (4) Community acquired bacterial pneumonia Current Visit: Yes Status: Acute Assessment and Plan: As mentioned above. (5) Congestive heart failure Current Visit: Yes Status: Acute Assessment and Plan: Acute worsening of chronic diastolic CHF Continue IV Lasix, a strict I&O's, daily weight. Last echo done in December 2017 with EF 55%. Will repeat echo. (6) Acute kidney injury Current Visit: Yes Status: Acute Assessment and Plan: Pt comes in with SANDEEP compared to baseline. Avoid nephrotoxic drug. Monitor BMP. (7) Hyponatremia Current Visit: Yes Status: Acute Assessment and Plan: Improving. Most likely dilutional. Diurese and monitor BMP (8) DVT prophylaxis Current Visit: Yes Status: Acute Assessment and Plan: heparin sc (9) UTI (urinary tract infection) Current Visit: Yes Status: Acute Assessment and Plan: Urine analysis abnormal. Urine culture pending. Continue above-mentioned antibiotic (10) Diabetes mellitus Current Visit: Yes Status: Acute Assessment and Plan: A1c 8.2. Lantus 40 units twice a day with high sliding scale insulin started. Diabetic diet. Accu-Chek with close monitoring. Further adjustment in insulin as required. Steroid can also cause rise in blood glucose level - Time Spent with Patient Total time spent is greater than 50% in coordination of care (as documented) at patient's floor/unit and/or counseling patient: Greater than 35 minutes Internal Medicine: Result - Labs CBC & Chem 7: 02/22/19 03:46 02/22/19 03:46 Labs: Short CBC 02/22/19 Range/Units 03:46 WBC 10.3 (4.3-11.1) K/mcL Hgb 10.0 L (12.9-16.9) g/dL Hct 29.9 L (37.5-50.1) % Plt Count 137 L (140-400) K/mcL Neutrophils # 8.5 (1.6-8.9) K/mcL BMP 02/22/19 03:46 Sodium 132 L Potassium 4.2 Chloride 98 Carbon Dioxide 21 L BUN 46 H Creatinine 2.64 H Glucose 365 H Calcium 7.1 L Urine 02/21/19 Range/Units 22:28 Urine Color Red A (Yellow) Urine Clarity Cloudy A (Clear) Urine pH 5.0 (5.0-8.0) pH Units Ur Specific [place] 1.026 H (1.010-1.025) Urine Protein >=300 H (Neg-Trace) mg/dL Urine Glucose (UA) 250 H (Normal) mg/dL - ABG Interpretation ABG results: ABG ABG pH 7.33 pH Units (7.32-7.45) 02/22/19 05:07 ABG pCO2 49 mmHg (35-45) H 02/22/19 05:07 ABG pO2 86 mmHg (85-104) 02/22/19 05:07 ABG O2 Saturation 96 % (95-98) 02/22/19 05:07 - Impressions Impressions Chest CT 02/21/19 00:00 IMPRESSION: Multifocal airspace disease bilaterally, greatest on the right. Findings on the right are greatest in the right lower lobe. There is multifocal partial consolidation with multiple air bronchograms. Pneumonia is favored. Underlying nodules not excluded. Follow-up recommended Lymph nodes in the mediastinum and right hilar region are increased. D/ / Mateusz Laird / Mateusz Laird Interpreting Provider: Mateusz Laird Chest X-Ray 02/21/19 11:04 IMPRESSION: Right parahilar and right upper lobe opacification could represent atelectatic changes or pneumonia D/ / Jono Rizvi MD / Jono Rizvi MD Interpreting Provider: Jono Rizvi MD Consult Discharge Plan - Plan Referrals: Ethel Kim, PSYCHOLOGIST DEVELOPMENTAL [Primary Care Provider] - (3) Sepsis Qualifiers: Sepsis type: sepsis due to unspecified organism Qualified Code(s): A41.9 - Sepsis, unspecified organism (5) Congestive heart failure Qualifiers: Heart failure type: unspecified Heart failure chronicity: acute Qualified Code(s): I50.9 - Heart failure, unspecified (9) UTI (urinary tract infection) Qualifiers: Urinary tract infection type: site unspecified Hematuria presence: without hematuria Qualified Code(s): N39.0 - Urinary tract infection, site not specified (10) Diabetes mellitus Qualifiers: Diabetes mellitus type: type 2 Diabetes mellitus car whacker insulin use: with car whacker use Diabetes mellitus complication status: with unspecified complications Qualified Code(s): E11.8 - Type 2 diabetes mellitus with unspecified complications; 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
[2019-02-22] MEDS ORDERED: NON-FORMULARY MEDICATION 1 EACH EACH (Insulin Aspart [Novolog Flexpen] 0 UNIT) SQ SCH (11:30)
[2019-02-22] MEDS ORDERED: NON-FORMULARY MEDICATION 1 EACH EACH (Insulin Detemir [Levemir Flextouch] 60 UNIT) SQ SCH (21:00)
[2019-02-22] MEDS: Melatonin 3 MG TABLET PO SCH (21:49)
[2019-02-22] MEDS: Mirtazapine 15 MG TABLET PO SCH (21:50)
[2019-02-23] MEDS: Piperacillin/Tazobactam 3.375 GM in 0.9 % Sodium Chloride Mini Bag 100 ML IVPB SCH ×4 (01:07→23:48)
[2019-02-23] MEDS: MethylPREDNISolone 40 MG/ML VIAL IVP SCH ×3 (01:07→17:32)
[2019-02-23] MEDS: Ipratropium/Albuterol Neb 3 ML IH SCH ×6 (03:14→23:49)
[2019-02-23] MEDS: *HR* Heparin 5,000 UNIT/ML VIAL SQ SCH ×2 (05:25→17:32)
[2019-02-23] MEDS: ALPRAZolam 1 MG TABLET PO PRN ×4 (05:26→21:19)
[2019-02-23] MEDS: Budesonide/Formoterol 160/4.5 1 PUFF INH IH SCH ×2 (07:28→19:32)
[2019-02-23] MEDS: Insulin LISPRO 300 UNITS/3 ML VIAL SQ SCH ×4 (08:25→21:20)
[2019-02-23] MEDS: Multivit/Ca/Min/Fe/FA 1 TAB TABLET PO SCH (08:26)
[2019-02-23] MEDS: Ranolazine 500 MG TAB.ER.12H PO SCH ×2 (08:26→20:37)
[2019-02-23] MEDS: Loratadine 10 MG TABLET PO SCH (08:26)
[2019-02-23] MEDS: Cholecalciferol (D-3) 1,000 UNIT TABLET PO SCH (08:26)
[2019-02-23] MEDS: Furosemide 40 MG/4 ML VIAL IVP SCH ×2 (08:27→17:32)
[2019-02-23] MEDS: Venlafaxine XR (24 HR) 150 MG CAP.ER.24H PO SCH (08:27)
[2019-02-23] MEDS: Venlafaxine XR (24 HR) 37.5 MG CAP.ER.24H PO SCH (08:27)
[2019-02-23] MEDS: (Omega-3/Dha/Epa/Fish Oil [Fish Oil 1,000 Mg Softgel] PO SCH (08:28)
[2019-02-23] MEDS: Insulin DETEMIR 100 UNIT/ML X5UNITS SQ SCH ×2 (08:33→20:40)
[2019-02-23] MEDS ORDERED: Aminoglycoside Consult 1 EACH MC ONE (08:39)
--- NOTE | 2019-02-23 09:42 | Pulmonology Progress Note ---
Date of Encounter: 02/23/19 Time of Encounter: 07:50 Assessment and Plan (1) Acute respiratory failure with hypoxia Current Visit: No Status: Resolved Patient is feeling much better and from pulmonary standpoint his systemic steroids can be transitioned to oral taper it off when patient is ready to be discharged home. De-escalation of his antibiotic is recommended this is his cultures remained negative. Follow-up when necessary and please call for any questions. Subjective Principal diagnosis: Dyspnea Interval history: Patient is feeling much better and denies any complaints Objective PUL Vital signs: Last Vital Signs Temp 97.6 F 02/23/19 06:56 Pulse 78 02/23/19 06:56 Resp 18 02/23/19 07:29 BP 166/89 02/23/19 06:56 Pulse Ox 93 02/23/19 07:29 General appearance: no acute distress Eyes: nonicteric ENT: oropharynx moist Neck: supple Auscultation: bilateral: diminished breath sounds Percussion: bilateral: not dull Cardiovascular: regular rate and rhythm Gastrointestinal: normoactive bowel sounds, non-distended Extremities: no cyanosis normal mental status, non-focal exam mood appropriate Results - Laboratory Findings CBC and BMP: 02/22/19 03:46 02/22/19 03:46 ABG ABG pH 7.33 pH Units (7.32-7.45) 02/22/19 05:07 ABG pCO2 49 mmHg (35-45) H 02/22/19 05:07 ABG pO2 86 mmHg (85-104) 02/22/19 05:07 ABG O2 Saturation 96 % (95-98) 02/22/19 05:07 Abnormal lab findings: Abnormal lab results WBC 15.7 K/mcL (4.3-11.1) H 02/21/19 08:59 RBC 3.24 M/mcL (4.19-5.50) L 02/22/19 03:46 Hgb 10.0 g/dL (12.9-16.9) L 02/22/19 03:46 Hct 29.9 % (37.5-50.1) L 02/22/19 03:46 Plt Count 137 K/mcL (140-400) L 02/22/19 03:46 6.0 % (0-4) H 02/22/19 03:46 12.6 K/mcL (1.6-8.9) H 02/21/19 08:59 1.6 K/mcL (0.0-1.3) H 02/21/19 08:59 1+ (Not Present) A 02/22/19 03:46 ABG pCO2 49 mmHg (35-45) H 02/22/19 05:07 ABG Total CO2 27 mEq/L (20-26) H 02/22/19 05:07 Sodium 132 mEq/L (136-145) L 02/22/19 03:46 Chloride 88 mEq/L (98-107) L 02/21/19 08:59 Carbon Dioxide 21 mEq/L (23-29) L 02/22/19 03:46 BUN 46 mg/dL (6-20) H 02/22/19 03:46 2.64 mg/dL (0.70-1.30) H 02/22/19 03:46 Est GFR ( Amer) 31 (> 60) L 02/22/19 03:46 Est GFR (Non-Af Amer) 25 (> 60) L 02/22/19 03:46 Glucose 365 mg/dL (70-105) H 02/22/19 03:46 POC Glucose 236 mg/dL (70-99) H 02/22/19 20:05 8.2 % (-5.6) H 02/21/19 08:59 301 (280-300) H 02/22/19 03:46 Calcium 7.1 mg/dL (8.6-10.3) L 02/22/19 03:46 B-Natriuretic Peptide 327 pg/mL (Less than 100) H 02/21/19 08:59 Red (Yellow) A 02/21/19 22:28 Cloudy (Clear) A 02/21/19 22:28 Ur Specific [place] 1.026 (1.010-1.025) H 02/21/19 22:28 >=300 mg/dL (Neg-Trace) H 02/21/19 22:28 250 mg/dL (Normal) H 02/21/19 22:28 Trace mg/dL (Negative) H 02/21/19 22:28 Small (Negative) H 02/21/19 22:28 Ur Leukocyte Esterase Trace (Negative) H 02/21/19 22:28 5-15 per hpf (0-3) H 02/21/19 22:28 Ur Squamous Epith Cells Many per lpf (None-Few) H 02/21/19 22:28 Ur Culture Indicated? YES (NO) A 02/21/19 22:28 Human Metapneumovir PCR DETECTED (Not Detect) A 02/22/19 06:15 - Microbiology Findings Microbiology Findings: Microbiology, Last 48 Hours 02/21/19 23:25 Sputum Culture - Preliminary Sputum 02/21/19 22:28 Urine Culture - Final Urine,Clean Catch No growth. 02/21/19 22:28 Legionella Antigen - Final Urine,Clean Catch Streptococcus pneumoniae Antigen (M - Final 02/21/19 09:36 Blood Culture - Preliminary Peripheral Venipuncture Culture is incubating and being continuously mon itored for growth. Final report to follow. 02/21/19 09:35 Blood Culture - Preliminary Peripheral Venipuncture Culture is incubating and being continuously monitored for growth. Final report to follow. - Clinical Findings Intake & Output: Intake & Output 02/22/19 02/23/19 02/23/19 23:59 07:59 15:59 Intake Total 350 / 1390 100 / 220 120 / 220 Output Total 825 / 825 Balance 350 / 420 -725 / -605 120 / -605 Weight 87 kg Consult Discharge Plan - Plan Referrals: Ethel Kim CNP [Primary Care Provider] -
--- NOTE | 2019-02-23 11:51 | Internal Med Progress Note ---
Hospitalist Progress Note - Encounter Date of Encounter: 02/23/19 Time of Encounter: 11:51 - Subjective Interval History: Feeling better and shortness of breath. BiPAP in the night but using nasal cannula at this time. Review the lab. Denies fever chills nausea vomiting headache dizziness chest pain abdominal pain diarrhea - Exam Vitals: Temp Pulse Resp BP Pulse Ox 97.6 F 78 18 166/89 92 02/23/19 06:56 02/23/19 06:56 02/23/19 11:19 02/23/19 06:56 02/23/19 11:19 Exam: General appearance: No acute distress. nasal cannula oxygen. Head exam: Atraumatic Eye exam: EOMI, PERRLA ENT exam: Moist oral mucosa Neck nontender, supple Respiratory exam: Decreased breath sound bilaterally with bilateral wheezing. Cardiovascular exam: Regular rate and rhythm, no systolic murmur Abdominal exam: Soft, nontender, nondistended, positive bowel sounds Extremities exam: No calf tenderness, no pedal edema Present: Skin-no rash, warm, dry, intact Neurological exam: Alert, awake, oriented 3, CN II-XII intact, no focal deficits. No facial droop. - Assessment and Plan (1) Acute respiratory failure with hypoxia Current Visit: Yes Status: Acute Assessment and Plan: Pt comes in with shortness of breath and wheezing with productive cough. Was hy drated in the Er and became more short of breath Etiology secondary to a combination of acute worsening of chronic diastolic CHF and bacterial/viral pneumonia Blood culture with no growth Sputum culture with no growth Urine culture with no growth respiratory panel-positive for human metapneumo virus Legionella and strep to be antigen negative nasa MRSA negative-stopped vancomycin Continue IV antibiotic Zosyn, oxygen supplementation, tapering IV steroid, nebulizer, BiPAP as needed. Pulmonology onboard (2) Acute exacerbation of chronic obstructive airways disease Current Visit: Yes Status: Acute Assessment and Plan: Complaings of coughing prdocutive of green phlegm , wheezing and shortnees of breath No established diagnosis of COPD. continue as above (3) Sepsis Current Visit: Yes Status: Acute Assessment and Plan: Likely secondary to bacterial and viral pneumonia. WBC was 15 and temp was 100.6. one lactate WNL He was also hypotensive. He was resuscitated aggressively fluid and went into CHf Suspected source of pneumonia confirmed by chest x-ray and right perihilar and right upper lobe opacification Patient was started on ceftriaxone and azithromycin while in the ER He was switched to vancomycin and Zosyn Received one dose of lasix (4) Community acquired bacterial pneumonia Current Visit: Yes Status: Acute Assessment and Plan: As mentioned above. (5) Congestive heart failure Current Visit: Yes Status: Acute Assessment and Plan: Acute worsening of chronic diastolic CHF Continue IV Lasix 40 mg IV twice a day today and will try to taper down based on response tomorrow, a strict I&O's, daily weight. Last echo done in December 2017 with EF 55%. repeat echo- still pending. (6) Acute kidney injury Current Visit: Yes Status: Acute Assessment and Plan: Pt comes in with SANDEEP compared to baseline. Avoid nephrotoxic drug. Monitor BMP. (7) Hyponatremia Current Visit: Yes Status: Acute Assessment and Plan: Improving. Most likely dilutional. Diurese and monitor BMP (8) DVT prophylaxis Current Visit: Yes Status: Acute Assessment and Plan: heparin sc (9) UTI (urinary tract infection) Current Visit: Yes Status: Acute Assessment and Plan: Urine analysis abnormal. Urine culture no growth (10) Diabetes mellitus Current Visit: Yes Status: Acute Assessment and Plan: A1c 8.2. Lantus 38 units twice a day with high sliding scale insulin started. Diabetic diet. Accu-Chek with close monitoring. Further adjustment in insulin as required. Steroid can also cause rise in blood glucose level - Time Spent with Patient Total time spent is greater than 50% in coordination of care (as documented) at patient's floor/unit and/or counseling patient: 25 - 35 minutes Plan of Care Discussed with: patient Internal Medicine: Result - Labs CBC & Chem 7: 02/22/19 03:46 02/22/19 03:46 - ABG Interpretation ABG results: ABG ABG pH 7.33 pH Units (7.32-7.45) 02/22/19 05:07 ABG pCO2 49 mmHg (35-45) H 02/22/19 05:07 ABG pO2 86 mmHg (85-104) 02/22/19 05:07 ABG O2 Saturation 96 % (95-98) 02/22/19 05:07 Consult Discharge Plan - Plan Referrals: Ethel Kim AGRICULTURAL EQUIPMENT MECHANIC [Primary Care Provider] - __ (3) Sepsis Qualifiers: Sepsis type: sepsis due to unspecified organism Qualified Code(s): A41.9 - Sepsis, unspecified organism (5) Congestive heart failure Qualifiers: Heart failure type: unspecified Heart failure chronicity: acute Qualified Code(s): I50.9 - Heart failure, unspecified (9) UTI (urinary tract infection) Qualifiers: Urinary tract infection type: site unspecified Hematuria presence: without hematuria Qualified Code(s): N39.0 - Urinary tract infection, site not specified (10) Diabetes mellitus Qualifiers: Diabetes mellitus type: type 2 Diabetes mellitus alf insulin use: with alf use Diabetes mellitus complication status: with unspecified complications Qualified Code(s): E11.8 - Type 2 diabetes mellitus with unspecified complications; Z79.4 - manager intermediate (current) use of insulin
[2019-02-23] MEDS: Mirtazapine 15 MG TABLET PO SCH (20:39)
[2019-02-23] MEDS: Gabapentin 300 MG CAPSULE PO SCH (21:19)
[2019-02-24] MEDS: Ipratropium/Albuterol Neb 3 ML IH SCH ×5 (03:53→20:25)
[2019-02-24] MEDS: MethylPREDNISolone 40 MG/ML VIAL IVP SCH (05:07)
[2019-02-24] MEDS: *HR* Heparin 5,000 UNIT/ML VIAL SQ SCH ×2 (05:07→16:24)
[2019-02-24] MEDS: ALPRAZolam 1 MG TABLET PO PRN ×3 (05:10→20:03)
[2019-02-24 06:41] LABS: Hematocrit 36.1 % (37.5-50.1); Mean Corpuscular HGB Conc 34.1 g/dL (31.6-35.5); Mean Corpuscular Hemoglobin 30.3 pg (28.0-33.3); Mean Corpuscular Volume 88.9 fL (83.0-100.0); Mean Platelet Volume 10.1 fL (9.4-12.4); Platelet Count 227 K/mcL (140-400); Red Blood Count 4.06 M/mcL (4.19-5.50); Red Cell Distribution Width 14.1 % (11.5-14.5)
[2019-02-24 06:44] LABS: Hemoglobin 12.3 g/dL (12.9-16.9)
[2019-02-24 06:53] LABS: BUN/Creatinine Ratio 32 (6-26); Blood Urea Nitrogen 39 mg/dL (6-20); Calcium 8.1 mg/dL (8.6-10.3); Carbon Dioxide 29 mEq/L (23-29); Chloride 100 mEq/L (98-107); Glucose 82 mg/dL (70-105); Osmolality,Calculated 294 (280-300); Potassium 3.2 mEq/L (3.5-5.1); Sodium 138 mEq/L (136-145); eGFR For Non-African Americans > 60 (> 60)
[2019-02-24] MEDS: Budesonide/Formoterol 160/4.5 1 PUFF INH IH SCH ×2 (07:22→20:25)
[2019-02-24 07:26] LABS: Lymphocytes # 3.4 K/mcL (0.6-4.6); Monocytes # 0.3 K/mcL (0.0-1.3); Neutrophils # 9.3 K/mcL (1.6-8.9)
[2019-02-24 07:27] LABS: Platelet Estimate Normal (Normal); Reactive Lymphocytes Present (Not Present)
[2019-02-24] MEDS: Piperacillin/Tazobactam 3.375 GM in 0.9 % Sodium Chloride Mini Bag 100 ML IVPB SCH ×2 (08:32→08:44)
[2019-02-24] MEDS: Insulin LISPRO 300 UNITS/3 ML VIAL SQ SCH ×4 (08:32→20:19)
[2019-02-24] MEDS: Ranolazine 500 MG TAB.ER.12H PO SCH ×2 (08:38→20:01)
[2019-02-24] MEDS: Gabapentin 300 MG CAPSULE PO SCH ×3 (08:41→20:03)
[2019-02-24] MEDS: Venlafaxine XR (24 HR) 37.5 MG CAP.ER.24H PO SCH (08:41)
[2019-02-24] MEDS: Cholecalciferol (D-3) 1,000 UNIT TABLET PO SCH (08:42)
[2019-02-24] MEDS: Loratadine 10 MG TABLET PO SCH (08:42)
[2019-02-24] MEDS: Venlafaxine XR (24 HR) 150 MG CAP.ER.24H PO SCH (08:42)
[2019-02-24] MEDS: Multivit/Ca/Min/Fe/FA 1 TAB TABLET PO SCH (08:42)
[2019-02-24] MEDS: Furosemide 40 MG/4 ML VIAL IVP SCH (08:44)
[2019-02-24] MEDS: Lactobacillus 1 EACH CAP.SPRINK PO SCH ×2 (08:47→20:03)
[2019-02-24] MEDS: (Omega-3/Dha/Epa/Fish Oil [Fish Oil 1,000 Mg Softgel] PO SCH (08:47)
[2019-02-24] MEDS: Insulin DETEMIR 100 UNIT/ML X5UNITS SQ SCH (08:47)
--- NOTE | 2019-02-24 09:28 | Internal Med Progress Note ---
Hospitalist Progress Note - Encounter Date of Encounter: 02/24/19 Time of Encounter: 09:27 - Subjective Interval History: Feeling better in shortness of breath. no BiPAP after midnight. Oxygen by nasal cannula 3-4 L. Review of the lab-slight trending up white count, low potassium, low blood glucose level. Denies fever chills nausea vomiting headache dizziness chest pain abdominal pain. Patient had 3-4 loose stools brownish in color and one watery stool. - Exam Vitals: Temp Pulse Resp BP Pulse Ox 97.7 F 106 16 167/108 92 02/24/19 08:18 02/24/19 08:18 02/24/19 08:18 02/24/19 08:18 02/24/19 08:18 Exam: General appearance: No acute distress. nasal cannula oxygen. Head exam: Atraumatic Eye exam: EOMI, PERRLA ENT exam: dry oral mucosa Neck nontender, supple Respiratory exam: Decreased breath sound bilaterally with bilateral wheezing slight better Cardiovascular exam: Regular rate and rhythm, no systolic murmur Abdominal exam: Soft, nontender, nondistended, positive bowel sounds Extremities exam: No calf tenderness, no pedal edema Present: Skin-no rash, warm, dry, intact Neurological exam: Alert, awake, oriented 3, CN II-XII intact, no focal deficits. No facial droop. - Assessment and Plan (1) Acute respiratory failure with hypoxia Current Visit: Yes Status: Acute Assessment and Plan: Pt comes in with shortness of breath and wheezing with productive cough. Was hydrated in the Er and became more short of breath Etiology secondary to a combination of acute worsening of chronic diastolic CHF and bacterial/viral pneumonia Blood culture with no growth Sputum culture with no growth Urine culture with no growth respiratory panel-positive for human metapneumo virus Legionella and strep to be antigen negative nasa MRSA negative-stopped vancomycin Patient had loses stool in one episode of watery diarrhea therefore plan to de- escalate antibiotic. Stopped Zosyn and a started Rocephin. Continue oxygen supplementation. A stopped IV steroid and a started prednisone 40 mg daily. Continue nebulizer. BiPAP as needed. Pulmonology onboard (2) Acute exacerbation of chronic obstructive airways disease Current Visit: Yes Status: Acute Assessment and Plan: Complaings of coughing prdocutive of green phlegm , wheezing and shortnees of breath No established diagnosis of COPD. continue as above. May need follow-up with pulmonologists on OPD basis with the help of PCP May need 6 minute walk for oxygen requirement before discharge (3) Sepsis Current Visit: Yes Status: Acute Assessment and Plan: Likely secondary to bacterial and viral pneumonia. WBC was 15 and temp was 100.6. one lactate WNL He was also hypotensive. He was resuscitated aggressively fluid and went into CHf Suspected source of pneumonia confirmed by chest x-ray and right perihilar and right upper lobe opacification Patient was started on ceftriaxone and azithromycin while in the ER He was switched to vancomycin and Zosyn-please see above for antibiotic changes (4) Community acquired bacterial pneumonia Current Visit: Yes Status: Acute Assessment and Plan: As mentioned above. (5) Congestive heart failure Current Visit: Yes Status: Acute Assessment and Plan: h/o CAD s/p stent Initial troponin negative Acute worsening of chronic diastolic CHF Continue IV Lasix with dose adjustment as required, a strict I&O's, daily weight. Last echo done in December 2017 with EF 55%. repeat echo- EV/EV echocardiogram w enhance Impressions: Technically sub-optimal due to poor echocardiographic windows. LVEF 55%. Mild concentric left ventricular hypertrophy. Mild segmental left ventricular systolic dysfunction. Atypical septal motion consistent with bundle branch block. Grossly normal right ventricular structure and function. Indeterminate diastolic function. No evidence of pulmonary hypertension. No significant valvular dysfunction. Left Ventricular Wall Motion: Rest Echo Findings The basal inferior lateral wall was hypokinetic. All other wall segments showed normal motion. will consult cardiology for optimal management (6) Acute kidney injury Current Visit: Yes Status: Acute Assessment and Plan: improved. Pt comes in with SANDEEP compared to baseline. Avoid nephrotoxic drug. Monitor BMP. (7) Hyponatremia Current Visit: Yes Status: Acute Assessment and Plan: Improved. Most likely dilutional. Diurese and monitor BMP (8) UTI (urinary tract infection) Current Visit: Yes Status: Acute Assessment and Plan: Urine analysis abnormal. Urine culture no growth (9) Diabetes mellitus Current Visit: Yes Status: Acute Assessment and Plan: A1c 8.2. low normal side BGL so decresed Lantus 30 units twice a day . change to low SSI from high sliding scale insulin . Diabetic diet. Accu-Chek with close monitoring. Further adjustment in insulin as required. (10) DVT prophylaxis Current Visit: Yes Status: Acute Assessment and Plan: heparin sc (11) Goals of care, counseling/discussion Current Visit: Yes Status: Acute Assessment and Plan: Spent more than 35 minute inpatient care and coordination - Time Spent with Patient Total time spent is greater than 50% in coordination of care (as documented) at patient's floor/unit and/or counseling patient: Greater than 35 minutes Plan of Care Discussed with: patient Internal Medicine: Result - Labs CBC & Chem 7: 02/24/19 06:06 02/24/19 06:06 Labs: Short CBC 02/24/19 Range/Units 06:06 WBC 12.9 H (4.3-11.1) K/mcL Hgb 12.3 L D (12.9-16.9) g/dL Hct 36.1 L (37.5-50.1) % Plt Count 227 D (140-400) K/mcL Neutrophils # 9.3 H (1.6-8.9) K/mcL BMP 02/24/19 06:06 Sodium 138 Potassium 3.2 L Chloride 100 Carbon Dioxide 29 BUN 39 H Creatinine 1.23 Glucose 82 Calcium 8.1 L - ABG Interpretation ABG results: ABG ABG pH 7.33 pH Units (7.32-7.45) 02/22/19 05:07 ABG pCO2 49 mmHg (35-45) H 02/22/19 05:07 ABG pO2 86 mmHg (85-104) 02/22/19 05:07 ABG O2 Saturation 96 % (95-98) 02/22/19 05:07 Consult Discharge Plan - Plan Referrals: Ethel Kim, ASSET MANAGEMENT ANALYST [Primary Care Provider] - (3) Sepsis Qualifiers: Sepsis type: sepsis due to unspecified organism Qualified Code(s): A41.9 - Sepsis, unspecified organism (5) Congestive heart failure Qualifiers: Heart failure type: unspecified Heart failure chronicity: acute Qualified Code(s): I50.9 - Heart failure, unspecified (8) UTI (urinary tract infection) Qualifiers: Urinary tract infection type: site unspecified Hematuria presence: without hematuria Qualified Code(s): N39.0 - Urinary tract infection, site not specified (9) Diabetes mellitus Qualifiers: Diabetes mellitus type: type 2 Diabetes mellitus fdc insulin use: with intermodal customer service use Diabetes mellitus complication status: with unspecified complications Qualified Code(s): E11.8 - Type 2 diabetes mellitus with unspecified complications; Z79.4 - middle or intermediate school principal (current) use of insulin
[2019-02-24] MEDS ORDERED: Perflutren Lipid Microsphere 1.3 ML in 0.9 % Sodium Chloride 8.7 ML IVP ONE (09:33)
[2019-02-24] MEDS ORDERED: Perflutren Lipid Microsphere 2 ML VIAL ONE (09:37)
[2019-02-24] MEDS ORDERED: cefTRIAXone 1,000 MG in Water for inj. (sterile) 20 ML 10 ML IVP SCH (13:00)
[2019-02-24] MEDS ORDERED: amLODIPine 5 MG TABLET PO SCH (17:00)
[2019-02-24] MEDS: Mirtazapine 15 MG TABLET PO SCH (20:02)
[2019-02-24] MEDS: Melatonin 3 MG TABLET PO SCH (20:02)
[2019-02-24] MEDS ORDERED: Insulin DETEMIR 100 UNIT/ML X5UNITS SQ SCH (21:00)
[2019-02-25] MEDS: Ipratropium/Albuterol Neb 3 ML IH SCH ×7 (00:29→23:32)
[2019-02-25] MEDS: ALPRAZolam 1 MG TABLET PO PRN ×2 (04:33→11:15)
[2019-02-25] MEDS: *HR* Heparin 5,000 UNIT/ML VIAL SQ SCH ×2 (04:34→17:49)
--- NOTE | 2019-02-25 05:21 | Event Note ---
Date of Encounter: 02/25/19 Time of Encounter: 04:52 Alerted by pts. nurse ABDIRAHMAN Gannon that the pts. Fecal Hemoccult was positive. Pt. has been having dark stools. Hgb 12.3 yesterday (02/24) at 06:06, up from 10.0 on 02/22. Will wait to see Hgb level from this morning's labs. Nurse instructed to continue monitoring pt. and output very closely an alert me immediately of any adverse changes.
[2019-02-25 07:31] LABS: Hemoglobin 12.8 g/dL (12.9-16.9); Mean Corpuscular HGB Conc 33.7 g/dL (31.6-35.5); Mean Corpuscular Hemoglobin 30.4 pg (28.0-33.3); Mean Corpuscular Volume 90.3 fL (83.0-100.0); Mean Platelet Volume 9.4 fL (9.4-12.4); Platelet Count 254 K/mcL (140-400); Red Blood Count 4.21 M/mcL (4.19-5.50); Red Cell Distribution Width 14.6 % (11.5-14.5)
[2019-02-25 07:52] LABS: BUN/Creatinine Ratio 27 (6-26); Blood Urea Nitrogen 28 mg/dL (6-20); Calcium 8.3 mg/dL (8.6-10.3); Carbon Dioxide 28 mEq/L (23-29); Chloride 97 mEq/L (98-107); Glucose 87 mg/dL (70-105); Osmolality,Calculated 283 (280-300); Potassium 3.4 mEq/L (3.5-5.1); Sodium 134 mEq/L (136-145); eGFR For Non-African Americans > 60 (> 60)
[2019-02-25] MEDS: Multivit/Ca/Min/Fe/FA 1 TAB TABLET PO SCH (08:32)
[2019-02-25] MEDS: Lactobacillus 1 EACH CAP.SPRINK PO SCH ×2 (08:32→21:37)
[2019-02-25] MEDS: Venlafaxine XR (24 HR) 150 MG CAP.ER.24H PO SCH (08:32)
[2019-02-25] MEDS: Gabapentin 300 MG CAPSULE PO SCH ×3 (08:33→21:40)
[2019-02-25] MEDS: Loratadine 10 MG TABLET PO SCH (08:33)
[2019-02-25] MEDS: Cholecalciferol (D-3) 1,000 UNIT TABLET PO SCH (08:33)
[2019-02-25] MEDS: predniSONE 20 MG TABLET PO SCH (08:33)
[2019-02-25] MEDS: Ranolazine 500 MG TAB.ER.12H PO SCH ×2 (08:33→21:39)
[2019-02-25] MEDS: Venlafaxine XR (24 HR) 37.5 MG CAP.ER.24H PO SCH (08:34)
[2019-02-25] MEDS: amLODIPine 5 MG TABLET PO SCH (08:34)
[2019-02-25] MEDS: (Omega-3/Dha/Epa/Fish Oil [Fish Oil 1,000 Mg Softgel] PO SCH (08:34)
[2019-02-25] MEDS: Insulin LISPRO 300 UNITS/3 ML VIAL SQ SCH ×4 (08:34→21:41)
[2019-02-25] MEDS ORDERED: Furosemide 40 MG/4 ML VIAL IVP SCH (09:00)
--- NOTE | 2019-02-25 09:04 | Cardiology Consult Note ---
Date of Encounter: 02/25/19 Time of Encounter: 10:00 Assessment and Plan (1) Congestive heart failure Current Visit: Yes Status: Acute -Patient has history of CHF. Takes 20 mg lasix as his home meds -Most recent echo showed LVEF of 55% with concentric left vetricular hypertrophy. it also showed mild concentric left ventricualr sysolic dysfunction. -Currently on 40 mg lasix . -Patient's radiographic studies were negative for any evidence of pulmonary vascular congestion - on physical exam maria elenatent had no pitting edema, no JVD or S3 sounds. - Strict Is/Os, daily weight checks, fluid restriction to less than 1.5 L/day Qualifiers: Heart failure type: unspecified Heart failure chronicity: acute Qualified Code(s): I50.9 - Heart failure, unspecified (2) CAD (coronary artery disease) Current Visit: No Status: Chronic -patient has a Hx of CAD - he is s/p LHC on 06/17/16 for his 2vessel disease with successful palcement of drug eluting stents - most recent LHC from 03/17/17 showed severe vessel CAD and optimal emdical therapy and risk factor modification was recommended. -patient currently is not on Statin and instead takes fish pil. - recommended 25mg coreg , Statin and ASA . - increased his lisinopril from 10 mg to 40 mg for better antihypertensive control. Qualifiers: Coronary Disease-Associated Artery/Lesion type: [place] artery [place] vs. transplanted heart: [place] heart Associated angina: without angina Qualified Code(s): I25.10 - Atherosclerotic heart disease of [place] coronary artery without angina pectoris Discussion w patient/family: The assessment and plan as outlined above was discussed with the patient and/or family members who expressed understanding and agreement. All questions were answered. Thank you for involving us in the care of your patient. Please call with any questions. History of Present Illness Consult date: 02/25/19 Chief complaint: congestive heart failure History of present illness: Mr. Gonzalez is a 53 year old male with past medical history of hypertension, CAD(s/p drug eluting stent in 07/01),CHF (on 20 mg Lasix) who presented to the ED with 4 days worsening cough and shortness of breath for the past 10 days. Patient had a elevated BNP at 327, negative troponins. Most recent echo showed an EF of 55% concerns for left ventricular systolic dysfunction which was unchanged from his past echo. EKG showed no evidence of any ST-T changes/ Heart strain/block, brugada, WPW, HOCM and LVH . Cardiology was consulted for management of his congestive heart failure. Past Med Surg Social Fam HX - Past Medical History Medical history: coronary artery disease, diabetes, hypertension Additional medical history: anemia, DDD Psychiatric history: anxiety, bipolar, depression, PTSD - Past Surgical History Surgical History: angioplasty/stent, cholecystectomy, other Additional surgical history: 1 cardiac stent, right tonsil removal-abcess - Social History Smoking Status: Former smoker Smokeless Tobacco Status: No Alcohol use: none Drug use: none - Family History Father Family Member Ethnicity: Non- Living Status: Hx Family Cardiac Disorders: Yes Hx Family Respiratory Disorders: No Hx Family Cancer: No Hx Family GI Disorders: No Hx Family Endocrine Disorder: Yes Hx Family Neuromuscular Disorders: No Hx Family Neurologic Disorders: Yes Hx Family HEENT Disorders: No Hx Family Autoimmune Disorders: Yes Mother Family Member Ethnicity: Non- Living Status: Hx Family Cardiac Disorders: No Hx Family Respiratory Disorders: Yes Hx Family Cancer: Yes Hx Family GI Disorders: No Hx Family Endocrine Disorder: Yes Hx Family Neuromuscular Disorders: No Hx Family Neurologic Disorders: Yes Hx Family HEENT Disorders: No Hx Family Autoimmune Disorders: Yes Medications and Allergies Alprazolam [Xanax] 1 mg PO QID PRN 04/29/16 [History] Insulin ASPART [Novolog Flexpen] 10 - 16 unit SQ TIDAC 04/29/16 [History] Mirtazapine [Remeron] 45 mg PO HS 04/29/16 [History] Insulin DETEMIR [Levemir Flextouch] 60 unit SQ HS 06/12/16 [History] Prazosin [Minipress] 5 mg PO HS 06/12/16 [History] Multivitamin with Minerals [One-A-Day Maximum Formula] 1 tab PO DAILY 04/04/17 [History] [place]-3/Dha/Epa/Fish Oil [Fish Oil 1,000 mg Softgel] 1,000 mg PO DAILY 04/04/17 [History] Ranolazine [Ranexa] 1,000 mg PO BID #60 tab.er.12h 04/06/17 [Rx] Tamsulosin [Flomax] 0.4 mg PO DAILY #30 04/27/17 [Rx] Cholecalciferol (D-3) [Vitamin D] 5,000 unit PO DAILY 10/18/17 [History] Fluticasone Propionate Nasal [Flonase] 1 spray NS BID 10/18/17 [History] Furosemide [Lasix] 20 mg PO DAILY 10/18/17 [History] Gabapentin [Neurontin] 300 mg PO TID 10/18/17 [History] Insulin DETEMIR [Levemir Flextouch] 50 unit SQ QAM 10/18/17 [History] Quetiapine Fumarate [Seroquel] 300 mg PO HS 10/18/17 [History] Pantoprazole Sodium [Protonix] 40 mg PO BID 01/07/18 [History] Carvedilol [Coreg] 25 mg PO BIDWM 12/09/18 [History] Haloperidol [Haldol] 5 mg PO HS 12/09/18 [History] Loratadine [Claritin] 10 mg PO DAILY 12/09/18 [History] Melatonin 15 mg PO HS 12/09/18 [History] Venlafaxine HCl [Venlafaxine HCl ER] 37.5 mg PO DAILY 12/09/18 [History] Venlafaxine HCl [Venlafaxine HCl ER] 150 mg PO DAILY 12/09/18 [History] Acetaminophen [Tylenol] 500 mg PO BID PRN 12/11/18 [History] Albuterol Sulfate [Albuterol Inhaler] 2 puff IH Q4H PRN 12/12/18 [History] Polyethylene Glycol 3350 [MiraLAX] 17 gm PO DAILY 12/12/18 [History] Azithromycin [Zithromax] 250 mg PO Q24H #2 tablet 12/13/18 [Rx] Budesonide/Formoterol 80/4.5 [Symbicort 80/4.5] 2 puff IH BIDR #1 inhaler 12/13/18 [Rx] Allergy/AdvReac Type Severity Reaction Status Date / Time codeine AdvReac Vomiting Verified 01/07/18 08:10 levofloxacin [From Levaquin] AdvReac See Verified 12/09/18 09:09 Comments All Systems Review: The remainder of the systems were reviewed and are negative - Constitutional Constitutional: no fever(s) - Cardiovascular Cardiovascular: no chest pain at rest, no leg edema - Respiratory Respiratory: no cough Physical Examination Vital Signs, Last 4 Hours Temp Pulse Resp BP Pulse Ox 02/25/19 08:53 148/98 02/25/19 06:43 98.1 F 97 16 180/118 94 Other: CONSTITUTIONAL: patient appears as an age appropriate male in no acute distress. RESPIRATORY: decreased breath sounds bilaterally, no wheezing or ronchi CARDIOVASCULAR: Regular heart rate, normal S1 and S2, no murmurs, GASTROINTESTINAL: bowel sounds present, soft, no tenderness. MUSCULOSKELETAL: Joints in normal range of motion, no clubbing, no edema, no cyanosis. no pedal edema NEUROLOGIC: CN II to XII are grossly intact, no focal neurological deficit. Results 02/25/19 07:12 02/25/19 07:12 Lab Results 02/25/19 02/25/19 07:12 07:12 WBC 13.6 H Hgb 12.8 L Hct 38.0 Plt Count 254 Sodium 134 L Potassium 3.4 L Chloride 97 L Carbon Dioxide 28 BUN 28 H Creatinine 1.02 Glucose 87 Calcium 8.3 L Consult Discharge Plan - Plan Referrals: Ethel Kim, SOCCER REFEREE [Primary Care Provider] -
[2019-02-25 09:11] LABS: Lymphocytes # 1.5 K/mcL (0.6-4.6); Monocytes # 0.8 K/mcL (0.0-1.3); Neutrophils # 10.7 K/mcL (1.6-8.9); Reactive Lymphocytes Present (Not Present)
[2019-02-25 09:12] LABS: Platelet Estimate Normal (Normal)
[2019-02-25] MEDS ORDERED: Isovue-370 500 ML BOTTLE IVP ONE (09:35)
--- NOTE | 2019-02-25 09:39 | Internal Med Progress Note ---
Hospitalist Progress Note - Encounter Date of Encounter: 02/25/19 Time of Encounter: 09:38 - Subjective Interval History: Feeling better in shortness of breath. on BiPAP till midnight. Oxygen by nasal cannula 3-4 L. Review of the lab-slight trending up white count, low potassium, low blood glucose level. Denies fever chills nausea vomiting headache dizziness chest pain . Patient had multiple loses stool with intermittent watery diarrhea since yesterday and also complained of abdominal pain. - Exam Vitals: Temp Pulse Resp BP Pulse Ox 98.1 F 97 16 148/98 94 02/25/19 06:43 02/25/19 06:43 02/25/19 06:43 02/25/19 08:53 02/25/19 06:43 Exam: General appearance: No acute distress. nasal cannula oxygen. It appeared tired Head exam: Atraumatic Eye exam: EOMI, PERRLA ENT exam: dry oral mucosa Neck nontender, supple Respiratory exam: Decreased breath sound bilaterally with slight crepts at right base. no wheezing Cardiovascular exam: mild tachycardia and regular rhythm, no systolic murmur Abdominal exam: Soft, mild diffuse tender, nondistended, positive bowel sounds Extremities exam: No calf tenderness, no pedal edema Present: Skin-no rash, warm, dry, intact Neurological exam: Alert, awake, oriented 3, CN II-XII intact, no focal deficits. No facial droop. - Assessment and Plan (1) Abdominal pain Current Visit: Yes Status: Acute Assessment and Plan: Diffuse. Associated with diarrhea. Concern for colitis. Patient has history of C. difficile in the past. CT abdomen with contrast ordered-no acute finding. Symptomatic management. Will consult GI if needed. Clear liquid diet and will advance as tolerated. Lipase within normal limit (2) Diarrhea Current Visit: Yes Status: Acute Assessment and Plan: Frequents episodes of loose motion with intermittent watery diarrhea. GI panel with EPEC positive, Hemoccult positive. Will consult ID specialist for further antibiotic recommendation to treat pneumonia in [facility] with diarrhea. Continue cultural. Hydration. (3) Acute respiratory failure with hypoxia Current Visit: Yes Status: Acute Assessment and Plan: Pt comes in with shortness of breath and wheezing with productive cough. Was hydrated in the Er and became more short of breath Etiology secondary to a combination of acute worsening of chronic diastolic CHF and bacterial/viral pneumonia Blood culture with no growth Sputum culture with no growth Urine culture with no growth respiratory panel-positive for human metapneumo virus Legionella and strep to be antigen negative nasa MRSA negative-stopped vancomycin Patient had loses stool in one episode of watery diarrhea therefore plan to de- escalate antibiotic. Stopped Zosyn and a started Rocephin. Continue oxygen supplementation. stopped IV steroid and a started prednisone 40 mg daily with tapering. Continue nebulizer. BiPAP as needed. Pulmonology onboard Patient used 2 L home oxygen. He may need outpatient sleep study (4) Acute exacerbation of chronic obstructive airways disease Current Visit: Yes Status: Acute Assessment and Plan: Complaings of coughing prdocutive of green phlegm , wheezing and shortnees of breath No established diagnosis of COPD. continue as above. May need follow-up with pulmonologists on OPD basis with the help of PCP May need 6 minute walk for oxygen requirement before discharge (5) Sepsis Current Visit: Yes Status: Acute Assessment and Plan: Likely secondary to bacterial and viral pneumonia. WBC was 15 and temp was 100.6. one lactate WNL He was also hypotensive. He was resuscitated aggressively fluid and went into CHf Suspected source of pneumonia confirmed by chest x-ray and right perihilar and right upper lobe opacification Patient was started on ceftriaxone and azithromycin while in the ER He was switched to vancomycin and Zosyn-please see above for antibiotic changes (6) Community acquired bacterial pneumonia Current Visit: Yes Status: Acute Assessment and Plan: Right-sided .As mentioned above. (7) Congestive heart failure Current Visit: Yes Status: Acute Assessment and Plan: h/o CAD s/p stent Initial troponin negative Acute worsening of chronic diastolic CHF Initially IV Lasix was restarted in patient is started to improve, continue strict I&O's, daily weight. Lasix on hold today due to fluid loss secondary to multiple episode of losing motion. Continue to monitor volume status, blood pr essure, creatinine level. Fluid restriction less than 1.5 L per day Last echo done in December 2017 with EF 55%. repeat echo- EV/EV echocardiogram w enhance Impressions: Technically sub-optimal due to poor echocardiographic windows. LVEF 55%. Mild concentric left ventricular hypertrophy. Mild segmental left ventricular systolic dysfunction. Atypical septal motion consistent with bundle branch block. Grossly normal right ventricular structure and function. Indeterminate diastolic function. No evidence of pulmonary hypertension. No significant valvular dysfunction. Left Ventricular Wall Motion: Rest Echo Findings The basal inferior lateral wall was hypokinetic. All other wall segments showed normal motion. will consult cardiology for optimal management of CHF and also concerning findings of hypokinetic basal inferior lateral wall questionable systolic CHF. He may need further cardiac workup such as a stress test inpatient versus outpatient (8) Acute kidney injury Current Visit: Yes Status: Acute Assessment and Plan: improved. Pt comes in with SANDEEP compared to baseline. Avoid nephrotoxic drug. Monitor BMP. (9) Hyponatremia Current Visit: Yes Status: Acute Assessment and Plan: Improved. Most likely dilutional. Diurese and monitor BMP (10) UTI (urinary tract infection) Current Visit: Yes Status: Acute Assessment and Plan: Urine analysis abnormal. Urine culture no growth (11) Diabetes mellitus Current Visit: Yes Status: Acute Assessment and Plan: A1c 8.2. low normal side BGL so decresed Lantus 20 units twice a day . change to low SSI from high sliding scale insulin . Diabetic diet. Accu-Chek with close monitoring. Further adjustment in insulin as required. (12) Goals of care, counseling/discussion Current Visit: Yes Status: Acute Assessment and Plan: Spent more than 35 minute inpatient care and coordination (13) DVT prophylaxis Current Visit: Yes Status: Acute Assessment and Plan: heparin sc - Time Spent with Patient Total time spent is greater than 50% in coordination of care (as documented) at patient's floor/unit and/or counseling patient: Greater than 35 minutes Plan of Care Discussed with: patient Internal Medicine: Result - Labs CBC & Chem 7: 02/25/19 07:12 02/25/19 07:12 Labs: Short CBC 02/25/19 Range/Units 07:12 WBC 13.6 H (4.3-11.1) K/mcL Hgb 12.8 L (12.9-16.9) g/dL Hct 38.0 (37.5-50.1) % Plt Count 254 (140-400) K/mcL Neutrophils # 10.7 H (1.6-8.9) K/mcL BMP 02/25/19 07:12 Sodium 134 L Potassium 3.4 L Chloride 97 L Carbon Dioxide 28 BUN 28 H Creatinine 1.02 Glucose 87 Calcium 8.3 L - ABG Interpretation ABG results: ABG ABG pH 7.33 pH Units (7.32-7.45) 02/22/19 05:07 ABG pCO2 49 mmHg (35-45) H 02/22/19 05:07 ABG pO2 86 mmHg (85-104) 02/22/19 05:07 ABG O2 Saturation 96 % (95-98) 02/22/19 05:07 - Impressions Impressions Echocardiogram 02/24/19 14:31 Impressions: Technically sub-optimal due to poor echocardiographic windows. LVEF 55%. Mild concentric left ventricular hypertrophy. Mild segmental left ventricular systolic dysfunction. Atypical septal motion consistent with bundle branch block. Grossly normal right ventricular structure and function. Indeterminate diastolic function. No evidence of pulmonary hypertension. No significant valvular dysfunction. Left Ventricular Wall Motion: Rest Echo Findings The basal inferior lateral wall was hypokinetic. All other wall segments showed normal motion. Findings: Study Quality * Technically sub-optimal due to poor echocardiographic windows. ECG Findings * Normal sinus rhythm, possible bundle branch block. Left Ventricle * LVEF 55%. * Normal LV chamber size. * Mild concentric left ventricular hypertrophy. * Mild segmental left ventricular systolic dysfunction. * Atypical septal motion consistent with bundle branch block. * Indeterminate diastolic function. Right Ventricle * Grossly normal right ventricular structure and function. Left Atrium * Mildly dilated left atrium. Right Atrium * Normal right atrial size. Aortic Valve * Trileaflet aortic valve. * Mildly sclerotic aortic valve leaflets. * No aortic regurgitation. * No aortic stenosis. Mitral Valve * Normal mitral valve structure and function. * No mitral stenosis. * Trace mitral regurgitation. Tricuspid Valve * Normal tricuspid valve structure and function. * Trace tricuspid regurgitation. * No evidence of pulmonary hypertension. Pulmonic Valve * Pulmonic valve is not well visualized. Aorta * Normally sized aortic root. Pericardium * The pericardium appears normal. IVC * The IVC is not well evaluated. Pulmonary Artery * Pulmonary artery not well visualized. Consult Discharge Plan - Plan Referrals: Ethel Kim, NET WEB DEVELOPER [Primary Care Provider] - __ (1) Abdominal pain Qualifiers: Abdominal location: generalized Qualified Code(s): R10.84 - Generalized abdominal pain (5) Sepsis Qualifiers: Sepsis type: sepsis due to unspecified organism Qualified Code(s): A41.9 - Sepsis, unspecified organism (7) Congestive heart failure Qualifiers: Heart failure type: unspecified Heart failure chronicity: acute Qualified Code(s): I50.9 - Heart failure, unspecified (10) UTI (urinary tract infection) Qualifiers: Urinary tract infection type: site unspecified Hematuria presence: without hematuria Qualified Code(s): N39.0 - Urinary tract infection, site not specified (11) Diabetes mellitus Qualifiers: Diabetes mellitus type: type 2 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
[2019-02-25] MEDS ORDERED: Lisinopril 20 MG TABLET PO SCH (09:45)
[2019-02-25] MEDS ORDERED: cloNIDine HCl 0.1 MG TABLET PO STA (10:46)
[2019-02-25] MEDS: Budesonide/Formoterol 160/4.5 1 PUFF INH IH SCH ×2 (11:05→20:41)
[2019-02-25 11:22] LABS: C.difficile Toxin A/B Gene PCR Not detected (Not detect); Campylobacter by PCR Not detected (Not detect); Plesiomonas shigelloides PCR Not detected (Not detect); Salmonella PCR Not detected (Not detect); Vibrio PCR Not detected (Not detect); Vibrio cholerae PCR Not detected (Not detect); Yersinia enterocolitica PCR Not detected (Not detect)
[2019-02-25 11:23] LABS: Adenovirus F 40/41 PCR Not detected (Not detect); Astrovirus PCR Not detected (Not detect); Cryptosporidium by PCR Not detected (Not detect); Cyclospora cayetanensis PCR Not detected (Not detect); E. coli O157 by PCR Not detected (Not detect); Entamoeba histolytica PCR Not detected (Not detect); Enteroaggregative E.coli(EAEC) Not detected (Not detect); Enteropathogenic E.coli(EPEC) DETECTED (Not detect); Enterotoxigenic E.coli (ETEC) Not detected (Not detect); Giardia lamblia PCR Not detected (Not detect); Norovirus GI/GII PCR Not detected (Not detect); Rotavirus A PCR Not detected (Not detect); Sapovirus PCR Not detected (Not detect); Shig/EnteroinvasiveE coli EIEC Not detected (Not detect); Shigalike tox-prod E coli STEC Not detected (Not detect)
--- NOTE | 2019-02-25 14:22 | Infectious Disease Consult ---
Infectious Disease-Consult - Encounter Date/Time Date of Encounter: 02/25/19 Time of Encounter: 14:11 - Data of Consult Patient: new to practice Reason for consult: "Antibiotic management in EPEC positive stool" Consult date: 02/25/19 Requesting Physician: James Lai Primary Care Provider: Ethel Kim CNP - HPI HPI: Patient is a 53-year-old gentleman who presented to [facility] emergency department on 02/21/2019 with cough, shortness of breath for 2 days prior to admission. We are consulted on 02/25/2019 for EPEC in the stool. Patient is a 53-year-old gentleman with past medical significant for diabetes mellitus type 2, coronary disease, hypertension, congestive heart failure and apparently has been complaining of cough and fevers of breath for about 4 days prior to admission patient has been easily fatigued and having dyspnea on exertion. Is also complaining of cough with green sputum production for about 4 days prior to admission. Patient was seen by his PCP and was started on azithr omycin but in reality it did not help. Patient came in to the emergency department for evaluation. Since admission, MAXIMUM TEMPERATURE 100.6, no tachycardia but positive tachypnea. Initially patient was hypotensive with a presenting WBC of 15.7 with 12% bandemia patient BUN/Cr 35/2.83. Glucose 502. Lactic acid 1.5. Urinalysis was positive and cultures were sent. Respiratory infectious panel was obtained and it was positive for hMPV. MRSA screen was obtained and was negative. Urine legionella and pneumococcal antigen were negative. Blood cultures 2/2 sets were negative. Sputum culture only revealed normal upper respiratory tract benjamin and urine culture was negative. Patient was initially started on vancomycin and Zosyn. Zosyn was stopped on 02/23/2019 and the vancomycin was stopped on 02/22/2019. Patient had stool PCR done which was positive for EPEC. We were asked to evaluate for make further recommendations. Currently patient laying in bed and appears comfortable he states he is back at baseline. He does have oxygen nasal cannula but he does use oxygen 2 L at home. Patient tells me he still has loose stool and he had 2 of them today. Patient denies any nausea or vomiting no abdominal pain. Denies any blood in the stool. No urinary symptoms. - ROS Review of Systems: 10 point review of systems done, negative other for what mentioned in the history of present illness - Results CBC & Chem 7: 02/25/19 07:12 02/25/19 07:12 - Exam Vitals: Temp Pulse Resp BP Pulse Ox 98.3 F 91 18 146/97 91 02/25/19 10:29 02/25/19 10:29 02/25/19 11:05 02/25/19 12:52 02/25/19 11:05 Exam: HEAD: Normocephalic atraumatic EYES: PERRLA, EOMI, no conjunctival hemorrhage, sclera anicteric ENT: Mucous membranes moist, no oral thrush NECK: Supple. No meningeal signs. No masses LUNGS: Chest expanding symmetrically. Lungs sounds audible both lung sotomayor. No wheezing, no rhonchi CV: RRR, S1S2, ABDOMEN: Soft, nontender, nondistended. Bowel sounds audible BACK: No CVA tenderness. Normal inspection. No tenderness over the spine EXTREMITY: Adequate perfusion. Diabetic foot ulcer on the ball of the left foot with no signs of infection. SKIN: Normal color. No rash. NEURO: Awake alert oriented 3. No obvious focal deficit PSYCH: Calm and appropriate. No agitation. Alprazolam [Xanax] 1 mg PO QID PRN 04/29/16 [History] Insulin ASPART [Novolog Flexpen] 10 - 16 unit SQ TIDAC 04/29/16 [History] Mirtazapine [Remeron] 45 mg PO HS 04/29/16 [History] Insulin DETEMIR [Levemir Flextouch] 60 unit SQ HS 06/12/16 [History] Prazosin [Minipress] 5 mg PO HS 06/12/16 [History] Multivitamin with Minerals [One-A-Day Maximum Formula] 1 tab PO DAILY 04/04/17 [History] Gazelle-3/Dha/Epa/Fish Oil [Fish Oil 1,000 mg Softgel] 1,000 mg PO DAILY 04/04/17 [History] Ranolazine [Ranexa] 1,000 mg PO BID #60 tab.er.12h 04/06/17 [Rx] Tamsulosin [Flomax] 0.4 mg PO DAILY #30 04/27/17 [Rx] Cholecalciferol (D-3) [Vitamin D] 5,000 unit PO DAILY 10/18/17 [History] Fluticasone Propionate Nasal [Flonase] 1 spray NS BID 10/18/17 [History] Furosemide [Lasix] 20 mg PO DAILY 10/18/17 [History] Gabapentin [Neurontin] 300 mg PO TID 10/18/17 [History] Insulin DETEMIR [Levemir Flextouch] 50 unit SQ QAM 10/18/17 [History] Quetiapine Fumarate [Seroquel] 300 mg PO HS 10/18/17 [History] Pantoprazole Sodium [Protonix] 40 mg PO BID 01/07/18 [History] Carvedilol [Coreg] 25 mg PO BIDWM 12/09/18 [History] Haloperidol [Haldol] 5 mg PO HS 12/09/18 [History] Loratadine [Claritin] 10 mg PO DAILY 12/09/18 [History] Melatonin 15 mg PO HS 12/09/18 [History] Venlafaxine HCl [Venlafaxine HCl ER] 37.5 mg PO DAILY 12/09/18 [History] Venlafaxine HCl [Venlafaxine HCl ER] 150 mg PO DAILY 12/09/18 [History] Acetaminophen [Tylenol] 500 mg PO BID PRN 12/11/18 [History] Albuterol Sulfate [Albuterol Inhaler] 2 puff IH Q4H PRN 12/12/18 [History] Polyethylene Glycol 3350 [MiraLAX] 17 gm PO DAILY 12/12/18 [History] Azithromycin [Zithromax] 250 mg PO Q24H #2 tablet 12/13/18 [Rx] Budesonide/Formoterol 80/4.5 [Symbicort 80/4.5] 2 puff IH BIDR #1 inhaler 12/13/18 [Rx] Allergy/AdvReac Type Severity Reaction Status Date / Time codeine AdvReac Vomiting Verified 01/07/18 08:10 levofloxacin [From Levaquin] AdvReac See Verified 12/09/18 09:09 Comments - Assessment and Plan (1) Severe sepsis Current Visit: Yes Status: Acute On admission likely secondary to viral pneumonia Improved SNOMED Code(s): 63896972 (2) Viral pneumonia Current Visit: Yes Status: Acute Had SIRS criteria and severe sepsis on admission that has really been resolved Causative organism Human Metapneumovirus Urine legionella and pneumococcal antigen negative Sputum culture with no pathogen only upper respiratory benjamin Chest x-ray reveals right perihilar and right upper lobe opacification which could represent atelectasis or pneumonia I believe this is viral pneumonia no antibiotics necessary at this point continue with symptomatic treatment nebulizer, home O2, steroids. 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 Patient had ruptured right upper extremity tendon from levofloxacin SNOMED Code(s): 449511200858197 Past Med Surg Social Fam HX - Past Medical History Medical history: coronary artery disease, diabetes, hypertension Additional medical history: anemia, DDD Psychiatric history: anxiety, bipolar, depression, PTSD - Past Surgical History Surgical History: angioplasty/stent, cholecystectomy, other Additional surgical history: 1 cardiac stent, right tonsil removal-abcess - Social History Smoking Status: Former smoker Smokeless Tobacco Status: No Alcohol use: none Drug use: none - Family History Father Family Member Ethnicity: Non- Living Status: Hx Family Cardiac Disorders: Yes Hx Family Respiratory Disorders: No Hx Family Cancer: No Hx Family GI Disorders: No Hx Family Endocrine Disorder: Yes Hx Family Neuromuscular Disorders: No Hx Family Neurologic Disorders: Yes Hx Family HEENT Disorders: No Hx Family Autoimmune Disorders: Yes Mother Family Member Ethnicity: Non- Living Status: Hx Family Cardiac Disorders: No Hx Family Respiratory Disorders: Yes Hx Family Cancer: Yes Hx Family GI Disorders: No Hx Family Endocrine Disorder: Yes Hx Family Neuromuscular Disorders: No Hx Family Neurologic Disorders: Yes Hx Family HEENT Disorders: No Hx Family Autoimmune Disorders: Yes Consult Discharge Plan - Plan Referrals: Ethel Kim, ENVIRONMENTAL ENGINEERING PROFESSOR [Primary Care Provider] -
[2019-02-25] MEDS: Lisinopril 20 MG TABLET PO SCH (14:40)
[2019-02-25] MEDS: Mirtazapine 15 MG TABLET PO SCH (21:36)
[2019-02-25] MEDS: Melatonin 3 MG TABLET PO SCH (21:37)
[2019-02-25] MEDS: Insulin DETEMIR 100 UNIT/ML X5UNITS SQ SCH (21:41)
[2019-02-25] MEDS: Pantoprazole 40 MG VIAL IVP SCH (21:42)
[2019-02-25] MEDS: *HR* Promethazine 25 MG/ML VIAL IVP PRN (22:26)
[2019-02-26] MEDS: ALPRAZolam 1 MG TABLET PO PRN ×2 (02:42→12:52)
[2019-02-26] MEDS: Ipratropium/Albuterol Neb 3 ML IH SCH ×5 (04:16→20:15)
[2019-02-26] MEDS: *HR* Heparin 5,000 UNIT/ML VIAL SQ SCH ×2 (05:19→18:00)
[2019-02-26 06:24] LABS: Hematocrit 38.1 % (37.5-50.1); Hemoglobin 12.9 g/dL (12.9-16.9); Mean Corpuscular HGB Conc 33.9 g/dL (31.6-35.5); Mean Corpuscular Volume 88.6 fL (83.0-100.0); Mean Platelet Volume 9.6 fL (9.4-12.4); Platelet Count 257 K/mcL (140-400); Red Cell Distribution Width 13.8 % (11.5-14.5)
[2019-02-26 06:42] LABS: BUN/Creatinine Ratio 24 (6-26); Blood Urea Nitrogen 26 mg/dL (6-20); Calcium 8.6 mg/dL (8.6-10.3); Carbon Dioxide 27 mEq/L (23-29); Chloride 93 mEq/L (98-107); Glucose 147 mg/dL (70-105); Osmolality,Calculated 275 (280-300); Potassium 3.6 mEq/L (3.5-5.1); Sodium 129 mEq/L (136-145); eGFR For Non-African Americans > 60 (> 60)
[2019-02-26 06:57] LABS: Monocytes # 1.8 K/mcL (0.0-1.3); Neutrophils # 9.2 K/mcL (1.6-8.9); Platelet Estimate Normal (Normal)
[2019-02-26] MEDS: Venlafaxine XR (24 HR) 37.5 MG CAP.ER.24H PO SCH (08:48)
[2019-02-26] MEDS: Ranolazine 500 MG TAB.ER.12H PO SCH ×2 (08:48→19:55)
[2019-02-26] MEDS: Lactobacillus 1 EACH CAP.SPRINK PO SCH ×2 (08:48→19:54)
[2019-02-26] MEDS: Cholecalciferol (D-3) 1,000 UNIT TABLET PO SCH (08:48)
[2019-02-26] MEDS: Multivit/Ca/Min/Fe/FA 1 TAB TABLET PO SCH (08:48)
[2019-02-26] MEDS: Gabapentin 300 MG CAPSULE PO SCH ×3 (08:48→19:54)
[2019-02-26] MEDS: Venlafaxine XR (24 HR) 150 MG CAP.ER.24H PO SCH (08:49)
[2019-02-26] MEDS: Lisinopril 20 MG TABLET PO SCH (08:49)
[2019-02-26] MEDS: predniSONE 20 MG TABLET PO SCH (08:52)
[2019-02-26] MEDS: amLODIPine 5 MG TABLET PO SCH (08:52)
[2019-02-26] MEDS: Insulin DETEMIR 100 UNIT/ML X5UNITS SQ SCH ×2 (08:52→21:35)
[2019-02-26] MEDS: *HR* Promethazine 25 MG/ML VIAL IVP PRN (08:52)
[2019-02-26] MEDS: Pantoprazole 40 MG VIAL IVP SCH ×2 (08:52→19:55)
[2019-02-26] MEDS: Loratadine 10 MG TABLET PO SCH (08:53)
[2019-02-26] MEDS: (Omega-3/Dha/Epa/Fish Oil [Fish Oil 1,000 Mg Softgel] PO SCH (08:53)
[2019-02-26] MEDS: Insulin LISPRO 300 UNITS/3 ML VIAL SQ SCH ×4 (08:53→21:35)
[2019-02-26] MEDS ORDERED: Lisinopril 20 MG TABLET PO SCH (09:00)
--- NOTE | 2019-02-26 09:46 | Cardiology Progress Note ---
Date of Encounter: 02/26/19 Time of Encounter: 09:00 Assessment and Plan (1) CAD (coronary artery disease) Current Visit: No Status: Chronic -patient has a Hx of CAD - he is s/p LHC on 06/17/16 for his 2vessel disease with successful palcement of drug eluting stents - most recent LHC from 03/17/17 showed severe vessel CAD and optimal emdical therapy and risk factor modification was recommended. -patient currently is not on Statin and instead takes fish pil. - recommended 25mg coreg , Statin and ASA . Continue on Ranexa . PLAN - increased his lisinopril from 10 mg to 40 mg, reduced his Coreg from 50 to 25 BID, added Aldactone PO 25 mg for better antihypertensive control. Qualifiers: Coronary Disease-Associated Artery/Lesion type: [place] artery [place] vs. transplanted heart: [place] heart Associated angina: without angina Qualified Code(s): I25.10 - Atherosclerotic heart disease of [place] coronary artery without angina pectoris (2) Congestive heart failure Current Visit: Yes Status: Acute -Patient has history of CHF. Takes 20 mg lasix as his home meds -Most recent echo showed LVEF of 55% with concentric left vetricular hypertrophy. it also showed mild concentric left ventricualr sysolic dysfunction. -Currently on 40 mg lasix . -Patient's radiographic studies were negative for any evidence of pulmonary vascular congestion - on physical exam paitent had no pitting edema, no JVD or S3 sounds. - Strict Is/Os, daily weight checks, fluid restriction to less than 1.5 L/day -added aldactone 25 PO Qualifiers: Heart failure type: unspecified Heart failure chronicity: acute Qualified Code(s): I50.9 - Heart failure, unspecified (3) Hypertension Current Visit: No Status: Chronic - Patient has a history of hypertension. -His BP has been high during the admission with systolics of as high as 180s in the last 12 hrs. - Yesterday we bumped his lisinopril from 10 to 40 mg PO. - Added aldactone 25mg PO, reduced his Coreg from 50 to 25 BID. - will get renal duplex to rule out secondary HTN -Continue to monitor. Qualifiers: Hypertension type: essential hypertension Qualified Code(s): I10 - Essential (primary) hypertension Discussion w patient/family: The assessment and plan as outlined above was discussed with the patient and/or family members who expressed understanding and agreement. All questions were answered. Thank you for involving us in the care of your patient. Please call with any questions. Subjective Principal diagnosis: Dyspnea Interval history: No acute events overnight. Patient continues to be on 40 Lasix for CHF. His blood pressure still seems to be high spite being on the lisinopril which was increased from 10-40 mg yesterday. Patient endorses no worsening cough, shortness of breath, orthopnea or PND. Objective Vital Signs, Last 4 Hours Temp Pulse Resp BP 02/26/19 06:51 97.6 F 99 19 152/110 Other: ONSTITUTIONAL: patient appears as an age appropriate male in no acute distress. RESPIRATORY: decreased breath sounds bilaterally, no wheezing or ronchi CARDIOVASCULAR: Regular heart rate, normal S1 and S2, no murmurs, GASTROINTESTINAL: bowel sounds present, soft, no tenderness. MUSCULOSKELETAL: Joints in normal range of motion, no clubbing, no edema, no cyanosis NEUROLOGIC: CN II to XII are grossly intact, no focal neurological deficit. Results 02/26/19 06:15 02/26/19 06:15 Lab Results 02/25/19 02/26/19 02/26/19 10:07 06:15 06:15 WBC 14.8 H Hgb 12.9 Hct 38.1 Plt Count 257 Sodium 129 L Potassium 3.6 Chloride 93 L Carbon Dioxide 27 BUN 26 H Creatinine 1.09 Glucose 147 H Calcium 8.6 Lipase 27 Consult Discharge Plan - Plan Referrals: Ethel Kim CNP [Primary Care Provider] -
--- NOTE | 2019-02-26 11:13 | Infectious Disease Progress No ---
ID Progress Note Date of Encounter: 02/26/19 Time of Encounter: 09:55 - Subjective Subjective: Patient seen and examined. No acute events noted overnight. Patient states overall he does not feel very well today. Reports of chest pain and shortness of breath. Denies cough or congestion. Denies earache or sore throat. Denies headache or neck pain. Reports some nausea and states he was unable to breakfast this morning. Denies vomiting. 4-5 loose stools per day. Denies a bdominal pain. Wells catheter remains patent. Denies pain in his back, joints, or extremities. Denies oral thrush or skin lesions. - Objective CBC & Chem 7: 02/27/19 05:03 02/27/19 05:03 - Line Documentation Line Documentation: Wells Catheter (Draining clear yellow urine.) - Exam Vitals: Temp Pulse Resp BP Pulse Ox 97.6 F 108 19 169/112 96 02/26/19 06:51 02/26/19 10:01 02/26/19 10:01 02/26/19 10:01 02/26/19 04:24 Exam: Head: Atraumatic, normal inspection, normocephalic. Eye: EOMI, PERRLA, no scleral icterus noted. ENT: Mucous membranes moist. No odontogenic infection noted. Neck: Normal inspection, no meningismus. Respiratory: Scattered rhonchi throughout. No rales, respiratory distress, or wheezes noted. Cardiovascular: Regular rate and rhythm, S1 and S2 audible. No murmurs, rubs, or gallops. GI: Soft, nondistended, normal bowel sounds. Wells catheter is patent. Extremities: No joint swelling, pedal edema, or tenderness noted. Back: Normal inspection. No vertebral tenderness noted. Neurological: Alert, oriented 3, no focal deficits. Psychiatric: normal affect, normal mood. Skin: Dry, intact, warm. Normal color. No rashes. - Assessment and Plan (1) Severe sepsis Status: Acute The patient had 3 sepsis criteria on admission. Likely secondary to viral pneumonia and diarrhea. Improved. White blood cell count improved initially, but backed up over the past couple of days-likely secondary to steroids. Tachypnea and tachycardia resolved. Blood cultures drawn 02/21/19 are no growth to date 2 sets. SNOMED Code(s): 92856831 (2) Viral pneumonia Status: Acute Causative organism: Human many Pneumovirus. Location: Right perihilar and right upper lobe. Strep pneumococcal and legionella urinary antigens were negative. MRSA screen was negative. Sputum culture interpreted as normal upper respiratory tract benjamin. Antibiotics were discontinued. SNOMED Code(s): 52503959 (3) Diarrhea Status: Acute GI panel positive for EPEC. C. diff negative. No gross blood in the stool, but FOBT positive. No severe abdominal pain. CT of the abdomen and pelvis was negative. Based on guidelines no antibiotics needed at this time. Might benefit from probiotics. Qualifiers: Diarrhea type: infectious Qualified Code(s): A09 - Infectious gastroenteritis and colitis, unspecified SNOMED Code(s): 45434832 (4) Drug allergy, antibiotic Status: Acute No true allergies. Patient had ruptured right upper extremity tendon from levofloxacin. 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 Supportive care for viral PNA and diarrhea per the primary team. Continue to observe off antibiotics. Probiotics daily. No further recommendations from the ID team. We will sign off. Please re-consult if needed. Consult Discharge Plan - Plan Instructions: Spironolactone (By mouth), Lisinopril (By mouth), Chronic Obstructive Pulmonary Disease (DC), Sepsis (DC), Pneumonia (DC) Additional Instructions: Please follow-up with your PCP within one week. Please resume your home medications. Please take your blood pressure medications as directed on your medication list. Please wear oxygen as directed. Please return for any worsening symptoms. Referrals: Ethel Kim CNP [Primary Care Provider] - 03/06/19 10:35 am (1 week) Prescriptions: Spironolactone [Aldactone] 25 mg PO DAILY #30 tablet Lisinopril [Zestril] 40 mg PO DAILY #30 tab - Attending Attestation I have personally performed a face to face evaluation on this patient. I have reviewed and agree with the care plan. History and Exam by me shows: Assessment and plan: Severe sepsis Viral pneumonia secondary to Human metapneumovirus Diarrhea improving secondary to EPEC REcommendations: Await blood cultures to finalize. Supportive care for viral PNA and diarrhea per the primary team. Continue to observe off antibiotics. Probiotics daily. No further recommendations from the ID team. We will sign off. Please re-consult if needed.
[2019-02-26] MEDS: Budesonide/Formoterol 160/4.5 1 PUFF INH IH SCH ×2 (11:41→20:15)
[2019-02-26] MEDS: Spironolactone 25 MG TABLET PO SCH (12:24)
--- NOTE | 2019-02-26 16:55 | Internal Med Progress Note ---
Hospitalist Progress Note - Encounter Date of Encounter: 02/26/19 Time of Encounter: 16:53 - Subjective Interval History: Patient seen and examined at bedside. Patient reports nausea. He also reports multiple loose stools. He states his breathing has improved and his shortness of breath is much better. He still reports occasional mild cough. - Exam Vitals: Temp Pulse Resp BP Pulse Ox 98.2 F 111 17 130/98 95 02/26/19 15:29 02/26/19 15:29 02/26/19 15:39 02/26/19 15:29 02/26/19 15:39 Exam: Heart: Regular rate and rhythm, no murmurs, rubs, gallops Lungs: Mildly diminished bibasilar, no rales, rhonchi, wheezes Abdomen: Soft, nontender, hyperactive bowel sounds. - Assessment and Plan (1) Sepsis Current Visit: Yes Status: Acute Assessment and Plan: Secondary to viral pneumonia. White count slightly elevated today but this is likely due to steroid use, clinically patient appears improving. Continue supportive treatment. (2) Viral pneumonia Current Visit: Yes Status: Acute Assessment and Plan: Patient has viral pneumonia secondary to Human metapneumovirus. ID has been consulted and recommended avoiding antibiotics at this time and supportive care. Overall patient appears to be improved. Continue supportive care. (3) Acute exacerbation of chronic obstructive airways disease Current Visit: Yes Status: Acute Assessment and Plan: Likely secondary to viral pneumonia. Continue prednisone 40 mg daily as well as scheduled bronchodilators.. (4) Enterotoxigenic Escherichia coli infection Current Visit: Yes Status: Acute Assessment and Plan: Patient has had multiple bowel movements with stool PCR positive enterotoxigenic Escherichia coli. C. difficile negative. Per ID recommendations will use supportive care only and no antibiotics at this time. (5) Congestive heart failure Current Visit: Yes Status: Acute Assessment and Plan: Clinically patient appears mildly fluid overloaded. Appreciate cardiology recommendations. Restart Lasix 40 mg by mouth. (6) Acute kidney injury Current Visit: Yes Status: Resolved Assessment and Plan: Likely due to dehydration. Resolved at this time. Continue to monitor renal function daily. (7) Acute respiratory failure with hypoxia Current Visit: Yes Status: Acute Assessment and Plan: Acute on chronic respiratory failure with hypoxia as patient uses 2 L at baseline, requiring 3.5 at this time, we will continue to wean down as tolerated to maintain oxygen saturation greater than 88%. (8) Hyponatremia Current Visit: Yes Status: Acute Assessment and Plan: Sodium slightly worse today 129. Asymptomatic. May be related to volume loss in the setting of diarrhea. Check urinary sodium and urine osmolality (9) UTI (urinary tract infection) Current Visit: Yes Status: Ruled-out Assessment and Plan: Urine culture negative, doubt true UTI. (10) Diabetes mellitus Current Visit: Yes Status: Acute Assessment and Plan: Blood sugars under good control. Continue Levemir and sliding scale insulin. Continue to monitor blood sugars. (11) DVT prophylaxis Current Visit: Yes Status: Acute Assessment and Plan: Heparin 5000 units subcutaneous twice a day. - Time Spent with Patient Total time spent is greater than 50% in coordination of care (as documented) at patient's floor/unit and/or counseling patient: Internal Medicine: Result - Labs CBC & Chem 7: 02/26/19 06:15 02/26/19 06:15 Labs: Short CBC 02/26/19 Range/Units 06:15 WBC 14.8 H (4.3-11.1) K/mcL Hgb 12.9 (12.9-16.9) g/dL Hct 38.1 (37.5-50.1) % Plt Count 257 (140-400) K/mcL Neutrophils # 9.2 H (1.6-8.9) K/mcL BMP 02/26/19 06:15 Sodium 129 L Potassium 3.6 Chloride 93 L Carbon Dioxide 27 BUN 26 H Creatinine 1.09 Glucose 147 H Calcium 8.6 - ABG Interpretation ABG results: ABG ABG pH 7.33 pH Units (7.32-7.45) 02/22/19 05:07 ABG pCO2 49 mmHg (35-45) H 02/22/19 05:07 ABG pO2 86 mmHg (85-104) 02/22/19 05:07 ABG O2 Saturation 96 % (95-98) 02/22/19 05:07 Consult Discharge Plan - Plan Referrals: Ethel Kim, SKI MAKER [Primary Care Provider] - (1) Sepsis Qualifiers: Sepsis type: sepsis due to unspecified organism Qualified Code(s): A41.9 - Sepsis, unspecified organism (5) Congestive heart failure Qualifiers: Heart failure type: diastolic Heart failure chronicity: acute Qualified Code(s): I50.31 - Acute diastolic (congestive) heart failure (9) UTI (urinary tract infection) Qualifiers: Urinary tract infection type: site unspecified Hematuria presence: without hematuria Qualified Code(s): N39.0 - Urinary tract infection, site not specified (10) Diabetes mellitus Qualifiers: Diabetes mellitus type: type 2 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
[2019-02-26] MEDS: Melatonin 3 MG TABLET PO SCH (19:54)
[2019-02-26] MEDS: Mirtazapine 15 MG TABLET PO SCH (19:55)
[2019-02-27] MEDS: Ipratropium/Albuterol Neb 3 ML IH SCH ×4 (00:19→11:01)
[2019-02-27] MEDS: ALPRAZolam 1 MG TABLET PO PRN ×2 (03:15→10:11)
[2019-02-27] MEDS: *HR* Promethazine 25 MG/ML VIAL IVP PRN (03:15)
[2019-02-27] MEDS: *HR* Heparin 5,000 UNIT/ML VIAL SQ SCH (05:33)
[2019-02-27] MEDS ORDERED: Acetaminophen IV 500 MG/50 ML INFUS..BTL IVPB ONE (05:47)
[2019-02-27 06:01] LABS: Hematocrit 35.4 % (37.5-50.1); Hemoglobin 12.1 g/dL (12.9-16.9); Lymphocytes # 1.8 K/mcL (0.6-4.6); Mean Corpuscular HGB Conc 34.2 g/dL (31.6-35.5); Mean Corpuscular Hemoglobin 30.4 pg (28.0-33.3); Mean Corpuscular Volume 88.9 fL (83.0-100.0); Mean Platelet Volume 9.6 fL (9.4-12.4); Platelet Count 268 K/mcL (140-400); Red Blood Count 3.98 M/mcL (4.19-5.50); Red Cell Distribution Width 13.8 % (11.5-14.5)
[2019-02-27 06:22] LABS: BUN/Creatinine Ratio 23 (6-26); Blood Urea Nitrogen 23 mg/dL (6-20); Calcium 8.8 mg/dL (8.6-10.3); Carbon Dioxide 29 mEq/L (23-29); Chloride 95 mEq/L (98-107); Glucose 87 mg/dL (70-105); Osmolality,Calculated 277 (280-300); Potassium 3.4 mEq/L (3.5-5.1); Sodium 132 mEq/L (136-145); eGFR For Non-African Americans > 60 (> 60)
[2019-02-27 06:32] LABS: Eosinophils # 0.3 K/mcL (0.0-0.6); Monocytes # 0.3 K/mcL (0.0-1.3); Neutrophils # 9.6 K/mcL (1.6-8.9)
[2019-02-27 06:59] VITALS: BP 144/96
[2019-02-27] MEDS: Insulin LISPRO 300 UNITS/3 ML VIAL SQ SCH (07:33)
--- NOTE | 2019-02-27 08:20 | Cardiology Progress Note ---
Date of Encounter: 02/27/19 Assessment and Plan (1) CAD (coronary artery disease) Current Visit: No Status: Chronic -patient has a Hx of CAD - he is s/p LHC on 06/17/16 for his 2vessel disease with successful palcement of drug eluting stents - most recent LHC from 03/17/17 showed severe vessel CAD and optimal emdical therapy and risk factor modification was recommended. -patient currently is not on Statin and instead takes fish pil. - recommended 25mg coreg , Statin and ASA . Continue on Ranexa . PLAN - increased his lisinopril from 10 mg to 40 mg, reduced his Coreg from 50 to 25 BID, added Aldactone PO 25 mg for better antihypertensive control. Qualifiers: Coronary Disease-Associated Artery/Lesion type: [place] artery [place] vs. transplanted heart: [place] heart Associated angina: without angina Qualified Code(s): I25.10 - Atherosclerotic heart disease of [place] coronary artery without angina pectoris (2) Congestive heart failure Current Visit: Yes Status: Acute -Patient has history of CHF. Takes 20 mg lasix as his home meds -Most recent echo showed LVEF of 55% with concentric left vetricular hypertrophy. it also showed mild concentric left ventricualr sysolic dysfunction. -Currently on 40 mg lasix . -Patient's radiographic studies were negative for any evidence of pulmonary vascular congestion - on physical exam paitent had no pitting edema, no JVD or S3 sounds. - Strict Is/Os, daily weight checks, fluid restriction to less than 1.5 L/day -added aldactone 25 PO Qualifiers: Heart failure type: diastolic Heart failure chronicity: acute Qualified Code(s): I50.31 - Acute diastolic (congestive) heart failure (3) Hypertension Current Visit: No Status: Chronic - Patient has a history of hypertension. -His BP has been high during the admission with systolics of as high as 180s in the last 12 hrs. - Yesterday we bumped his lisinopril from 10 to 40 mg PO. - Added aldactone 25mg PO, reduced his Coreg from 50 to 25 BID. - will get renal duplex to rule out secondary HTN -Continue to monitor. Qualifiers: Hypertension type: essential hypertension Qualified Code(s): I10 - Essential (primary) hypertension Discussion w patient/family: The assessment and plan as outlined above was discussed with the patient and/or family members who expressed understanding and agreement. All questions were answered. Thank you for involving us in the care of your patient. Please call with any questions. Subjective Principal diagnosis: Dyspnea Interval history: No acute events overnight. Patient continues to be on 40 Lasix for CHF. His blood pressure still seems to be high spite being on the lisinopril which was increased from 10-40 mg yesterday. Patient endorses no worsening cough, shortness of breath, orthopnea or PND. Objective Vital Signs, Last 4 Hours Temp Pulse Resp BP Pulse Ox 02/27/19 06:51 98.2 F 83 16 144/96 96 Results 02/27/19 05:03 02/27/19 05:03 Lab Results 02/27/19 02/27/19 05:03 05:03 WBC 12.9 H Hgb 12.1 L Hct 35.4 L Plt Count 268 Sodium 132 L Potassium 3.4 L Chloride 95 L Carbon Dioxide 29 BUN 23 H Creatinine 1.02 Glucose 87 Calcium 8.8 Consult Discharge Plan - Plan Referrals: Ethel Kim DECORATOR MANNEQUIN [Primary Care Provider] -
[2019-02-27] MEDS ORDERED: Furosemide 40 MG TABLET PO SCH (09:00)
--- NOTE | 2019-02-27 09:08 | Discharge Summary ---
Orders not resulted at time of discharge: Pending orders 02/26/19 10:48 Renal artery ultrasound [EV renal artery image] Routine Date of Encounter: 02/27/19 Time of Encounter: 09:01 - Discharge Diagnosis (1) Sepsis Priority: Primary Status: Resolved Qualifiers: Sepsis type: sepsis due to unspecified organism Qualified Code(s): A41.9 - Sepsis, unspecified organism (2) Viral pneumonia Priority: Primary Status: Acute (3) Acute exacerbation of chronic obstructive airways disease Priority: Secondary Status: Acute (4) Enterotoxigenic Escherichia coli infection Priority: Secondary Status: Acute (5) Congestive heart failure Priority: Secondary Status: Resolved Qualifiers: Heart failure type: diastolic Heart failure chronicity: acute Qualified Code(s): I50.31 - Acute diastolic (congestive) heart failure (6) Acute kidney injury Priority: Secondary Status: Resolved (7) Acute respiratory failure with hypoxia Priority: Secondary Status: Resolved (8) Hyponatremia Priority: Secondary Status: Acute (9) UTI (urinary tract infection) Priority: Secondary Status: Ruled-out Qualifiers: Urinary tract infection type: site unspecified Hematuria presence: without hematuria Qualified Code(s): N39.0 - Urinary tract infection, site not specified (10) Diabetes mellitus Priority: Secondary Status: Acute Qualifiers: Diabetes mellitus type: type 2 Diabetes mellitus [facility] insulin use: with computer terminal operator use Diabetes mellitus complication status: with unspecified complications Qualified Code(s): E11.8 - Type 2 diabetes mellitus with unspecified complications; Z79.4 - terminal carman (current) use of insulin Hospital course: Mr. Gonzalez is a 53 year old male with history of hypertension, coronary disease, type 2 diabetes presented with shortness of breath and cough. On respiratory infection panel he was found to have humidity virus. He is also noted to have diarrhea with stool PCR positive for enteropathogenic Escherichia coli. Infectious disease was consulted and recommended recommended supportive therapy and no antibiotics for these. Patient was also treated for COPD exacerbation with steroids and bronchodilators. He was evaluated by cardiology who uptitrated his blood pressure medications. At the time of discharge patient states he felt much better and was asking to go home. Patient will be discharged home in stable condition. Discharge discussed with: patient - Time Spent with Patient Total time spent providing and/or coordinating discharge services: Time spent: Greater than 30 minutes (40) - Discharge Medications Prescriptions: New Spironolactone [Aldactone] 25 mg PO DAILY #30 tablet Lisinopril [Zestril] 40 mg PO DAILY #30 tab Continued Mirtazapine [Remeron] 45 mg PO HS Insulin ASPART [Novolog Flexpen] 10 - 16 unit SQ TIDAC Alprazolam [Xanax] 1 mg PO QID PRN PRN Reason: Anxiety Prazosin [Minipress] 5 mg PO HS Insulin DETEMIR [Levemir Flextouch] 60 unit SQ HS [place]-3/Dha/Epa/Fish Oil [Fish Oil 1,000 mg Softgel] 1,000 mg PO DAILY Multivitamin with Minerals [One-A-Day Maximum Formula] 1 tab PO DAILY Ranolazine [Ranexa] 1,000 mg PO BID #60 tab.er.12h Tamsulosin [Flomax] 0.4 mg PO DAILY #30 Insulin DETEMIR [Levemir Flextouch] 50 unit SQ QAM Quetiapine Fumarate [Seroquel] 300 mg PO HS Cholecalciferol (D-3) [Vitamin D] 5,000 unit PO DAILY Fluticasone Propionate Nasal [Flonase] 1 spray NS BID Gabapentin [Neurontin] 300 mg PO TID Pantoprazole Sodium [Protonix] 40 mg PO BID Venlafaxine HCl [Venlafaxine HCl ER] 37.5 mg PO DAILY Venlafaxine HCl [Venlafaxine HCl ER] 150 mg PO DAILY Melatonin 15 mg PO HS Loratadine [Claritin] 10 mg PO DAILY Haloperidol [Haldol] 5 mg PO HS Carvedilol [Coreg] 25 mg PO BIDWM Acetaminophen [Tylenol] 500 mg PO BID PRN PRN Reason: Pain Of [place] Access Albuterol Sulfate [Albuterol Inhaler] 2 puff IH Q4H PRN PRN Reason: Shortness Of Breath/Wheezing Polyethylene Glycol 3350 [MiraLAX] 17 gm PO DAILY Budesonide/Formoterol 80/4.5 [Symbicort 80/4.5] 2 puff IH BIDR #1 inhaler Changed Furosemide [Lasix] 40 mg PO DAILY #0 Discontinued Azithromycin [Zithromax] 250 mg PO Q24H #2 tablet Home Medications: Alprazolam [Xanax] 1 mg PO QID PRN 04/29/16 [History] Insulin ASPART [Novolog Flexpen] 10 - 16 unit SQ TIDAC 04/29/16 [History] Mirtazapine [Remeron] 45 mg PO HS 04/29/16 [History] Insulin DETEMIR [Levemir Flextouch] 60 unit SQ HS 06/12/16 [History] Prazosin [Minipress] 5 mg PO HS 06/12/16 [History] Multivitamin with Minerals [One-A-Day Maximum Formula] 1 tab PO DAILY 04/04/17 [History] [place]-3/Dha/Epa/Fish Oil [Fish Oil 1,000 mg Softgel] 1,000 mg PO DAILY 04/04/17 [History] Ranolazine [Ranexa] 1,000 mg PO BID #60 tab.er.12h 04/06/17 [Rx] Tamsulosin [Flomax] 0.4 mg PO DAILY #30 04/27/17 [Rx] Cholecalciferol (D-3) [Vitamin D] 5,000 unit PO DAILY 10/18/17 [History] Fluticasone Propionate Nasal [Flonase] 1 spray NS BID 10/18/17 [History] Gabapentin [Neurontin] 300 mg PO TID 10/18/17 [History] Insulin DETEMIR [Levemir Flextouch] 50 unit SQ QAM 10/18/17 [History] Quetiapine Fumarate [Seroquel] 300 mg PO HS 10/18/17 [History] Pantoprazole Sodium [Protonix] 40 mg PO BID 01/07/18 [History] Carvedilol [Coreg] 25 mg PO BIDWM 12/09/18 [History] Haloperidol [Haldol] 5 mg PO HS 12/09/18 [History] Loratadine [Claritin] 10 mg PO DAILY 12/09/18 [History] Melatonin 15 mg PO HS 12/09/18 [History] Venlafaxine HCl [Venlafaxine HCl ER] 37.5 mg PO DAILY 12/09/18 [History] Venlafaxine HCl [Venlafaxine HCl ER] 150 mg PO DAILY 12/09/18 [History] Acetaminophen [Tylenol] 500 mg PO BID PRN 12/11/18 [History] Albuterol Sulfate [Albuterol Inhaler] 2 puff IH Q4H PRN 12/12/18 [History] Polyethylene Glycol 3350 [MiraLAX] 17 gm PO DAILY 12/12/18 [History] Budesonide/Formoterol 80/4.5 [Symbicort 80/4.5] 2 puff IH BIDR #1 inhaler 12/13/18 [Rx] Furosemide [Lasix] 40 mg PO DAILY #0 02/27/19 [Rx] Lisinopril [Zestril] 40 mg PO DAILY #30 tab 02/27/19 [Rx] Spironolactone [Aldactone] 25 mg PO DAILY #30 tablet 02/27/19 [Rx] Allergies/Adverse Reactions: Allergy/AdvReac Type Severity Reaction Status Date / Time codeine AdvReac Vomiting Verified 01/07/18 08:10 levofloxacin [From Levaquin] AdvReac See Verified 12/09/18 09:09 Comments Date of admission: 02/21/19 19:10 Primary care physician: Ethel Kim CNP Consults: 02/21/19 11:23 Consult to Pulmonology [CONS] Routine Consulting Provider: [facility] [place] Reason for Consult: hypoxic respiratory failure with hypotension Call Completed: No 02/22/19 06:17 Consult to Nutrition [CONS] Routine Comment: Poor Appetite , lost 10LBS recently Consulting Provider: NUTRITION Reason for Dietary Consult: MST Score Consult to Pastoral Services [CONS] Routine Comment: 02/25/19 12:09 Consult to Infectious Diseases [CONS] Routine Consulting Provider: Infectious Disease [place] Reason for Consult: abx management in EPEC positive stool Call Completed: Yes Discharging clinician: Jono Smyth Anticipated date of discharge: 02/27/19 - Constitutional Vitals: Temp Pulse Resp BP Pulse Ox 98.2 F 83 16 144/96 96 02/27/19 06:51 02/27/19 06:51 02/27/19 06:51 02/27/19 06:51 02/27/19 06:51 General appearance: Present: A&O X 3, pleasant, no acute distress Exam: . - Respiratory Respiratory exam: Present: CTAB. Absent: rales, rhonchi, wheezes - Cardiovascular Cardiovascular exam: Present: RRR. Absent: gallop, rubs, systolic murmur - GI/Abdominal GI/Abdominal exam: Present: normal bowel sounds, soft. Absent: distended, tenderness - Patient Status Disposition: Home, Self-Care Condition: Fair Functional capacity at discharge: independent ambulation Overall status at discharge: patient is progressing back to baseline - Discharge Instructions Follow Up With: Ethel Kim CNP [Primary Care Provider] - (1 week) Additional Instructions: Please follow-up with your PCP within one week. Please resume your home medications. Please take your blood pressure medications as directed on your medication list. Please wear oxygen as directed. Please return for any worsening symptoms. - Diet and Activity Activity: wear oxygen at all times Diet: diabetic diet
[2019-02-27] MEDS: Gabapentin 300 MG CAPSULE PO SCH (10:01)
[2019-02-27] MEDS: Lactobacillus 1 EACH CAP.SPRINK PO SCH (10:02)
[2019-02-27] MEDS: Spironolactone 25 MG TABLET PO SCH (10:02)
[2019-02-27] MEDS: Venlafaxine XR (24 HR) 150 MG CAP.ER.24H PO SCH (10:02)
[2019-02-27] MEDS: Lisinopril 20 MG TABLET PO SCH (10:02)
[2019-02-27] MEDS: Ranolazine 500 MG TAB.ER.12H PO SCH (10:02)
[2019-02-27] MEDS: Multivit/Ca/Min/Fe/FA 1 TAB TABLET PO SCH (10:02)
[2019-02-27] MEDS: Venlafaxine XR (24 HR) 37.5 MG CAP.ER.24H PO SCH (10:02)
[2019-02-27] MEDS: predniSONE 20 MG TABLET PO SCH (10:02)
[2019-02-27] MEDS: Cholecalciferol (D-3) 1,000 UNIT TABLET PO SCH (10:02)
[2019-02-27] MEDS: Insulin DETEMIR 100 UNIT/ML X5UNITS SQ SCH (10:03)
[2019-02-27] MEDS: amLODIPine 5 MG TABLET PO SCH (10:03)
[2019-02-27] MEDS: Pantoprazole 40 MG VIAL IVP SCH (10:03)
[2019-02-27] MEDS: Loratadine 10 MG TABLET PO SCH (10:03)
[2019-02-27] MEDS: (Omega-3/Dha/Epa/Fish Oil [Fish Oil 1,000 Mg Softgel] PO SCH (10:04)
[2019-02-27] MEDS: Budesonide/Formoterol 160/4.5 1 PUFF INH IH SCH (11:00)
== END 2019-02-27 14:20 | disposition home or self-care (01) | DRG 871 ==
LOC: EMEROOARM 08:30 → 2NENU 08:30 → SUATTDRO 19:10 → 2NENU 19:12
PROVIDERS: ADMIT Student in an Organized Health Care Education/Training Program; ATTEND Internal Medicine